=== PATIENT | female | born 1945 | race Caucasian/White ===

== ENCOUNTER 2017-09-20 00:08 | Emergency (ER) | payer MEDICARE, BC, SELFPAY ==
[2017-09-20 00:10] VITALS: BP 127/80; PULSE 92; RESP 17; TEMP 36.4; O2SAT 96; BMI 25.0
[2017-09-20] MEDS: Ondansetron 4 MG/2 ML Vial IV (01:06)
[2017-09-20] MEDS: 0.9% Normal Saline 1,000 ML 1000 ML IV (01:06)
[2017-09-20] MEDS: Loperamide 2 MG Capsule 4 MG PO (01:06)
[2017-09-20 01:11] LABS: Absolute Lymphocyte Count 0.82 X10^3/ul (0.83-4.51); Absolute Neutrophil Count 6.8 X10^3/uL (2.0-7.7); Basophil# 0.04 X10^3/uL; Basophil% 0.5 % (0-1); Eosinophil# 0.01 X10^3/uL; Eosinophils% 0.1 % (0-5); Hematocrit 39.8 % (37-47); Hemoglobin 12.9 g/dl (12.0-15.0); Lymphocyte # 0.82 X10^3/ul (4.0); Lymphocyte % 10.2 % (19-41); Mean Corp Hgb Conc 32.4 g/gl (32-36); Mean Corpuscular Hgb 28.6 pg (27.0-32.0); Mean Corpuscular Volume 88.2 fL (81-99); Mean Platelet Vol. 10.3 fl (6.2-12.0); Monocyte# 0.38 X10^3/uL; Monocyte% 4.7 % (0-10); Neutrophil % 84.5 % (47-70); POSITIVE COUNT NO; POSITIVE DIFFERENTIAL NO; POSITIVE MORPHOLOGY NO; Platelet Count 220 K/mm3 (150-450); RBC Distribution Width CV 13.4 % (11.6-14.6); RBC Distribution Width SD 42.9 fl (35.1-43.9); Red Blood Count 4.51 M/mm3 (4.2-5.4); White Blood Count 8.1 K/mm3 (4.4-11.0)
[2017-09-20 01:24] LABS: Anion Gap 7 (5-15); BUN 6 mg/dL (7-18); BUN/Creat Ratio 8.7 RATIO (10-20); Calcium,Total 8.4 mg/dL (8.5-10.1); Chloride 101 mmol/L (98-107); Creatinine, Serum 0.69 mg/dL (0.55-1.02); EST Glomerular Filtration Rate 89 mL/min (>60); Est Glom Filt Rate - Afr Amer 108 mL/min (>60); Estimated Creatinine Clearance 46.43 ml/min; Glucose 118 mg/dL (74-106); Potassium 3.4 mmol/L (3.5-5.1); Sodium Level 136 mmol/L (136-145)
[2017-09-20 01:30] LABS: Color, Urine Yellow (Yellow); Glucose, Dipstick Normal (Normal); Leukocyte Esterase-Dipstick Negative /ul (Negative); Nitrite-Dipstick Negative (Negative); Occult Blood-Urine 150 /ul (Negative); Protein-Dipstick 30 mg/dl (Negative); Urine Bilirubin Dipstick Negative (Negative); Urine Clarity Clear (Clear); Urine Urobilinogen Normal (Normal)
[2017-09-20 01:33] LABS: Ketone-Dipstick 150 mg/dl (Negative)
--- NOTE | 2017-09-20 01:34 | ED.RN ---
lab called with critical lab results. urine ketones 150. Dr. Loomis made aware. no new orders at this time
[2017-09-20 01:38] LABS: Bacteria RARE /hpf (None Seen); Mucous, Urine 2+ /hpf (<or=2+); Red Blood Cells-Urine 5-10 SEEN /hpf (0-5); Squamous Epithelial Cells - UA 0-5 SEEN /hpf (5-10); White Blood Cells 0-5 SEEN /hpf (0-5)
[2017-09-20 02:50] VITALS: BP 164/92; PULSE 99; RESP 18; O2SAT 97
--- NOTE | 2017-09-20 03:11 | ED.DCSUM_ITS ---
- ER Visit Summary Date of Service: 09/20/17 Chief Complaint: [Vomiting, and diarrhea] History of Present Illness: The patient is a 71 F [presents the emergency department with complaint of vomiting and diarrhea that started around noon. Patient states that she is vomited more than 10 times and has had more than 10 watery stools. Patient complains of body aches. Patient complains of headache. She also states that she has had a cough and sore throat for about a week. Patient's had low-grade fever at home up to 100.8. Patient states that she ate a salad earlier today and about an hour later is when she started vomiting. Patient's also ate the salad but he did not get sick. Patient denies recent travel. Patient denies recent antibiotic usage.] Physical Examination: [HEENT-PERRLA, EOMI. Cranial nerves II through XII grossly intact. TMs clear. Mucous membranes dry. No adenopathy. Cardiovascular-regular rate and rhythm without murmur or ectopy Lungs-clear to auscultation, chest wall stable without crepitus or subcu emphysema Abdomen-normoactive bowel sounds, soft, nontender, no rebound or rigidity, no peritoneal signs. Extremities-intact ?4, normal range of motion, normal pulses, atraumatic] Test Results: [CBC with differential showed a white count of 8.1, hemoglobin 12.9, hematocrit 40, platelets 220. Chemistry showed a sodium 136 potassium 3.4 , chloride 101, CO2 28, glucose 118, BUN 6, creatinine 0.69. Urinalysis showed 150 ketones otherwise no signs of infection.] Stool cultures for enteric pathogens ordered however patient unable to give a sample Emergency Department Course and Treatment: [Patient received a liter normal same fluid bolus as well as Zofran and Imodium. Patient felt much improved after treatment.] Treatment Plan: [Patient will be given a prescription for Zofran and advised use Imodium as needed for the diarrhea.] Disposition: [Discharged to home in stable condition] Impression: [Viral gastroenteritis Viral syndrome] This note was generated with [employer] software. It may contain incorrect words, spelling, and punctuation that were not noted in review of the chart prior to signing ED Disposition - Plan for ED Patient: Chief Complaint: Nausea/Vomiting/Diarrhea Referrals: Adriel Carney Chi, MD [Primary Care Provider] -
--- NOTE | 2017-09-20 03:11 | ED.DEP ---
ED Disposition - Plan for ED Patient: Chief Complaint: Nausea/Vomiting/Diarrhea Instructions: ED Gastroenteritis Viral Prescriptions: Ondansetron [Zofran Odt] 4 mg PO Q8H PRN PRN #10 tab PRN Reason: Nausea Referrals: Adriel Carney Chi, MD [Primary Care Provider] - 3-5 Days
[2017-09-20] MEDS: Acetaminophen 325 MG Tablet 650 MG PO (03:14)
[2017-09-20] MEDS: Ondansetron ODT 4 MG Tablet PO (03:16)
[2017-09-20 03:21] VITALS: BP 160/90; PULSE 90; RESP 18; O2SAT 98
== END 2017-09-20 03:21 | disposition home or self-care (01) ==
LOC: ED 00:47
PROVIDERS: Emergency Provider Emergency Medicine; Family Provider Family Medicine Geriatric Medicine; PCP Family Medicine Geriatric Medicine
DX: A08.4 Viral intestinal infection, unspecified (principal); B34.9 Viral infection, unspecified; E11.9 Type 2 diabetes mellitus without complications; I10 Essential (primary) hypertension
CPT/HCPCS: 80048; 81001; 85025; 99285; J2405

== ENCOUNTER 2017-09-20 19:06 | Emergency (ER) | payer MEDICARE, BC, SELFPAY ==
--- NOTE | 2017-09-20 21:51 | EKG12_ITS ---
Test Reason : CP Blood Pressure : / mmHG Vent. Rate : 067 BPM Atrial Rate : 067 BPM P-R Int : 132 ms QRS Dur : 084 ms QT Int : 398 ms P-R-T Axes : 055 025 055 degrees QTc Int : 420 ms Normal sinus rhythm Nonspecific ST abnormality Abnormal ECG Confirmed by LATANYA SOLER, MAISHA ([id number]), brands editor MISTI RAYMOND ([id number]) on 09/24/2017 3:07:29 PM Referred By: ROBBIE Confirmed By:MAISHA PELAEZ MD
--- NOTE | 2017-09-20 22:20 | CT_ITS ---
CT Head or Brain W/O Contrast INDICATION: Frontal HILLS/COUGH. HTN-rx controlled. Prev neck fusion COMPARISON: None TECHNIQUE: Noncontrast axial CT examination of the brain. Radiation dose optimization applied. FINDINGS: The ventricular system is normal in size and symmetric. The cortical sulci, sylvian fissures, and basal cisterns are well seen. The lowery-white matter junction is distinct. There is no evidence of acute intracranial hemorrhage, mass effect, midline shift, or abnormal extra-axial collection. The calvarium is intact. There is mild mucosal thickening throughout the paranasal sinuses. No evidence of layering effusion. Mastoid air cells are clear. CT/Brain/Head without Contrast IMPRESSION: No evidence of acute intracranial abnormality by noncontrast CT. Mucosal thickening in the paranasal sinuses. at 2343 Reported and signed by: Kimmy Samaniego MD Electronically Signed: Kimmy Samaniego MD at 23:41 EDT Tel , Service support ,
--- NOTE | 2017-09-20 22:47 | RAD_ITS ---
XR Chest 2 Views INDICATION: cough COMPARISON: None FINDINGS: Heart size and pulmonary vascularity are within normal limits. The lungs are clear without evidence of airspace consolidation or pleural effusion. Surgical hardware noted at the cervical spine and left clavicle. RAD/Chest PA and Lateral IMPRESSION: No radiographic evidence of acute intrathoracic disease. at 0003 Reported and signed by: Kimmy Samaniego MD Electronically Signed: Kimmy Samaniego MD at 0:01 EDT Tel , Service support ,
[2017-09-20 23:21] LABS: Bacteria 0 SEEN /hpf (None Seen); Mucous, Urine 0 SEEN /hpf (<or=2+); Red Blood Cells-Urine 0 SEEN /hpf (0-5); Squamous Epithelial Cells - UA 0 SEEN /hpf (5-10); White Blood Cells 0 SEEN /hpf (0-5)
[2017-09-20 23:27] LABS: Color, Urine Straw (Yellow); Glucose, Dipstick Normal (Normal); Ketone-Dipstick 15 mg/dl (Negative); Urine Bilirubin Dipstick Negative (Negative); Urine Clarity Clear (Clear)
[2017-09-20 23:28] LABS: Leukocyte Esterase-Dipstick Negative /ul (Negative); Nitrite-Dipstick NEGATIVE (Negative); Occult Blood-Urine 50 /ul (Negative); Protein-Dipstick Negative (Negative); Urine Urobilinogen Normal (Normal)
[2017-09-21 01:19] LABS: Hematocrit 40.7 % (37-47); Hemoglobin 12.8 g/dl (12.0-15.0); Mean Corp Hgb Conc 31.4 g/gl (32-36); Mean Corpuscular Hgb 28.1 pg (27.0-32.0); Mean Corpuscular Volume 89.5 fL (81-99); Red Blood Count 4.55 M/mm3 (4.2-5.4); White Blood Count 6.5 K/mm3 (4.4-11.0)
[2017-09-21 01:20] LABS: Absolute Lymphocyte Count 0.69 X10^3/ul (0.83-4.51); Absolute Neutrophil Count 5.3 X10^3/uL (2.0-7.7); Basophil# 0.04 X10^3/uL; Basophil% 0.6 % (0-1); Eosinophil# 0.01 X10^3/uL; Eosinophils% 0.2 % (0-5); Lymphocyte # 0.69 X10^3/ul (4.0); Lymphocyte % 10.7 % (19-41); Monocyte# 0.47 X10^3/uL; Monocyte% 7.3 % (0-10); Neutrophil # 5.25 X10^3/uL (2.7-7.7); POSITIVE COUNT NO; POSITIVE DIFFERENTIAL NO; POSITIVE MORPHOLOGY NO; Platelet Count 220 K/mm3 (150-450); RBC Distribution Width CV 13.5 % (11.6-14.6); RBC Distribution Width SD 44.1 fl (35.1-43.9)
[2017-09-21 01:21] LABS: Mean Platelet Vol. 10.7 fl (6.2-12.0)
[2017-09-21 01:30] LABS: Anion Gap 8 (5-15); BUN 5 mg/dL (7-18); BUN/Creat Ratio 7.2 RATIO (10-20); Calcium,Total 8.5 mg/dL (8.5-10.1); Chloride 101 mmol/L (98-107); Creatinine, Serum 0.69 mg/dL (0.55-1.02); EST Glomerular Filtration Rate 89 mL/min (>60); Est Glom Filt Rate - Afr Amer 108 mL/min (>60); Glucose 121 mg/dL (74-106); Potassium 3.3 mmol/L (3.5-5.1); Sodium Level 137 mmol/L (136-145)
--- NOTE | 2017-09-21 02:19 | ED.VISSUMM ---
- ER Visit Summary Date of Service: 09/21/17 Chief Complaint: Multiple complaints History of Present Illness: The patient is a 71 F presents with initial sore throat 5 days ago, gradually improving. However's states 2 days ago began vomiting. States every time she has p.o. intake she would vomit. No hematemesis. Diarrhea also started 2 days however stopped yesterday. No recent antibiotics. Today's complains of headache posterior. States pain into her neck. The fever 102 today. No recent travel in the last 4 weeks. States chest pain along with productive sputum. No urinary symptoms. States a loop recorder placed 4 days ago after her sore throat symptoms performed by Dr. Mota at [facility]. Similar symptoms with headaches in the past, however states more intense. Physical Examination: General: Alert and oriented ?3, mild distress HEENT: Normocephalic, atraumatic. TMs normal bilaterally. mild dry mucosa membranes Neck: supple, nontender. No meningismus Cardiovascular: Regular rate and rhythm, no murmurs Respiratory: Normal breath sounds, symmetric, no distress Abdomen: Soft, nontender, nondistended Extremities: Nontender, no edema, pulses intact ?4 Neuro: no focal neurological deficits. Test Results: EKG sinus rhythm 67, no ST or T-wave changes. Artifacts at baseline. To be chest x-ray negative. CT head negative. White count 6.5. Hemoglobin 12. Test 3.3. Creatinine 0.68. Urine negative for infection. Troponin negative. Emergency Department Course and Treatment: Patient no focal neurologic deficits. She was treated with comes in Benadryl and fluids. Head CT negative. She was monitored. States all her symptoms of headache, nausea, chest pains all were much more improved. She does feel she is able to go home. Discussed with patient monitoring symptoms. She does have Zofran at home. She will use as needed. She will return if any worsening symptoms. Treatment Plan: Disposition: Discharge Impression: 1. Atypical chest pain 2. Vomiting stable 3. Headache This note was generated with [employer] dictation software. It may contain incorrect words, spelling, and punctuation that were not noted in review of the chart prior to signing ED Disposition - Plan for ED Patient: Disposition: Home or Assisted Living Diagnosis: Atypical chest pain, Vomiting, Headache Referrals: Adriel Carney Chi, MD [Primary Care Provider] -
== END 2017-09-21 00:50 | disposition home or self-care (01) ==
PROVIDERS: Family Provider Family Medicine Geriatric Medicine; PCP Family Medicine Geriatric Medicine
DX: R07.89 Other chest pain (principal); R11.10 Vomiting, unspecified; R51 Headache; I10 Essential (primary) hypertension; R05 Cough
CPT/HCPCS: 70450; 71046; 80048; 81001; 84484; 85025; 93005; 96361; 96374; 96375; 99285; J7030; A4216; J2405

== ENCOUNTER → 2017-09-27 13:29 | Outpatient (CLI) | payer MEDICARE, BC, SELFPAY | PROVIDERS: Family Provider Family Medicine Geriatric Medicine; PCP Family Medicine Geriatric Medicine; Visit Provider Family Medicine Geriatric Medicine | DX: R50.9 Fever, unspecified (principal) | CPT/HCPCS: 87633 ==

== ENCOUNTER → 2017-10-07 15:50 | Outpatient (CLI) | payer MEDICARE, BC, SELFPAY ==
--- NOTE | 2017-10-07 16:00 | RAD_ITS ---
STUDY: X-RAY CHEST REASON FOR EXAM: Female, 71 years old. Shortness of breath TECHNIQUE: PA and lateral views of the chest. COMPARISON: 09/20/2017 FINDINGS: A cardiac monitoring device projects over the chest. The lungs are clear and expanded. There is no demonstrated pleural abnormality. Normal size heart. Normal mediastinum and kong. Normal visualized pulmonary arteries. Normal visualized aortic arch and descending thoracic aorta. Normal visualized thoracic spine. Postoperative changes are seen to the left clavicle and lower cervical spine. There is no demonstrated abnormality of the visualized soft tissue structures of the upper abdomen. RAD/Chest PA and Lateral IMPRESSION: No acute process in the chest. Electronically Signed: Lavon Hannon DO at 16:02 EDT Tel , Service support ,
[2017-10-07 17:05] LABS: Basophil# 0.03 X10^3/uL; Basophil% 0.3 % (0-1); Eosinophil# 0.13 X10^3/uL; Eosinophils% 1.4 % (0-5); Hematocrit 41.7 % (37-47); Hemoglobin 13.4 g/dl (12.0-15.0); Lymphocyte % 33.2 % (19-41); Mean Corp Hgb Conc 32.1 g/gl (32-36); Mean Corpuscular Hgb 28.9 pg (27.0-32.0); Mean Corpuscular Volume 89.9 fL (81-99); Mean Platelet Vol. 11.4 fl (6.2-12.0); Monocyte# 0.88 X10^3/uL; Monocyte% 9.7 % (0-10); Neutrophil # 4.98 X10^3/uL (2.7-7.7); Neutrophil % 55.2 % (47-70); Platelet Count 375 K/mm3 (150-450); RBC Distribution Width CV 14.2 % (11.6-14.6); RBC Distribution Width SD 45.9 fl (35.1-43.9); Red Blood Count 4.64 M/mm3 (4.2-5.4)
[2017-10-07 17:08] LABS: ALB/GLOB Ratio 1.1 RATIO (0.9-2.4); AST(SGOT) 16 U/L (15-37); Alanine Aminotransfer ALT/SGPT 13 U/L (13-56); Albumin, Serum 3.5 g/dL (3.2-5.0); Alkaline Phosphatase 109 U/L (45-117); Anion Gap 8 (5-15); BUN 15 mg/dL (7-18); BUN/Creat Ratio 18.4 RATIO (10-20); Chloride 106 mmol/L (98-107); Creatinine, Serum 0.82 mg/dL (0.55-1.02); EST Glomerular Filtration Rate 73 mL/min (>60); Est Glom Filt Rate - Afr Amer 89 mL/min (>60); Globulin 3.3 g/dL (2.2-4.2); Glucose 101 mg/dL (74-106); Potassium 3.8 mmol/L (3.5-5.1); Protein, Total 6.8 g/dL (6.4-8.2); Sodium Level 142 mmol/L (136-145); Thyroid Stim Hormone (TSH) 0.77 uIU/mL (0.358-3.74)
[2017-10-07 17:13] LABS: POSITIVE COUNT NO; POSITIVE DIFFERENTIAL NO; POSITIVE MORPHOLOGY NO
== END ==
LOC: POLAB3 15:51 → RAD 15:57
PROVIDERS: Family Provider Family Medicine Geriatric Medicine; PCP Family Medicine Geriatric Medicine; Visit Provider Family Medicine Geriatric Medicine
DX: R53.83 Other fatigue (principal); R06.89 Other abnormalities of breathing
CPT/HCPCS: 36415; 71046; 80053; 84443; 85025

== ENCOUNTER → 2018-01-02 11:47 | Outpatient (CLI) | payer MEDICARE, BC, SELFPAY ==
--- NOTE | 2018-01-02 11:50 | BI_ITS ---
MAMMOGRAPHY - BILATERAL SCREENING REASON FOR EXAM: Female, 72 years old. Routine annual screening examination. PERTINENT HISTORY: Non-contributory. Remote right excisional breast biopsy. TECHNIQUE: Digital bilateral breast laverne (3D mammographic acquisition) in the CC and MLO projections. 2-D mediolateral oblique (MLO) and craniocaudad (CC) views of both breasts were obtained. CAD: Full Field Digital Mammography with Computer Added Detection was performed. COMPARISON: Comparison is made with prior study dated January 01, 2017 and December 30, 2015. FINDINGS: Breast Composition: The breasts are heterogeneously dense, which may obscure small masses. There are no dominant masses or suspicious calcifications. A cardiac monitoring device is seen in the deep mid medial aspect of the left breast. No other significant abnormalities are identified. There has been no significant change since the prior study. BI/SCREENING MAMM (CAD), BILAT IMPRESSION: Stable bilateral screening mammogram. Yearly follow-up mammogram recommended. (A) ASSESSMENT CATEGORY: BIRADS Category 2: Benign. A letter regarding these results will be sent to the patient by the facility within 30 days. Approximately 10% of breast cancers are not detected by mammography. A normal mammogram should not delay biopsy of a clinically suspicious abnormality. [id number] Electronically Signed: Geraldo Carranza MD at 14:12 EDT Tel [phone], Service support ,
== END ==
PROVIDERS: Family Provider Family Medicine Geriatric Medicine; PCP Family Medicine Geriatric Medicine; Visit Provider Family Medicine Geriatric Medicine
DX: Z12.31 Encounter for screening mammogram for malignant neoplasm of breast (principal)
CPT/HCPCS: 77063; 77067

== ENCOUNTER → 2018-01-20 12:17 | Outpatient (CLI) | payer MEDICARE, BC, SELFPAY ==
[2018-01-20 16:01] LABS: Absolute Neutrophil Count 4.6 X10^3/uL (2.0-7.7); Basophil# 0.03 X10^3/uL; Basophil% 0.4 % (0-1); Eosinophil# 0.18 X10^3/uL; Eosinophils% 2.4 % (0-5); Hematocrit 38.8 % (37-47); Hemoglobin 12.3 g/dl (12.0-15.0); Lymphocyte % 26.8 % (19-41); Mean Corp Hgb Conc 31.7 g/gl (32-36); Mean Corpuscular Volume 91.5 fL (81-99); Mean Platelet Vol. 10.9 fl (6.2-12.0); Monocyte# 0.65 X10^3/uL; Monocyte% 8.7 % (0-10); Neutrophil # 4.59 X10^3/uL (2.7-7.7); Neutrophil % 61.6 % (47-70); Platelet Count 363 K/mm3 (150-450); RBC Distribution Width CV 14.7 % (11.6-14.6); RBC Distribution Width SD 48.2 fl (35.1-43.9); Red Blood Count 4.24 M/mm3 (4.2-5.4); White Blood Count 7.5 K/mm3 (4.4-11.0)
[2018-01-20 16:04] LABS: POSITIVE COUNT NO; POSITIVE DIFFERENTIAL NO; POSITIVE MORPHOLOGY NO
[2018-01-20 16:36] LABS: Erythrocyte Sedimentation Rate 14 mm/hr (0-30)
[2018-01-20 19:28] LABS: AST(SGOT) 17 U/L (15-37); Alanine Aminotransfer ALT/SGPT 12 U/L (13-56); Albumin, Serum 3.4 g/dL (3.2-5.0); Alkaline Phosphatase 95 U/L (45-117); Anion Gap 12 (5-15); BUN 10 mg/dL (7-18); Calcium,Total 8.6 mg/dL (8.5-10.1); Chloride 109 mmol/L (98-107); Creatinine, Serum 0.77 mg/dL (0.55-1.02); EST Glomerular Filtration Rate 78 mL/min (>60); Est Glom Filt Rate - Afr Amer 94 mL/min (>60); Follicle Stimulating Hormone 44.2 mIU/mL; Globulin 3.3 g/dL (2.2-4.2); Glucose 80 mg/dL (74-106); LDH 223 U/L (84-246); Luteinizing Hormone 16.4 mIU/mL; Potassium 3.6 mmol/L (3.5-5.1); Protein, Total 6.7 g/dL (6.4-8.2); Sodium Level 147 mmol/L (136-145); T4 Free Direct 1.04 ng/dL (0.76-1.46); Thyroid Stim Hormone (TSH) 0.81 uIU/mL (0.358-3.74)
[2018-01-24 13:39] LABS: Estrogen, Total, Serum 43 pg/mL (.)
== END ==
PROVIDERS: Family Provider Family Medicine Geriatric Medicine; PCP Family Medicine Geriatric Medicine; Visit Provider Internal Medicine Endocrinology, Diabetes & Metabolism
DX: R61 Generalized hyperhidrosis (principal); Z20.1 Contact with and (suspected) exposure to tuberculosis
CPT/HCPCS: 36415; 80053; 82672; 83001; 83002; 83520; 83615; 84439; 84443; 85025; 85652

== ENCOUNTER → 2018-01-22 13:50 | Outpatient (CLI) | payer MEDICARE, BC, SELFPAY ==
[2018-01-22 14:09] LABS: Absolute Lymphocyte Count 1.89 X10^3/ul (0.83-4.51); Absolute Neutrophil Count 6.4 X10^3/uL (2.0-7.7); Basophil# 0.04 X10^3/uL; Basophil% 0.4 % (0-1); Eosinophil# 0.11 X10^3/uL; Eosinophils% 1.2 % (0-5); Hematocrit 41.6 % (37-47); Hemoglobin 13.1 g/dl (12.0-15.0); Lymphocyte # 1.89 X10^3/ul (4.0); Lymphocyte % 20.9 % (19-41); Mean Corp Hgb Conc 31.5 g/gl (32-36); Mean Corpuscular Hgb 28.2 pg (27.0-32.0); Mean Corpuscular Volume 89.7 fL (81-99); Mean Platelet Vol. 10.4 fl (6.2-12.0); Monocyte# 0.65 X10^3/uL; Monocyte% 7.2 % (0-10); Neutrophil # 6.36 X10^3/uL (2.7-7.7); Neutrophil % 70.2 % (47-70); Platelet Count 352 K/mm3 (150-450); RBC Distribution Width CV 14.3 % (11.6-14.6); RBC Distribution Width SD 46.9 fl (35.1-43.9); Red Blood Count 4.64 M/mm3 (4.2-5.4); White Blood Count 9.1 K/mm3 (4.4-11.0)
[2018-01-22 14:10] LABS: POSITIVE COUNT NO; POSITIVE DIFFERENTIAL NO; POSITIVE MORPHOLOGY NO
[2018-01-22 14:24] LABS: ALB/GLOB Ratio 1.1 RATIO (0.9-2.4); AST(SGOT) 20 U/L (15-37); Alanine Aminotransfer ALT/SGPT 12 U/L (13-56); Albumin, Serum 3.8 g/dL (3.2-5.0); Alkaline Phosphatase 97 U/L (45-117); Anion Gap 8 (5-15); BUN 7 mg/dL (7-18); BUN/Creat Ratio 11.5 RATIO (10-20); Chloride 106 mmol/L (98-107); Creatinine, Serum 0.61 mg/dL (0.55-1.02); EST Glomerular Filtration Rate 103 mL/min (>60); Est Glom Filt Rate - Afr Amer 124 mL/min (>60); Globulin 3.6 g/dL (2.2-4.2); Glucose 103 mg/dL (74-106); Potassium 3.2 mmol/L (3.5-5.1); Protein, Total 7.4 g/dL (6.4-8.2); Sodium Level 142 mmol/L (136-145)
== END ==
PROVIDERS: Family Provider Family Medicine Geriatric Medicine; PCP Family Medicine Geriatric Medicine; Visit Provider Family Medicine Geriatric Medicine
DX: R10.9 Unspecified abdominal pain (principal)
CPT/HCPCS: 36415; 80053; 85025

== ENCOUNTER → 2018-01-22 15:57 | Outpatient (CLI) | payer MEDICARE, BC, SELFPAY | PROVIDERS: Family Provider Family Medicine Geriatric Medicine; PCP Family Medicine Geriatric Medicine; Visit Provider Family Medicine Geriatric Medicine | DX: R11.0 Nausea (principal); R10.9 Unspecified abdominal pain | CPT/HCPCS: 36415; 71046; 74177; 80053; 85025; Q9967 ==

== ENCOUNTER → 2018-02-11 10:18 | Outpatient (CLI) | payer MEDICARE, BC, SELFPAY ==
[2018-02-11 15:03] LABS: Creat.Clear Total Volume 2850 mL
[2018-02-12 19:05] LABS: Creatinine Serum Creat 0.8 mg/dL (0.6-1.0)
[2018-02-12 19:08] LABS: Creatinine Clearance 72 ml/min (100-200); Creatinine Urine 30.7 mg/dL (NO RANGE EST.); EST Glomerular Filtration Rate 71 mL/min (>60); Est Glom Filt Rate - Afr Amer 85 mL/min (>60)
[2018-02-13 20:08] LABS: 5-HIAA, UR 1.1 mg/L (Undefined); Cortisol, Urinary Free 4 ug/L (Undefined); Metanephrine, Ur 17 ug/L (Undefined); Normetanephrines, Ur 91 ug/L (Undefined)
[2018-02-14 08:55] LABS: 5-HIAA, 24UR 3.1 mg/24 hr (0.0-14.9); Cortisol, Free 24Ur 11 ug/24 hr (0-50); Metanephrines, 24Ur 48 ug/24 hr (45-290); Normetanephrines, 24Ur 259 ug/24 hr (82-500)
[2018-02-19 14:07] LABS: Dopamine, UR 108 ug/L (Undefined); Epinephrine, 24Ur < 2 ug/24 hr (0-20); Epinephrine, Ur < 1 ug/L (Undefined); Norepinephrine, 24Ur 47 ug/24 hr (0-135); Norepinephrine, Ur 20 ug/L (Undefined)
[2018-02-19 14:59] LABS: Dopamine, 24Ur 254 ug/24 hr (0-510)
== END ==
LOC: LAB 10:20 → LABSPEC 10:21
PROVIDERS: Family Provider Family Medicine Geriatric Medicine; PCP Family Medicine Geriatric Medicine; Visit Provider Internal Medicine Endocrinology, Diabetes & Metabolism
DX: R61 Generalized hyperhidrosis (principal); Z20.1 Contact with and (suspected) exposure to tuberculosis
CPT/HCPCS: 81050; 82384; 82530; 82575; 83497; 83835

== ENCOUNTER → 2018-02-12 14:51 | Outpatient (CLI) | payer MEDICARE, BC, SELFPAY | PROVIDERS: Family Provider Family Medicine Geriatric Medicine; PCP Family Medicine Geriatric Medicine; Visit Provider Internal Medicine Endocrinology, Diabetes & Metabolism | DX: R61 Generalized hyperhidrosis (principal) ==

== ENCOUNTER → 2018-03-03 12:08 | Outpatient (CLI) | payer MEDICARE, BC, SELFPAY ==
[2018-03-03 14:04] LABS: Absolute Lymphocyte Count 1.87 X10^3/ul (0.83-4.51); Absolute Neutrophil Count 4.1 X10^3/uL (2.0-7.7); Basophil# 0.03 X10^3/uL; Basophil% 0.4 % (0-1); Eosinophil# 0.08 X10^3/uL; Eosinophils% 1.2 % (0-5); Hematocrit 39.1 % (37-47); Hemoglobin 12.7 g/dl (12.0-15.0); Lymphocyte # 1.87 X10^3/ul (4.0); Lymphocyte % 27.7 % (19-41); Mean Corp Hgb Conc 32.5 g/gl (32-36); Mean Corpuscular Hgb 29.5 pg (27.0-32.0); Mean Corpuscular Volume 90.9 fL (81-99); Mean Platelet Vol. 11.3 fl (6.2-12.0); Monocyte# 0.68 X10^3/uL; Monocyte% 10.1 % (0-10); Neutrophil # 4.07 X10^3/uL (2.7-7.7); Neutrophil % 60.3 % (47-70); Platelet Count 391 K/mm3 (150-450); RBC Distribution Width CV 14.6 % (11.6-14.6); RBC Distribution Width SD 47.3 fl (35.1-43.9); White Blood Count 6.8 K/mm3 (4.4-11.0)
[2018-03-03 14:13] LABS: Vitamin D,25 Hydroxy 23.9 ng/mL (29.95-100.01)
[2018-03-03 14:17] LABS: AST(SGOT) 16 U/L (15-37); Alanine Aminotransfer ALT/SGPT 15 U/L (13-56); Albumin, Serum 3.6 g/dL (3.2-5.0); Alkaline Phosphatase 98 U/L (45-117); Anion Gap 8 (5-15); BUN 8 mg/dL (7-18); BUN/Creat Ratio 10.7 RATIO (10-20); Calcium,Total 9.2 mg/dL (8.5-10.1); Chloride 105 mmol/L (98-107); Creatinine, Serum 0.75 mg/dL (0.55-1.02); EST Glomerular Filtration Rate 81 mL/min (>60); Est Glom Filt Rate - Afr Amer 98 mL/min (>60); Globulin 3.5 g/dL (2.2-4.2); Glucose 85 mg/dL (74-106); Potassium 3.6 mmol/L (3.5-5.1); Protein, Total 7.1 g/dL (6.4-8.2); Sodium Level 141 mmol/L (136-145); Thyroid Stim Hormone (TSH) 0.73 uIU/mL (0.358-3.74)
[2018-03-03 14:18] LABS: POSITIVE COUNT NO; POSITIVE DIFFERENTIAL NO; POSITIVE MORPHOLOGY NO
[2018-03-04 09:47] LABS: Hep C Antibodies <0.1 s/co ratio (0.0-0.9)
== END ==
PROVIDERS: Family Provider Family Medicine Geriatric Medicine; PCP Family Medicine Geriatric Medicine; Visit Provider Family Medicine Geriatric Medicine
DX: E11.9 Type 2 diabetes mellitus without complications (principal); E55.9 Vitamin D deficiency, unspecified; I10 Essential (primary) hypertension; Z13.89 Encounter for screening for other disorder
CPT/HCPCS: 36415; 80053; 82306; 84443; 85025; 86803

== ENCOUNTER → 2018-09-29 14:41 | Outpatient (CLI) | payer MEDICARE, BC, SELFPAY ==
[2018-03-24 14:50] VITALS: BMI 25.4
[2018-09-29 16:07] LABS: Absolute Lymphocyte Count 2.68 X10^3/ul (0.83-4.51); Absolute Neutrophil Count 3.8 X10^3/uL (2.0-7.7); Basophil# 0.05 X10^3/uL; Basophil% 0.7 % (0-1); Eosinophil# 0.13 X10^3/uL; Eosinophils% 1.8 % (0-5); Hematocrit 36.9 % (37-47); Hemoglobin 12.9 g/dl (12.0-15.0); Lymphocyte # 2.68 X10^3/ul (4.0); Lymphocyte % 38.1 % (19-41); Mean Corpuscular Hgb 32.6 pg (27.0-32.0); Mean Corpuscular Volume 93.2 fL (81-99); Monocyte# 0.41 X10^3/uL; Monocyte% 5.8 % (0-10); Neutrophil # 3.76 X10^3/uL (2.7-7.7); Neutrophil % 53.5 % (47-70); Platelet Count 386 K/mm3 (150-450); RBC Distribution Width CV 14.3 % (11.6-14.6); RBC Distribution Width SD 46.7 fl (35.1-43.9); Red Blood Count 3.96 M/mm3 (4.2-5.4)
[2018-09-29 16:29] LABS: Vitamin D,25 Hydroxy 22.6 ng/mL (29.95-100.01)
[2018-09-29 16:34] LABS: POSITIVE COUNT NO; POSITIVE DIFFERENTIAL NO; POSITIVE MORPHOLOGY NO
[2018-09-29 16:40] LABS: ALB/GLOB Ratio 1.1 RATIO (0.9-2.4); AST(SGOT) 21 U/L (15-37); Alanine Aminotransfer ALT/SGPT 16 U/L (13-56); Albumin, Serum 3.9 g/dL (3.2-5.0); Alkaline Phosphatase 138 U/L (45-117); Anion Gap 7 (5-15); BUN 7 mg/dL (7-18); BUN/Creat Ratio 8.6 RATIO (10-20); Calcium,Total 9.1 mg/dL (8.5-10.1); Chloride 106 mmol/L (98-107); Creatinine, Serum 0.81 mg/dL (0.55-1.02); EST Glomerular Filtration Rate 74 mL/min (>60); Est Glom Filt Rate - Afr Amer 89 mL/min (>60); Globulin 3.4 g/dL (2.2-4.2); Glucose 98 mg/dL (74-106); Potassium 3.5 mmol/L (3.5-5.1); Protein, Total 7.3 g/dL (6.4-8.2); Sodium Level 142 mmol/L (136-145); Thyroid Stim Hormone (TSH) 0.77 uIU/mL (0.358-3.74)
== END ==
PROVIDERS: Family Provider Family Medicine Geriatric Medicine; PCP Family Medicine Geriatric Medicine; Visit Provider Family Medicine Geriatric Medicine
DX: E55.9 Vitamin D deficiency, unspecified (principal); I10 Essential (primary) hypertension
CPT/HCPCS: 36415; 80053; 82306; 84443; 85025

== ENCOUNTER → 2018-11-20 16:01 | Outpatient (CLI) | payer MEDICARE, BC, SELFPAY ==
[2018-03-24 14:50] VITALS: BMI 25.4
--- NOTE | 2018-11-20 16:05 | RAD_ITS ---
STUDY: X-RAY - LUMBAR SPINE REASON FOR EXAM: Female, 72 years old. Low back pain TECHNIQUE: 2 view(s) of the lumbar spine were obtained. COMPARISON: None FINDINGS: Normal lumbar lordosis. There is a levoscoliosis of the lumbar spine. 8 mm of anterolisthesis of L5 on S1. There is multilevel endplate spondylosis of the lumbar vertebrae. There is multi-level degenerative disc disease with multi-level disc space narrowing. The soft tissue structures are unremarkable. RAD/Lumbar Spine 2 or 3 Views IMPRESSION: Levoscoliosis with diffuse degenerative disc disease and 8 mm of anterolisthesis of L5 on S1. MRI would be useful. Electronically Signed: Rufus Frank MD at 10:43 EDT Tel , Service support ,
== END ==
PROVIDERS: Family Provider Family Medicine Geriatric Medicine; PCP Family Medicine Geriatric Medicine; Referring Provider Family Medicine Geriatric Medicine; Visit Provider Family Medicine Geriatric Medicine
DX: M54.16 Radiculopathy, lumbar region (principal); M47.819 Spondylosis without myelopathy or radiculopathy, site unspecified
CPT/HCPCS: 72100

== ENCOUNTER → 2018-12-01 07:18 | Outpatient (CLI) | payer MEDICARE, BC, SELFPAY ==
[2018-03-24 14:50] VITALS: BMI 25.4
--- NOTE | 2018-12-01 07:49 | MRI_ITS ---
STUDY: MRI LUMBAR SPINE WITHOUT CONTRAST REASON FOR EXAM: Female, 73 years old. Low back pain, right hip pain, right leg pain. TECHNIQUE: Standardized fat and water weighted pulse sequences were obtained in the sagittal and axial planes. COMPARISON: None FINDINGS: T12-L1: Normal endplates. Normal disc height, hydration and morphology. Normal bilateral facet joints. Normal central canal and bilateral lateral recesses. Normal bilateral intervertebral neural foramina. Normal lumbar lordosis. Mild S-shaped scoliosis with levoscoliosis of the upper lumbar spine and mild dextroscoliosis lower lumbar spine. Normal conus medullaris that terminates at the L1. L1-2: Normal endplates. Normal disc height, hydration and morphology. Normal bilateral facet joints. Normal central canal and bilateral lateral recesses. Normal bilateral intervertebral neural foramina. L2-3: Mild bilateral facet hypertrophy with fluid in the facet joints consistent with instability. 2 mm retrolisthesis of L2 on L3 with a mild bilobed disc protrusion produces mild spinal stenosis and mild bilateral neural foraminal stenosis. L3-4: Moderate bilateral facet hypertrophy and ligamentum flavum hypertrophy. Mild bilobed disc protrusion produces mild spinal stenosis and mild bilateral neural foraminal stenosis. L4-5: Mild bilateral facet hypertrophy and moderate ligament flavum hypertrophy. Small left paracentral and foraminal disc protrusion produces mild left neural foraminal stenosis. L5-S1: Moderate bilateral facet hypertrophy and ligamentum flavum hypertrophy. 2 mm of anterolisthesis of L5 on S1 with a mild broad disc protrusion produces mild spinal stenosis and mild bilateral neural foraminal stenosis. Normal visualized sacral ala. Normal visualized paraspinous soft tissue structures. MRI/Spine Lumbar (Routine) IMPRESSION: Mild S-shaped scoliosis and degenerative disc disease as described above. Electronically Signed: Rufus Frank MD at 17:30 EDT Tel , Service support ,
== END ==
PROVIDERS: Family Provider Family Medicine Geriatric Medicine; PCP Family Medicine Geriatric Medicine; Referring Provider Family Medicine Geriatric Medicine; Visit Provider Family Medicine Geriatric Medicine
DX: M54.5 Low back pain (principal); M54.16 Radiculopathy, lumbar region
CPT/HCPCS: 72148

== ENCOUNTER → 2018-12-15 11:40 | Outpatient (CLI) | payer MEDICARE, BC, SELFPAY ==
[2018-03-24 14:50] VITALS: BMI 25.4
--- NOTE | 2018-12-15 11:43 | RAD_ITS ---
STUDY: X-RAY - PELVIS AND RIGHT HIP REASON FOR EXAM: Female, 73 years old. Right hip pain TECHNIQUE: 3 views of the pelvis and hip. COMPARISON: None. FINDINGS: There is a non-specific bowel gas pattern. Normal visualized soft tissue structures. Normal bilateral iliac wings, sacroiliac joints and visualized sacrum. Normal bilateral superior and inferior pubic rami. Normal pubic symphysis. Normal bilateral ischial tuberosities. There are osteoarthritic changes of the femoral head with marginal osteophyte formation. Sclerosis of the acetabulum. Normal hip joint. RAD/HIP, UNI W/ Pelvis 2-3 Views IMPRESSION: No acute abnormality. Mild osteoarthritis of the right hip. Electronically Signed: Jacob Owens MD at 18:55 EDT , Service support ,
== END ==
PROVIDERS: Family Provider Family Medicine Geriatric Medicine; PCP Family Medicine Geriatric Medicine; Referring Provider Anesthesiology; Visit Provider Anesthesiology
DX: M25.551 Pain in right hip (principal)
CPT/HCPCS: 73502

== ENCOUNTER 2018-12-19 13:41 | Day surgery (SDC) | payer MEDICARE, BC, SELFPAY ==
[2018-12-19] VITALS (7 sets, daily range): BP systolic 113–143; BP diastolic 60–78; PULSE 55–65; RESP 16; TEMP 36.1–36.4; O2SAT 95–98; BMI 25.0
--- NOTE | 2018-12-19 16:37 | RAD_ITS ---
Exam: Interpretation of C-arm views from the OR. HISTORY: Epidural block. TECHNIQUE: 3 C-arm views, 26.6 seconds fluoroscopy time. FINDINGS: C-arm views show needles positioned at the L4-L5 and L5-S1 levels. Correlate with procedure note. Electronically Signed: Jacob Owens MD at 18:06 EDT , Service support , RAD/Lumbar Spine 2 or 3 Views
[2018-12-19] MEDS: Triamcinolone Acetonide 40 MG/ML Vial (16:47)
--- NOTE | 2018-12-19 16:50 | PCM.DC ---
- Discharge Diagnoses Current Active Problems: Lower back pain and lumbar radiculopathy Reason(s) for Visit for Discharge Instructions: Lumbar epidural steroid injection at the level of L4-5 under fluoroscopy guidance You will use the following diet at home:: No restrictions Your food should be the consistency of: Regular Discharge Activity: Return to Normal Activity May shower in (days): 1 May resume sexual activity in: No Restrictions Weight Bearing Status: Weight bearing as tolerated, Full weight bearing, Partial weight bearing, Toe touch weight bearing, No weight bearing Call your doctor if your incision/area has: Continuous Slow Oozing, Sudden Increased Bleeding, Increased Pain/ Swelling, Increased Redness, Foul Smelling Discharge, Swelling at the incision site Call your doctor if you observe: Fever of 101 or Higher, Coldness, Increased Pain, Uncontrolled pain Suture Line Care: Avoid Pulling/Pushing, Avoid Pinching/Bending Remove Dressing in (days):: 1 Cleanse incision/area with: Soap & Water Allergies/Adverse Reactions: Allergies estrogens, conjugated [From Premarin] Allergy (Severe, Verified 12/19/18 13:51) rash sulfamethoxazole [From Bactrim] Allergy (Verified 12/19/18 13:51) Rash trimethoprim [From Bactrim] Allergy (Verified 12/19/18 13:51) Rash amoxicillin [From Prevpac] Adverse Reaction (Severe, Verified 12/19/18 13:51) edema to knees atorvastatin [From Lipitor] Adverse Reaction (Severe, Verified 12/19/18 13:51) edema clarithromycin [From Prevpac] Adverse Reaction (Severe, Verified 12/19/18 13:51) edema to knees colestipol [From Colestid] Adverse Reaction (Severe, Verified 12/19/18 13:51) arthralgia lansoprazole [From Prevpac] Adverse Reaction (Severe, Verified 12/19/18 13:51) edema to knees olmesartan [From Benicar] Adverse Reaction (Severe, Verified 12/19/18 13:51) hair loss pravastatin [From Pravachol] Adverse Reaction (Severe, Verified 12/19/18 13:51) myalgias rosuvastatin [From Crestor] Adverse Reaction (Severe, Verified 12/19/18 13:51) edema simvastatin [From Zocor] Adverse Reaction (Severe, Verified 12/19/18 13:51) myalgias spironolactone Adverse Reaction (Mild, Verified 12/19/18 13:51) Rash on hip gabapentin Adverse Reaction (Unknown, Verified 12/19/18 13:51) unkn tramadol Adverse Reaction (Unknown, Verified 12/19/18 13:51) Unknown Latex, Natural Rubber Adverse Reaction (Verified 12/19/18 13:51) Rash Medications to take at Discharge diphenhydramine 25 mg capsule 50 mg PO PRN PRN cap 11/01/17 famotidine 20 mg tablet 20 mg PO QHS 11/01/17 biotin 1 mg tablet 1 mg PO DAILY 02/21/18 Acetaminophen/Diphenhydramine [Tylenol Pm Ex-Strength Caplet] 1 ea PO QHS 12/17/18 Amlodipine [Norvasc] 5 mg PO DAILY 12/17/18 Lisinopril 2.5 mg PO DAILY 12/17/18 Metoprolol Succinate 25 mg PO DAILY 12/17/18 Primary Care Physician: Adriel Carney Chi, MD [Primary Care Provider] - Test Results: Test results from this visit will be discussed in further detail at your follow-up appointment, if applicable. Please Follow Up With: Annika French MD
--- NOTE | 2018-12-19 16:52 | OP.PCM_ITS ---
Problem List (1) Intervertebral disc disorder with radiculopathy of lumbar region Status: Acute (2) Intervertebral disc disorder with radiculopathy of lumbar region Status: Acute (3) Other intervertebral disc displacement, lumbar region Status: Acute (4) Other intervertebral disc displacement, lumbar region Status: Acute (5) Radiculopathy of lumbar region Status: Acute (6) Radiculopathy of lumbar region Status: Acute Report of Operation Date of Procedure: 12/19/18 Pre-Operative Diagnosis: Lumbar degenerative disc disease and lumbar radiculopathy Post-Operative Diagnosis: Same Surgery/Procedure Performed:: Lumbar epidural steroid injection at the L4-5 under fluoroscopy guidance Description of Surgical Findings:: Under sterile conditions. Patient placed in the prone position, pressure points were padded, patient was ready from the nursing and the anesthesia team. After identification of the side and the target area for the block under guided fluoroscopy, the entry site was marked with marking pen. I used Betadine for sterilization of the skin, sterile draping were applied. Using 25-gauge needle to infiltrate the skin with local anesthesia using preservative-free lidocaine 0.5% injected 2.5 mL at site of entry. Using guided fluoroscopy, accessed the the posterior epidural space using 18- gauge Touhy needles under midline approach, accessed the site was assisted with lateral fluoroscopy, followed by using [id number] technique using preservative-free normal saline, negative aspiration of CSF and blood. Injected contrast solution [2.5] mL under live fluoroscopy which showed good spread of the contrast to the posterior epidural space and to the targeted area of the injection at[ L4-5]. Injected [5] mL of mixture of preservative-free lidocaine and Kenalog [80] mg for the procedure which showed appropriate spread in the epidural space. [place] was removed, pressure dressing were applied. Patient tolerated the procedure well and was taken to the recovery. Type of Anesthesia:: Local MAC Estimated Blood Loss (mL): None
== END 2018-12-19 17:35 | disposition home or self-care (01) ==
LOC: SDC 13:44 → AC 13:44
PROVIDERS: Family Provider Family Medicine Geriatric Medicine; PCP Family Medicine Geriatric Medicine; Referring Provider Anesthesiology; Visit Provider Anesthesiology
PROC: 3E0S3BZ Introduction of Anesthetic Agent into Epidural Space, Percutaneous Approach (ICD-10-PCS; CPT 62322; principal; 2018-12-19 15:35)
DX: M51.16 Intervertebral disc disorders with radiculopathy, lumbar region (principal); E11.9 Type 2 diabetes mellitus without complications; G89.29 Other chronic pain; M54.5 Low back pain; K21.9 Gastro-esophageal reflux disease without esophagitis; I10 Essential (primary) hypertension; Z86.73 Personal history of transient ischemic attack (TIA), and cerebral infarction without residual deficits
CPT/HCPCS: 01991; 62327; 64483; 72100; J7120

== ENCOUNTER → 2019-01-07 15:30 | Outpatient (CLI) | payer MEDICARE, BC, SELFPAY ==
[2018-12-29 13:07] VITALS: BMI 25.2
--- NOTE | 2019-01-07 15:31 | BI_ITS ---
MAMMOGRAPHY - BILATERAL SCREENING REASON FOR EXAM: Female, 73 years old. Routine annual screening examination. PERTINENT HISTORY: Non-contributory. Remote right excisional breast biopsy. TECHNIQUE: Digital bilateral breast grace (3D mammographic acquisition) in the CC and MLO projections. 2-D mediolateral oblique (MLO) and craniocaudad (CC) views of both breasts were obtained. CAD: Full Field Digital Mammography with Computer Added Detection was performed. COMPARISON: Comparison is made with prior study dated January 02, 2018 and January 01, 2017. FINDINGS: Breast Composition: The breasts are heterogeneously dense, which may obscure small masses. Possible area of architectural distortion in the retroareolar region of the right breast as compared to prior examination. The patient will be recalled for additional views including compression spot views and 90 degree lateral view. Stable bilateral breast calcifications. A loop recorder device is once again seen in the deep mid medial aspect of the left breast. No other significant abnormalities are identified. BI/SCREEN MAMM (CAD) W/GRACE BILAT IMPRESSION: Focal area of architectural distortion in the retroareolar region of the right breast as described. The patient will be recalled for additional views. Recall Side: Right Breast ASSESSMENT CATEGORY: BIRADS Category 0: Incomplete. Need additional imaging evaluation. A letter regarding these results will be sent to the patient by the facility within 30 days. Approximately 10% of breast cancers are not detected by mammography. A normal mammogram should not delay biopsy of a clinically suspicious abnormality. [id number] Electronically Signed: Geraldo Carranza, at 8:45 EDT , Service support ,
== END ==
PROVIDERS: Family Provider Family Medicine Geriatric Medicine; PCP Family Medicine Geriatric Medicine; Referring Provider Family Medicine Geriatric Medicine; Visit Provider Family Medicine Geriatric Medicine
DX: Z12.31 Encounter for screening mammogram for malignant neoplasm of breast (principal)
CPT/HCPCS: 77063; 77067

== ENCOUNTER → 2019-01-09 13:44 | Outpatient (CLI) | payer MEDICARE, BC, SELFPAY ==
[2018-12-29 13:07] VITALS: BMI 25.2
--- NOTE | 2019-01-09 13:57 | BI_ITS ---
MAMMOGRAPHY - UNILATERAL DIAGNOSTIC: RIGHT BREAST REASON FOR EXAM: Female, 73 years old. Abnormal screening mammogram. PERTINENT HISTORY: Focal architectural distortion in the retroareolar region of the right breast TECHNIQUE: Compression spot views of the right breast were obtained. CAD: Full Field Digital Mammography with Computer Added Detection was performed. COMPARISON: Comparison is made with prior examination dated January 07, 2019. FINDINGS: Breast Composition: The breasts are heterogeneously dense, which may obscure small masses. There are no dominant masses or suspicious calcifications. No architectural distortion is seen at this time. No other significant abnormalities are identified. BI/DIAG MAMM W/CAD, UNILAT IMPRESSION: Stable unilateral diagnostic mammogram. One year follow-up mammogram recommended. (A) ASSESSMENT CATEGORY: BIRADS Category 2: Benign. A letter regarding these results will be sent to the patient by the facility within 30 days. Approximately 10% of breast cancers are not detected by mammography. A normal mammogram should not delay biopsy of a clinically suspicious abnormality. Electronically Signed: Geraldo Carranza, at 14:53 EDT , Service support ,
== END ==
PROVIDERS: Family Provider Family Medicine Geriatric Medicine; PCP Family Medicine Geriatric Medicine; Referring Provider Family Medicine Geriatric Medicine; Visit Provider Family Medicine Geriatric Medicine
DX: R92.8 Other abnormal and inconclusive findings on diagnostic imaging of breast (principal)
CPT/HCPCS: 77065

== ENCOUNTER → 2019-02-12 16:40 | Outpatient (CLI) | payer MEDICARE, BC, SELFPAY ==
[2018-12-29 13:07] VITALS: BMI 25.2
--- NOTE | 2019-02-12 16:59 | MRI_ITS ---
STUDY: MRI RIGHT HIP REASON FOR EXAM: Female, 73 years old. Pain when walking, bone spur. TECHNIQUE: Standardized fat and water weighted pulse sequences were obtained in all 3 orthogonal planes. COMPARISON: X-ray 12/15/2018. FINDINGS: Normal hip joint without articular joint space narrowing. Normal acetabulum. Normal labrum. Normal femoral head. Normal femoral neck and intratrochanteric region. Visualized sacral marrow is unremarkable, with no evidence of fracture. There is chronic loss of height of the L4 vertebral body. Normal gluteus minimus, medius and iliopsoas tendons and distal insertions. There is no trochanteric, iliopsoas or iliopectineal bursitis. Normal visualized soft tissue structures of the pelvis. MRI/Lower Ext Joint Only (Routine) IMPRESSION: Normal MRI of the hip. Electronically Signed: Britney Wood MD at 18:46 EDT Tel , Service support ,
== END ==
PROVIDERS: Family Provider Family Medicine Geriatric Medicine; PCP Family Medicine Geriatric Medicine; Referring Provider Family Medicine Geriatric Medicine; Visit Provider Family Medicine Geriatric Medicine
DX: M25.559 Pain in unspecified hip (principal)
CPT/HCPCS: 73721

== ENCOUNTER → 2019-03-04 13:39 | Outpatient (CLI) | payer MEDICARE, BC, SELFPAY ==
[2019-02-16 07:56] VITALS: BMI 25.3
[2019-03-04 16:11] LABS: Vitamin D,25 Hydroxy 19.3 ng/mL (29.95-100.01)
[2019-03-04 16:23] LABS: Absolute Lymphocyte Count 2.68 X10^3/uL (0.83-4.51); Absolute Neutrophil Count 4.7 X10^3/uL (2.0-7.7); Basophil# 0.05 X10^3/uL; Basophil% 0.6 % (0-1); Eosinophil# 0.06 X10^3/uL; Eosinophils% 0.7 % (0-5); Hematocrit 41.4 % (37-47); Hemoglobin 12.8 g/dL (12.0-15.0); Lymphocyte # 2.68 X10^3/ul (4.0); Lymphocyte % 33.1 % (19-41); Mean Corp Hgb Conc 30.9 g/dL (32-36); Mean Corpuscular Volume 93.7 fL (81-99); Mean Platelet Vol. 11.9 fl (6.2-12.0); Monocyte% 7.4 % (0-10); NRBC Flagged by Analyzer 0 % (0-5); Neutrophil # 4.67 X10^3/uL (2.7-7.7); Neutrophil % 57.8 % (47-70); Platelet Count 363 K/mm3 (150-450); RBC Distribution Width CV 14.6 % (11.6-14.6); RBC Distribution Width SD 49.8 fl (35.1-43.9); Red Blood Count 4.42 M/mm3 (4.2-5.4); White Blood Count 8.1 K/mm3 (4.4-11.0)
[2019-03-04 16:25] LABS: ALB/GLOB Ratio 1.2 RATIO (0.9-2.4); AST(SGOT) 19 U/L (15-37); Alanine Aminotransfer ALT/SGPT 19 U/L (13-56); Alkaline Phosphatase 119 U/L (45-117); Anion Gap 8 (5-15); BUN 7 mg/dL (7-18); BUN/Creat Ratio 9.8 RATIO (10-20); Calcium,Total 9.1 mg/dL (8.5-10.1); Chloride 108 mmol/L (98-107); Creatinine, Serum 0.71 mg/dL (0.55-1.02); EST Glomerular Filtration Rate 86 mL/min (>60); Est Glom Filt Rate - Afr Amer 104 mL/min (>60); Globulin 3.2 g/dL (2.2-4.2); Glucose 91 mg/dL (74-106); Potassium 3.6 mmol/L (3.5-5.1); Protein, Total 7.2 g/dL (6.4-8.2); Sodium Level 143 mmol/L (136-145); Thyroid Stim Hormone (TSH) 0.91 uIU/mL (0.358-3.74)
== END ==
PROVIDERS: Family Provider Family Medicine Geriatric Medicine; PCP Family Medicine Geriatric Medicine; Visit Provider Family Medicine Geriatric Medicine
DX: E11.9 Type 2 diabetes mellitus without complications (principal); I10 Essential (primary) hypertension; E55.9 Vitamin D deficiency, unspecified
CPT/HCPCS: 36415; 80053; 82306; 84443; 85025

== ENCOUNTER → 2019-03-18 06:30 | Outpatient (CLI) | payer MEDICARE, BC, SELFPAY ==
[2019-03-05 13:33] VITALS: BMI 25.0
--- NOTE | 2019-03-18 10:12 | STRESSREP_ITS ---
Stress Test Report Date: 03-18-19 Procedure: Exercise tolerance test/imaging study Indications: Chest pain Consent: Per the patient Procedure: The patient exercised on a Rolando protocol for 4 minutes and 16 seconds completing Stage I and additional 1 minute and 16 seconds of Stage I achieving a peak heart rate of 136 bpm (92 % predicted maximal heart rate) with a peak blood pressure 140/70 mmHg and a peak MET capacity of 4 METs. The baseline ECG demonstrated normal sinus rhythm. The peak exercise ECG demonstrated no obvious ECG changes. There were no cardiac dysrhythmias pretest, during exercise, or recovery. The functional capacity was considered average. There was no complaint of chest discomfort during exercise or recovery. The examination was discontinued secondary to hip discomfort. Impression: 1. Technically adequate (percent predicted maximal heart rate greater than 85%) exercise tolerance test 2. Peak exercise ECG with no obvious ECG changes 3. There were no cardiac dysrhythmias pretest, during exercise, or recovery 4. Nuclear images pending Myocardial perfusion imaging study: Technique: The patient was injected with 10.0 mCi of technetium 99m Cardiolite and subsequently rest SPECT Cardiolite nuclear imaging was obtained in the horizontal long, vertical long, and short axis views. The patient exercised on a Rolando protocol for 4 minutes and 16 seconds completing Stage I and additional 1 minute and 16 seconds of Stage I achieving a peak heart rate of 136 bpm (92 % predicted maximal heart rate) with a peak blood pressure 140/70 mmHg and a peak MET capacity of 4 METs. The patient was injected with 30.0 mCi of technetium 99m Cardiolite and subsequently stress SPECT Cardiolite nuclear imaging was obtained in the horizontal long, vertical long, and short axis views. A gated Cardiolite study at peak stress was obtained. Interpretation: Rest and stress SPECT Cardiolite nuclear imaging status post realignment, normalization, and attenuation correction, demonstrates the appearance of relative uniform tracer uptake and myocardial perfusion appearing within normal limits. There is end systolic thickening and brightening. The gated Cardiolite study demonstrates myocardial thickening and inward wall motion. The reported LVEF is 74 %. Impression: 1. Rest and stress SPECT Cardiolite nuclear imaging demonstrate relative uniform tracer uptake and myocardial perfusion appearing within normal limits. 2. The gated Cardiolite study reports an LVEF of 74 %. This note was generated with [employer] software. It may contain incorrect words, spelling, and punctuation that were not noted in checking the note before signing.
== END ==
PROVIDERS: Family Provider Family Medicine Geriatric Medicine; PCP Family Medicine Geriatric Medicine; Referring Provider Physician Assistant Medical; Visit Provider Physician Assistant Medical
DX: R07.9 Chest pain, unspecified (principal)
CPT/HCPCS: 78452; 93017; A9500; A4216

== ENCOUNTER → 2019-10-12 14:10 | Outpatient (CLI) | payer MEDICARE, BC, SELFPAY ==
[2019-03-05 13:33] VITALS: BMI 25.0
[2019-10-12 17:13] LABS: Vitamin D,25 Hydroxy 62.8 ng/mL
[2019-10-12 17:17] LABS: ALB/GLOB Ratio 1.1 RATIO (0.9-2.4); AST(SGOT) 26 U/L (15-37); Alanine Aminotransfer ALT/SGPT 21 U/L (13-56); Albumin, Serum 3.9 g/dL (3.2-5.0); Alkaline Phosphatase 132 U/L (45-117); Anion Gap 6 (5-15); BUN 11 mg/dL (7-18); Calcium,Total 9.4 mg/dL (8.5-10.1); Chloride 107 mmol/L (98-107); Creatinine, Serum 0.85 mg/dL (0.55-1.02); EST Glomerular Filtration Rate 70 mL/min (>60); Est Glom Filt Rate - Afr Amer 84 mL/min (>60); Globulin 3.4 g/dL (2.2-4.2); Glucose 105 mg/dL (74-106); Potassium 3.9 mmol/L (3.5-5.1); Protein, Total 7.3 g/dL (6.4-8.2); Sodium Level 139 mmol/L (136-145); Thyroid Stim Hormone (TSH) 0.85 uIU/mL (0.358-3.74)
[2019-10-12 17:28] LABS: Absolute Lymphocyte Count 2.33 X10^3/uL (0.83-4.51); Absolute Neutrophil Count 4.7 X10^3/uL (2.0-7.7); Basophil# 0.07 X10^3/uL; Basophil% 0.9 % (0-1); Eosinophil# 0.11 X10^3/uL; Eosinophils% 1.4 % (0-5); Hematocrit 29.7 % (37-47); Hemoglobin 10.6 g/dL (12.0-15.0); Lymphocyte # 2.33 X10^3/ul (4.0); Lymphocyte % 29.1 % (19-41); Mean Corp Hgb Conc 35.7 g/dL (32-36); Mean Corpuscular Hgb 38.3 pg (27.0-32.0); Mean Corpuscular Volume 107.2 fL (81-99); Monocyte# 0.73 X10^3/uL; Monocyte% 9.1 % (0-10); NRBC Flagged by Analyzer 0 % (0-5); Neutrophil # 4.74 X10^3/uL (2.7-7.7); Neutrophil % 59.1 % (47-70); POSITIVE MORPHOLOGY YES; Platelet Count 427 K/mm3 (150-450); RBC Distribution Width CV 26.9 % (11.6-14.6); RBC Distribution Width SD 53.1 fl (35.1-43.9); Red Blood Count 2.77 M/mm3 (4.2-5.4)
[2019-10-12 17:35] LABS: Differential Indicated SCAN CRITERIA MET
[2019-10-12 18:02] LABS: Anisocytosis 1+
[2019-10-12 18:03] LABS: Platelet Estimate ADEQUATE (ADEQ); Red Cell Morphology N CHROM NORMAL (NORM C&C)
== END ==
PROVIDERS: PCP Family Medicine Geriatric Medicine; Visit Provider Family Medicine Geriatric Medicine
DX: I10 Essential (primary) hypertension (principal); E55.9 Vitamin D deficiency, unspecified
CPT/HCPCS: 36415; 80053; 82306; 84443; 85025

== ENCOUNTER → 2019-10-27 10:49 | Outpatient (CLI) | payer MEDICARE, BC, SELFPAY ==
[2019-03-05 13:33] VITALS: BMI 25.0
--- NOTE | 2019-10-27 11:20 | RAD_ITS ---
STUDY: X-RAY - ABDOMEN/PELVIS REASON FOR EXAM: Female, 73 years old. FECAL IMPACTION, CONSTIPATION TECHNIQUE: AP supine and upright views of the abdomen and pelvis. COMPARISON: None. FINDINGS: Normal visualized lung bases. There is a moderate amount of colonic fecal material. There is no demonstrated free abdominal air. The visualized liver, spleen and kidneys are grossly normal in size and morphology. Normal soft tissue structures. There are diffuse degenerative changes of the visualized lumbar spine. RAD/Abdomen Single View IMPRESSION: No acute findings, retained stool Electronically Signed: Pepe Deleon MD at 11:36 EDT , Service support ,
--- NOTE | 2019-10-27 11:20 | RAD_ITS ---
STUDY: X-RAY CHEST REASON FOR EXAM: Female, 73 years old. COUGH, SOB, CHEST TIGHTNESS TECHNIQUE: PA and lateral views of the chest. COMPARISON: 01/22/2018 FINDINGS: The lungs are clear and expanded. There is no demonstrated pleural abnormality. Normal size heart. Normal mediastinum and kong. Normal visualized pulmonary arteries. Normal visualized aortic arch and descending thoracic aorta. Normal visualized thoracic spine. Stable surgical hardware in the left clavicle There is no demonstrated abnormality of the visualized soft tissue structures of the upper abdomen. RAD/Chest PA and Lateral IMPRESSION: No acute pulmonary process Electronically Signed: Pepe Deleon MD at 11:37 EDT , Service support ,
[2019-10-27 13:07] LABS: Anion Gap 10 (5-15); BUN 11 mg/dL (7-18); BUN/Creat Ratio 12.7 RATIO (10-20); Calcium,Total 9.2 mg/dL (8.5-10.1); Chloride 103 mmol/L (98-107); Creatinine, Serum 0.87 mg/dL (0.55-1.02); EST Glomerular Filtration Rate 68 mL/min (>60); Est Glom Filt Rate - Afr Amer 82 mL/min (>60); Glucose 125 mg/dL (74-106); Potassium 3.7 mmol/L (3.5-5.1); Sodium Level 140 mmol/L (136-145)
== END ==
PROVIDERS: PCP Family Medicine Geriatric Medicine; Visit Provider Family Medicine Geriatric Medicine
DX: I10 Essential (primary) hypertension (principal); R06.89 Other abnormalities of breathing; K56.41 Fecal impaction
CPT/HCPCS: 36415; 71046; 74018; 80048

== ENCOUNTER → 2019-10-28 11:40 | Outpatient (CLI) | payer MEDICARE, BC, SELFPAY ==
[2019-03-05 13:33] VITALS: BMI 25.0
[2019-10-28 13:12] LABS: Absolute Lymphocyte Count 2.39 X10^3/uL (0.83-4.51); Absolute Neutrophil Count 3.4 X10^3/uL (2.0-7.7); Basophil# 0.05 X10^3/uL; Basophil% 0.8 % (0-1); Eosinophil# 0.27 X10^3/uL; Eosinophils% 4.1 % (0-5); Hemoglobin 9.7 g/dL (12.0-15.0); Lymphocyte # 2.39 X10^3/ul (4.0); Lymphocyte % 36.3 % (19-41); Mean Corp Hgb Conc 34.6 g/dL (32-36); Mean Corpuscular Hgb 37.3 pg (27.0-32.0); Mean Corpuscular Volume 107.7 fL (81-99); Mean Platelet Vol. 10.9 fl (6.2-12.0); Monocyte# 0.45 X10^3/uL; Monocyte% 6.8 % (0-10); NRBC Flagged by Analyzer 0 % (0-5); Neutrophil # 3.38 X10^3/uL (2.7-7.7); Neutrophil % 51.4 % (47-70); POSITIVE MORPHOLOGY YES; Platelet Count 454 K/mm3 (150-450); RBC Distribution Width CV 26.9 % (11.6-14.6); RBC Distribution Width SD 58.1 fl (35.1-43.9); White Blood Count 6.6 K/mm3 (4.4-11.0)
[2019-10-28 13:30] LABS: Differential Indicated SCAN CRITERIA MET
[2019-10-28 13:52] LABS: Differential Comment SCANNED
[2019-10-28 13:53] LABS: Anisocytosis 2+; Macrocytosis 1+; Microcytosis 1+
== END ==
PROVIDERS: PCP Family Medicine Geriatric Medicine; Visit Provider Family Medicine Geriatric Medicine
DX: D64.9 Anemia, unspecified (principal)
CPT/HCPCS: 36415; 85025

== ENCOUNTER → 2019-10-30 09:51 | Outpatient (CLI) | payer MEDICARE, BC, SELFPAY ==
[2019-03-05 13:33] VITALS: BMI 25.0
[2019-10-30 11:07] LABS: Ferritin 157 ng/mL (8-252); Iron 136 ug/dL (50-170); Iron Binding Capacity,Total 277 ug/dL (250-450); PERCENT IRON SATURATION 49.1 % (15.0-55.0)
[2019-11-02 00:15] LABS: Folate, RBC (Hct) Test 31.7 % (34.0-46.6); Folates, RBC Test 991 ng/mL (>498)
== END ==
PROVIDERS: PCP Family Medicine Geriatric Medicine; Visit Provider Family Medicine Geriatric Medicine
DX: D64.9 Anemia, unspecified (principal)
CPT/HCPCS: 36415; 82728; 82747; 83540; 83550; 85014

== ENCOUNTER → 2019-12-01 15:02 | Outpatient (CLI) | payer MEDICARE, BC, SELFPAY ==
[2019-03-05 13:33] VITALS: BMI 25.0
[2019-12-01 18:28] LABS: CRP 3.34 mg/L (0.0-3.0)
[2019-12-03 16:08] LABS: Endomysial Antibody IgA Negative (Negative)
[2019-12-05 09:32] LABS: Immunoglobulin A 246 mg/dL (64-422); t-Transglutaminase IgA <2 U/mL (0-3)
== END ==
PROVIDERS: PCP Family Medicine Geriatric Medicine; Referring Provider Internal Medicine Gastroenterology; Visit Provider Internal Medicine Gastroenterology
DX: R10.9 Unspecified abdominal pain (principal); D64.9 Anemia, unspecified
CPT/HCPCS: 36415; 82784; 83516; 86140; 86255

== ENCOUNTER → 2019-12-02 13:27 | Outpatient (CLI) | payer MEDICARE, BC, SELFPAY ==
[2019-03-05 13:33] VITALS: BMI 25.0
[2019-12-02 16:21] LABS: Absolute Lymphocyte Count 2.97 X10^3/uL (0.83-4.51); Absolute Neutrophil Count 3.6 X10^3/uL (2.0-7.7); Basophil# 0.07 X10^3/uL; Basophil% 0.9 % (0-1); Eosinophil# 0.32 X10^3/uL; Eosinophils% 4.2 % (0-5); Hematocrit 27.2 % (37-47); Lymphocyte # 2.97 X10^3/ul (4.0); Lymphocyte % 38.8 % (19-41); Mean Corpuscular Volume 111.5 fL (81-99); Mean Platelet Vol. 11.8 fl (6.2-12.0); Monocyte# 0.68 X10^3/uL; Monocyte% 8.9 % (0-10); NRBC Flagged by Analyzer 0 % (0-5); Neutrophil # 3.57 X10^3/uL (2.7-7.7); Neutrophil % 46.7 % (47-70); POSITIVE COUNT YES; POSITIVE MORPHOLOGY YES; Platelet Count 385 K/mm3 (150-450); Red Blood Count 2.44 M/mm3 (4.2-5.4); White Blood Count 7.7 K/mm3 (4.4-11.0)
[2019-12-02 17:59] LABS: Differential Indicated SCAN CRITERIA MET
[2019-12-02 18:05] LABS: Anisocytosis 1+; Platelet Estimate ADEQUATE (ADEQ); Rouleaux 1+
[2019-12-03 00:44] LABS: Hemoglobin 9.5 g/dL (12.0-15.0); Mean Corp Hgb Conc 34.9 g/dL (32-36); Mean Corpuscular Hgb 38.9 pg (27.0-32.0)
[2019-12-03 12:35] LABS: Pathologist Review Reviewed
== END ==
PROVIDERS: PCP Family Medicine Geriatric Medicine; Visit Provider Family Medicine Geriatric Medicine
DX: D64.9 Anemia, unspecified (principal)
CPT/HCPCS: 36415; 85025

== ENCOUNTER → 2019-12-08 09:10 | Outpatient (CLI) | payer MEDICARE, BC, SELFPAY ==
[2019-03-05 13:33] VITALS: BMI 25.0
[2019-12-07 13:45] VITALS: BMI 25.2
--- NOTE | 2019-12-08 09:13 | RAD_ITS ---
STUDY: X-RAY - ESOPHAGUS (BARIUM SWALLOW) WITH FLUOROSCOPY REASON FOR EXAM: Female, 74 years old. Feels as if food gets caught in midsternal area. Difficulty swallowing pills. Esophagus stretched in August. Previous esophagram in 2016. TECHNIQUE: 20 view(s) of the esophagus were obtained following swallowing of barium. FLUOROSCOPY TIME (if supplied): (0:58) minutes/seconds COMPARISON: Comparison is made with prior study dated December 31, 2016. FINDINGS: There is no demonstrated esophageal foreign body. There is no demonstrated stricture or mucosal abnormality. Normal gastroesophageal junction, without a demonstrated hiatal hernia. The patient ingested a 12 mm tablet of barium. The tablet is trapped at the gastroesophageal junction. There is atherosclerotic tortuosity of the aortic arch and descending thoracic aorta. Normal visualized pulmonary parenchyma. A loop recording device is seen overlying the left cardiac border. The patient is status post ORIF of the left clavicle and fusion in the lower cervical spine. RAD/Esophagus Single Contrast IMPRESSION: The patient ingested a 12 mm tablet of barium. The tablet is trapped at the gastroesophageal junction. Electronically Signed: Geraldo Carranza, at 10:20 EDT , Service support ,
== END ==
PROVIDERS: PCP Family Medicine Geriatric Medicine; Referring Provider Internal Medicine Gastroenterology; Visit Provider Internal Medicine Gastroenterology
DX: R13.10 Dysphagia, unspecified (principal)
CPT/HCPCS: 74220

== ENCOUNTER → 2019-12-28 09:10 | Outpatient (CLI) | payer MEDICARE, BC, SELFPAY ==
[2019-12-07 13:45] VITALS: BMI 25.2
== END ==
PROVIDERS: PCP Family Medicine Geriatric Medicine; Referring Provider Internal Medicine Gastroenterology; Visit Provider Internal Medicine Gastroenterology
DX: Z11.59 Encounter for screening for other viral diseases (principal); K22.4 Dyskinesia of esophagus; D64.9 Anemia, unspecified
CPT/HCPCS: 36415; 80053; 82607; 82668; 82728; 82746; 82784; 83540; 83550; 83615; 83883; 84165; 85025; 85045; 85652; 86334; 87635; 94799; U0003

== ENCOUNTER → 2020-01-11 14:48 | Outpatient (CLI) | payer MEDICARE, BC, SELFPAY ==
[2019-12-28 15:17] VITALS: BMI 25.1
--- NOTE | 2020-01-11 14:55 | BI_ITS ---
MAMMOGRAPHY - BILATERAL SCREENING REASON FOR EXAM: Female, 74 years old. Routine annual screening examination. PERTINENT HISTORY: Non-contributory. TECHNIQUE: Digital bilateral breast grace (3D mammographic acquisition) in the CC and MLO projections. 2-D mediolateral oblique (MLO) and craniocaudad (CC) views of both breasts were obtained. CAD: Full Field Digital Mammography with Computer Added Detection was performed. COMPARISON: Comparison is made with prior examination 01/07/2019 and 01/02/2018. FINDINGS: Breast Composition: The breasts are heterogeneously dense, which may obscure small masses. There are no dominant masses or suspicious calcifications. Stable benign-appearing bilateral axillary lymph nodes. No other significant abnormalities are identified. There has been no significant change since the prior study. BI/SCREEN MAMM (CAD) W/GRACE BILAT IMPRESSION: Stable bilateral screening mammogram. Yearly follow-up mammogram recommended. (A) ASSESSMENT CATEGORY: BIRADS Category 2: Benign. A letter regarding these results will be sent to the patient by the facility within 30 days. Approximately 10% of breast cancers are not detected by mammography. A normal mammogram should not delay biopsy of a clinically suspicious abnormality. [id number] Electronically Signed: Geraldo Carranza, at 8:32 EDT , Service support ,
== END ==
PROVIDERS: PCP Family Medicine Geriatric Medicine; Referring Provider Family Medicine Geriatric Medicine; Visit Provider Family Medicine Geriatric Medicine
DX: Z12.31 Encounter for screening mammogram for malignant neoplasm of breast (principal)
CPT/HCPCS: 77063; 77067

== ENCOUNTER → 2020-02-15 14:48 | Outpatient (CLI) | payer MEDICARE, BC, SELFPAY ==
[2019-12-28 15:17] VITALS: BMI 25.1
--- NOTE | 2020-02-15 15:04 | RAD_ITS ---
STUDY: X-RAY CHEST REASON FOR EXAM: Female, 74 years old. DRY COUGH SINCE SEPTEMBER, SHORTNESS OF BREATH AND WEAKNESS SINCE AUGUST, HX HTN TECHNIQUE: Frontal and lateral views COMPARISON: 10/27/2019 FINDINGS: The lungs are clear and expanded. There is no demonstrated pleural abnormality. Normal size heart. Normal mediastinum and kong. Normal visualized pulmonary arteries. Normal visualized aortic arch and descending thoracic aorta. Mild scoliosis of the thoracic spine. Lower cervical fusion. Previous ORIF of the left clavicle. There is no demonstrated abnormality of the visualized soft tissue structures of the upper abdomen. RAD/Chest PA and Lateral IMPRESSION: Normal x-ray examination of the chest. Electronically Signed: Jesus Farooq DO at 16:10 EDT Tel [phone], Service support ,
[2020-02-15 17:21] LABS: Absolute Lymphocyte Count 3.24 X10^3/uL (0.83-4.51); Absolute Neutrophil Count 4.6 X10^3/uL (2.0-7.7); Basophil# 0.07 X10^3/uL; Basophil% 0.8 % (0-1); Eosinophils% 2.2 % (0-5); Hematocrit 22.9 % (37-47); Hemoglobin 8.3 g/dL (12.0-15.0); Lymphocyte # 3.24 X10^3/ul (4.0); Lymphocyte % 36.2 % (19-41); Mean Corp Hgb Conc 36.2 g/dL (32-36); Mean Corpuscular Hgb 38.2 pg (27.0-32.0); Mean Corpuscular Volume 105.5 fL (81-99); Mean Platelet Vol. 10.4 fl (6.2-12.0); Monocyte# 0.81 X10^3/uL; NRBC Flagged by Analyzer 0 % (0-5); Neutrophil # 4.59 X10^3/uL (2.7-7.7); Neutrophil % 51.2 % (47-70); POSITIVE MORPHOLOGY YES; Platelet Count 497 K/mm3 (150-450); RBC Distribution Width CV 25.1 % (11.6-14.6); RBC Distribution Width SD 52.1 fl (35.1-43.9); Red Blood Count 2.17 M/mm3 (4.2-5.4)
[2020-02-15 17:22] LABS: Differential Indicated SCAN CRITERIA MET
[2020-02-15 17:37] LABS: BNP,B-Type NATRIURETIC PEPTIDE 98.4 pg/mL (0-100)
[2020-02-15 17:43] LABS: ALB/GLOB Ratio 1.1 RATIO (0.9-2.4); AST(SGOT) 18 U/L (15-37); Alanine Aminotransfer ALT/SGPT 14 U/L (13-56); Albumin, Serum 3.7 g/dL (3.2-5.0); Alkaline Phosphatase 142 U/L (45-117); Anion Gap 5 (5-15); BUN 14 mg/dL (7-18); BUN/Creat Ratio 17.7 RATIO (10-20); CPK Total, Creatine Kinase 94 U/L (26-192); Calcium,Total 9.2 mg/dL (8.5-10.1); Chloride 106 mmol/L (98-107); Creatinine, Serum 0.79 mg/dL (0.55-1.02); EST Glomerular Filtration Rate 76 mL/min (>60); Est Glom Filt Rate - Afr Amer 91 mL/min (>60); Globulin 3.4 g/dL (2.2-4.2); Glucose 101 mg/dL (74-106); Potassium 4.2 mmol/L (3.5-5.1); Protein, Total 7.1 g/dL (6.4-8.2); Sodium Level 138 mmol/L (136-145); Thyroid Stim Hormone (TSH) 1.45 uIU/mL (0.358-3.74)
[2020-02-17 10:51] LABS: Myoglobin, Serum 23 ng/mL (25-58)
== END ==
LOC: POLAB3 14:49 → RAD 15:03
PROVIDERS: PCP Family Medicine Geriatric Medicine; Referring Provider Family Medicine Geriatric Medicine; Visit Provider Family Medicine Geriatric Medicine
DX: R06.02 Shortness of breath (principal); R07.9 Chest pain, unspecified; R53.83 Other fatigue
CPT/HCPCS: 36415; 71046; 80053; 82550; 83874; 83880; 84443; 84484; 85025; 85379

== ENCOUNTER → 2020-02-16 08:51 | Outpatient (CLI) | payer MEDICARE, BC, SELFPAY ==
[2019-12-28 15:17] VITALS: BMI 25.1
--- NOTE | 2020-02-16 08:53 | CT_ITS ---
STUDY: CTA CHEST REASON FOR EXAM: Female, 74 years old. ELEVATED D-DIMER RADIATION DOSAGE (If Supplied By Facility): CTDIvol = ( 10.20 ) mGy, DLP = ( 316.66 ) mGycm TECHNIQUE: The examination was performed with the intravenous administration of IV 100mL Isovue-370. Post-processing of the angiographic images was performed, with multiplanar reformation and 3D reconstruction. Individualized dose optimization techniques were used for this CT. COMPARISON: None. FINDINGS: Normal enhancement of the main pulmonary artery and right and left pulmonary arteries. Normal enhancement of the bilateral peripheral pulmonary arteries. There is no demonstrated pulmonary embolism. There is atherosclerotic calcification of the aortic arch with tortuosity. There is no demonstrated aortic dissection. Normal heart and pericardium. Normal mediastinum. Normal hilar regions. Normal visualized trachea and bronchi. The lungs are well expanded. There is a 2.2 mm noncalcified nodule in the peripheral aspect of the right upper lobe as seen on axial image #1212. Normal pleura. Normal chest wall structures. There are degenerative changes of thoracic spine. Normal visualized upper abdomen. CT/CTA Chest W/WO Contrast IMPRESSION: Normal CTA chest examination, without a demonstrated pulmonary embolism or arterial dissection. 2.2 mm noncalcified nodule in the peripheral aspect of the right upper lobe. A 12 month follow-up is recommended. Electronically Signed: Geraldo Carranza, at 9:51 EDT , Service support ,
== END ==
PROVIDERS: PCP Family Medicine Geriatric Medicine; Referring Provider Family Medicine Geriatric Medicine; Visit Provider Family Medicine Geriatric Medicine
DX: R06.02 Shortness of breath (principal); R79.9 Abnormal finding of blood chemistry, unspecified
CPT/HCPCS: 71275; 87635; C9803; Q9967; U0003

== ENCOUNTER → 2020-03-09 13:10 | Outpatient (CLI) | payer MEDICARE, BC, SELFPAY ==
[2019-12-28 15:17] VITALS: BMI 25.1
[2020-03-09 17:10] LABS: Absolute Lymphocyte Count 3.11 X10^3/uL (0.83-4.51); Absolute Neutrophil Count 4.5 X10^3/uL (2.0-7.7); Basophil# 0.05 X10^3/uL; Basophil% 0.6 % (0-1); Eosinophils% 2.3 % (0-5); Hematocrit 22.8 % (37-47); Hemoglobin 8.5 g/dL (12.0-15.0); Lymphocyte # 3.11 X10^3/ul (4.0); Lymphocyte % 35.2 % (19-41); Mean Corp Hgb Conc 37.3 g/dL (32-36); Mean Corpuscular Hgb 40.9 pg (27.0-32.0); Mean Corpuscular Volume 109.6 fL (81-99); Mean Platelet Vol. 11.1 fl (6.2-12.0); Monocyte% 10.2 % (0-10); NRBC Flagged by Analyzer 0 % (0-5); Neutrophil # 4.52 X10^3/uL (2.7-7.7); Neutrophil % 51.1 % (47-70); POSITIVE MORPHOLOGY YES; Platelet Count 436 K/mm3 (150-450); RBC Distribution Width CV 27.5 % (11.6-14.6); RBC Distribution Width SD 58.5 fl (35.1-43.9); Red Blood Count 2.08 M/mm3 (4.2-5.4); White Blood Count 8.8 K/mm3 (4.4-11.0)
[2020-03-09 17:14] LABS: Differential Indicated SCAN CRITERIA MET
[2020-03-09 17:19] LABS: Vitamin D,25 Hydroxy 68.4 ng/mL
[2020-03-09 17:30] LABS: ALB/GLOB Ratio 1.1 RATIO (0.9-2.4); AST(SGOT) 22 U/L (15-37); Alanine Aminotransfer ALT/SGPT 19 U/L (13-56); Albumin, Serum 3.7 g/dL (3.2-5.0); Alkaline Phosphatase 138 U/L (45-117); Anion Gap 6 (5-15); BUN 9 mg/dL (7-18); BUN/Creat Ratio 10.5 RATIO (10-20); Chloride 102 mmol/L (98-107); Creatinine, Serum 0.86 mg/dL (0.55-1.02); EST Glomerular Filtration Rate 68 mL/min (>60); Est Glom Filt Rate - Afr Amer 83 mL/min (>60); Globulin 3.5 g/dL (2.2-4.2); Glucose 88 mg/dL (74-106); Potassium 4.8 mmol/L (3.5-5.1); Protein, Total 7.2 g/dL (6.4-8.2); Sodium Level 137 mmol/L (136-145); Thyroid Stim Hormone (TSH) 1.77 uIU/mL (0.358-3.74)
[2020-03-09 17:40] LABS: Anisocytosis 1+; Differential Comment SCANNED
== END ==
PROVIDERS: PCP Family Medicine Geriatric Medicine; Visit Provider Family Medicine Geriatric Medicine
DX: E55.9 Vitamin D deficiency, unspecified (principal); I10 Essential (primary) hypertension
CPT/HCPCS: 36415; 80053; 82306; 84443; 85025

== ENCOUNTER → 2020-05-03 08:31 | Outpatient (CLI) | payer MEDICARE, BC, SELFPAY ==
[2020-04-21 11:44] VITALS: BMI 25.3
[2020-05-03] VITALS (10 sets, daily range): BP systolic 104–151; BP diastolic 35–65; PULSE 67–79; RESP 12–20; TEMP 37; O2SAT 92–100; BMI 25.0
--- NOTE | 2020-05-03 | IMM_PTH ---
PATIENT: RADHA KILPATRICK LOC: CT U#:[id number] AGE/SX: 79/F ROOM: RE05/03/[address]: Dr. Jone Mitchell MD : 1945 BED: DIS: SPEC #: [id number] RECD: 05/04/20 13:19 STATUS: SOURodo REQ #: [id number] JESSICA: 05/03/20 00:[address]: Jone Mitchell DEPT: IMMUNOHISTOCHEMISTRY RECD BY: Lili Gomez ENTERED: 05/04/20 13:21 SP TYPE: IMMUNO OTHR DR: Dr. Adriel Carney MD Tissues: B - Bone marrow of iliac crest Procedures: CD138 (add) CD20 (add) CD23 (add) CD30 (add) CD34 (add) CD43 (add) CD45 (add) CD5 (add) CD56 (add) CD79A (add) CYCLIN (add) MUM1 (add) C-MYC (add) CD3 (initial) PHYSICIAN & [address] [address] SPECIMEN INFORMATION: Tissue Source: B - Bone marrow clot Clinical Info: Macrocytic anemia, B12 folate normal, rule out MDS/MPN Specimen Number: [id number] CPT code: 68112, 99091 x8 METHODOLOGY: Deparaffinized sections of prefer/formalin-fixed tissue or PAP/DQ stained slides are incubated with monoclonal/polyclonal antibodies/oligonucleotide probes. Localization is made via biotin free immunoperoxidase method. Appropriate controls are performed and reacted as expected. Results on target cell population are indicated in the following table: RESULTS: ANTIBODY / CLONE RESULT Block B CD3 (PS1) positive CD5 (SP10) positive CD20 (L26) positive CD79a (11E3) positive CD45 (RP2/18) positive CD138 (B-A38) negative CD56 (123C3.D5) negative CD34 (QBEnd-10) negative CD30 (Son-H2) negative These tests were developed and their performance characteristics determined by [facility]. They may not have been cleared or approved by the U.S. Food and Drug Administration. The FDA has determined that such clearance or approval is not necessary. The above immunohistochemical/dualISH markers are ordered and reviewed by the Pathologist. INTERPRETATION: B. Bone marrow clot: Microscopic, polytypic lymphoid aggregate. No evidence of increased blasts. AM:oneal 05/05/20
--- NOTE | 2020-05-03 | BMB_PTH ---
PATIENT: RADHA KILPATRICK LOC: CT U#:[id number] AGE/SX: 79/F ROOM: RE05/03/[address]: Dr. Jone Mitchell MD : 1945 BED: DIS: SPEC #: [id number] RECD: 05/03/20 10:20 STATUS: KOMAL REVita #: [id number] JESSICA: 05/03/20 00:[address]: Jone Mitchell DEPT: BONE MARROW RECD BY: Dulce Amaya ENTERED: 05/03/20 12:26 SP TYPE: BMB OT DR: Dr. Adriel Carney MD Tissues: A - Bone marrow, NOS B - Bone marrow, NOS C - Bone marrow, NOS Procedures: Decalcification bone/plaque Bone Marrow Aspiration Bone Marrow Core Biopsy Iron Stain Bone Marrow HEADER OPERATION: Bone marrow biopsy and aspiration PRE-OP DIAGNOSIS: Macrocytic anemia, B12 folate normal, rule out MDS/MPN TISSUE SUBMITTED: A - Core, B - Clot, C - Smears, and send outs (flow, cytogenetics, AML, MDS and JAK2) BONE MARROW DIAGNOSIS Bone marrow biopsy, clot and aspiration: Minute atypical lymphoid aggregate. Absent stainable iron. Macrocytic anemia. See comment. AM:oneal 05/09/20 COMMENT A flow cytometry analysis of aspirate material reveals a CD5 positive clonal (lambda) B cell population representing 4-5% of the total cells. Immunohistochemistry ([id number]) reveals a polytypic lymphoid aggregate with heavy CD20, CD79 staining and focal CD23 staining. The differential diagnosis may include monoclonal B-cell lymphocytosis with atypical CLL phenotype, variant CLL/SLL, mantle cell or marginal zone lymphoma. Additional studies will be reported as an addendum. Clinical correlation is suggested. Case has been reviewed in consultation with Dr. Greer who concurs with the above diagnosis. IDC:[email or web address] BONE MARROW STUDY Slides are reviewed. CBC DATE: 05/03/20 WBC 7.2; RBC 2.77; HGB 9.3; HCT 28.2; MCV 101.8; RDW 18.5; PLTS 453,000 SEGS 45.8%; LYMPHS 39.3%; MONOS 8.6%; EOS 5.1%; BASOS 0.8% PERIPHERAL SMEAR: Submitted. RBC: Macrocytic anemia WBC: Reactive lymphocytes present PLTS: Mild thrombocytosis BONE MARROW ASPIRATE DIFFERENTIAL: 100 cell count. Blasts % (normal 0-2): 2 Promyelocytes % (normal 1-5): 4 Myelocytes and metamyelocytes % (normal 17-41): 17 Bands and Segs % (normal 15-32): 29 Eos % (normal 1-6): 3 Basos % (normal 0-1): 1 Monocytes % (normal 0-4): 1 Erythroid Precursors % (normal 17-35): 30 Lymphocytes % (normal 7-13): 12 Plasma Cells % (normal 0-2): 1 ASPIRATE FINDINGS: Site: Left hip Aspicular Hypocellular M/E ratio: 1.9 (Normal 1.5 - 4.0) Megakaryocytes: Normoblastic Erythropoiesis: Normoblastic Granulopoiesis: Progressive Other findings: Markedly hemodilute CORE BIOPSY FINDINGS: Site: Left hip Adequacy: Inadequate Cellularity %: N/A M/E ratio: N/A Comment: Only rare maturing bone marrow elements present. ASPIRATE CLOT FINDINGS: Site: Left hip Marrow Particles: Few Cellularity %: 50% M/E ratio: Within normal limits Megakaryocytes: Adequate Granuloma(s): 0 Lymphoid aggregate(s): One, microscopic Atypical infiltrate(s): 0 Comment: See IHC ([id number]) SPECIAL STAINS (with matched controls): Iron: Stainable iron is absent Reticulin: Within normal limits PAS: Highlights myeloid elements and megakaryocytes. BONE MARROW GROSS A - Received is a container labeled with the patient's name and designated bone marrow left hip. The specimen consists of a minute fragment of bone measuring 0.2 x 0.1 x 0.1 cm. The specimen is totally submitted in one cassette after decalcification. B - Received labeled with the patient's name and designated bone marrow left hip is a specimen that consists of approximately 8 cc of bloody fluid that on filtration yields multiple minute fragments of blood clots measuring in aggregate 3 x 2.5 x 0.3 cm. The specimen is totally submitted in one cassette. C - Also received are 12 unstained and 1 peripheral stained slides. The unstained slides are submitted for appropriate staining. Also received are two green top tubes which are sent to our reference lab for flow, cytogenetics, AML, MDS and JAK2. / SJ:rg 05/03/20 TC:0 CPT: 87005, 95524, 74892 x2, 27888 x3, 71120 ADDENDUM ADDENDUM ADDENDUM ADDENDUM ADDENDUM ADDENDUM ADDENDUM ADDENDUM ADDENDUM ADDENDUM ADDENDUM ADDENDUM ADDENDUM ADDENDUM ADDENDUM ADDENDUM ADDENDUM ADDENDUM ADDENDUM ADDENDUM ADDENDUM ADDENDUM ADDENDUM ADDENDUM ADDENDUM ADDENDUM ADDENDUM ADDENDUM ADDENDUM ADDENDUM ADDENDUM ADDENDUM 05/12/2020 08:25 ADDENDUM 05/12/2020 08:25 ADDENDUM 05/12/2020 08:25 ADDENDUM 05/12/2020 08:25 ADDENDUM 05/12/2020 08:25 CYTOGENETICS REPORT FROM [facility] INTERPRETATION: A normal female chromosome complement was observed in twenty metaphases analyzed. Karyotype: 46,XX[20] ONKOSIGHT NGS JAK2 V617F SEQUENCING REPORT FROM [facility] RESULT SUMMARY: Normal PERTINENT NEGATIVE RESULTS: The following genes are negative for clinically relevant mutations. Mutational hotspots and surrounding exonic regions were interrogated for DNA level point mutations and indels (fusions not assayed). JAK2, p.V617F FLUORESCENCE IN-SITU HYBRIDIZATION MDS-RELATED DISEASES INTERPRETATION: 1. No evidence of deletion of 5q or monosomy 5. 2. No evidence of monosomy 7 or deletion of 7q. 3. No evidence of trisomy 8 (+8). 4. No evidence of deletion of 20q12. 5. No evidence of CCND1-IGH [translocation t(11;14)] gene rearrangement, and no evidence for trisomy 11 or gain of 11q. 6. No evidence of BCR/ABL rearrangement. 7. No evidence of PML/SAMMIE gene rearrangement. 8. No evidence of RUNX1/GZBZ9Z0 [t(8;21)]. 9. No evidence of MLL gene locus 11q23 translocation. 10. No evidence of CBFB [inversion(16) or translocation t(16;16)] gene rearrangement. Please see complete report in e-chart or EMR
--- NOTE | 2020-05-03 | IMM_PTH ---
PATIENT: RADHA KILPATRICK LOC: CT U#:[id number] AGE/SX: 79/F ROOM: RE05/03/[address]: Dr. Jone Mitchell MD : 1945 BED: DIS: SPEC #: [id number] RECD: 05/04/20 13:19 STATUS: SOURodo REQ #: [id number] JESSICA: 05/03/20 00:[address]: Jone Mitchell DEPT: IMMUNOHISTOCHEMISTRY RECD BY: Lili Gomez ENTERED: 05/04/20 13:21 SP TYPE: IMMUNO OTHR DR: Dr. Adriel Carney MD Tissues: B - Bone marrow of iliac crest Procedures: CD138 (add) CD20 (add) CD23 (add) CD30 (add) CD34 (add) CD45 (add) CD5 (add) CD56 (add) CD79A (add) CYCLIN (add) MUM1 (add) C-MYC (add) CD3 (initial) PHYSICIAN & [address] [address] SPECIMEN INFORMATION: Tissue Source: B - Bone marrow clot Clinical Info: Macrocytic anemia, B12 folate normal, rule out MDS/MPN Specimen Number: [id number] CPT code: 46811, 86818 x12 METHODOLOGY: Deparaffinized sections of prefer/formalin-fixed tissue or PAP/DQ stained slides are incubated with monoclonal/polyclonal antibodies/oligonucleotide probes. Localization is made via biotin free immunoperoxidase method. Appropriate controls are performed and reacted as expected. Results on target cell population are indicated in the following table: RESULTS: ANTIBODY / CLONE RESULT Block B CD3 (PS1) positive CD5 (SP10) positive CD20 (L26) positive CD79a (11E3) positive CD45 (RP2/18) positive CD138 (B-A38) negative CD56 (123C3.D5) negative CD34 (QBEnd-10) negative CD30 (Son-H2) negative CD23 (1B12) positive, focal Cyclin D1/BCL-1 (SP4) negative MUM1 (MRQ-43) negative C-MYC (Y69) negative These tests were developed and their performance characteristics determined by [facility]. They may not have been cleared or approved by the U.S. Food and Drug Administration. The FDA has determined that such clearance or approval is not necessary. The above immunohistochemical/dualISH markers are ordered and reviewed by the Pathologist. INTERPRETATION: B. Bone marrow clot: Microscopic atypical lymphoid aggregate. No evidence of increased blasts. See comment. AM:oneal 05/05/20 AM:oneal 05/09/20 Comment: A B-cell lymphoproliferative disorder cannot be excluded. Case has been reviewed in consultation with Dr. Greer who concurs with the above diagnosis. IDC:[id number]
[2020-05-03 08:45] LABS: Absolute Lymphocyte Count 2.84 X10^3/uL (0.83-4.51); Absolute Neutrophil Count 3.3 X10^3/uL (2.0-7.7); Basophil# 0.06 X10^3/uL; Basophil% 0.8 % (0-1); Eosinophil# 0.37 X10^3/uL; Eosinophils% 5.1 % (0-5); Hematocrit 28.2 % (37-47); Hemoglobin 9.3 g/dL (12.0-15.0); Lymphocyte # 2.84 X10^3/ul (4.0); Lymphocyte % 39.3 % (19-41); Mean Corpuscular Hgb 33.6 pg (27.0-32.0); Mean Corpuscular Volume 101.8 fL (81-99); Mean Platelet Vol. 9.8 fl (6.2-12.0); Monocyte# 0.62 X10^3/uL; Monocyte% 8.6 % (0-10); NRBC Flagged by Analyzer 0 % (0-5); Neutrophil # 3.31 X10^3/uL (2.7-7.7); Neutrophil % 45.8 % (47-70); Platelet Count 453 K/mm3 (150-450); RBC Distribution Width CV 18.5 % (11.6-14.6); RBC Distribution Width SD 51.8 fl (35.1-43.9); Red Blood Count 2.77 M/mm3 (4.2-5.4); White Blood Count 7.2 K/mm3 (4.4-11.0)
--- NOTE | 2020-05-03 08:47 | CT_ITS ---
PROCEDURE: CT GUIDED BONE marrow biopsy and aspiration of the posterior left iliac bone. DATE: 05/03/2020. INDICATION: Female, 74 years old. Anemia. PHYSICIAN: Geraldo Carranza M.D. RADIATION DOSAGE (If Supplied By Facility): CTDIvol = ( 20.7 ) mGy, DLP = ( 428.36 ) mGycm. Individualized dose optimization techniques were less. PROCEDURE: The risks, benefits, and alternatives to the procedure were explained to the patient. The specific risk of hemorrhage requiring further treatment or intervention was detailed and accepted. Follow-up instructions were discussed with the patient as well. Written informed consent was obtained. The patient was brought into the CT suite and placed in the prone position. . An appropriate entry site was identified. The overlying skin was prepped and draped in the usual sterile fashion. 1% lidocaine was administered subcutaneously for local anesthesia. Conscious sedation was performed. The patient received 2 mg of VERSED and 50 mcg of FENTANYL intravenously. Conscious sedation was started at 9:55 AM and terminated at 10:12 AM. The patient was independently monitored by the department nurse. Under CT guidance, a bone marrow biopsy and bone marrow aspiration of the posterior aspect of the left iliac bone were performed utilizing an 11-gauge bone marrow biopsy needle system. The specimens were then placed in the appropriate fluid and transported to the laboratory for analysis. Hemostasis was obtained. The patient tolerated the procedure well without immediate complications. CT/Biopsy/Inj or Needle Placement IMPRESSION: Successful CT guided bone marrow biopsy and bone marrow aspirate of the posterior aspect of the left iliac bone, as described above. Conscious sedation protocol was followed. Electronically Signed: Geraldo Carranza, at 10:52 EST , Service support ,
[2020-05-03 09:10] LABS: Partial Thromboplast Time 22.6 Seconds (24.1-36.2)
[2020-05-03 09:11] LABS: Prothrombin Time (Protime)PT. 12.6 SECONDS (11.7-14.9)
[2020-05-03] MEDS: Midazolam 2 MG/2 ML Syringe IV (09:55)
[2020-05-03] MEDS: fentaNYL 100 MCG/2 ML Ampul IV (09:56)
== END ==
PROVIDERS: PCP Family Medicine Geriatric Medicine; Referring Provider Internal Medicine Medical Oncology; Visit Provider Internal Medicine Medical Oncology
DX: D53.1 Other megaloblastic anemias, not elsewhere classified (principal)
CPT/HCPCS: 38221; 36415; 77012; 85025; 85610; 85730; 88305; 88311; 88313; 88341; 88342; 99155; 99156; J7040

== ENCOUNTER 2020-06-01 15:57 | Observation (INO) | payer MEDICARE, BC, SELFPAY ==
[2020-06-01] VITALS (8 sets, daily range): BP systolic 116–152; BP diastolic 76–88; PULSE 80–91; RESP 16–24; TEMP 35.6–37.1; O2SAT 95–100; BMI 26.5; BMI 25.8; BMI 25.5
--- NOTE | 2020-06-01 16:25 | EKG12_ITS ---
Test Reason : SOB Blood Pressure : / mmHG Vent. Rate : 074 BPM Atrial Rate : 074 BPM P-R Int : 142 ms QRS Dur : 082 ms QT Int : 408 ms P-R-T Axes : 050 020 034 degrees QTc Int : 452 ms Normal sinus rhythm Normal ECG Confirmed by VINH SOLER, ABIMBOLA ([id number]), telegraph editor LEOLA AMEZQUITA ([id number]) on 06/06/2020 9:31:26 AM Referred By: EFFIE Confirmed By:LOVE JUSTICE MD
--- NOTE | 2020-06-01 16:35 | ED.DCSUM_ITS ---
History of Present Illness Chief Complaint: Shortness of Breath Informant: Patient Onset: Yesterday Context: Sudden Onset Timing: Continuous Quality: Dyspnea at rest and worsening dyspnea with activity Location: Respiratory Current Severity: Mild Maximum Severity: Moderate Worsened by: Activity Relieved by: Nothing Associated Symptoms: No other symptoms Narrative: Patient is an elderly woman who has history of iron deficiency anemia. She had a recent bone marrow. She denies history of cancer. She denies leg pain, swelling discoloration. She denies chest pain of any type including pleuritic. She denies fever, chills nitrates. She denies ocular, visual auditory symptoms. She denies congestion, rhinorrhea, or sore throat. He reports chronic postnasal drainage. Denies change in taste or smell. She denies difficulty swallowing or breathing. She she denies cough. She denies exposure to Covid or anyone that is been ill the past 1 month. She denies black or maroon stool. She denies urologic symptoms. She denies nausea or vomiting. Prior similar symptoms: Yes - Due to iron deficiency Recent Illness/Hospitalization: No - Past Medical History (1) Intervertebral disc disorder with radiculopathy of lumbar region Status: Acute (2) Macrocytic anemia Status: Acute (3) Other intervertebral disc displacement, lumbar region Status: Acute (4) Anemia Status: Chronic (5) Dysphagia Status: Chronic (6) Encounter for long-term current use of high risk medication Status: Chronic (7) Essential hypertension Status: Chronic (8) GI bleeding Status: Chronic (9) Hemorrhoid Status: Chronic (10) Hyperlipidemia Status: Chronic (11) Nonrheumatic mitral valve regurgitation Status: Chronic (12) Nonrheumatic tricuspid (valve) insufficiency Status: Chronic (13) Paroxysmal atrial tachycardia Status: Chronic Past Medical History - Allergies and Home Meds Allergies/Adverse Reactions: Allergies estrogens, conjugated [From Premarin] Allergy (Severe, Verified 06/01/20 14:48) rash sulfamethoxazole [From Bactrim] Allergy (Verified 06/01/20 14:48) Rash trimethoprim [From Bactrim] Allergy (Verified 06/01/20 14:48) Rash amoxicillin [From Prevpac] Adverse Reaction (Severe, Verified 06/01/20 14:48) edema to knees atorvastatin [From Lipitor] Adverse Reaction (Severe, Verified 06/01/20 14:48) edema clarithromycin [From Prevpac] Adverse Reaction (Severe, Verified 06/01/20 14:48) edema to knees colestipol [From Colestid] Adverse Reaction (Severe, Verified 06/01/20 14:48) arthralgia lansoprazole [From Prevpac] Adverse Reaction (Severe, Verified 06/01/20 14:48) edema to knees lisinopril Adverse Reaction (Severe, Verified 06/01/20 14:48) cough,choking diarrhea olmesartan [From Benicar] Adverse Reaction (Severe, Verified 06/01/20 14:48) hair loss pravastatin [From Pravachol] Adverse Reaction (Severe, Verified 06/01/20 14:48) myalgias rosuvastatin [From Crestor] Adverse Reaction (Severe, Verified 06/01/20 14:48) edema simvastatin [From Zocor] Adverse Reaction (Severe, Verified 06/01/20 14:48) myalgias spironolactone Adverse Reaction (Mild, Verified 06/01/20 14:48) Rash on hip gabapentin Adverse Reaction (Unknown, Verified 06/01/20 14:48) unkn tramadol Adverse Reaction (Unknown, Verified 06/01/20 14:48) Unknown ascorbic acid [From Ferrex 150 Plus] Adverse Reaction (Verified 06/01/20 14:48) PT UNABLE TO RESPOND-NEEDS F/U calcium threonate [From Ferrex 150 Plus] Adverse Reaction (Verified 06/01/20 14:48) PT UNABLE TO RESPOND-NEEDS F/U iron [From Ferrex 150 Plus] Adverse Reaction (Verified 06/01/20 14:48) PT UNABLE TO RESPOND-NEEDS F/U Latex, Natural Rubber Adverse Reaction (Verified 06/01/20 14:48) Rash succinic acid [From Ferrex 150 Plus] Adverse Reaction (Verified 06/01/20 14:48) PT UNABLE TO RESPOND-NEEDS F/U Primary Care Physician: Adriel Carney Chi, MD [Primary Care Provider] - Prior records reviewed: Yes Surgical History: - - Recent bone marrow biopsy Lives: Spouse/ Significant Other Smoking Status: Never smoker Alcohol: None Drugs: None Review of Systems General: Denies: Chills, Fever, Malaise, Subjective, Sweats, Weight loss - She reports 3 pound weight gain past month Eyes: Denies: Visual changes - bilaterally, Blurred Vision - bilaterally ENT: Denies: Bilateral ear pain, Rhinorrhea, Sore throat Cardiovascular: Denies: Chest pain, Palpitations Respiratory: Reports: Dyspnea, Dyspnea on exertion. Denies: Cough, Sputum, Orthopnea, Paroxysmal nocturnal dyspnea, -, - Gastrointestinal: Denies: Abdominal pain, Nausea, Vomiting, Diarrhea, Melena, Hematochezia Genitourinary: Denies: Dysuria, Hematuria, Frequency Musculoskeletal: Denies: Myalgias, Arthralgias, Neck pain, Back pain, Swelling, Extremity Pain, -, - Skin: Denies: Rash, Wounds Neurological: Reports: Weakness. Denies: Headache, Parasthesia Endocrine: Denies: Polyuria, Polydipsia Hematologic: Denies: Easy bruising, Easy bleeding Allergy: Denies: Uticaria Physical Exam Vital Signs/Narrative: Vital Signs Temp Pulse Resp BP Pulse Ox 06/01/20 16:01 96.0 F L 91 24 H 146/84 H 100 06/01/20 15:58 96.0 F L 90 24 H 146/84 H 100 Inital Vital Signs reviewed: Yes General: Well nourished, Well developed. Negative for: Acute Distress - Patient appears dyspneic. Head: Normocephalic, Atraumatic Eyes: Perrl, EOMI. Negative for: Pale conjunctiva, Scleral icterus ENT: Moist mucous membranes, No rhinorrhea, TM's clear Neck: Supple, Nontender, No lymphadenopathy, No JVD Cardiovascular: Regular rate, Regular rhythm, No murmurs, Normal S1, Normal S2 Respiratory: No distress, CTA bilaterally, Chest nontender Abdomen: Soft, Nontender, Nondistended, Normal bowel sounds Rectal: Deferred Back: Nontender, Normal Inspection. Negative for: CVA tenderness Extremities: Nontender, No edema. Negative for: Calf Tenderness Skin: Normal color, No rash, No Trauma. Negative for: Cyanosis, Diaphoresis, Jaundice, Pallor, Rash Neurological: Alert, Oriented x3, Cranial nerves II-XII grossly intact, Normal Strength, Normal Sensation Psychological: Normal affect, Normal Mood Diagnostic/Tx/Re-eval Chest X-Ray - ED: 1 View, Read by ED Physician, Normal, Heart, Lungs, Mediastinum, Bony Structures, No Acute Disease, - - Recorder noted. The x-ray was interpreted by me at 1704 Impressions Chest X-Ray 06/01/20 16:50 IMPRESSION: No definite acute or significant abnormality seen. Electronically Signed: Jacob Owens MD at 17:12 EST , Service support , 06/01/20 16:50 Chest 1 View (Portable) [RAD] Stat 06/01/20 16:37 Mucosa - Nose SARS-CoV-2 Antigen (Rapid) - Final Laboratory Results 06/01/20 06/01/20 06/01/20 16:35 16:35 16:35 D-Dimer Quant (PE/DVT) 0.98 H* Lactic Acid 2.1 H* Troponin I < 0.015 With a normal chest x-ray, elevated D-dimer even after correction for age with no explanation for dyspnea will obtain a CTA to evaluate for pulmonary embolus. There is limited enhancement of the main pulmonary artery and right and left pulmonary arteries. There is limited enhancement of the bilateral peripheral pulmonary arteries. Specifically, most of the contrast is seen in the left brachiocephalic vein and SVC, and the aorta is enhanced as much as the pulmonary arteries. This indicates a much too broad contrast bolus with improper timing. Pulmonary emboli cannot be excluded beyond the pulmonary trunk and main pulmonary arteries. CT/CTA Chest W/WO Contrast IMPRESSION: Technically inadequate exam for confirming or excluding pulmonary emboli as indicated above. Improper bolus and timing. There are findings consistent with COPD. There is no evidence of acute chest disease. Electronically Signed: Jacob Owens MD at 18:45 EST , Service support , - EKG Initial EKG Interpretation: Sinus Rhythm - Normal sinus rhythm with ventricular to 74. MA interval 142 ms. QRS duration 82 ms. QT duration 408 ms. [place] normal. EKG is normal. - Medical Decision Making Patient did have blood work which indicates her anemia has improved. Her hemoglobin is greater than 10. This would not explain her dyspnea. She also had an electrolyte panel performed that was unremarkable. Will obtain chest x- ray to evaluate for pulmonary causes as well as congestive heart failure. EKG was obtained to assess for cardiac ischemia. Troponin was added. Will obtain D-dimer to rule out pulmonary embolus. Covid test was obtained as well. Since the CTA is nondiagnostic and has limitations as outlined by the radiologist patient received 1 mg/kg of Lovenox and hospitalist was paged for overnight stay for repeat imaging in the morning. Patient denies history of COPD. She states she was exposed to fumes when she worked at [employer] when she was younger. She denies history of smoking. There is no acute pulmonary process that would explain her dyspnea. Therefore, must rule out pulmonary embolus. ED Disposition - Plan for ED Patient: Disposition: Acute Care Hospital [facility] Diagnosis: Acute dyspnea, Evaluate for pulmonary embolus Referrals: Adriel Carney Chi, MD [Primary Care Provider] -
--- NOTE | 2020-06-01 16:50 | RAD_ITS ---
STUDY: X-RAY CHEST REASON FOR EXAM: Female, 74 years old. SOB SINCE YESTERDAY, WORSE WITH TALKING AND EXERTION PER PT. TECHNIQUE: Single AP portable view of the chest. COMPARISON: 02/15/2020. FINDINGS: The lungs are clear and expanded. There is no demonstrated pleural abnormality. Normal size heart. 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 Normal mediastinum and kong. Normal visualized pulmonary arteries. Normal visualized aortic arch and descending thoracic aorta. Normal visualized thoracic spine. Stable compression plate across the left clavicle. There is no demonstrated abnormality of the visualized soft tissue structures of the upper abdomen. RAD/Chest 1 View (Portable) IMPRESSION: No definite acute or significant abnormality seen. Electronically Signed: Jacob Owens MD at 17:12 EST , Service support ,
[2020-06-01 17:26] LABS: D-Dimer Quantitative (DVT/PE) 0.98 FEU/ug/m (0.27-0.49)
[2020-06-01 17:40] LABS: Lactic Acid 2.1 mmol/L (0.4-1.9)
--- NOTE | 2020-06-01 17:49 | CT_ITS ---
STUDY: CTA CHEST REASON FOR EXAM: Female, 74 years old. R/O PE RADIATION DOSAGE (If Supplied By Facility): CTDIvol = ( 8.66 ) mGy, DLP = ( 269.63 ) mGycm TECHNIQUE: The examination was performed with the intravenous administration of IV 75mL [id number]-[id number]. Post-processing of the angiographic images was performed, with multiplanar reformation and 3D reconstruction. Individualized dose optimization techniques were used for this CT. COMPARISON: 02/16/2020. FINDINGS: There is limited enhancement of the main pulmonary artery and right and left pulmonary arteries. There is limited enhancement of the bilateral peripheral pulmonary arteries. Specifically, most of the contrast is seen in the left brachiocephalic vein and SVC, and the aorta is enhanced as much as the pulmonary arteries. This indicates a much too broad contrast bolus with improper timing. Pulmonary emboli cannot be excluded beyond the pulmonary trunk and main pulmonary arteries. Normal thoracic aorta and visualized great vessels. There is no demonstrated aortic dissection. Normal heart and pericardium. Normal mediastinum. Normal hilar regions. Normal visualized trachea and bronchi. The lungs are hyper expanded, with flattening of the hemidiaphragms. Normal pulmonary parenchyma. Normal pleura. Normal chest wall structures. Normal osseous structures. Normal visualized upper abdomen. CT/CTA Chest W/WO Contrast IMPRESSION: Technically inadequate exam for confirming or excluding pulmonary emboli as indicated above. Improper bolus and timing. There are findings consistent with COPD. There is no evidence of acute chest disease. Electronically Signed: Jacob Owens MD at 18:45 EST , Service support ,
[2020-06-01] MEDS: Enoxaparin 80 MG/0.8 ML Syringe 70 MG SC (19:09)
--- NOTE | 2020-06-01 19:22 | HP.PCM_ITS ---
Problem List (1) Exertional dyspnea Status: Acute (2) Chest pain Status: Acute Qualifiers: Chest pain type: unspecified Qualified Code(s): R07.9 - Chest pain, unspecified (3) Hyperlipidemia Status: Chronic Qualifiers: Hyperlipidemia type: unspecified Qualified Code(s): E78.5 - Hyperlipidemia, unspecified (4) Macrocytic anemia Status: Acute (5) Essential hypertension Status: Chronic (6) Premature ventricular contraction Status: Chronic (7) Hyperlipidemia Status: Chronic Qualifiers: Hyperlipidemia type: pure hypercholesterolemia Qualified Code(s): E78.00 - Pure hypercholesterolemia, unspecified; E78.0 - Pure hypercholesterolemia (8) Paroxysmal atrial tachycardia Status: Chronic (9) Syncope Status: Chronic Qualifiers: Syncope type: unspecified Qualified Code(s): R55 - Syncope and collapse (10) Status post placement of implantable loop recorder Status: Chronic History of Present Illness Date of Admission: 06/01/20 Chief Complaint: Exertional dyspnea The patient is a 74 y/o F w/ PMHx: Hx Esophageal obstruction/strictures s/p prior dilation needs following w/ Dr. Woodson with additionally known hemorrhoids, PAT, HTN, HLD, Chronic anemia/Fe deficiency anemia, GERD, Hx frequent syncopal events s/p prior loop recorder who presents to the [facility] ED on 06/01/20 with history of ongoing shortness of breath for approximately 2 days with recent completion of 6 doses of IV Venofer, primarily with exertion with increased fatigue and malaise with no recent ill contacts with no fevers, chills, diaphoresis, sore throat, cough, congestion or rhinorrhea, nausea, emesis, diarrhea. Patient also in the ED following her CT scan did note some left-sided chest discomfort, focal, described as a dull ache, rated 2 out of 10 in severity and resolved upon evaluation. She denied any increased dyspnea with this onset. Work-up in the ED included T 98.7, heart rate 90, BP 146/84, respiratory rate 24, and a percent on room air, D-dimer 0.98, lactic acid 2.1, troponin less than 0.015, recent labs prior to presentation with CBC with WBC 9.3, hemoglobin 10.7 with MCV 101.4, platelet 437 without significant shift, CMP with glucose 108, troponin less than 0.015, not marked appearing hepatic profile aside alk phos 173. Rapid Covid antigen obtained in the ED and noted to be negative. Chest x-ray with no acute cardiopulmonary findings with follow-up CTPA read to be technically adequate for confirming or excluding PE, improper bolus and timing secondary, findings consistent with COPD with no acute cardiopulmonary findings otherwise, EKG SR without acute evidence of ischemia. In the ED patient administered Lovenox 70 mg subcu x1. Past Medical History Past Medical History (Chronic Problems): Chronic Problems (Last Reviewed 06/01/20 @ 14:48 by Taylor Addison) Encounter for long-term current use of high risk medication (Chronic) Abnormal echocardiogram (Chronic) Anemia (Chronic) Dysphagia (Chronic) GI bleeding (Chronic) Hemorrhoid (Chronic) Hyperlipidemia (Chronic) Essential hypertension (Chronic) Palpitations (Chronic) Nonrheumatic tricuspid (valve) insufficiency (Chronic) Nonrheumatic mitral valve regurgitation (Chronic) Premature atrial contractions (Chronic) Premature ventricular contraction (Chronic) Hyperlipidemia (Chronic) Paroxysmal atrial tachycardia (Chronic) Syncope (Chronic) Status post placement of implantable loop recorder (Chronic) Medical History: Medical History (Last Reviewed 06/01/20 @ 14:48 by Taylor Addison) Essential hypertension (Chronic) I10 Palpitations (Chronic) R00.2 Nonrheumatic tricuspid (valve) insufficiency (Chronic) I36.1 Nonrheumatic mitral valve regurgitation (Chronic) I34.0 Premature atrial contractions (Chronic) I49.1 Premature ventricular contraction (Chronic) I49.3 Hyperlipidemia (Chronic) E78.5 Paroxysmal atrial tachycardia (Chronic) I47.1 Syncope (Chronic) R55 Status post placement of implantable loop recorder (Chronic) Z95.818 Anemia, unspecified D64.9 Chest tightness R07.89 Esophageal dilatation K22.8 x1 history, procedure scheduled for 12/31/2019 Esophageal obstruction K22.2 Fecal impaction K56.41 Gastro-esophageal reflux disease without esophagitis K21.9 Iron deficiency anemia, unspecified D50.9 Other abnormalities of breathing R06.89 Precordial chest pain R07.2 Snoring R06.83 Somnolence R40.0 Fatigue R53.83 Fibromyalgia M79.7 GERD (gastroesophageal reflux disease) K21.9 Dyspnea on exertion R06.09 Allergies estrogens, conjugated [From Premarin] Allergy (Severe, Verified 06/01/20 14:48) rash sulfamethoxazole [From Bactrim] Allergy (Verified 06/01/20 14:48) Rash trimethoprim [From Bactrim] Allergy (Verified 06/01/20 14:48) Rash amoxicillin [From Prevpac] Adverse Reaction (Severe, Verified 06/01/20 14:48) edema to knees atorvastatin [From Lipitor] Adverse Reaction (Severe, Verified 06/01/20 14:48) edema clarithromycin [From Prevpac] Adverse Reaction (Severe, Verified 06/01/20 14:48) edema to knees colestipol [From Colestid] Adverse Reaction (Severe, Verified 06/01/20 14:48) arthralgia lansoprazole [From Prevpac] Adverse Reaction (Severe, Verified 06/01/20 14:48) edema to knees lisinopril Adverse Reaction (Severe, Verified 06/01/20 14:48) cough,choking diarrhea olmesartan [From Benicar] Adverse Reaction (Severe, Verified 06/01/20 14:48) hair loss pravastatin [From Pravachol] Adverse Reaction (Severe, Verified 06/01/20 14:48) myalgias rosuvastatin [From Crestor] Adverse Reaction (Severe, Verified 06/01/20 14:48) edema simvastatin [From Zocor] Adverse Reaction (Severe, Verified 06/01/20 14:48) myalgias spironolactone Adverse Reaction (Mild, Verified 06/01/20 14:48) Rash on hip gabapentin Adverse Reaction (Unknown, Verified 06/01/20 14:48) unkn tramadol Adverse Reaction (Unknown, Verified 06/01/20 14:48) Unknown ascorbic acid [From Ferrex 150 Plus] Adverse Reaction (Verified 06/01/20 14:48) PT UNABLE TO RESPOND-NEEDS F/U calcium threonate [From Ferrex 150 Plus] Adverse Reaction (Verified 06/01/20 14:48) PT UNABLE TO RESPOND-NEEDS F/U iron [From Ferrex 150 Plus] Adverse Reaction (Verified 06/01/20 14:48) PT UNABLE TO RESPOND-NEEDS F/U Latex, Natural Rubber Adverse Reaction (Verified 06/01/20 14:48) Rash succinic acid [From Ferrex 150 Plus] Adverse Reaction (Verified 06/01/20 14:48) PT UNABLE TO RESPOND-NEEDS F/U Home Medications: Ambulatory Orders Medication Instructions Recorded metoprolol succinate 25 mg 25 mg PO DAILY #90 tab 01/01/20 tablet,extended release 24 hr Surgical History: Surgical History (Last Reviewed 06/01/20 @ 14:48 by Taylor Addison) History of bowel resection Z90.49 precancerous concern - Dr. Vidales History of colonoscopy with polypectomy Z98.890, Z86.010 Hx of cholecystectomy Z90.49 Clavicle fracture S42.009A Repair History of hemorrhoidectomy Z98.890 History of hysterectomy Z90.710 History of neck surgery Z98.890 History of repair of rotator cuff Z98.890 Surgical History: - - R hysterectomy, appendectomy, cholecystectomy, neck fusion x2, left collarbone intervention, right rotator cuff surgery, small colon res ection, loop recorder placement. Psychiatric History: No pertinent psych hx CLIENT SERVICES DIRECTOR History: No pertinent CLIENT SERVICES DIRECTOR history Lives: Spouse/ Significant Other Smoking Status: Never smoker Tobacco Use: Non-smoker Alcohol: None Drugs: None - *Family History Maternal Family History: Family History (Last Reviewed 06/01/20 @ 14:48 by Taylor Addison) Sister Hypertension Brother Colon cancer Brother Colon cancer Mother Alzheimers disease Father Parkinson disease History Items: Dementia - Mother with a history of Parkinson's disease with associated dementia. Paternal Family History: Family History (Last Reviewed 06/01/20 @ 14:48 by Taylor Addison) Sister Hypertension Brother Colon cancer Brother Colon cancer Mother Alzheimers disease Father Parkinson disease History Items: Dementia - Father with a history of Parkinson disease and associated dementia. Sibling Family History: Family History (Last Reviewed 06/01/20 @ 14:48 by Taylor Addison) Sister Hypertension Brother Colon cancer Brother Colon cancer Mother Alzheimers disease Father Parkinson disease History Items: Hypertension - Sister with a history of hypertension., - - Patient with 2 brothers both with colon cancer. Review of Systems Constitutional: Reports: Malaise, Weakness, Fatigue. Denies: Anorexia, Chills, Fever, Weight Change HEENT: Denies: Head Aches, Sinus Congestion, Sinus Drainage Cardiovascular: Reports: Chest Pain. Denies: Chest Pressure, Chest Tightness, Light Headedness, Orthopnea, Palpitations, Syncope Respiratory: Reports: Shortness of Breath, Shortness of breath upon exertion. Denies: Cough, Shortness of breath at rest, Sputum production Gastrointestinal: Denies: Abdominal Pain, Nausea, Vomiting Genitourinary: Denies: Dysuria Musculoskeletal: Reports: Joint Pain. Denies: Joint Tenderness Skin: Denies: Rash, Wounds Neurological: Denies: Numbness, Tingling, Focal weakness Psychiatric: Denies: Anxiety, Depression, Homicidal Ideations, Suicidal Ideations Hematologic/ Lymphatic: Reports: Anemia, Easy Bruising, Easy Bleeding VTE Information - Inpt Only VTE Present on Admission: No VTE Mechan Device Prophylaxis: SCD's VTE Pharm Prophylaxis ordered?: Yes Patient Problems: Active and Suspected Problems (Last Reviewed 06/01/20 @ 14:48 by Taylor Addison) Other intervertebral disc displacement, lumbar region (Acute) Intervertebral disc disorder with radiculopathy of lumbar region (Acute) Macrocytic anemia (Acute) Acute dyspnea (Acute) Subjective: Patient seated upright in the ED bed, fatigued appearance otherwise no acute distress, denies any current chest discomfort but did describe some prior following CT chest. Denies any current dyspnea but notes primarily with exertion. Objective: Physical Examination: General: awake, alert, oriented x 3 and cooperative, seated upright in the ED bed in no apparent distress. Skin: normal color, turgor, no icterus, cyanosis. HEENT: AT/NC, EOMI, PERRLA, mildly dry MM, no carotid bruits or JVD noted. Lungs: Diminished breath sounds, greater bases, moderate effort, no rales, ronchi or wheezing. Heart: Regular rate and rhythm; no gallop, rub audible. Abdomen: soft, NTTP, ND, normal BS, no HSM. Extremities: no cyanosis, clubbing, or edema. Neurological: patient awake, alert, oriented as noted; cognitive function intact; pupils equally reactive to light and accomodation; cranial nerves II-XII grossly normal, moving all 4 extremities, no focal deficits, strength mildly to moderately global decrease secondary to acute complaints. Psychiatric: affect appears mildly fatigued otherwise normal, no acute evidence of depressive or anxiety feelings. - Physical Exam Vitals/I&O's: Vital Signs Temp Pulse Resp BP Pulse Ox 97.4 F L 89 20 H 127/76 H 97 06/01/20 19:15 06/01/20 19:15 06/01/20 19:15 06/01/20 19:15 06/01/20 19:15 Oxygen Delivery Method Room Air Weight: 155 lb 5.05 oz Body Mass Index (BMI) 25.8 Microbiology Past 72 Hours 06/01/20 16:37 Mucosa - Nose SARS-CoV-2 Antigen (Rapid) - Final Laboratory Results 06/01/20 16:35: D-Dimer Quant (PE/DVT) 0.98 H* 06/01/20 16:35: Lactic Acid 2.1 H* 06/01/20 16:35: Troponin I < 0.015 Assessment/Plan All Active Problems (Last Reviewed 06/01/20 @ 14:48 by Taylor Addisno) Other intervertebral disc displacement, lumbar region (Acute) Other intervertebral disc displacement, lumbar region (Acute) Intervertebral disc disorder with radiculopathy of lumbar region (Acute) Intervertebral disc disorder with radiculopathy of lumbar region (Acute) Radiculopathy of lumbar region (Acute) Radiculopathy of lumbar region (Acute) GI bleed (Acute) Exertional dyspnea (Acute) Macrocytic anemia (Acute) Acute dyspnea (Acute) Chest pain (Acute) The patient is a 74 y/o F w/ PMHx: Hx Esophageal obstruction/strictures s/p prior dilation needs following w/ Dr. Woodson with additionally known hemorrhoids, PAT, HTN, HLD, Chronic anemia/Fe deficiency anemia, GERD, Hx frequent syncopal events s/p prior loop recorder who presents to the [facility] ED on 06/01/20 with history of ongoing shortness of breath for approximately 2 days with recent completion of 6 doses of IV Venofer, primarily with exertion with increased fatigue and malaise with no recent ill contacts. 1. Exertional Dyspnea, New onset, transient chest pain: Will admit to PCU, place on a monitored bed to assure no acute myocardial infarction with serial cardiac enzymes and EKGs. Will request AM BL LE duplex US and may consider CTPA repeat with hydration overnight if felt appropraite versus VQ scan and onset these are obtained and assure no PE with ongoing therpeutic lovenox pending results, may need to consider stress testing, ECHO requested. ASA, NG, morphine. 2. Chronic anemia: Patient with recent 06/01/20 ion panel recently obtained on 06/01/2020 with iron 115, TIBC 274, iron saturation 42, ferritin 909, CBC w/ Hgb 10.7, most recent prior 05/04/20 Hgb 9.3, will continue to trend and continued outpatient follow-up with hematology especially given recent labs. 3. History of esophageal obstruction/strictures: Patient status post prior dilations, following with Dr. Woodson, also history of hemorrhoids previously with prior intervention. 4. Paroxysmal atrial tachycardia: We will continue patient home metoprolol regimen, plan to maintain on telemetry as noted #1. 5. Hypertension: Continue home regimen including metoprolol with hold parameters, PRN hydralazine. 6. Hyperlipidemia: Not on regimen, FLP in AM. 7. History of syncope: Status post prior frequent syncope events status post loop recorder placement. 8. GERD: We will maintain on famotidine. 9. Possible underlying COPD: Patient with CT chest with findings consistent with underlying chronic lung disease, notes significant long history of exposure at [employer] both the chemicals and tobacco noting she had worked there for approximately 22 years. Will initiate aerosols with as needed albuterol concurrently to assess if helps with #1, may benefit from consideration outpatient pulmonary function testing. 10. DVT prophylaxis: SCDs, Lovenox. 11. CODE status: Patient CAROLE is her and living will is currently in place. Discussed CODE status at length including difference between FULL code, DNR-CCA and DNR-CC status. Following discussions about the differences in these status, requested DNR-CCA, no intubation status. Advanced Care Planning Face to Face Time: 16 minutes. OBSV E&M: 74161 Initial observation care L3 Procedures: 49771 Advncd Care Plan 30 Min
--- NOTE | 2020-06-01 19:53 | PCS.PANDOC ---
PANDEMIC DOCUMENTATION INITIATED: Date: 06/01/2020 Time: 1999
--- NOTE | 2020-06-01 20:51 | EKG12_ITS ---
Test Reason : CP ADMISSION Blood Pressure : / mmHG Vent. Rate : 077 BPM Atrial Rate : 077 BPM P-R Int : 144 ms QRS Dur : 084 ms QT Int : 418 ms P-R-T Axes : 037 010 040 degrees QTc Int : 473 ms Normal sinus rhythm Normal ECG When compared with ECG of 01-JUN-2020 17:06, MANUAL COMPARISON REQUIRED, DATA IS UNCONFIRMED Confirmed by VINH SOLER, ABIMBOLA ([id number]), editorial assistant LEOLA AMEZQUITA ([id number]) on 06/06/2020 9:35:57 AM Referred By: FINESSE Confirmed By:LOVE JUSTICE MD
--- NOTE | 2020-06-01 20:51 | ECHOD_ITS ---
Reason For Study: Arrhythmia Procedure This was a 2D Doppler, Color Flow transthoracic echocardiogram. Exam performed in department. Left Ventricle Normal LV size. The estimated ejection fraction is 70 %. Stage 2 diastolic dysfunction. No regional wall motion abnormalities noted. Right Ventricle Normal RV size. Normal systolic function. Atria The left atrium is mildly enlarged. Normal right atrium. No doppler evidence for ASD. Mitral Valve There is no mitral valve stenosis. Trivial mitral valve insufficiency. Tricuspid Valve There is no tricuspid stenosis. Trivial tricuspid valve insufficiency. Pulmonary artery systolic pressure is 40 mmHg. Aortic Valve Trisinus/trileaflet aortic valve. There is no aortic stenosis. No aortic valve insufficiency. Pulmonic Valve There is no pulmonic valvular stenosis. No pulmonic valve insufficiency. Great Vessels Normal aortic root. Pericardium/Pleural No pericardial effusion. MMode/2D Measurements & Calculations LVIDd: 5.0 cm IVSd: 1.2 cm Ao root diam: 3.0 cm LVIDs: 2.8 cm LVPWd: 1.0 cm RVDd: 3.2 cm FS: 43.9 % LAV(MOD-sp4): 40.6 ml LVAd ap4: 22.1 cm2 SV(MOD-sp4): 38.1 ml EDV(MOD-sp4): 56.1 ml EDV(sp4-el): 57.4 ml LVAs ap4: 10.7 cm2 ESV(MOD-sp4): 18.0 ml ESV(sp4-el): 17.2 ml EF(MOD-sp4): 67.8 % EF(sp4-el): 70.1 % SV(sp4-el): 40.3 ml LA A4 area: 16.9 cm2 LA dimension(2D): 4.6 cm RA A4 area: 12.6 cm2 Doppler Measurements & Calculations MV E max taz: 80.8 cm/sec Lat Peak E' Taz: 10.2 cm/sec Med Peak E' Taz: 5.5 cm/sec MV A max taz: 115.5 cm/sec E/E' lat: 7.9 E/E' med: 14.7 MV E/A: 0.70 Ao V2 max: 135.9 cm/sec LV V1 max: 99.3 cm/sec PA V2 max: 88.9 cm/sec Ao max P.4 mmHg LV V1 max P.9 mmHg Ao V2 mean: 95.5 cm/sec Ao mean P.0 mmHg Ao V2 VTI: 29.2 cm TR max taz: 309.7 cm/sec TR max P.4 mmHg Interpretation Summary The estimated ejection fraction is 70 %. Stage 2 diastolic dysfunction. Trivial mitral valve insufficiency. The left atrium is mildly enlarged. Ordering Physician: Marlys Lyn Referring Physician: Adriel Carney Chi Performed By: Shirley Delaney, EMILEE, RVT
--- NOTE | 2020-06-01 20:51 | VDLE_ITS ---
Reason For Study: Polmonary embolism RIGHT LEFT GSV is normal. GSV is normal. CFV is compressible, spontaneous, phasic, CFV is compressible, spontaneous, phasic, competent and demonstrates normal competent, and demonstrates normal augmentation. augmentation. FV is compressible, spontaneous, phasic, FV is compressible, spontaneous, phasic, competent and demonstrates normal competent and demonstrates normal augmentation. augmentation. POP V is compressible, spontaneous, phasic, POP V is compressible, spontaneous, phasic, competent and demonstrates normal competent and demonstrates normal augmentation. augmentation. T/P Trunk is compressible. T/P Trunk is compressible. PTV is compressible. PTV is compressible. RT PerV is compressible. LT PerV is compressible. Procedure This is a venous duplex using B-mode, color flow and spectral Doppler. Exam performed in department. A preliminary report was called and/or faxed to PCU senior technical business analyst. Interpretation Summary No evidence for acute deep venous thrombosis bilateral lower extremities with patent and compressible bilateral great saphenous veins. Ordering Physician: Marlys Lyn Referring Physician: Adriel Carney Chi Performed By: Mile Hendricks RVT
[2020-06-01 20:55] LABS: Reflex Lactate? Y
[2020-06-01 21:51] LABS: Lactic Acid 2.7 mmol/L (0.4-1.9)
[2020-06-01 21:56] LABS: Procalcitonin 0.06 ng/mL (0.00-0.09)
[2020-06-01] MEDS: 0.9% Normal Saline 1,000 ML 999 ML IV (22:24)
[2020-06-01] MEDS: Famotidine 20 MG Tablet PO (22:24)
[2020-06-01] MEDS: 0.9% Normal Saline 1,000 ML 100 ML IV (23:30)
[2020-06-01] MEDS: Ipratropium/Albuterol Sulfate 3 ML AMPUL.NEB INHALATION (23:35)
[2020-06-02] VITALS (11 sets, daily range): BP systolic 125–146; BP diastolic 67–80; PULSE 71–95; RESP 16–18; TEMP 36.5–36.9; O2SAT 93–98
[2020-06-02 04:16] LABS: Absolute Lymphocyte Count 4.74 X10^3/uL (0.83-4.51); Absolute Neutrophil Count 4.9 X10^3/uL (2.0-7.7); Basophil# 0.06 X10^3/uL; Basophil% 0.6 % (0-1); Differential Indicated SCAN CRITERIA MET; Eosinophil# 0.28 X10^3/uL; Eosinophils% 2.6 % (0-5); Hematocrit 27.3 % (37-47); Hemoglobin 9.5 g/dL (12.0-15.0); Lymphocyte # 4.74 X10^3/ul (4.0); Lymphocyte % 43.7 % (19-41); Mean Corp Hgb Conc 34.8 g/dL (32-36); Mean Corpuscular Hgb 36.4 pg (27.0-32.0); Mean Corpuscular Volume 104.6 fL (81-99); Monocyte# 0.87 X10^3/uL; NRBC Flagged by Analyzer 0 % (0-5); Neutrophil # 4.85 X10^3/uL (2.7-7.7); Neutrophil % 44.7 % (47-70); POSITIVE MORPHOLOGY YES; Platelet Count 357 K/mm3 (150-450); RBC Distribution Width CV 21.3 % (11.6-14.6); RBC Distribution Width SD 55.2 fl (35.1-43.9); Red Blood Count 2.61 M/mm3 (4.2-5.4); White Blood Count 10.8 K/mm3 (4.4-11.0)
[2020-06-02 04:48] LABS: ALB/GLOB Ratio 1.3 RATIO (0.9-2.4); AST(SGOT) 21 U/L (15-37); Alanine Aminotransfer ALT/SGPT 18 U/L (13-56); Albumin, Serum 3.7 g/dL (3.2-5.0); Alkaline Phosphatase 143 U/L (45-117); Anion Gap 5 (5-15); BUN 6 mg/dL (7-18); BUN/Creat Ratio 9.5 RATIO (10-20); Calcium,Total 8.3 mg/dL (8.5-10.1); Chloride 112 mmol/L (98-107); Cholesterol 188 mg/dL (200); Creatinine, Serum 0.63 mg/dL (0.55-1.02); EST Glomerular Filtration Rate 98 mL/min (>60); Est Glom Filt Rate - Afr Amer 118 mL/min (>60); Estimated Creatinine Clearance 44.41 ml/min; Globulin 2.8 g/dL (2.2-4.2); Glucose 100 mg/dL (74-106); High Density Lipoprotein 41 mg/dL; Potassium 3.6 mmol/L (3.5-5.1); Protein, Total 6.5 g/dL (6.4-8.2); Sodium Level 141 mmol/L (136-145); Triglycerides 268 mg/dL; Very Low Density Lipoprotein 54 mg/dL (5-40)
[2020-06-02] MEDS: 0.9% Saline Lock 10 ML Syringe IV ×2 (06:58→08:04)
[2020-06-02] MEDS: Enoxaparin 80 MG/0.8 ML Syringe 70 MG SC (06:58)
[2020-06-02] MEDS: Ipratropium/Albuterol Sulfate 3 ML AMPUL.NEB INHALATION ×2 (07:11→13:14)
[2020-06-02] MEDS: Aspirin E.C. 81 MG Tablet PO (08:04)
--- NOTE | 2020-06-02 11:20 | CASEMGMT ---
Face to Face with patient for initial transition planning/care coordination assessment. HEIDY MCKEON introduced self and role at [facility], voices understanding. Care providers, pharmacy, and demographics verified. PCP: Dr Carney Specialists: Dr. Chavarria (groundskeeper porter), Dr. Mitchell (planetarium technician), Dr. Woodson (residence life coordinator) [facility]erred [facility]acy: [facility] Insurance: MCR A/B, Chauncey Prescription Benefit: Yes Living Will/HPOA: Yes/Yes but not present in medical record. Pt states she will try to remember to bring them in from the furniture reproducer's office. Pt's Abhishek is her HPOA LNOK: Abhishek. also has a daughter who lives in the area Living Arrangements: w/ in a one story home with 2 steps to enter. Pt states they normally are in [place] from March thru September. ADL's: Pt is independent with ADLs and household tasks. Her is able to assist if needed. Transportation: Pt drives and her spouse also drives if needed DME: shower chair; denies having a cane, walker, w/c, bipap, cpap, or O2 SNF: None HHC: None Plan: Return home w/spouse. No discharge needs identified at this time. Stress test currently pending. Artur Celaya RN CM
[2020-06-02] MEDS: Famotidine 20 MG Tablet PO (11:42)
[2020-06-02] MEDS: Metoprolol(XL)Succ 25 MG Tablet PO (11:42)
--- NOTE | 2020-06-02 13:04 | STRESSREP_ITS ---
Stress Test Report Date: 06/02/2020 Procedure: Pharmacologic stress nuclear imaging study Indications: Angina, shortness of breath Consent: Per the patient Procedure: The patient underwent pharmacologic (Regadenoson) evaluation with a peak heart rate of 122 beats per minute (83%predicted maximal heart rate) and a peak blood pressure of 148/64 mmHg. The baseline ECG demonstrated normal sinus rhythm, occasional PACs. EKG during lexiscan infusion revealed no significant ischemic changes. EKG post infusion revealed no significant ischemic changes [There were no cardiac dysrhythmias pretest, during pharmacologic infusion, or recovery]. [There was no complaint of chest discomfort during pharmacologic infusion or recovery]. The examination was discontinued secondary to completion of protocol. Impression: 1. Lexiscan stress test test is negative for Lexiscan infusion induced EKG changes of ischemia. 2. Lexiscan stress test test is negative for Lexiscan infusion induced chest pain. 3. Results of the nuclear portion of the test is as below Myocardial perfusion imaging study: Technique: The patient was injected with [10] millicuries of technetium 99m Cardiolite and subsequently rest SPECT Cardiolite nuclear imaging was obtained in the horizontal long, vertical long, and short axis views. The patient underwent pharmacologic (Regadenoson) evaluation. Please see above for details. The patient was injected with 33.2 millicuries of technetium 99m Cardiolite and subsequently stress SPECT Cardiolite nuclear imaging was obtained in the horizontal long, vertical long, and short axis views. A gated Cardiolite study at peak stress was obtained. Interpretation: Rest and stress SPECT Cardiolite nuclear imaging status post realignment, normalization, and attenuation correction demonstrate overall normal myocardial radioisotope uptake. Gated images reveal no significant regional wall motion abnormalities. The reported LVEF is greater than 70%. Impression: 1. There is no evidence of significant ischemia or infarction. 2. Estimated ejection fraction is greater than 70%. This note was generated with [employer] software. It may contain incorrect words, spelling, and punctuation that were not noted in checking the note before signing.
--- NOTE | 2020-06-02 14:11 | PCM.DC ---
- Discharge Diagnoses Current Active Problems: Current Active and Chronic Problems (Last Reviewed 06/01/20 @ 14:48 by Taylor Addison) Encounter for long-term current use of high risk medication (Chronic) Other intervertebral disc displacement, lumbar region (Acute) Intervertebral disc disorder with radiculopathy of lumbar region (Acute) Anemia (Chronic) Dysphagia (Chronic) GI bleeding (Chronic) Hemorrhoid (Chronic) Exertional dyspnea (Acute) Macrocytic anemia (Acute) Acute dyspnea (Acute) Hyperlipidemia (Chronic) Chest pain (Acute) Essential hypertension (Chronic) Nonrheumatic tricuspid (valve) insufficiency (Chronic) Nonrheumatic mitral valve regurgitation (Chronic) Premature ventricular contraction (Chronic) Hyperlipidemia (Chronic) Paroxysmal atrial tachycardia (Chronic) Syncope (Chronic) Status post placement of implantable loop recorder (Chronic) You will use the following diet at home:: No restrictions Your food should be the consistency of: Regular Your liquids should be the consistency of: Regular/Thin Allergies/Adverse Reactions: Allergies estrogens, conjugated [From Premarin] Allergy (Severe, Verified 06/01/20 14:48) rash sulfamethoxazole [From Bactrim] Allergy (Verified 06/01/20 14:48) Rash trimethoprim [From Bactrim] Allergy (Verified 06/01/20 14:48) Rash amoxicillin [From Prevpac] Adverse Reaction (Severe, Verified 06/01/20 14:48) edema to knees atorvastatin [From Lipitor] Adverse Reaction (Severe, Verified 06/01/20 14:48) edema clarithromycin [From Prevpac] Adverse Reaction (Severe, Verified 06/01/20 14:48) edema to knees colestipol [From Colestid] Adverse Reaction (Severe, Verified 06/01/20 14:48) arthralgia lansoprazole [From Prevpac] Adverse Reaction (Severe, Verified 06/01/20 14:48) edema to knees lisinopril Adverse Reaction (Severe, Verified 06/01/20 14:48) cough,choking diarrhea olmesartan [From Benicar] Adverse Reaction (Severe, Verified 06/01/20 14:48) hair loss pravastatin [From Pravachol] Adverse Reaction (Severe, Verified 06/01/20 14:48) myalgias rosuvastatin [From Crestor] Adverse Reaction (Severe, Verified 06/01/20 14:48) edema simvastatin [From Zocor] Adverse Reaction (Severe, Verified 06/01/20 14:48) myalgias spironolactone Adverse Reaction (Mild, Verified 06/01/20 14:48) Rash on hip gabapentin Adverse Reaction (Unknown, Verified 06/01/20 14:48) unkn tramadol Adverse Reaction (Unknown, Verified 06/01/20 14:48) Unknown ascorbic acid [From Ferrex 150 Plus] Adverse Reaction (Verified 06/01/20 14:48) PT UNABLE TO RESPOND-NEEDS F/U calcium threonate [From Ferrex 150 Plus] Adverse Reaction (Verified 06/01/20 14:48) PT UNABLE TO RESPOND-NEEDS F/U iron [From Ferrex 150 Plus] Adverse Reaction (Verified 06/01/20 14:48) PT UNABLE TO RESPOND-NEEDS F/U Latex, Natural Rubber Adverse Reaction (Verified 06/01/20 14:48) Rash succinic acid [From Ferrex 150 Plus] Adverse Reaction (Verified 06/01/20 14:48) PT UNABLE TO RESPOND-NEEDS F/U Medications to take at Discharge metoprolol succinate 25 mg tablet,extended release 24 hr 25 mg PO DAILY #90 tab 01/01/20 Albuterol Inhaler [Ventolin Hfa] 1 puff INHALATION Q4H PRN PRN #1 inhaler 06/02/20 The following prescriptions were given: Albuterol Inhaler [Ventolin Hfa] 1 puff INHALATION Q4H PRN PRN #1 inhaler PRN Reason: Shortness Of Breath Transmission Status: Pending to [id number] Primary Care Physician: Adriel Carney Chi, MD [Primary Care Provider] - Within 2 Weeks Test Results: Test results from this visit will be discussed in further detail at your follow-up appointment, if applicable. Please Follow Up With: Rolando Garcia MD - pulmonary When: 3-4 weeks Please Follow Up With: Abhishek Chavarria MD When: 09/29/2020, already scheduled Proposed Discharge Date: 06/02/20
--- NOTE | 2020-06-02 14:17 | PCM.DC.SUM ---
Discharge Date and Diagnosis - Problem List Patient Problems: Active and Suspected Problems (Last Reviewed 06/01/20 @ 14:48 by Taylor Addison) Exertional dyspnea (Acute) Acute dyspnea (Acute) Chest pain (Acute) Date of Admission: 06/01/20 Date of Discharge: 06/02/20 - Primary Discharge Diagnosis Acute Problems: Active Problems (Last Reviewed 06/01/20 @ 14:48 by Taylor Addison) Other intervertebral disc displacement, lumbar region (Acute) Intervertebral disc disorder with radiculopathy of lumbar region (Acute) Exertional dyspnea (Acute) Macrocytic anemia (Acute) Acute dyspnea (Acute) Chest pain (Acute) - Secondary Discharge Diagnosis Chronic Problems: Chronic Problems (Last Reviewed 06/01/20 @ 14:48 by Taylor Addison) Encounter for long-term current use of high risk medication (Chronic) Abnormal echocardiogram (Chronic) Anemia (Chronic) Dysphagia (Chronic) GI bleeding (Chronic) Hemorrhoid (Chronic) Hyperlipidemia (Chronic) Essential hypertension (Chronic) Palpitations (Chronic) Nonrheumatic tricuspid (valve) insufficiency (Chronic) Nonrheumatic mitral valve regurgitation (Chronic) Premature atrial contractions (Chronic) Premature ventricular contraction (Chronic) Hyperlipidemia (Chronic) Paroxysmal atrial tachycardia (Chronic) Syncope (Chronic) Status post placement of implantable loop recorder (Chronic) Hospital Course and Treatment Imaging Results: 06/02/20 07:52 Nuclear Stress Test - Chemical [NM] Routine Clinical Impression(s) from Imaging Studies Chest X-Ray 06/01/20 16:50 IMPRESSION: No definite acute or significant abnormality seen. Electronically Signed: Jacob Owens MD at 17:12 EST , Service support , Chest CTA 06/01/20 17:49 IMPRESSION: Technically inadequate exam for confirming or excluding pulmonary emboli as indicated above. Improper bolus and timing. There are findings consistent with COPD. There is no evidence of acute chest disease. Electronically Signed: Jacob Owens MD at 18:45 EST , Service support , Operations: None Procedures: None Summary of Care Provided: The patient is a 74 year old F presents with exertional dyspnea. Concern was this being a cardiac equivalent. Patient was evaluated from a cardiac standpoint including a stress test which all came back negative. I informed patient is unclear what the contributing factor for this but to there was some mention of COPD on her CTA but I see any obvious COPD on my evaluation. I did question of the patient does have some underlying asthma and would discharge patient with an albuterol MDI and recommended that she follow-up with pulmonology as outpatient for further evaluation with pulmonary cause in regards to her dyspnea. [] Patient Problems: Active and Suspected Problems (Last Reviewed 06/01/20 @ 14:48 by Taylor Addison) Exertional dyspnea (Acute) Acute dyspnea (Acute) Chest pain (Acute) - Physical Exam Vitals/I&O's: Vital Signs Temp Pulse Resp BP Pulse Ox 36.6 C 72 16 125/67 H 97 06/02/20 11:39 06/02/20 13:14 06/02/20 13:14 06/02/20 11:42 06/02/20 11:39 Oxygen Delivery Method Room Air Weight: 69.3 kg Body Mass Index (BMI) 25.5 Intake and Output for Last 24 Hours 05/31/20 06/01/20 06/02/20 23:59 23:59 23:59 Intake Total 1360 / 1360 1856.67 / 1856.67 Balance 1360 / 1360 1856.67 / 1856.67 General: Alert, No apparent distress HEENT: Atraumatic, Normocephalic Oral: Moist Mucosa, No Gingival or Mucosal Lesions/ Ulcerations Neck: No Nodes, Thyroid Normal Size and Texture Lungs: Clear to auscultation, Normal air movement, No rhonchi, No wheeze Cardiovascular: Regular rate, Regular Rhythm, Normal S1, Normal S2, No murmurs Abdomen: Bowel Sounds Present, Soft, Non Tender, Non-Distended, No Hepato-splenomegaly Extremities: No edema, No Calf Tenderness Microbiology Past 72 Hours 06/01/20 23:10 Mucosa - Nose Respiratory Panel (PCR) - Final 06/01/20 16:37 Mucosa - Nose SARS-CoV-2 Antigen (Rapid) - Final Laboratory Results 06/01/20 16:35: D-Dimer Quant (PE/DVT) 0.98 H* 06/01/20 16:35: Lactic Acid 2.1 H* 06/01/20 16:35: Troponin I < 0.015 06/01/20 21:10: Procalcitonin 0.06 06/01/20 21:10: Lactic Acid 2.7 H* 06/01/20 21:10: Troponin I < 0.015 06/02/20 00:30: Troponin I < 0.015 06/02/20 03:16: WBC 10.8, RBC 2.61 L, Hgb 9.5 L, Hct 27.3 L, MCV 104.6 H, MCH 36.4 H, MCHC 34.8, RDW Std Deviation 55.2 H, RDW Coeff of Brigette 21.3 H, Plt Count 357, MPV 11.0, Immature Gran % (Auto) 0.400, Neut % (Auto) 44.7 L, Lymph % (Auto) 43.7 H, [place] % (Auto) 8.0, Eos % (Auto) 2.6, Baso % (Auto) 0.6, Absolute Neuts (auto) 4.9, Absolute Lymphs (auto) 4.74 H, Nucleated RBC % 0 06/02/20 03:16: Sodium 141, Potassium 3.6, Chloride 112 H, Carbon Dioxide 24.0, Anion Gap 5, BUN 6 L, Creatinine 0.63, Estim Creat Clear Calc 44.41, Est GFR (MDRD) Af Amer 118, Est GFR (MDRD) Non-Af 98, BUN/Creatinine Ratio 9.5 L, Glucose 100, Calcium 8.3 L, Total Bilirubin 0.70, AST 21, ALT 18, Alkaline Phosphatase 143 H, Total Protein 6.5, Albumin 3.7, Globulin 2.8, Albumin/Globulin Ratio 1.3, Triglycerides 268 H, Cholesterol 188, LDL Cholesterol 93, VLDL Cholesterol 54 H, HDL Cholesterol 41 06/02/20 03:16: Troponin I < 0.015 Current Medications Acetaminophen (Acetaminophen 325 Mg Tablet) 650 mg PO Q6H PRN PRN PRN Reason: Pain Score 1-10/Temp > 100.7 F Al Hydroxide/Mg Hydroxide (Mag Hydrox/Al Hydrox/Simeth 30 Ml Udc) 30 ml PO Q6H PRN PRN PRN Reason: Gastric Burning Albuterol Sulfate (Albuterol 2.5 Mg/3 Ml Vial.Neb.) 2.5 mg INHALATION Q2H PRN PRN PRN Reason: Dyspnea, wheezing Albuterol/Ipratropium (Ipratropium/Albuterol Sulfate 3 Ml Ampul.Neb) 3 ml INHALATION Q6HWA.RT [facility] Last Admin: 06/02/20 13:14 Dose: 3 ml Documented by: Aspirin (Aspirin E.C. 81 Mg Tablet) 81 mg PO DAILY [facility] Last Admin: 06/02/20 08:04 Dose: 81 mg Documented by: Enoxaparin Sodium (Enoxaparin 80 Mg/0.8 Ml Syringe) 70 mg SC Q12@0600,1800 [facility] Last Admin: 06/02/20 06:58 Dose: 70 mg Documented by: Famotidine (Famotidine 20 Mg Tablet) 20 mg PO BID [facility] Last Admin: 06/02/20 11:42 Dose: 20 mg Documented by: Guaifenesin (Guaifenesin 10 Ml Udc (200mg/10ml)) 20 ml PO Q4H PRN PRN PRN Reason: COUGH Hydralazine HCl (Hydralazine 20 Mg/Ml Vial) 10 mg IV Q4H PRN PRN PRN Reason: SBP > 160 Sodium Chloride () 1,000 mls @ 100 mls/hr IV .Q10H [facility] Last Infusion: 06/02/20 08:04 Dose: 0 mls/hr Documented by: Magnesium Hydroxide (Magnesium Hydroxide 30 Ml Udc) 30 ml PO DAILY PRN PRN PRN Reason: Constipation Melatonin (Melatonin 3 Mg Tablet) 3 mg PO QHS PRN PRN PRN Reason: INSOMNIA Metoprolol Succinate (Metoprolol(Xl)Succ 25 Mg Tablet) 25 mg PO DAILY [facility] Last Admin: 06/02/20 11:42 Dose: 25 mg Documented by: Nitroglycerin (Nitroglycerin (Inpatient Use) 0.4 Mg Tab.Subl) 0.4 mg SUBLINGUAL Q5M PRN PRN Reason: CARDIAC/CHEST PAIN Ondansetron HCl (Ondansetron 4 Mg/2 Ml Vial) 4 mg IV Q8H PRN PRN PRN Reason: NAUSEA/VOMITING Prochlorperazine Edisylate (Prochlorperazine 10 Mg/2 Ml Vial) 5 mg IV Q4H PRN PRN PRN Reason: Breakthrough Nausea/Vomiting Psyllium Hydrophilic Mucilloid (Psyllium 1 Packet) 1 packet PO DAILY PRN PRN PRN Reason: Constipation Senna/Docusate Sodium (Senna/Docusate Sodium 1 Tablet) 2 tablet PO BID PRN PRN PRN Reason: Constipation Sodium Chloride (0.9% Saline Lock 10 Ml Syringe) 10 - 40 ml IV UD PRN PRN Reason: SALINE FLUSH Last Admin: 06/02/20 08:04 Dose: 10 ml Documented by: Throat Lozenges (Benzocaine/Menthol 1 Lozenge) 1 lozenge MUCOUS MEM Q2H PRN PRN PRN Reason: SORE THROAT Discharge Diet: No Restrictions Home Medications: Medications to take at Discharge metoprolol succinate 25 mg tablet,extended release 24 hr 25 mg PO DAILY #90 tab 01/01/20 Albuterol Inhaler [Ventolin Hfa] 1 puff INHALATION Q4H PRN PRN #1 inhaler 06/02/20 Following Prescriptions Were Given to Patient: Albuterol Inhaler [Ventolin Hfa] 1 puff INHALATION Q4H PRN PRN #1 inhaler PRN Reason: Shortness Of Breath Transmission Status: Pending to [id number] Primary Care Physician: Adriel Carney Chi, MD [Primary Care Provider] - Within 2 Weeks Please Follow Up With: Rolando Garcia MD - pulmonary When: 3-4 weeks Please Follow Up With: Abhishek Chavarria MD When: 09/29/2020, already scheduled Disposition: Home Minutes spent on discharge:: 28 Patient Condition:: Good Medical Necessity - Tobacco Use Smoking Status: Never smoker Tobacco Use: Non-smoker Meaningful Use Info Meaningful Use Diagnoses (Choose all that apply): None applicable OBSV E&M: 65890 Observation care discharge
--- NOTE | 2020-06-02 14:27 | CHAPLAIN ---
Type of Pastoral Visit ___ Initial Visit ___ Follow-up Visit ___ On-call Visit ___ General Patient Visit ___ Spiritual Assessment ___ Family Conference ___ Bereavement ___ Rapid Response ___ Code Blue _x__ Other (describe below) Pastoral Care Referral From ___ Patient ___ Family ___ Nurse ___ Physician ___ Net Ui Developer ___ Seam Taper Machine ___ Other (describe below) Sacrament/Intervention ___ Active listening ___ Anointing ___ Yarsanism ___ Bereavement ___ Communion ___ Medina exploration ___ ___ Life review ___ Prayer ___ Reconciliation ___ Sacrament of Sick ___ Supportive presence ___ Wedding ___ Other (describe below) Pastoral Comments two attempts to visit patient - first the DR was in room and the second patient care was being done
== END 2020-06-02 14:17 | disposition home or self-care (01) ==
LOC: ED 19:06 → PCU 19:52
PROVIDERS: Admitting Provider Family Medicine; Emergency Provider Emergency Medicine; PCP Family Medicine Geriatric Medicine
DX: R06.09 Other forms of dyspnea (principal); R07.9 Chest pain, unspecified; E78.5 Hyperlipidemia, unspecified; I10 Essential (primary) hypertension; Z79.899 Other long term (current) drug therapy; K21.9 Gastro-esophageal reflux disease without esophagitis; M51.16 Intervertebral disc disorders with radiculopathy, lumbar region; D53.9 Nutritional anemia, unspecified
CPT/HCPCS: 36415; 71045; 71275; 78452; 80053; 80061; 83605; 84145; 84484; 85025; 85379; 87426; 87633; 93005; 93017; 93306; 93970; 94640; 96360; 96361; 96372; 99218; 99251; 99285; A9500; J7030; Q9967; A4216; G0378; G0463; J2785

== ENCOUNTER → 2020-09-13 12:04 | Outpatient (CLI) | payer MEDICARE, BC, SELFPAY ==
[2020-06-01 20:20] VITALS: BMI 25.5
[2020-09-13 12:43] LABS: ALB/GLOB Ratio 1.3 RATIO (0.9-2.4); AST(SGOT) 20 U/L (15-37); Alanine Aminotransfer ALT/SGPT 17 U/L (13-56); Alkaline Phosphatase 152 U/L (45-117); Anion Gap 5 (5-15); BUN 16 mg/dL (7-18); BUN/Creat Ratio 19.2 RATIO (10-20); Calcium,Total 9.7 mg/dL (8.5-10.1); Chloride 104 mmol/L (98-107); Creatinine, Serum 0.84 mg/dL (0.55-1.02); EST Glomerular Filtration Rate 71 mL/min (>60); Est Glom Filt Rate - Afr Amer 86 mL/min (>60); Glucose 105 mg/dL (74-106); Potassium 3.8 mmol/L (3.5-5.1); Sodium Level 136 mmol/L (136-145)
[2020-09-13 13:00] LABS: Absolute Lymphocyte Count 4.23 X10^3/uL (0.83-4.51); Absolute Neutrophil Count 12.2 X10^3/uL (2.0-7.7); Basophil# 0.09 X10^3/uL; Basophil% 0.5 % (0-1); Eosinophil# 0.13 X10^3/uL; Eosinophils% 0.7 % (0-5); Hemoglobin 9.8 g/dL (12.0-15.0); Lymphocyte # 4.23 X10^3/ul (4.0); Lymphocyte % 23.1 % (19-41); Mean Corp Hgb Conc 33.8 g/dL (32-36); Mean Corpuscular Hgb 36.3 pg (27.0-32.0); Mean Corpuscular Volume 107.4 fL (81-99); Mean Platelet Vol. 10.7 fl (6.2-12.0); NRBC Flagged by Analyzer 0.5 % (0-5); Neutrophil % 66.6 % (47-70); POSITIVE MORPHOLOGY YES; Platelet Count 406 K/mm3 (150-450); RBC Distribution Width CV 22.4 % (11.6-14.6); RBC Distribution Width SD 61.7 fl (35.1-43.9); White Blood Count 18.3 K/mm3 (4.4-11.0)
[2020-09-13 13:02] LABS: Differential Indicated SCAN CRITERIA MET
[2020-09-13 13:26] LABS: Anisocytosis 1+; Differential Comment SCANNED; Macrocytosis 1+; Polychromasia 1+; Rouleaux 2+
--- NOTE | 2020-09-13 13:26 | RAD_ITS ---
STUDY: X-RAY - ABDOMEN/PELVIS REASON FOR EXAM: Female, 74 years old. ABD PAIN TECHNIQUE: AP supine and upright views of the abdomen and pelvis. COMPARISON: Comparison is made with prior study dated 10/27/2019. FINDINGS: Normal visualized lung bases. A loop recording device is seen overlying the inferior left cardiac border. There is a moderate amount of colonic fecal material. There is no demonstrated free abdominal air. The visualized liver, spleen and kidneys are grossly normal in size and morphology. Normal soft tissue structures. Dextroscoliosis. 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 RAD/Abd Inc Decub and/or Erect IMPRESSION: Moderate degree of fecal material is seen throughout the colon. Electronically Signed: Geraldo Carranza MD at 14:19 EDT , Service support ,
== END ==
PROVIDERS: PCP Family Medicine Geriatric Medicine; Visit Provider Family Medicine Geriatric Medicine
DX: R10.9 Unspecified abdominal pain (principal)
CPT/HCPCS: 36415; 74019; 80053; 85025

== ENCOUNTER → 2020-09-16 09:09 | Outpatient (CLI) | payer MEDICARE, BC, SELFPAY ==
[2020-06-01 20:20] VITALS: BMI 25.5
--- NOTE | 2020-09-16 09:11 | CT_ITS ---
STUDY: CT ABDOMEN AND PELVIS WITH CONTRAST REASON FOR EXAM: Female, 74 years old. DIVERTICULITIS. One week history of left lower quadrant pain. RADIATION DOSAGE (If Supplied By Facility): CTDIvol = ( 13.27 ) mGy, DLP = ( 605.92 ) mGycm TECHNIQUE: Transaxial images were obtained from the dome of the diaphragm to the symphysis pubis with oral contrast. Oral and amp; IV Gastrografin and amp; 100mL Isovue-300 was administered. Sagittal and coronal images were reconstructed. Individualized dose optimization techniques were used for this CT. COMPARISON: Comparison is made with prior study dated 01/23/2000 FINDINGS: The visualized lung bases are unremarkable. The visualized portions of the heart are within normal limits. Normal liver. The patient is status post cholecystectomy. Normal spleen. Normal pancreas. Normal bilateral adrenal glands. Normal right kidney. Normal left kidney. Normal visualized stomach. Normal small intestine. The patient is status post right hemicolectomy. There are multiple colonic diverticula consistent with diverticulosis. There is non-visualization of the appendix. There is diffuse atherosclerotic calcification of the abdominal aorta, without a demonstrated aneurysm. Normal inferior vena cava. Normal retroperitoneum. Normal urinary bladder. There is absence of the uterus consistent with a prior hysterectomy. Normal abdominal wall. There are mild degenerative changes of the visualized lumbar spine. CT/Abdomen/Pelvis WITH Contrast IMPRESSION: Sigmoid diverticulosis. Electronically Signed: Geraldo Carranza MD at 12:07 EDT , Service support ,
== END ==
PROVIDERS: PCP Family Medicine Geriatric Medicine; Referring Provider Family Medicine Geriatric Medicine; Visit Provider Family Medicine Geriatric Medicine
DX: K57.32 Diverticulitis of large intestine without perforation or abscess without bleeding (principal)
CPT/HCPCS: 74177; Q9967

== ENCOUNTER → 2020-10-07 | Outpatient (CLI) | payer MEDICARE, BC, SELFPAY ==
[2020-10-03 10:53] VITALS: BMI 27.0
== END | disposition home or self-care (01) ==
LOC: LABSPEC 17:05
PROVIDERS: PCP Family Medicine Geriatric Medicine; Referring Provider Family Medicine Geriatric Medicine; Visit Provider Family Medicine Geriatric Medicine
DX: R06.89 Other abnormalities of breathing (principal)
CPT/HCPCS: 87635; C9803; U0002

== ENCOUNTER → 2020-10-12 13:09 | Outpatient (CLI) | payer MEDICARE, BC, SELFPAY ==
[2020-10-03 10:53] VITALS: BMI 27.0
[2020-10-12 17:26] LABS: ALB/GLOB Ratio 1.2 RATIO (0.9-2.4); AST(SGOT) 16 U/L (15-37); Alanine Aminotransfer ALT/SGPT 15 U/L (13-56); Albumin, Serum 3.6 g/dL (3.2-5.0); Alkaline Phosphatase 148 U/L (45-117); Anion Gap 7 (5-15); BUN 17 mg/dL (7-18); BUN/Creat Ratio 20.7 RATIO (10-20); Calcium,Total 9.4 mg/dL (8.5-10.1); Chloride 106 mmol/L (98-107); Creatinine, Serum 0.82 mg/dL (0.55-1.02); EST Glomerular Filtration Rate 72 mL/min (>60); Est Glom Filt Rate - Afr Amer 87 mL/min (>60); Glucose 115 mg/dL (74-106); Potassium 4.5 mmol/L (3.5-5.1); Protein, Total 6.6 g/dL (6.4-8.2); Sodium Level 140 mmol/L (136-145); Thyroid Stim Hormone (TSH) 1.34 uIU/mL (0.358-3.74)
[2020-10-12 17:28] LABS: Vitamin D,25 Hydroxy 50.7 ng/mL
[2020-10-12 18:40] LABS: Absolute Neutrophil Count 8.8 X10^3/uL (2.0-7.7); Basophil# 0.07 X10^3/uL; Basophil% 0.6 % (0-1); Eosinophil# 0.07 X10^3/uL; Eosinophils% 0.6 % (0-5); Hematocrit 28.8 % (37-47); Hemoglobin 8.8 g/dL (12.0-15.0); Lymphocyte % 18.5 % (19-41); Mean Corp Hgb Conc 30.6 g/dL (32-36); Mean Corpuscular Hgb 32.4 pg (27.0-32.0); Mean Corpuscular Volume 105.9 fL (81-99); Mean Platelet Vol. 10.1 fl (6.2-12.0); Monocyte# 0.83 X10^3/uL; Monocyte% 6.7 % (0-10); NRBC Flagged by Analyzer 0.4 % (0-5); Neutrophil # 8.81 X10^3/uL (2.7-7.7); Neutrophil % 70.9 % (47-70); Platelet Count 484 K/mm3 (150-450); RBC Distribution Width CV 19.7 % (11.6-14.6); RBC Distribution Width SD 64.2 fl (35.1-43.9); Red Blood Count 2.72 M/mm3 (4.2-5.4); White Blood Count 12.4 K/mm3 (4.4-11.0)
[2020-10-12 18:44] LABS: Anisocytosis 2+; Differential Comment SCANNED; Platelet Estimate SLT INC (ADEQ); Polychromasia 1+
[2020-10-13 14:14] LABS: Pathologist Review Reviewed
== END ==
PROVIDERS: PCP Family Medicine Geriatric Medicine; Visit Provider Family Medicine Geriatric Medicine
DX: I10 Essential (primary) hypertension (principal); E55.9 Vitamin D deficiency, unspecified
CPT/HCPCS: 36415; 80053; 82306; 84443; 85025

== ENCOUNTER → 2020-11-30 06:53 | Outpatient (CLI) | payer MEDICARE, BC, SELFPAY ==
[2020-11-23 14:12] VITALS: BMI 27.7
--- NOTE | 2020-11-30 06:55 | CT_ITS ---
STUDY: CT ABDOMEN AND PELVIS WITH CONTRAST REASON FOR EXAM: Female, 75 years old. One-year history of left lower quadrant pain. History of diverticulitis. RADIATION DOSAGE (If Supplied By Facility): CTDIvol = ( 13.50 ) mGy, DLP = ( 788.13 ) mGycm TECHNIQUE: Transaxial images were obtained from the dome of the diaphragm to the symphysis pubis with oral contrast. Oral and amp;amp; IV Readi-CAT and amp;amp; 100mL Isovue-300 was administered. Sagittal and coronal images were reconstructed. Individualized dose optimization techniques were used for this CT. COMPARISON: Comparison is made with prior examination dated 09/16/2020. FINDINGS: The visualized lung bases are unremarkable. The visualized portions of the heart are within normal limits. Normal liver. The patient is status post cholecystectomy. Normal spleen. Normal pancreas. Normal bilateral adrenal glands. Normal right kidney. Normal left kidney. There is a small hiatal hernia. Normal small intestine. The patient is status post right hemicolectomy. Sigmoid diverticulosis. There is non-visualization of the appendix. There is scattered atherosclerotic calcification of the abdominal aorta, without a demonstrated aneurysm. Normal inferior vena cava. Normal retroperitoneum. Normal urinary bladder. There is absence of the uterus consistent with a prior hysterectomy. Normal abdominal wall. There are mild degenerative changes of the visualized lumbar spine. CT/Abdomen/Pelvis WITH Contrast IMPRESSION: Status post right hemicolectomy. Sigmoid diverticulosis. Electronically Signed: Geraldo Carranza MD at 14:52 EDT , Service support ,
== END ==
PROVIDERS: PCP Family Medicine Geriatric Medicine; Referring Provider Family Medicine Geriatric Medicine; Visit Provider Family Medicine Geriatric Medicine
DX: R10.9 Unspecified abdominal pain (principal)
CPT/HCPCS: 74177; Q9967

== ENCOUNTER → 2020-12-15 10:00 | Outpatient (CLI) | payer MEDICARE, BC, SELFPAY ==
[2020-11-23 14:12] VITALS: BMI 27.7
--- NOTE | 2020-12-15 10:34 | MRI_ITS ---
STUDY: MRI ABDOMEN WITH AND WITHOUT CONTRAST REASON FOR EXAM: Female, 75 years old. ABD PAIN TECHNIQUE: Standardized fat and water weighted pulse sequences were obtained in all 3 orthogonal planes post contrast administration. 15CC IV DOTAREM was administered for the contrast portion of the examination. COMPARISON: CT 11/30/2020 FINDINGS: The visualized lung bases are unremarkable. The visualized portions of the heart are within normal limits. Normal liver. There is non-visualization of the gallbladder, which may be secondary to either contraction or a prior cholecystectomy. Normal spleen. Normal pancreas. Normal bilateral adrenal glands. Normal right kidney. Normal left kidney. Normal visualized stomach. Normal small intestine. Status post right hemicolectomy. Normal abdominal aorta. Normal inferior vena cava. Normal retroperitoneum. Normal abdominal wall. Normal osseous structures. MRI/MRI Abd WITH and W/O Contrast IMPRESSION: Normal unenhanced and enhanced MRI of the abdomen. Electronically Signed: Rufus Frank MD at 16:39 EDT Tel , Service support ,
--- NOTE | 2020-12-15 10:35 | MRI_ITS ---
STUDY: MR PELVIS WITH T WITHOUT CONTRAST REASON FOR EXAM: Female, 75 years old. GENERALIZED ABD PAIN TECHNIQUE: Standardized fat and water weighted pulse sequences were obtained in all 3 orthogonal planes, pre-and post contrast administration. IV DOTAREM 15CC was administered for the contrast portion of the examination. COMPARISON: CT 11/30/2020 FINDINGS: Normal urinary bladder. Normal visualized small intestine. Normal visualized colon. There is no pelvic fluid. There is no pelvic mass lesion or lymphadenopathy. Normal visualized pelvic arteries. Normal osseous structures. Normal abdominal wall. MRI/Pelvis W/WO Contrast IMPRESSION: Normal unenhanced and enhanced MRI of the pelvis. Electronically Signed: Rufus Frank MD at 16:37 EDT Tel , Service support ,
== END ==
PROVIDERS: PCP Family Medicine Geriatric Medicine; Referring Provider Family Medicine Geriatric Medicine; Visit Provider Family Medicine Geriatric Medicine
DX: R10.9 Unspecified abdominal pain (principal)
CPT/HCPCS: 72197; 74183; A9575

== ENCOUNTER → 2021-01-11 13:16 | Outpatient (CLI) | payer MEDICARE, BC, SELFPAY ==
[2020-12-27 10:40] VITALS: BMI 27.8
[2021-01-11 17:03] LABS: Vitamin D,25 Hydroxy 62.3 ng/mL
[2021-01-11 17:14] LABS: ALB/GLOB Ratio 1.5 RATIO (0.9-2.4); AST(SGOT) 17 U/L (15-37); Alanine Aminotransfer ALT/SGPT 21 U/L (13-56); Albumin, Serum 4.1 g/dL (3.2-5.0); Alkaline Phosphatase 162 U/L (45-117); Anion Gap 7 (5-15); BUN 14 mg/dL (7-18); BUN/Creat Ratio 19.8 RATIO (10-20); Calcium,Total 9.4 mg/dL (8.5-10.1); Chloride 105 mmol/L (98-107); Creatinine, Serum 0.71 mg/dL (0.55-1.02); EST Glomerular Filtration Rate 86 mL/min (>60); Est Glom Filt Rate - Afr Amer 104 mL/min (>60); Globulin 2.8 g/dL (2.2-4.2); Glucose 109 mg/dL (74-106); Potassium 4.7 mmol/L (3.5-5.1); Protein, Total 6.9 g/dL (6.4-8.2); Sodium Level 138 mmol/L (136-145); Thyroid Stim Hormone (TSH) 0.69 uIU/mL (0.358-3.74)
[2021-01-11 17:37] LABS: Absolute Lymphocyte Count 1.86 X10^3/uL (0.83-4.51); Absolute Neutrophil Count 9.1 X10^3/uL (2.0-7.7); Basophil# 0.07 X10^3/uL; Basophil% 0.6 % (0-1); Eosinophil# 0.03 X10^3/uL; Eosinophils% 0.2 % (0-5); Hematocrit 27.5 % (37-47); Hemoglobin 10.1 g/dL (12.0-15.0); Lymphocyte # 1.86 X10^3/ul (0.83-4.51); Lymphocyte % 15.2 % (19-41); Mean Corp Hgb Conc 36.7 g/dL (32-36); Mean Corpuscular Hgb 42.8 pg (27.0-32.0); Mean Corpuscular Volume 116.5 fL (81-99); Mean Platelet Vol. 11.1 fl (6.2-12.0); Monocyte# 0.67 X10^3/uL; Monocyte% 5.5 % (0-10); NRBC Flagged by Analyzer 0.8 % (0-5); Neutrophil # 9.12 X10^3/uL (2.7-7.7); Neutrophil % 74.3 % (47-70); POSITIVE MORPHOLOGY YES; Platelet Count 508 K/mm3 (150-450); RBC Distribution Width CV 27.6 % (11.6-14.6); RBC Distribution Width SD 67.2 fl (35.1-43.9); Red Blood Count 2.36 M/mm3 (4.2-5.4); White Blood Count 12.3 K/mm3 (4.4-11.0)
[2021-01-11 17:38] LABS: Differential Indicated SCAN CRITERIA MET
[2021-01-11 18:04] LABS: Anisocytosis 1+; Platelet Estimate MOD INC (ADEQ); Polychromasia 1+
== END ==
PROVIDERS: PCP Family Medicine Geriatric Medicine; Visit Provider Family Medicine Geriatric Medicine
DX: E11.9 Type 2 diabetes mellitus without complications (principal); I10 Essential (primary) hypertension; E55.9 Vitamin D deficiency, unspecified
CPT/HCPCS: 36415; 80053; 82306; 84443; 85025

== ENCOUNTER → 2021-01-16 11:57 | Outpatient (CLI) | payer MEDICARE, BC, SELFPAY ==
[2020-12-27 10:40] VITALS: BMI 27.8
--- NOTE | 2021-01-16 11:59 | US_ITS ---
HISTORY: ENDOMETRIOSIS, history of hysterectomy and right oophorectomy EXAMINATION: US Transvaginal Non-OB TECHNIQUE: Transvaginal (for optimal evaluation of the adnexa) pelvic ultrasound was performed. Grayscale, spectral waveform, and color flow Doppler evaluation of the adnexa. COMPARISON: Pelvic MRI 12/15/20 FINDINGS: UTERUS: Surgically absent. RIGHT OVARY: Surgically absent. LEFT OVARY: Not visualized. FREE FLUID: None. US/Transvaginal Non- IMPRESSION: No sonographically identifiable pelvic organs or abnormalities. at 1559 Reported and signed by: Gilbert Wick MD Electronically Signed: Gilbert Wick MD at 15:58 EDT Tel , Service support ,
== END ==
PROVIDERS: PCP Family Medicine Geriatric Medicine; Referring Provider Family Medicine Geriatric Medicine; Visit Provider Family Medicine Geriatric Medicine
DX: N80.9 Endometriosis, unspecified (principal)
CPT/HCPCS: 76830

== ENCOUNTER → 2021-01-30 13:35 | Outpatient (CLI) | payer MEDICARE, BC, SELFPAY ==
[2020-12-27 10:40] VITALS: BMI 27.8
--- NOTE | 2021-01-30 13:37 | BI_ITS ---
MAMMOGRAPHY - BILATERAL SCREENING 3-D TOMOSYNTHESIS REASON FOR EXAM: Female, 75 years old. SCREENING PERTINENT HISTORY: No significant family history. TECHNIQUE: 2-D mammograms and 3-D Tomosynthesis of the breast (s) were performed. CAD was performed. COMPARISON: 01/11/2020 FINDINGS: The breast composition is heterogeneously dense that can obscure small breast masses. Scattered benign calcifications are seen. No dense spiculated masses or suspicious microcalcifications are identified. No architectural distortion is identified. There is no skin thickening or retraction. There has been no significant change since the prior study. BI/SCRN MAMM (CAD)W/GRACE BILAT IMPRESSION: No mammographic signs of malignancy. Routine yearly mammograms recommended. ASSESSMENT CATEGORY: BIRADS Category 1: Negative. A letter regarding these results will be sent to the patient by the facility within 30 days. FOLLOW UP RECOMMENDATION: Yearly follow up mammogram recommended. (A) Approximately 10% of breast cancers are not detected by mammography. A normal mammogram should not delay biopsy of a clinically suspicious abnormality. Electronically Signed: Rufus Frank MD at 14:22 EDT Tel , Service support ,
== END ==
PROVIDERS: PCP Family Medicine Geriatric Medicine; Referring Provider Family Medicine Geriatric Medicine; Visit Provider Family Medicine Geriatric Medicine
DX: Z12.31 Encounter for screening mammogram for malignant neoplasm of breast (principal)
CPT/HCPCS: 77063; 77067

== ENCOUNTER → 2021-03-14 14:37 | Outpatient (CLI) | payer MEDICARE, BC, SELFPAY ==
[2021-03-14 17:38] LABS: Vitamin D,25 Hydroxy 63.9 ng/mL
[2021-03-14 17:45] LABS: ALB/GLOB Ratio 1.2 RATIO (0.9-2.4); AST(SGOT) 21 U/L (15-37); Alanine Aminotransfer ALT/SGPT 22 U/L (13-56); Albumin, Serum 3.9 g/dL (3.2-5.0); Alkaline Phosphatase 151 U/L (45-117); Anion Gap 8 (5-15); BUN 13 mg/dL (7-18); BUN/Creat Ratio 16.9 RATIO (10-20); Calcium,Total 9.6 mg/dL (8.5-10.1); Chloride 106 mmol/L (98-107); Creatinine, Serum 0.77 mg/dL (0.55-1.02); EST Glomerular Filtration Rate 78 mL/min (>60); Est Glom Filt Rate - Afr Amer 94 mL/min (>60); Globulin 3.2 g/dL (2.2-4.2); Glucose 117 mg/dL (74-106); Potassium 3.6 mmol/L (3.5-5.1); Protein, Total 7.1 g/dL (6.4-8.2); Sodium Level 142 mmol/L (136-145); Thyroid Stim Hormone (TSH) 1.19 uIU/mL (0.358-3.74)
[2021-03-14 19:28] LABS: Absolute Lymphocyte Count 2.67 X10^3/uL (0.83-4.51); Absolute Neutrophil Count 5.5 X10^3/uL (2.0-7.7); Basophil# 0.06 X10^3/uL; Basophil% 0.6 % (0-1); Eosinophils% 3.2 % (0-5); Hematocrit 26.3 % (37-47); Lymphocyte # 2.67 X10^3/ul (0.83-4.51); Lymphocyte % 28.1 % (19-41); Mean Platelet Vol. 10.6 fl (6.2-12.0); Monocyte# 0.86 X10^3/uL; Monocyte% 9.1 % (0-10); NRBC Flagged by Analyzer 0 % (0-5); Neutrophil # 5.54 X10^3/uL (2.7-7.7); Neutrophil % 58.4 % (47-70); POSITIVE COUNT YES; POSITIVE MORPHOLOGY YES; Platelet Count 460 K/mm3 (150-450); RBC Distribution Width CV 28.8 % (11.6-14.6); RBC Distribution Width SD 63.2 fl (35.1-43.9); Red Blood Count 2.21 M/mm3 (4.2-5.4); White Blood Count 9.5 K/mm3 (4.4-11.0)
[2021-03-14 20:04] LABS: Hemoglobin 10.6 g/dL (12.0-15.0)
[2021-03-14 20:05] LABS: Differential Indicated SCAN CRITERIA MET; Mean Corp Hgb Conc 40.3 g/dL (32-36)
[2021-03-14 20:25] LABS: Anisocytosis 1+; Differential Comment SCANNED
== END ==
PROVIDERS: PCP Family Medicine Geriatric Medicine; Visit Provider Family Medicine Geriatric Medicine
DX: E11.9 Type 2 diabetes mellitus without complications (principal); E55.9 Vitamin D deficiency, unspecified; I10 Essential (primary) hypertension
CPT/HCPCS: 36415; 80053; 82306; 84443; 85025

== ENCOUNTER → 2021-04-18 07:39 | Outpatient (CLI) | payer MEDICARE, BC, SELFPAY ==
--- NOTE | 2021-04-18 07:43 | CT_ITS ---
STUDY: CTA CHEST REASON FOR EXAM: Female, 75 years old. Autoimmune anemia. RADIATION DOSAGE (If Supplied By Facility): CTDIvol = ( 13.27 ) mGy, DLP = ( 360.77 ) mGycm TECHNIQUE: The examination was performed with the intravenous administration of IV 100mL Isovue-300. Post-processing of the angiographic images was performed, with multiplanar reformation and 3D reconstruction. Individualized dose optimization techniques were used for this CT. COMPARISON: Comparison is made with prior study dated 06/01/2020. FINDINGS: Vision 1.4 cm x 1.1 cm heterogeneous hypodense nodule in the posterior aspect of the left lobe of the thyroid. Normal enhancement of the main pulmonary artery and right and left pulmonary arteries. Normal enhancement of the bilateral peripheral pulmonary arteries. There is no demonstrated pulmonary embolism. Normal thoracic aorta and visualized great vessels. There is no demonstrated aortic dissection. Normal heart and pericardium. Normal mediastinum. Normal hilar regions. Normal visualized trachea and bronchi. Hyperinflation. Stable minimal linear scarring at the left lung base. Stable 2 mm noncalcified nodule in the peripheral lateral aspect of the right upper lobe. Normal pleura. Normal chest wall structures. There are degenerative changes of thoracic spine. Small hiatal hernia. Fatty infiltration of the liver. CT/CTA Chest W/WO Contrast IMPRESSION: 1.4 cm x 1.1 cm heterogeneous hypodense nodule in the posterior aspect of the left lobe of the thyroid. Hyperinflation mild linear scarring at the left lung base. Electronically Signed: Geraldo Carranza MD at 10:49 EST , Service support ,
== END ==
PROVIDERS: PCP Family Medicine Geriatric Medicine; Referring Provider Family Medicine Geriatric Medicine; Visit Provider Family Medicine Geriatric Medicine
DX: J98.4 Other disorders of lung (principal)
CPT/HCPCS: 71275; Q9967; A4216

== ENCOUNTER → 2021-04-19 15:03 | Outpatient (CLI) | payer MEDICARE, BC, SELFPAY ==
[2021-04-19 17:48] LABS: T3 Uptake 36 % (30-39); T4 Free Direct 1.04 ng/dL (0.76-1.46); Thyroid Stim Hormone (TSH) 0.92 uIU/mL (0.358-3.74)
== END ==
PROVIDERS: PCP Family Medicine Geriatric Medicine; Visit Provider Family Medicine Geriatric Medicine
DX: E04.1 Nontoxic single thyroid nodule (principal)
CPT/HCPCS: 36415; 84439; 84443; 84479

== ENCOUNTER → 2021-05-31 07:31 | Outpatient (CLI) | payer MEDICARE, BC, SELFPAY ==
--- NOTE | 2021-05-31 07:34 | NM_ITS ---
CLINICAL: 75-year-old female with reported history of thyroid nodularity. I-123 THYROID UPTAKE and SCAN COMPARISON: None available FINDINGS: The patient was administered a 329 uCi I-123 capsule by mouth. The 4-hour I-123 radioactive iodine thyroidal uptake was calculated to be 8.8 % (normal 5 to 25 %). The 24-hour I-123 radioactive iodine thyroidal uptake was calculated to be 27.1 % (normal 5 to 40 %). The I-123 thyroid scan demonstrates homogeneous radiopharmaceutical concentration throughout both lobes of a U-shaped thyroid gland. The left lobe is larger than right. There are no colloidal parenchymal hypofunctioning-cold nodules noted in either lobe of the thyroid gland. NM/Thyroid Uptake Single or Mult IMPRESSION: 1. NORMAL 4- and 24-hour I-123 radioactive iodine thyroidal uptakes. 2. 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 3. If the right-left thyroid lobes are of similar anatomic size, and a hypofunctioning nodule is a diagnostic consideration in the region of the inferior pole of the right lobe thyroid colloid, correlation with thyroid ultrasound is recommended. Electronically Signed: Rufus Issa DO at 7:39 EST Tel , Service support ,
== END ==
PROVIDERS: PCP Family Medicine Geriatric Medicine; Referring Provider Family Medicine Geriatric Medicine; Visit Provider Family Medicine Geriatric Medicine
DX: E04.1 Nontoxic single thyroid nodule (principal); K76.0 Fatty (change of) liver, not elsewhere classified
CPT/HCPCS: 78012; A9582

== ENCOUNTER 2021-07-05 10:07 | Outpatient (CLI) | payer MEDICARE, BC, SELFPAY | END 2021-07-05 23:59 | disposition short-term general hospital (02) | LOC: PSN 10:09 | PROVIDERS: PCP Family Medicine Geriatric Medicine; Referring Provider Family Medicine Geriatric Medicine; Visit Provider Family Medicine Geriatric Medicine | DX: R68.83 Chills (without fever) (principal) | CPT/HCPCS: 87635; 87804; 87807; C9803; U0003; U0005 ==

== ENCOUNTER 2021-07-19 06:45 | Day surgery (SDC) | payer MEDICARE, BC, SELFPAY ==
[2021-07-19] VITALS (7 sets, daily range): BP systolic 121–150; BP diastolic 58–89; PULSE 58–80; RESP 16; TEMP 36.3–36.9; O2SAT 98–100; BMI 25.3
[2021-07-19] MEDS: Lactated Ringers 1,000 ML 15 ML IV (07:00)
--- NOTE | 2021-07-19 08:00 | EGD_PTH ---
PATIENT: RADHA KILPATRICK LOC: EN U#:[id number] AGE/SX: 75/F ROOM: RE07/19/[address]: Dr. Isidoro Bird DO : 1945 BED: DIS: 07/19/2021 SPEC #: [id number] RECD: 07/19/21 13:39 STATUS: KOMAL REVita #: [id number] JESSICA: 07/19/21 08:[address]: Isidoro Bird DEPT: SURGICAL PATHOLOGY RECD BY: Dulce Amaya ENTERED: 07/20/21 07:35 SP TYPE: EGD BIOPSY [facility] DR: Dr. Adriel Carney MD Tissues: A - Duodenum, NOS B - Gastric mucous membrane C - Esophagus, NOS D - COLON BIOPSY Procedures: Special Stain Group II Surgery Specimen Level IV Alcian Blue/PAS (control) HEADER OPERATION: Colonoscopy, EGD (MAC) with biopsy PRE-OP DIAGNOSIS: Segmental colitis associated with diverticulosis, diverticulitis, anemia TISSUE SUBMITTED: A ? Duodenum biopsy, B ? Antrum biopsy for histo and h. pylori, C ? Distal esophagus biopsy, D ? Anastomosis biopsy MICROSCOPIC DIAGNOSIS A. Duodenum, biopsy: Fragments of duodenal mucosa, no pathologic diagnosis. B. Antrum, biopsy: Mild gastritis. See microscopic description and comment. C. Distal esophagus, biopsy: Fragments of gastroesophageal mucosa with mild chronic inflammation. Intestinal metaplasia (goblet cell metaplasia) is not identified. See comment. D. Anastomosis, biopsy: No pathologic diagnosis. SJ:oneal 07/21/2021 COMMENT B. The results of immunohistochemistry for Helicobacter pylori will be reported separately ([id number]). C. Alcian blue/PAS stain with matched control is used in the evaluation of the specimen. The specimen predominantly consists of squamous mucosa. MICROSCOPIC DESCRIPTION Slides are reviewed. B. The specimen shows fragments of gastric mucosa with chronic inflammatory cell infiltrates in the lamina propria consisting of lymphocytes and plasma cells, consistent with mild chronic gastritis. Focal mucosal congestion and hemorrhage are also noted. GROSS DESCRIPTION A - Received in fixative is one container labeled with the patient's name and designated duodenum biopsy. The specimen consists of multiple irregular fragments of light montaño soft tissue that in aggregate measure 1 x 0.2 x 0.1 cm. The specimen is totally submitted in one cassette. B - Received in fixative is one container labeled with the patient's name and designated antrum biopsy. The specimen consists of multiple irregular fragments of light montaño soft tissue that in aggregate measure 1.5 x 0.3 x 0.1 cm. The specimen is totally submitted in one cassette. C - Received in fixative is one container labeled with the patient's name and designated distal esophagus biopsy. The specimen consists of multiple irregular fragments of light montaño soft tissue that in aggregate measure 2 x 0.4 x 0.1 cm. The specimen is totally submitted in one cassette. D - Received in fixative is one container labeled with the patient's name and designated anastomosis biopsy. The specimen consists of multiple irregular fragments of light montaño soft tissue that in aggregate measure 1 x 0.5 x 0.1 cm. The specimen is totally submitted in one cassette. / SJ:oneal 07/20/2021 TC:3 CPT: 74290 x4, 11517
--- NOTE | 2021-07-19 08:00 | IMM_PTH ---
PATIENT: RADHA KILPATRICK LOC: EN U#:[id number] AGE/SX: 75/F ROOM: RE07/19/[address]: Dr. Isidoro Bird DO : 1945 BED: DIS: 07/19/2021 SPEC #: [id number] RECD: 07/20/21 13:44 STATUS: KOMAL REQ #: [id number] JESSICA: 07/19/21 08:[address]: Isidoro Bird DEPT: IMMUNOHISTOCHEMISTRY RECD BY: Lili Gomez ENTERED: 07/20/21 13:45 SP TYPE: IMMUNO OTHR DR: Dr. Adriel Carney MD Tissues: B - Stomach, NOS Procedures: H Pylori (initial) PHYSICIAN & INSTITUTION [place] [id number] SPECIMEN INFORMATION: Tissue Source: B ? Antrum biopsy Clinical Info: Segmental colitis associated with diverticulosis, diverticulitis, anemia Specimen Number: [id number] CPT code: 73266 METHODOLOGY: Deparaffinized sections of prefer/formalin-fixed tissue or PAP/DQ stained slides are incubated with monoclonal/polyclonal antibodies/oligonucleotide probes. Localization is made via biotin free immunoperoxidase method. Appropriate controls are performed and reacted as expected. Results on target cell population are indicated in the following table: RESULTS: ANTIBODY / CLONE RESULT Block B H Pylori (polyclonal) negative These tests were developed and their performance characteristics determined by [facility]. They may not have been cleared or approved by the U.S. Food and Drug Administration. The FDA has determined that such clearance or approval is not necessary. INTERPRETATION: B. Antrum biopsy: Negative for Helicobacter pylori organisms. RAMÓN:oneal 07/21/2021
--- NOTE | 2021-07-19 08:06 | PCM.HP.BLA ---
History and Physical Date of Admission: 07/19/21 F/u for autoimmune hemolytic anemia Details: RADHA KILPATRICK, is a 75 F who presents to the office today for evaluation of anemia, GERD and recurrent diverticulitis. Referred by Dr. Carney due to having LLQ pain that he believed was related to diverticulitis. LLQ pain started initially in August/September with three round of antibiotics. Repeat episode recently with one round of antibiotics which helped with pain but she is having diarrhea now for the last three days with recent episodes of emesis and nausea at onset. When she is not having severe symptoms she often has LLQ pain with BM. Had one episode of nocturnal incontinence recently. History of bowel resection of cancerous polyp, it was removed as a polyp once and then bowel surgery performed. 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 Weekly Rituxan 04/06/21 with fourth dose 04/26/21. Last visit 06/08/21 and found hemoglobin to be 8.5 but haptoglobin increasing to 56. Stool occult found to be positive 06/08/21. CT abd/pel performed 11/30/20 finding small hiatal hernia. s/p right hemicolectomy. Sigmoid diverticulosis. Scattered calcification of abdominal aorta without aneurysm. Mild degenerative changes of lumbar spine. Last colonoscopy 04/07/20 reported as negative. ROS Const Constitutional: No anorexia, fatigue, fever(s), weight change or sleep problems Eyes Eyes: No change in vision ENT ENT: No abnormal hearing, difficulty swallowing, mouth lesions, tongue swelling or throat swelling Resp Respiratory: No cough or shortness of breath Cardio Cardiology: No chest pain at rest, chest pain with exertion, shortness of breath or dyspnea on exertion Gastro GI: No difficulty swallowing Genitourinary-Female: No difficulty urinating or burning urination Musc Musculoskeletal: No joint pain, joint swelling, muscle weakness or decreased muscle mass Skin Skin: No hair loss in leg, yellowing of the eye, itchy eyes, rash, skin ulcer or skin swelling Neuro Neurology: No abnormal hearing, abnormal movements, confusion, unsteady gait/balance or memory loss Psych Psychiatric: No anxiety, No confusion and No memory loss Endo Endocrine: No fatigue or weight change Aller/Imm Allergy/Immunologic: No itchy eyes, throat swelling or tongue swelling Rigo/Lymp Hematologic/Lymphatic: No easy bleeding, easy bruising or enlarged lymph nodes Exam Const General: cooperative and comfortable Nutritional Appearance: average body habitus and well nourished [facility] Head: normal to inspection Ears: hearing grossly normal bilaterally Nose: external nose normal Face and sinus: normal facial exam Mouth: oral mucosae normal Throat: posterior oropharynx normal Eyes General: appearance normal, both eyes and all related structures Neck Neck: normal visual inspection Chest Chest palpation & inspection: normal inspection of the chest and normal palpation of entire chest wall Resp Effort & Inspection: normal respiratory effort Auscultation: Bilateral: Clear to Auscultation Cardio Palpation: normal PMI Rate: regular rate Rhythm: regular rhythm GI Inspection: normal to inspection Auscultation: normal bowel sounds Percussion: normal to percussion Palpation: no hepatosplenomegaly Skin General: no rashes or lesions noted Neuro General: patient alert Extrem General: normal to inspection Psych Affect: normal affect Quality Reporting Tobacco Screening ([facility] 138) Smoking Status: Never smoker Assessment and Plan Assessment and Plan (1) Segmental colitis associated with diverticulosis: Status: Acute Plan - Dr. Chaudhry Friend, DO: I suspect that she does have recurrent segmental colitis associated with diverticulosis. This is one of the most common causes of acute recurrent diverticulitis. I will place her on mesalamine based therapy and possibly antibiotics in the future. We will also stage her to see if she has a type a, B, C or, D segmental colitis associated with diverticulosis after colonoscopy. (2) Diverticulitis: Status: Inactive Plan - Dr. Chaudhry Friend, DO: She recently completed a course of antibiotics. She said this is her third course of antibiotics for acute diverticulitis. She was seen in [place] for possible segmental resection however she did not want to have a temporary colostomy so she did not follow-up with that particular physician. (3) Anemia: Status: Chronic Qualifiers: Anemia type: unspecified type Qualified Code(s): D64.9 - Anemia, unspecified Plan - Dr. Chaudhry Friend, DO: On imaging she does have a large hiatal hernia which could be contributing to her anemia , due to the fact that large hiatal hernia is in older women are associated with Nito's erosions. We will evaluate her upper GI tract to see if there is any signs of acute or chronic GI blood loss. Plan Details Other Medications: New: mesalamine 2.4 grams (2 x 1.2 gram) PO BID 8 weeks 224 tabs 2RF I have re-examined the patient. There are no clinical changes since date of exam.
--- NOTE | 2021-07-19 08:38 | OP.CCLET_ITS ---
02/19/2022 Adriel Carney MD [address] [place] [address] Re : Upper GI endoscopy procedure for Alisia Redding Dear Dr. Carney This procedure was performed on Monday, July 19, 2021. My impressions and recommendations are as follows: Impressions : - Moderate Schatzki ring. Dilated. - Esophageal mucosal changes consistent with eosinophilic esophagitis. Biopsied. - Erythematous mucosa in the antrum. Biopsied. - Erythematous duodenopathy. Biopsied. Recommendations : - Discharge patient to home. - Resume previous diet. - Continue present medications. - Await pathology results. - Return to my office. My findings are described in the full procedure note, which is enclosed. If I can be of further assistance, please feel free to contact me at . Sincerely, Isidoro Bird, 07/19/2021 8:37:35 AM This report has been signed electronically.
--- NOTE | 2021-07-19 08:38 | OP.EGD_ITS ---
Patient Name: Alisia Redding Procedure Date: 07/19/2021 8:08 AM Date of : 1945 Age: 75 Procedure: Upper GI endoscopy Indications: Dysphagia Providers: Isidoro Bird DO Referring MD: Adriel Carney MD Medicines: See the Anesthesia note for documentation of the administered medications Patient Profile: This is a 75 year old female. Refer to note in patient chart for documentation of history and physical. Patient has symptoms of chronic dysphagia and dysphagia with both liquids and solids. The symptoms first began in the remote past. Complications: No immediate complications. Procedure: Pre-Anesthesia Assessment: - Prior to the procedure, a History and Physical was performed, and patient medications and allergies were reviewed. The patient is competent. The risks and benefits of the procedure and the sedation options and risks were discussed with the patient. All questions were answered and informed consent was obtained. Patient identification and proposed procedure were verified by the physician in the pre-procedure area. Mental Status Examination: alert and oriented. Airway Examination: normal oropharyngeal airway and neck mobility. Respiratory Examination: clear to auscultation. CV Examination: normal. Prophylactic Antibiotics: The patient does not require prophylactic antibiotics. Prior Anticoagulants: The patient has taken no previous anticoagulant or antiplatelet agents. After reviewing the risks and benefits, the patient was deemed in satisfactory condition to undergo the procedure. The anesthesia plan was to use moderate sedation / analgesia (conscious sedation). Immediately prior to administration of medications, the patient was re-assessed for adequacy to receive sedatives. The heart rate, respiratory rate, oxygen saturations, blood pressure, adequacy of pulmonary ventilation, and response to care were monitored throughout the procedure. The physical status of the patient was re-assessed after the procedure. After obtaining informed consent, the endoscope was passed under direct vision. Throughout the procedure, the patient's blood pressure, pulse, and oxygen saturations were monitored continuously. The colonoscope was introduced through the mouth, and advanced to the second part of duodenum. The upper GI endoscopy was accomplished without difficulty. The patient tolerated the procedure well. Moderate Sedation: Moderate (conscious) sedation was administered by the endoscopy nurse and supervised by the endoscopist. The following parameters were monitored: oxygen saturation, heart rate, blood pressure, and response to care. Total physician intraservice time was 15 minutes. Scope In: 8:18:20 AM Scope Out: 8:32:23 AM Total Procedure Duration Time 0 hours 14 minutes 3 seconds Findings: A moderate Schatzki ring was found in the lower third of the esophagus. A guidewire was placed and the scope was withdrawn. Dilation was performed with a Savary dilator with no resistance at 60 Fr. Mucosal changes including ringed esophagus were found in the mid esophagus and in the distal esophagus. Esophageal findings were graded using the Eosinophilic Esophagitis Endoscopic Reference Score (EoE-EREFS) as: Edema Grade 1 Present (decreased clarity or absence of vascular markings), Rings Grade 1 Mild (subtle circumferential ridges seen on esophageal distension), Exudates Grade 1 Mild (scattered white lesions involving less than 10 percent of the esophageal surface area) and Furrows Grade 0 None (no vertical lines seen). Biopsies were taken with a cold forceps for histology. Verification of patient identification for the specimen was done. Estimated blood loss was minimal. Localized mildly erythematous mucosa without bleeding was found in the gastric antrum. Biopsies were taken with a cold forceps for histology. Verification of patient identification for the specimen was done. Estimated blood loss was minimal. Patchy mildly erythematous mucosa without active bleeding and with no stigmata of bleeding was found in the duodenal bulb. Biopsies were taken with a cold forceps for histology. Verification of patient identification for the specimen was done. Estimated blood loss was minimal. A medium-sized hiatal hernia was present. Impression: - Moderate Schatzki ring. Dilated. - Esophageal mucosal changes consistent with eosinophilic esophagitis. Biopsied. - Erythematous mucosa in the antrum. Biopsied. - Erythematous duodenopathy. Biopsied. Recommendation: - Discharge patient to home. - Resume previous diet. - Continue present medications. - Await pathology results. - Return to my office. Procedure Code(s): --- Professional --- 65559, Esophagogastroduodenoscopy, flexible, transoral; with insertion of guide wire followed by passage of dilator(s) through esophagus over guide wire 99239, 59, Esophagogastroduodenoscopy, flexible, transoral; with biopsy, single or multiple 46259, 59, Moderate sedation services provided by the same physician or other qualified health ocular care aide performing the diagnostic or therapeutic service that the sedation supports, requiring the presence of an independent trained observer to assist in the monitoring of the patient's level of consciousness and physiological status; initial 15 minutes of intraservice time, patient age 5 years or older CPT copyright 2017 [employer]. All rights reserved. The codes documented in this report are preliminary and upon toll line repairer review may be revised to meet current compliance requirements. Isidoro Bird DO 07/19/2021 8:37:35 AM This report has been signed electronically. Number of Addenda: 1 Note Initiated On: 07/19/2021 8:08 AM Addendum Number: 1 Addendum Date: 02/19/2022 6:47:01 AM MAC was used for sedation during this procedure. Isidoro Bird DO 02/19/2022 6:47:05 AM This report has been signed electronically.
--- NOTE | 2021-07-19 09:05 | OP.COLON_ITS ---
Patient Name: Alisia Redding Procedure Date: 07/19/2021 8:32 AM Date of : 1945 Age: 75 Procedure: Colonoscopy Indications: High risk colon cancer surveillance: Personal history of colonic polyps Providers: Isidoro Bird DO Referring MD: Adriel Carney MD Medicines: See the Anesthesia note for documentation of the administered medications Patient Profile: This is a 75 year old female. Refer to note in patient chart for documentation of history and physical. Patient has symptoms of chronic dysphagia and dysphagia with both liquids and solids. The symptoms first began in the remote past. She is status post right hemicolectomy. One adenoma showing high grade dysplasia was found on the previous colonoscopy. The polyp was greater than 50 mm in size. Last Colonoscopy: 5 years ago. Complications: No immediate complications. Procedure: Pre-Anesthesia Assessment: - Prior to the procedure, a History and Physical was performed, and patient medications and allergies were reviewed. The patient is competent. The risks and benefits of the procedure and the sedation options and risks were discussed with the patient. All questions were answered and informed consent was obtained. Patient identification and proposed procedure were verified by the physician in the pre-procedure area. Mental Status Examination: alert and oriented. Airway Examination: normal oropharyngeal airway and neck mobility. Respiratory Examination: clear to auscultation. CV Examination: normal. Prophylactic Antibiotics: The patient does not require prophylactic antibiotics. Prior Anticoagulants: The patient has taken no previous anticoagulant or antiplatelet agents. After reviewing the risks and benefits, the patient was deemed in satisfactory condition to undergo the procedure. The anesthesia plan was to use moderate sedation / analgesia (conscious sedation). Immediately prior to administration of medications, the patient was re-assessed for adequacy to receive sedatives. The heart rate, respiratory rate, oxygen saturations, blood pressure, adequacy of pulmonary ventilation, and response to care were monitored throughout the procedure. The physical status of the patient was re-assessed after the procedure. After I obtained informed consent, the scope was passed under direct vision. Throughout the procedure, the patient's blood pressure, pulse, and oxygen saturations were monitored continuously. The colonoscope was introduced through the anus and advanced to the ileocolonic anastomosis. The colonoscopy was performed without difficulty. The patient tolerated the procedure well. The quality of the bowel preparation was good. Moderate Sedation: Moderate (conscious) sedation was administered by the endoscopy nurse and supervised by the endoscopist. The following parameters were monitored: oxygen saturation, heart rate, blood pressure, and response to care. Total physician intraservice time was 15 minutes. Scope In: 8:40:57 AM Scope Withdrawal Time 0 hours 7 minutes 39 seconds Scope Out: 8:58:07 AM Total Procedure Duration Time 0 hours 17 minutes 10 seconds Findings: The perianal and digital rectal examinations were normal. There was evidence of a prior end-to-side colo-colonic anastomosis at the hepatic flexure. This was patent and was characterized by friable mucosa and inflammation. The anastomosis was traversed. Biopsies were taken with a cold forceps for histology. Verification of patient identification for the specimen was done. Estimated blood loss was minimal. Multiple small and large-mouthed diverticula were found in the recto-sigmoid colon, sigmoid colon, descending colon and splenic flexure. There was evidence of an impacted diverticulum. Impression: - Patent end-to-side colo-colonic anastomosis, characterized by friable mucosa and inflammation. Biopsied. - Moderate diverticulosis in the recto-sigmoid colon, in the sigmoid colon, in the descending colon and at the splenic flexure. There was evidence of an impacted diverticulum. Recommendation: - Discharge patient to home. - Resume previous diet. - Continue present medications. - Repeat colonoscopy in 5 years for surveillance. - Return to GI office. Procedure Code(s): --- Professional --- 07034, Colonoscopy, flexible; with biopsy, single or multiple 33807, 59, Moderate sedation services provided by the same physician or other qualified health career development engineer performing the diagnostic or therapeutic service that the sedation supports, requiring the presence of an independent trained observer to assist in the monitoring of the patient's level of consciousness and physiological status; initial 15 minutes of intraservice time, patient age 5 years or older CPT copyright 2017 [employer]. All rights reserved. The codes documented in this report are preliminary and upon senior qa automation engineer review may be revised to meet current compliance requirements. Isidoro Bird DO 07/19/2021 9:05:05 AM This report has been signed electronically. Number of Addenda: 1 Note Initiated On: 07/19/2021 8:32 AM Addendum Number: 1 Addendum Date: 02/19/2022 6:47:12 AM MAC was used for sedation during this procedure. Isidoro Bird DO 02/19/2022 6:47:18 AM This report has been signed electronically.
--- NOTE | 2021-07-19 09:06 | OP.CCLET_ITS ---
02/19/2022 Adriel Carney MD [address] [place] [address] Re : Colonoscopy procedure for Alisia Red[place] Dear Dr. Carney This procedure was performed on Monday, July 19, 2021. My impressions and recommendations are as follows: Impressions : - Patent end-to-side colo-colonic anastomosis, characterized by friable mucosa and inflammation. Biopsied. - Moderate diverticulosis in the recto-sigmoid colon, in the sigmoid colon, in the descending colon and at the splenic flexure. There was evidence of an impacted diverticulum. Recommendations : - Discharge patient to home. - Resume previous diet. - Continue present medications. - Repeat colonoscopy in 5 years for surveillance. - Return to GI office. My findings are described in the full procedure note, which is enclosed. If I can be of further assistance, please feel free to contact me at . Sincerely, Isidoro Bird, 07/19/2021 9:05:05 AM This report has been signed electronically.
[2021-07-19] MEDS: Mag Hydrox/Al Hydrox/Simeth 30 ML UDC PO (09:26)
== END 2021-07-19 23:59 | disposition home or self-care (01) ==
LOC: EN 06:46 → AC 06:47
PROVIDERS: PCP Family Medicine Geriatric Medicine; Referring Provider Family Medicine Geriatric Medicine; Visit Provider Internal Medicine Gastroenterology
PROC: 0DJD8ZZ Inspection of Lower Intestinal Tract, Via Natural or Artificial Opening Endoscopic (ICD-10-PCS; CPT 45378; principal; 2021-07-19 07:55)
DX: Z12.11 Encounter for screening for malignant neoplasm of colon (principal); K57.30 Diverticulosis of large intestine without perforation or abscess without bleeding; Z86.010 Personal history of colon polyps; R13.10 Dysphagia, unspecified; D64.9 Anemia, unspecified; K44.9 Diaphragmatic hernia without obstruction or gangrene; K21.9 Gastro-esophageal reflux disease without esophagitis; K29.70 Gastritis, unspecified, without bleeding; K22.2 Esophageal obstruction; K20.0 Eosinophilic esophagitis
CPT/HCPCS: 43239; 43248; 45380; 88305; 88313; 88342; J7120; C1769; J2405

== ENCOUNTER → 2021-09-26 | Outpatient (CLI) | payer MEDICARE, BC, SELFPAY ==
[2021-09-26 17:41] LABS: Vitamin D,25 Hydroxy 69.6 ng/mL
[2021-09-26 17:52] LABS: ALB/GLOB Ratio 1.3 RATIO (0.9-2.4); AST(SGOT) 28 U/L (15-37); Alanine Aminotransfer ALT/SGPT 23 U/L (13-56); Alkaline Phosphatase 171 U/L (45-117); Anion Gap 8 (5-15); BUN 15 mg/dL (7-18); BUN/Creat Ratio 18.9 RATIO (10-20); Calcium,Total 9.1 mg/dL (8.5-10.1); Chloride 104 mmol/L (98-107); EST Glomerular Filtration Rate 75 mL/min (>60); Est Glom Filt Rate - Afr Amer 90 mL/min (>60); Glucose 104 mg/dL (74-106); Potassium 4.2 mmol/L (3.5-5.1); Sodium Level 139 mmol/L (136-145); Thyroid Stim Hormone (TSH) 1.67 uIU/mL (0.358-3.74)
[2021-09-26 18:35] LABS: Absolute Lymphocyte Count 2.36 X10^3/uL (0.83-4.51); Absolute Neutrophil Count 4.2 X10^3/uL (2.0-7.7); Basophil# 0.06 X10^3/uL; Basophil% 0.8 % (0-1); Eosinophil# 0.23 X10^3/uL; Hematocrit 31.6 % (37-47); Hemoglobin 10.6 g/dL (12.0-15.0); Lymphocyte # 2.36 X10^3/ul (0.83-4.51); Mean Corp Hgb Conc 33.5 g/dL (32-36); Mean Corpuscular Hgb 33.7 pg (27.0-32.0); Mean Corpuscular Volume 100.3 fL (81-99); Mean Platelet Vol. 11.2 fl (6.2-12.0); Monocyte# 0.68 X10^3/uL; Monocyte% 8.9 % (0-10); NRBC Flagged by Analyzer 0 % (0-5); Neutrophil # 4.24 X10^3/uL (2.7-7.7); Neutrophil % 55.8 % (47-70); POSITIVE MORPHOLOGY YES; Platelet Count 465 K/mm3 (150-450); RBC Distribution Width CV 21.2 % (11.6-14.6); Red Blood Count 3.15 M/mm3 (4.2-5.4); White Blood Count 7.6 K/mm3 (4.4-11.0)
[2021-09-26 18:38] LABS: Differential Indicated SCAN CRITERIA MET
[2021-09-26 19:35] LABS: Anisocytosis 1+
== END | disposition home or self-care (01) ==
LOC: POLAB3 09:49
PROVIDERS: PCP Family Medicine Geriatric Medicine; Visit Provider Family Medicine Geriatric Medicine
DX: E55.9 Vitamin D deficiency, unspecified (principal); I10 Essential (primary) hypertension
CPT/HCPCS: 36415; 80053; 82306; 84443; 85025

== ENCOUNTER → 2021-11-29 | Outpatient (CLI) | payer MEDICARE, BC, SELFPAY ==
--- NOTE | 2021-11-29 14:50 | RAD_ITS ---
STUDY: XR Knee Complete 4 Views or More 11/29/2021 3:08 PM REASON FOR EXAM: Female, 76 years old. KNEE PAIN TECHNIQUE: XR Knee Complete 4 Views or More RIGHT COMPARISON: None FINDINGS: Normal visualized distal femur. Normal visualized proximal tibia and fibula. Normal proximal tibiofibular articulation. There is mild degenerative arthrosis of the medial femorotibial compartment. There is moderate degenerative arthrosis of the lateral femorotibial compartment with moderate joint space narrowing. There is mild degenerative arthrosis of the patellofemoral articulation. The soft tissue structures are unremarkable. RAD/Knee 4 or More Views IMPRESSION: Degenerative arthrosis. Electronically Signed: Gerry Nix MD at 15:09 EDT ,
--- NOTE | 2021-11-29 14:50 | RAD_ITS ---
STUDY: X-RAY - PELVIS AND RIGHT HIP REASON FOR EXAM: Female, 76 years old. HIP PAIN TECHNIQUE: XR Hip Unilateral with Pelvis when performed; 2-3 Views COMPARISON: None. FINDINGS: There is a non-specific bowel gas pattern. Normal visualized soft tissue structures. There are degenerative changes of the lumbar spine. Normal bilateral iliac wings, sacroiliac joints and visualized sacrum. Normal bilateral superior and inferior pubic rami. Normal pubic symphysis. Normal bilateral ischial tuberosities. There are osteoarthritic changes of the femoral head with marginal osteophyte formation. There is osteoarthritic spur formation of the acetabular rim. There is mild articular joint space narrowing of the hip. RAD/Hip Min 2 Views (Portable) IMPRESSION: Degenerative findings of the hips. Electronically Signed: Gerry Nix MD at 15:19 EDT ,
== END | disposition home or self-care (01) ==
LOC: RAD 14:43
PROVIDERS: PCP Family Medicine Geriatric Medicine; Visit Provider Family Medicine Geriatric Medicine
DX: M25.569 Pain in unspecified knee (principal); M25.559 Pain in unspecified hip
CPT/HCPCS: 73502; 73564

== ENCOUNTER → 2022-09-26 | Outpatient (CLI) | payer MEDICARE, BC, SELFPAY ==
[2022-09-26 17:06] LABS: Absolute Lymphocyte Count 2.03 X10^3/uL (0.83-4.51); Basophil# 0.05 X10^3/uL; Basophil% 0.7 % (0-1); Eosinophil# 0.22 X10^3/uL; Eosinophils% 3.2 % (0-5); Lymphocyte # 2.03 X10^3/ul (0.83-4.51); Lymphocyte % 29.2 % (19-41); Mean Platelet Vol. 11.2 fl (6.2-12.0); Monocyte# 0.66 X10^3/uL; Monocyte% 9.5 % (0-10); NRBC Flagged by Analyzer 0 % (0-5); Neutrophil # 3.97 X10^3/uL (2.7-7.7); Neutrophil % 57.1 % (47-70); POSITIVE COUNT YES; POSITIVE MORPHOLOGY YES; Platelet Count 383 K/mm3 (150-450); RET-HE 30.9 pg (30-35)
[2022-09-26 17:15] LABS: ALB/GLOB Ratio 1.2 RATIO (0.9-2.4); AST(SGOT) 26 U/L (15-37); Alanine Aminotransfer ALT/SGPT 23 U/L (13-56); Albumin, Serum 3.8 g/dL (3.2-5.0); Alkaline Phosphatase 146 U/L (45-117); Anion Gap 4 (5-15); BUN 6 mg/dL (7-18); BUN/Creat Ratio 8.6 RATIO (10-20); Calcium,Total 9.2 mg/dL (8.5-10.1); Chloride 109 mmol/L (98-107); EST Glomerular Filtration Rate 87 mL/min (>60); Est Glom Filt Rate - Afr Amer 105 mL/min (>60); Ferritin 613 ng/mL (8-252); Globulin 3.1 g/dL (2.2-4.2); Glucose 100 mg/dL (74-106); Iron 109 ug/dL (50-170); Iron Binding Capacity,Total 241 ug/dL (250-450); LDH 259 U/L (84-246); PERCENT IRON SATURATION 45.2 % (15.0-55.0); Potassium 5.3 mmol/L (3.5-5.1); Protein, Total 6.9 g/dL (6.4-8.2); Sodium Level 139 mmol/L (136-145)
[2022-09-26 17:18] LABS: Hematocrit 30.5 % (37-47); Mean Corpuscular Volume 96.8 fL (81-99); Red Blood Count 3.15 M/mm3 (4.2-5.4)
[2022-09-26 17:21] LABS: RBC Distribution Width CV 46.7 % (11.6-14.6); RBC Distribution Width SD 15.6 fl (35.1-43.9)
[2022-09-26 17:22] LABS: Reticulocyte Count 3.35 % (0.5-1.5)
[2022-09-26 17:23] LABS: Differential Indicated SCAN CRITERIA MET
[2022-09-26 17:24] LABS: Hemoglobin 10.6 g/dL (12.0-15.0)
[2022-09-26 17:28] LABS: Mean Corp Hgb Conc 34.8 g/dL (32-36); Mean Corpuscular Hgb 33.7 pg (27.0-32.0)
[2022-09-26 17:49] LABS: Differential Comment SCANNED
[2022-09-26 17:50] LABS: Polychromasia RARE
[2022-09-27 08:33] LABS: Vitamin B12 1569 pg/mL (211-911); Vitamin D,25 Hydroxy 75.1 ng/mL
[2022-09-28 05:07] LABS: Haptoglobin 27 mg/dL (42-346)
== END | disposition home or self-care (01) ==
LOC: POLAB3 14:32
PROVIDERS: Internal Medicine Medical Oncology; PCP Family Medicine Geriatric Medicine; Visit Provider Family Medicine Geriatric Medicine
DX: E55.9 Vitamin D deficiency, unspecified (principal); I10 Essential (primary) hypertension; D53.9 Nutritional anemia, unspecified; I49.3 Ventricular premature depolarization
CPT/HCPCS: 80053; 82306; 82607; 82728; 82746; 83010; 83540; 83550; 83615; 84443; 85025; 85045

== ENCOUNTER 2022-10-17 23:09 | Inpatient (IN) | payer MEDICARE, BC, SELFPAY ==
[2022-10-17 23:10] VITALS: BP 126/54; PULSE 96; RESP 18; TEMP 36.8; O2SAT 100; BMI 23.5
--- NOTE | 2022-10-17 23:33 | EDS_ITS ---
HPI HPI - GI History of Present Illness Chief Complaint: Abd Pain Detail of Chief Complaint: Abdominal pain x4 days Informant: patient Narrative Narrative: Patient presents with abdominal pain for the last 4 days. Patient states initially started with diarrhea and the pain began. She had similar episodes in the past with diverticulitis. 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 Patient feels like it is getting worse as far as the pain. Pain worse with movement. She denies fevers or chills or sweats. 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 [facility] Medical History Alopecia Anemia, unspecified Arthritis Back pain Cardiology follow-up encounter Chest tightness Diabetes Diverticulitis Easy bruising Esophageal dilatation Esophageal obstruction Essential hypertension Fatigue Fatty liver Fecal impaction Fibromyalgia Gastric reflux Gastro-esophageal reflux disease without esophagitis History of echocardiogram History of edema History of hiatal hernia History of irregular heartbeat History of pain when walking History of steroid therapy History of stress test Iron deficiency anemia, unspecified Loss of hearing Low iron Non-smoker Nonrheumatic mitral valve regurgitation Nonrheumatic tricuspid (valve) insufficiency Other abnormalities of breathing Palpitations Paroxysmal atrial tachycardia Precordial chest pain Premature atrial contractions Premature ventricular contraction Snoring Somnolence Status post placement of implantable loop recorder Status post placement of implantable loop recorder Syncope Thyroid disease Wears glasses Home Medications diphenhydramine HCl 25 mg capsule 25 mg PO TID PRN PRN Allergies 09/19/20 [History Last Taken Unknown] docusate sodium 100 mg capsule 100 mg PO DAILY 09/19/20 [History Last Taken Unknown] cholecalciferol (vitamin D3) 125 mcg (5,000 unit) capsule 125 mcg PO DAILY 09/29/20 [History Last Taken Unknown] omeprazole 40 mg capsule,delayed release 40 mg PO DAILY 09/29/20 [History Last Taken 07/19/21 05:00] metoprolol succinate 25 mg tablet,extended release 24 hr 25 mg PO DAILY htn #90 tabs 02/07/22 [Rx Last Taken Unknown] Hair prosthesis #1 ea 04/24/22 [Rx Last Taken Unknown] amoxicillin 875 mg-potassium clavulanate 125 mg tablet 1 tab PO Q12H #14 tabs 10/15/22 [Rx Last Taken Unknown] folic acid 1 mg tablet 1 mg PO DAILY 10/18/22 [History Last Taken Unknown] vitamin [id number] B1 oral liquid ml PO DAILY 10/18/22 [History Last Taken Unknown] Allergy/AdvReac Type Severity Reaction Status Date / Time estrogens, conjugated Allergy Severe rash Verified 10/17/22 23:12 [From Premarin] sulfamethoxazole Allergy Rash Verified 10/17/22 23:12 [From Bactrim] trimethoprim [From Bactrim] Allergy Rash Verified 10/17/22 23:12 amoxicillin [From Prevpac] AdvReac Severe edema to Verified 10/17/22 23:12 knees atorvastatin [From Lipitor] AdvReac Severe edema Verified 10/17/22 23:12 clarithromycin [From Prevpac] AdvReac Severe edema to Verified 10/17/22 23:12 knees colestipol [From Colestid] AdvReac Severe arthralgia Verified 10/17/22 23:12 lansoprazole [From Prevpac] AdvReac Severe edema to Verified 10/17/22 23:12 knees lisinopril AdvReac Severe cough,choking Verified 10/17/22 23:12 diarrhea olmesartan [From Benicar] AdvReac Severe hair loss Verified 10/17/22 23:12 pravastatin [From Pravachol] AdvReac Severe myalgias Verified 10/17/22 23:12 rosuvastatin [From Crestor] AdvReac Severe edema Verified 10/17/22 23:12 simvastatin [From Zocor] AdvReac Severe myalgias Verified 10/17/22 23:12 spironolactone AdvReac Mild Rash on hip Verified 10/17/22 23:12 gabapentin AdvReac Unknown unkn Verified 10/17/22 23:12 tramadol AdvReac Unknown Unknown Verified 10/17/22 23:12 ascorbic acid AdvReac PT UNABLE Verified 10/17/22 23:12 [From Ferrex 150 Plus] TO RESPOND-NEEDS F/U calcium threonate AdvReac PT UNABLE Verified 10/17/22 23:12 [From Ferrex 150 Plus] TO RESPOND-NEEDS F/U iron [From Ferrex 150 Plus] AdvReac PT UNABLE Verified 10/17/22 23:12 TO RESPOND-NEEDS F/U Latex, Natural Rubber AdvReac Rash Verified 10/17/22 23:12 succinic acid AdvReac PT UNABLE Verified 10/17/22 23:12 [From Ferrex 150 Plus] TO RESPOND-NEEDS F/U Family History (Reviewed 10/01/22 @ 13:03 by Kellie Hastings CLINIC OFFICE MANAGER, CLINIC OFFICE MANAGER-C) Sister Hypertension Brother Colon cancer Brother Colon cancer Mother Alzheimers disease Father Parkinson disease Surgical History (Reviewed 10/01/22 @ 13:03 by Kellie Hastings CLINIC OFFICE MANAGER, CLINIC OFFICE MANAGER-C) Clavicle fracture History of bowel resection History of bunionectomy History of colonoscopy with polypectomy History of hemorrhoidectomy History of hysterectomy History of neck surgery History of repair of rotator cuff Hx of cholecystectomy Social History (Reviewed 10/01/22 @ 13:03 by Kellie Hastings CLINIC OFFICE MANAGER, CLINIC OFFICE MANAGER-C) Smoking Status: Never smoker alcohol intake: never ROS ROS ED Review of Systems ROS Unobtainable: other Constitutional Constitutional ED: Reports lethargy; Denies chills, fever(s), sweats or weight loss Eyes Eyes: Denies blurry vision, change in vision or diplopia ENT ENT ED: Denies rhinorrhea or sore throat Cardiovascular Cardiovascular: Denies chest pain, orthopnea or racing heartbeat Respiratory/Chest Respiratory/Chest: Denies cough, dyspnea, dyspnea on exertion, orthopnea or sputum Gastrointestinal Gastrointestinal: Reports abdominal pain; Denies diarrhea, nausea or vomiting Genitourinary Genitourinary ED: Denies dysuria, hematuria or urinary frequency Musculoskeletal Musculoskeletal: Denies arthralgias, back pain, myalgias or neck pain Integumentary Denies abscess, Abrasions or rash Neurologic Neurologic: Denies headache(s) or weakness Psychiatric Psychiatric: Denies anxiety, depression or suicidal thoughts Endocrine Endocrinology: Denies polydipsia, polyphagia or polyuria Hematologic/Lymphatic Hematologic/Lymphatic: Denies easy bleeding, easy bruising or lymphadenopathy Allergic/Immunologic Allergic/Immunologic ED: Denies mouth swelling, tongue swelling or urticaria EXAM Physical Exam Const Vital Signs: 10/17/22 23:10 Temperature 98.2 F Temperature Source Temporal Pulse Rate 96 Respiratory Rate 18 Blood Pressure 126/54 H Blood Pressure Mean 78 Pulse Ox 100 Oxygen Delivery Method Room Air Positive well nourished and well developed General Appearance ED: well developed and NAD HEENT Reports TM's clear and moist mucous membranes normocephalic and atraumatic; Negative for trauma or tenderness Tympanic Membrane ED: Yes TM's clear Eyes PERRL and EOMs intact bilaterally General Eye ED: Negative for pale conjunctiva or scleral icterus Neck no lymphadenopathy, supple and no JVD General: Negative for tenderness Chest Wall inspection of chest normal and palpation of chest normal Chest: Negative for tenderness Resp normal respiratory effort and clear to auscultation bilaterally Effort and Inspection: Negative for respiratory distress or pain with movement Auscultation: Negative for rhonchi, wheezes or diminished lung sounds Cardio regular rate, regular rhythm, S1 normal heart sound, S2 normal heart sound and no murmurs Peripheral Pulses: pulses 2+ throughout GI normal to inspection, nondistended, normoactive bowel sounds, soft to palpation, non-distended and no masses GI Narrative: Tenderness to lower left quadrant with guarding. There is no rebound, rigidity, or pedal signs. No mass palpated. Back/Spine no CVA tenderness and no thoracic nor lumbar tenderness Extremity normal to inspection General Extremety ED: Negative for edema General Extremity: Negative for edema Neuro oriented x3, CN's II-XII intact bilaterally, no sensory deficits noted and gait normal Sensorium / Orientation: awake, alert, oriented to person, oriented to place and oriented to time Motor Exam: strength 5/5 throughout and strength abnormal Psych mental status grossly normal Skin no rashes or lesions noted and no wounds MDM MDM MDM Narrative Medical decision making narrative: With history of diverticulitis. Presents with abdominal pain typical of her diverticulitis pain. She has been on Augmentin for about 3 days and having more pain. Patient had an IV line established on arrival. Patient had a CBC with differential that showed a white count of 11.7. Hemoglobin was 8.3 and hematocrit was 16.6. Platelet count 431. Chemistries unremarkable. Lactate was normal. Urinalysis normal. CT scan of the abdomen pelvis with IV contrast showed acute diverticulitis of the sigmoid colon without evidence of perforation or abscess. Patient was started on Cipro and Flagyl IV. Patient was medicated with morphine and Zofran. Case discussed with hospitalist will evaluate patient for admission for acute diverticulitis with failed outpatient therapy. Lab Data Attestation: I reviewed the patient's lab results. Labs: Laboratory Results - last 24 hr 10/17/22 10/17/22 10/17/22 23:45 23:50 23:50 WBC 11.7 H RBC 1.39 L Hgb 8.3 L Hct 16.6 L MCV 119.4 H MCH 59.7 H MCHC 36.7 H RDW Std Deviation 46.4 H RDW Coeff of Brigette 21.8 H Plt Count 431 MPV 10.9 Immature Gran % (Auto) 0.700 Neut % (Auto) 69.2 Lymph % (Auto) 17.9 L Lewis % (Auto) 10.6 H Eos % (Auto) 1.3 Baso % (Auto) 0.3 Absolute Neuts (auto) 8.1 H Absolute Lymphs (auto) 2.10 Nucleated RBC % 0 Plt Morphology Comment LARGE Polychromasia 1+ Anisocytosis 2+ Macrocytosis 2+ Sodium 135 L Potassium 4.0 Chloride 101 Carbon Dioxide 28.0 Anion Gap 6 BUN 14 Creatinine 0.68 Estim Creat Clear Calc 43.07 Est GFR (MDRD) Af Amer 107 Est GFR (MDRD) Non-Af 88 BUN/Creatinine Ratio 20.4 H Glucose 120 H Lactic Acid Calcium 8.8 Total Bilirubin 2.30 H AST 19 ALT 15 Alkaline Phosphatase 129 H Total Protein 6.7 Albumin 3.4 Globulin 3.3 Albumin/Globulin Ratio 1.0 Urine Color Yellow Urine Clarity Clear Urine pH 6.0 Ur Specific [place] 1.015 Urine Protein 30 H Urine Glucose (UA) Normal Urine Ketones 15 H Urine Occult Blood 10 H Urine Nitrite Negative Urine Bilirubin Negative Urine Urobilinogen 4 H Ur Leukocyte Esterase 25 H Urine RBC 0 SEEN Urine WBC 0-5 SEEN Ur Squamous Epith Cells 0 SEEN Urine Bacteria 3+ Urine Mucus 0 SEEN 10/17/22 23:50 WBC RBC Hgb Hct MCV MCH MCHC RDW Std Deviation RDW Coeff of Brigette Plt Count MPV Immature Gran % (Auto) Neut % (Auto) Lymph % (Auto) Lewis % (Auto) Eos % (Auto) Baso % (Auto) Absolute Neuts (auto) Absolute Lymphs (auto) Nucleated RBC % Plt Morphology Comment Polychromasia Anisocytosis Macrocytosis Sodium Potassium Chloride Carbon Dioxide Anion Gap BUN Creatinine Estim Creat Clear Calc Est GFR (MDRD) Af Amer Est GFR (MDRD) Non-Af BUN/Creatinine Ratio Glucose Lactic Acid 1.4 Calcium Total Bilirubin AST ALT Alkaline Phosphatase Total Protein Albumin Globulin Albumin/Globulin Ratio Urine Color Urine Clarity Urine pH Ur Specific [place] Urine Protein Urine Glucose (UA) Urine Ketones Urine Occult Blood Urine Nitrite Urine Bilirubin Urine Urobilinogen Ur Leukocyte Esterase Urine RBC Urine WBC Ur Squamous Epith Cells Urine Bacteria Urine Mucus Radiography Diagnostic Testing: Clinical Impression(s) from Imaging Studies Abdomen/Pelvis CT 10/18/22 00:00 IMPRESSION: Acute sigmoid diverticulitis. No evidence of perforation or abscess. Electronically Signed: Adriana Hernandez MD at 1:42 EDT Reading Location ID and State: [facility] / [place] Tel , Service support , Discharge Plan Triage Chief Complaint: Abd Pain ED Provider: Jackie Loomis Dx/Rx/DC Orders Clinical Impression: Diverticulitis, Anemia, Abdominal pain, Leukocytosis Prescriptions: No Action cholecalciferol (vitamin D3) 125 mcg (5,000 unit) capsule 125 mcg PO DAILY omeprazole 40 mg capsule,delayed release(DR/EC) 40 mg PO DAILY diphenhydramine HCl 25 MG capsule 25 mg PO TID PRN PRN (Reason: Allergies) docusate sodium 100 MG capsule 100 mg PO DAILY folic acid 1 mg Tablet 1 mg PO DAILY vitamin [id number] B1 Liquid PO DAILY Rx Instructions: 500MG ONCE A DAY--JUST VITAMIN B12 metoprolol succinate 25 mg tablet extended release 24 hr 25 mg PO DAILY Qty: 90 3RF (DME) Hair prosthesis See Rx Instructions .Route .MEDSUPPLY Qty: 1 0RF Rx Instructions: As directed amoxicillin-pot clavulanate 875-125 mg tablet 1 tab PO Q12H Qty: 14 0RF Primary Care Provider: Adriel Carney Chi Referrals: Adriel Carney Chi, MD [Primary Care Provider] - Disposition Disposition: Acute Care Hospital [facility]
[2022-10-17] MEDS: Ondansetron 4 MG/2 ML Vial IV (23:50)
[2022-10-17] MEDS: Morphine 4 MG/ML Syringe IV (23:51)
[2022-10-17] MEDS: 0.9% Normal Saline 1,000 ML 125 ML IV (23:58)
[2022-10-18] VITALS (7 sets, daily range): BP systolic 107–125; BP diastolic 54–64; PULSE 69–82; RESP 14–18; TEMP 36.3–36.9; O2SAT 93–98; BMI 23.3
--- NOTE | 2022-10-18 | CT_ITS ---
EXAM: CT Abdomen And Pelvis W/ Contrast Injection HISTORY: abdominal pain TECHNIQUE: Routine protocol CT abdomen pelvis. IV Contrast: IV 100mL Isovue-370 . Oral Contrast: without. Sagittal and coronal images were reconstructed. RADIATION DOSAGE (If Supplied By Facility): CTDIvol = ( 16.97 ) mGy, DLP = ( 513.93 ) mGycm Individualized dose optimization techniques were used for this CT. COMPARISON: CT chest 04/18/2021. LIMITATIONS: None. FINDINGS: LOWER CHEST: Dependent atelectasis in the lung bases. Small hiatal hernia. LIVER: Unremarkable. GALLBLADDER/BILE DUCTS: Gallbladder not identified presumed surgically absent. PANCREAS: Unremarkable. SPLEEN: Unremarkable. Small adjacent nodule likely a splenule ADRENAL GLANDS: Unremarkable. KIDNEYS / URETERS: Unremarkable. BOWEL / MESENTERY: Surgical clips in the right midabdomen. Wall thickening of the sigmoid colon with adjacent inflammatory stranding. Diverticula in this region and throughout the colon. No bowel obstruction. APPENDIX: Not identified. PERITONEUM: No free air. No free fluid. VESSELS: Abdominal aorta is normal caliber. RETROPERITONEUM: Unremarkable. REPRODUCTIVE ORGANS: Uterus not identified. BLADDER: Unremarkable. ABDOMINAL WALL: Unremarkable. BONES: Degenerative changes lumbar spine with minimal anterolisthesis at L4-5. L3 mild compression abnormality likely old. Transitional vertebra at the lumbosacral junction considered sacralization of L5 for the purposes of this study. Degenerative changes of the hips greater on the right. OTHER: None. CT/Abdomen/Pelvis W IV Cont ONLY IMPRESSION: Acute sigmoid diverticulitis. No evidence of perforation or abscess. Electronically Signed: Adriana Hernandez MD at 1:42 EDT ,
[2022-10-18 00:02] LABS: Mucous, Urine 0 SEEN /hpf (<or=2+); Red Blood Cells-Urine 0 SEEN /hpf (0-5); Squamous Epithelial Cells - UA 0 SEEN /hpf (5-10)
[2022-10-18 00:08] LABS: Color, Urine Yellow (Yellow); Glucose, Dipstick Normal (Normal); Ketone-Dipstick 15 mg/dl (Negative); Leukocyte Esterase-Dipstick 25 /ul (Negative); Nitrite-Dipstick Negative (Negative); Occult Blood-Urine 10 /ul (Negative); Protein-Dipstick 30 mg/dl (Negative); Specific Gravity, Urine 1.015 (1.002-1.030); Urine Bilirubin Dipstick Negative (Negative); Urine Clarity Clear (Clear); Urine Urobilinogen 4 mg/dl (Normal)
[2022-10-18 00:15] LABS: Bacteria 3+ /hpf (None Seen); White Blood Cells 0-5 SEEN /hpf (0-5)
[2022-10-18 00:23] LABS: Lactic Acid 1.4 mmol/L (0.4-1.9)
[2022-10-18 00:27] LABS: AST(SGOT) 19 U/L (15-37); Alanine Aminotransfer ALT/SGPT 15 U/L (13-56); Albumin, Serum 3.4 g/dL (3.2-5.0); Alkaline Phosphatase 129 U/L (45-117); Anion Gap 6 (5-15); BUN 14 mg/dL (7-18); BUN/Creat Ratio 20.4 RATIO (10-20); Calcium,Total 8.8 mg/dL (8.5-10.1); Chloride 101 mmol/L (98-107); Creatinine, Serum 0.68 mg/dL (0.55-1.02); EST Glomerular Filtration Rate 88 mL/min (>60); Est Glom Filt Rate - Afr Amer 107 mL/min (>60); Estimated Creatinine Clearance 43.07 ml/min; Globulin 3.3 g/dL (2.2-4.2); Glucose 120 mg/dL (74-106); Protein, Total 6.7 g/dL (6.4-8.2); Sodium Level 135 mmol/L (136-145)
[2022-10-18 01:03] LABS: Absolute Neutrophil Count 8.1 X10^3/uL (2.0-7.7); Basophil# 0.04 X10^3/uL; Basophil% 0.3 % (0-1); Eosinophil# 0.15 X10^3/uL; Eosinophils% 1.3 % (0-5); Hemoglobin 8.3 g/dL (12.0-15.0); Lymphocyte % 17.9 % (19-41); Mean Platelet Vol. 10.9 fl (6.2-12.0); Monocyte# 1.24 X10^3/uL; Monocyte% 10.6 % (0-10); NRBC Flagged by Analyzer 0 % (0-5); Neutrophil # 8.11 X10^3/uL (2.7-7.7); Neutrophil % 69.2 % (47-70); POSITIVE COUNT YES; POSITIVE MORPHOLOGY YES; Platelet Count 431 K/mm3 (150-450); White Blood Count 11.7 K/mm3 (4.4-11.0)
[2022-10-18 01:04] LABS: RBC Distribution Width CV 21.8 % (11.6-14.6); RBC Distribution Width SD 46.4 fl (35.1-43.9)
[2022-10-18 01:15] LABS: Differential Indicated SCAN CRITERIA MET
[2022-10-18 01:17] LABS: Anisocytosis 2+; Macrocytosis 2+; Platelet Morphology LARGE; Polychromasia 1+
[2022-10-18] MEDS: metroNIDAZOLE 500 MG/100 ML BAG 100 MG IV ×3 (02:10→22:08)
[2022-10-18] MEDS: Ciprofloxacin 400 MG/200 ML BAG 200 MG IV ×3 (02:49→23:01)
--- NOTE | 2022-10-18 02:59 | HP.PCM.HOS_ITS ---
HPI - General General Date of Admission: 10/18/22 Date of Service: 10/18/22 Chief Complaint: Abdominal pain, ongoing despite Abx therapy. HPI Narrative The patient is a 76 y/o F w/ PMHx: GERD, PAT/PSVT s/p loop recorder/pacemaker placement, Chronic anemia/Fe deficiency anemia, Autoimmune hemolytic anemia, Recurrent episodes of diverticulitis s/p prior R hemicolectomy following with Dr. Bird with known history of segmental colitis associate with diverticulosis who presents to the [facility] ED on 10/18/2022 with ongoing persistent abdominal pain in the left lower quadrant for 4 days with onset of initially diarrhea with similar episodes in the past consistent with prior diverticulitis episodes prompting her to call her gastroenterology office with initiation on Augmentin however she feels as though since then she has not improved with pain worsening, worse with movement with no specific fevers or chills but given status prompted ED evaluation. Patient notes her loose stools subsided Saturday and she had no bowel movement symptoms. She has had a decreased appetite. She does admit to associated nausea with her discomfort but no vomiting. She does report chills but no fevers. She rates her current discomfort upon presentation 1-2 out of 10 and describes it as pressure but prior to this would have episodes of 10 out of 10 severe intermittent sharp stabbing and aching discomfort to the left lower quadrant. Work-up in the ED included T98.2, heart rate 96, BP 126/54, respiratory rate 18, 100% room air, CBC with WC 11.7, hemoglobin 8.3, MCV 119.4, platelet 431 with left shift, CMP with sodium 135, glucose 120, lactic acid 1.4, medic profile with T. bili 2.30, alk phos 129 otherwise not marked appearing, urinalysis with specific remedy 1.015, protein 30, ketone 10, occult blood 10, negative nitrite, leukocyte Estrace only 25 with no marked urine WBCs or RBCs however there is 3+ urine bacteria noted, will obtain urine culture to be cautious and continue antibiotic therapies for concurrent bowel infection as noted, CT abdomen and pelvis with acute sigmoid diverticulitis with no evidence of any perforation or abscess. The ED patient ministered Zofran, morphine 4 mg IV x1, IV Cipro and Flagyl regimen as well as maintenance IV fluids. [facility] Medical History Alopecia Anemia, unspecified Arthritis Back pain Cardiology follow-up encounter Chest tightness Diabetes Diverticulitis Easy bruising Esophageal dilatation Esophageal obstruction Essential hypertension Fatigue Fatty liver Fecal impaction Fibromyalgia Gastric reflux Gastro-esophageal reflux disease without esophagitis History of echocardiogram History of edema History of hiatal hernia History of irregular heartbeat History of pain when walking History of steroid therapy History of stress test Iron deficiency anemia, unspecified Loss of hearing Low iron Non-smoker Nonrheumatic mitral valve regurgitation Nonrheumatic tricuspid (valve) insufficiency Other abnormalities of breathing Palpitations Paroxysmal atrial tachycardia Precordial chest pain Premature atrial contractions Premature ventricular contraction Snoring Somnolence Status post placement of implantable loop recorder Status post placement of implantable loop recorder Syncope Thyroid disease Wears glasses Home Medications diphenhydramine HCl 25 mg capsule 25 mg PO TID PRN PRN Allergies 09/19/20 [History Last Taken Unknown] docusate sodium 100 mg capsule 100 mg PO DAILY 09/19/20 [History Last Taken Unknown] cholecalciferol (vitamin D3) 125 mcg (5,000 unit) capsule 125 mcg PO DAILY 09/29/20 [History Last Taken Unknown] omeprazole 40 mg capsule,delayed release 40 mg PO DAILY 09/29/20 [History Last Taken 07/19/21 05:00] metoprolol succinate 25 mg tablet,extended release 24 hr 25 mg PO DAILY htn #90 tabs 02/07/22 [Rx Last Taken Unknown] Hair prosthesis #1 ea 04/24/22 [Rx Last Taken Unknown] amoxicillin 875 mg-potassium clavulanate 125 mg tablet 1 tab PO Q12H #14 tabs 10/15/22 [Rx Last Taken Unknown] folic acid 1 mg tablet 1 mg PO DAILY 10/18/22 [History Last Taken Unknown] vitamin Z70-[id number] B1 oral liquid ml PO DAILY 10/18/22 [History Last Taken Unknown] Allergy/AdvReac Type Severity Reaction Status Date / Time estrogens, conjugated Allergy Severe rash Verified 10/17/22 23:12 [From Premarin] sulfamethoxazole Allergy Rash Verified 10/17/22 23:12 [From Bactrim] trimethoprim [From Bactrim] Allergy Rash Verified 10/17/22 23:12 amoxicillin [From Prevpac] AdvReac Severe edema to Verified 10/17/22 23:12 knees atorvastatin [From Lipitor] AdvReac Severe edema Verified 10/17/22 23:12 clarithromycin [From Prevpac] AdvReac Severe edema to Verified 10/17/22 23:12 knees colestipol [From Colestid] AdvReac Severe arthralgia Verified 10/17/22 23:12 lansoprazole [From Prevpac] AdvReac Severe edema to Verified 10/17/22 23:12 knees lisinopril AdvReac Severe cough,choking Verified 10/17/22 23:12 diarrhea olmesartan [From Benicar] AdvReac Severe hair loss Verified 10/17/22 23:12 pravastatin [From Pravachol] AdvReac Severe myalgias Verified 10/17/22 23:12 rosuvastatin [From Crestor] AdvReac Severe edema Verified 10/17/22 23:12 simvastatin [From Zocor] AdvReac Severe myalgias Verified 10/17/22 23:12 spironolactone AdvReac Mild Rash on hip Verified 10/17/22 23:12 gabapentin AdvReac Unknown unkn Verified 10/17/22 23:12 tramadol AdvReac Unknown Unknown Verified 10/17/22 23:12 ascorbic acid AdvReac PT UNABLE Verified 10/17/22 23:12 [From Ferrex 150 Plus] TO RESPOND-NEEDS F/U calcium threonate AdvReac PT UNABLE Verified 10/17/22 23:12 [From Ferrex 150 Plus] TO RESPOND-NEEDS F/U iron [From Ferrex 150 Plus] AdvReac PT UNABLE Verified 10/17/22 23:12 TO RESPOND-NEEDS F/U Latex, Natural Rubber AdvReac Rash Verified 10/17/22 23:12 succinic acid AdvReac PT UNABLE Verified 10/17/22 23:12 [From Ferrex 150 Plus] TO RESPOND-NEEDS F/U Family History Sister Hypertension Brother Colon cancer Brother Colon cancer Mother Alzheimers disease Father Parkinson disease Surgical History Clavicle fracture History of bowel resection History of bunionectomy History of colonoscopy with polypectomy History of hemorrhoidectomy History of hysterectomy History of neck surgery History of repair of rotator cuff Hx of cholecystectomy Social History household members: spouse Smoking Status: Never smoker alcohol intake: never substance use type: does not use ROS ROS Narrative Admission Review of Systems: CONSTITUTIONAL: No weight loss, fever, + chills, weakness or fatigue. HEENT: Eyes: No visual loss, blurred vision, double vision or yellow sclerae. Ears, Nose, Throat: No hearing loss, sneezing, congestion, runny nose or sore throat. SKIN: No rash or itching, lesions, wounds. CARDIOVASCULAR: No chest pain, chest pressure or chest discomfort, palpitations, edema, orthopnea, syncopal events. RESPIRATORY: No shortness of breath, cough or sputum, wheezing, hemoptysis. GASTROINTESTINAL: + anorexia, nausea, abdominal pain, diarrhea. No vomiting, melena, BRBPR. GENITOURINARY: No dysuria, frequency, urgency or retention. NEUROLOGICAL: No headache, dizziness, syncope, paralysis, ataxia, numbness or tingling in the extremities, focal weakness, change in bowel or bladder control, seizure. MUSCULOSKELETAL: + muscle, back pain, joint pain or stiffness. HEMATOLOGIC: + anemia, bleeding or bruising. LYMPHATICS: No enlarged nodes. No history of splenectomy. PSYCHIATRIC: No history of depression or anxiety. ENDOCRINOLOGIC: No reports of sweating, cold or heat intolerance. No polyuria or polydipsia. ALLERGIES: + Several allergies to medications, rash primarily reported. Vital Signs Vital Signs Vital Signs: 10/17/22 23:10 Temperature 98.2 F Temperature Source Temporal Pulse Rate 96 Respiratory Rate 18 Blood Pressure 126/54 H Blood Pressure Mean 78 Pulse Ox 100 Oxygen Delivery Method Room Air Weight Weight: 141 lb 5.061 oz Body Mass Index (BMI) 23.5 Physical Exam Narrative Physical Examination: General: Awake, alert, oriented x 3 and cooperative, laying in the ED bed, fatigued, uncomfortable with evaluation, reports pain currently 1-2 out of 10, pressure-like in the left lower quadrant. Skin: Normal color, normal turgor, no icterus, no cyanosis. HEENT: AT/NC, EOMI, PERRLA, mildly dry MM, no carotid bruits or JVD noted. Lungs: CTA bilaterally, moderate effort, mild decrease BL bases, no rales, ronchi or wheezing. Heart: Currently regular rate and rhythm; no gallop, rub audible. Abdomen: Soft, discomfort to the left lower quadrant with some mild rebound and voluntary guarding noted, no marked distention, mildly hyperactive bowel sounds, no obvious HSM. Extremities: No cyanosis, clubbing, or edema. Neurological: Patient awake, alert, oriented as noted, cognitive function intact; pupils equally reactive to light and accommodation, cranial nerves II- XII grossly normal, moving all 4 extremities, no focal deficits, strength Moderately globally decreased secondary to acute presentation. Psychiatric: Affect appears fatigued, no acute evidence of depressive or anxiety feelings. Results Lab / Micro Data Result Diagrams: 10/17/22 23:50 10/17/22 23:50 Labs: Laboratory Results - last 24 hr 10/17/22 23:45: Urine Color Yellow, Urine Clarity Clear, Urine pH 6.0, Ur Specific [place] 1.015, Urine Protein 30 H, Urine Glucose (UA) Normal, Urine Ketones 15 H, Urine Occult Blood 10 H, Urine Nitrite Negative, Urine Bilirubin Negative, Urine Urobilinogen 4 H, Ur Leukocyte Esterase 25 H, Urine RBC 0 SEEN, Urine WBC 0-5 SEEN, Ur Squamous Epith Cells 0 SEEN, Urine Bacteria 3+, Urine Mucus 0 SEEN 10/17/22 23:50: WBC 11.7 H, RBC 1.39 L, Hgb 8.3 L, Hct 16.6 L, MCV 119.4 H, MCH 59.7 H, MCHC 36.7 H, RDW Std Deviation 46.4 H, RDW Coeff of Brigette 21.8 H, Plt Count 431, MPV 10.9, Immature Gran % (Auto) 0.700, Neut % (Auto) 69.2, Lymph % (Auto) 17.9 L, Patrick % (Auto) 10.6 H, Eos % (Auto) 1.3, Baso % (Auto) 0.3, Ab solute Neuts (auto) 8.1 H, Absolute Lymphs (auto) 2.10, Nucleated RBC % 0, Plt Morphology Comment LARGE, Polychromasia 1+, Anisocytosis 2+, Macrocytosis 2+ 10/17/22 23:50: Sodium 135 L, Potassium 4.0, Chloride 101, Carbon Dioxide 28.0, Anion Gap 6, BUN 14, Creatinine 0.68, Estim Creat Clear Calc 43.07, Est GFR (MDRD) Af Amer 107, Est GFR (MDRD) Non-Af 88, BUN/Creatinine Ratio 20.4 H, Glucose 120 H, Calcium 8.8, Total Bilirubin 2.30 H, AST 19, ALT 15, Alkaline Phosphatase 129 H, Total Protein 6.7, Albumin 3.4, Globulin 3.3, Albumin/Globulin Ratio 1.0 10/17/22 23:50: Lactic Acid 1.4 Radiology Impression Abdomen/Pelvis CT 10/18/22 00:00 IMPRESSION: Acute sigmoid diverticulitis. No evidence of perforation or abscess. Electronically Signed: Adriana Hernandez MD at 1:42 EDT , Assessment & Plan Assessment/Plan (1) Diverticulitis: PLAN: Plan The patient is a 76 y/o F w/ PMHx: GERD, PAT/PSVT s/p loop recorder/pacemaker pl acement, Chronic anemia/Fe deficiency anemia, Autoimmune hemolytic anemia, Recurrent episodes of diverticulitis s/p prior R hemicolectomy following with Dr. Bird with known history of segmental colitis associate with diverticulosis who presents to the [facility] ED on 10/18/2022 with ongoing persistent abdominal pain in the left lower quadrant for 4 days with onset of initially diarrhea with similar episodes in the past consistent with prior diverticulitis episodes prompting her to call her gastroenterology office with initiation on Augmentin however she feels as though since then she has not improved with pain worsening, worse with movement with no specific fevers or chills but given status prompted ED evaluation. #1. Acute Sigmoid Diverticulitis with underlying history segmental colitis asso ciated with diverticulosis, failed outpatient antibiotic therapy: We will admit to medical surgical floor, maintain on aggressive hydration, monitor I&Os, maintain NPO status w/ bowel rest, treat with Cipro and Flagyl which was initiated in the ED, IV PPI, anti-emetics, pain regimen PRN. Consider diet advancement to clears in AM if clinically improved. Per most recent GI notes patient with segmental colitis associate with diverticulosis which is most common reason for acute recurrent diverticulitis with planned staging at a later date with planned initiation of mesalamine therapy and possibly antibiotic therapy in the future. May consider involvement of gastroenterology pending response to treatments as noted. #2. Acute on chronic anemia, macrocytic/iron deficiency anemia with underlying history of autoimmune hemolytic anemia: Admission hemoglobin 8.3, MCV 119.4, from review of records MCV has ranged from normocytic to macrocytic, baseline hemoglobin appears more recently 9-10, most recent hemoglobin prior to current presentation 10/01/22 hemoglobin 10.3, will continue supplementations, will obtain iron panel to be cautious as well as folic acid and vitamin B12. Patient following outpatient with Dr. Mitchell eap consultant/oncologist and does note that she has had persistent issues with hemolysis with usage of Rituxan with control at that point now with ongoing routine observation assessments. Most recent endoscopies noted 07/19/2021 both EGD and colonoscopy with moderate Schatzki's ring, dilated, mucosal changes consistent with eosinophilic esophagitis, erythematous mucosa in the antrum and duodenopathy with gastritis of the antrum, H. pylori negative, C-scope with patent end-to-end colocolonic anastomosis with friable mucosa and inflammation, moderate diverticulosis diffusely. #3. Hyperbilirubinemia: Admission CMP with T. bili 2.30, alk phos 129, previous records with T bili up to 1.20 max, unclear specific etiology, CT abdomen pelvis with noted unremarkable liver with gallbladder not identified presumed surgically absent, will repeat CMP in a.m. and if remains we will further investigate. #4. GERD, history of esophageal strictures: We will maintain on IV PPI given presentation as noted. Patient following with Dr. Woodson intermittent esophageal dilations per prior records. #5. PAT/PSVT: s/p loop recorder/pacemaker placement, we will continue patient home metoprolol regimen concurrently, encourage continued outpatient follow-up as previously arranged with cardiology. #6. DVT prophylaxis: SCDs, defer chemoprophylaxis given autoimmune hemolytic anemia history. #7. CODE status: Patient CAROLE is her and living will is currently in place. Discussed CODE status at length including difference between FULL code, DNR-CCA and DNR-CC status. Following discussions about the differences in these status, requested DNR-CCA, no intubation status. Advanced Care Planning Face to Face Time: 16 minutes. Admission Evaluation Time spent evaluating chart, patient history, patient evaluation, care planning and discussion with specialists: 75 minutes. Charges/Coding Visit Charges Inpatient E&M: 07708 Init Hosp L3 Procedures Hospitalists Procedures: 16012 Advncd Care Plan 30 Min
[2022-10-18] MEDS: 0.9% Normal Saline 1,000 ML 125 ML IV ×3 (03:18→17:49)
[2022-10-18 05:21] LABS: Absolute Lymphocyte Count 1.96 X10^3/uL (0.83-4.51); Absolute Neutrophil Count 8.5 X10^3/uL (2.0-7.7); Basophil# 0.05 X10^3/uL; Basophil% 0.4 % (0-1); Eosinophil# 0.17 X10^3/uL; Eosinophils% 1.4 % (0-5); Hematocrit 17.3 % (37-47); Hemoglobin 8.1 g/dL (12.0-15.0); Lymphocyte # 1.96 X10^3/ul (0.83-4.51); Lymphocyte % 16.5 % (19-41); Mean Corpuscular Hgb 55.5 pg (27.0-32.0); Mean Corpuscular Volume 118.5 fL (81-99); Mean Platelet Vol. 10.4 fl (6.2-12.0); Monocyte# 1.14 X10^3/uL; Monocyte% 9.6 % (0-10); NRBC Flagged by Analyzer 0 % (0-5); Neutrophil # 8.48 X10^3/uL (2.7-7.7); Neutrophil % 71.5 % (47-70); POSITIVE COUNT YES; POSITIVE MORPHOLOGY YES; Platelet Count 418 K/mm3 (150-450); Red Blood Count 1.46 M/mm3 (4.2-5.4); White Blood Count 11.9 K/mm3 (4.4-11.0)
[2022-10-18 05:34] LABS: Mean Corp Hgb Conc 34.8 g/dL (32-36)
[2022-10-18 05:35] LABS: Differential Indicated SCAN CRITERIA MET
[2022-10-18 05:36] LABS: Anisocytosis 2+; Macrocytosis 2+
[2022-10-18 05:37] LABS: Platelet Morphology LARGE; Polychromasia 1+
[2022-10-18 05:56] LABS: AST(SGOT) 16 U/L (15-37); Alanine Aminotransfer ALT/SGPT 11 U/L (13-56); Albumin, Serum 3.3 g/dL (3.2-5.0); Alkaline Phosphatase 127 U/L (45-117); Anion Gap 5 (5-15); BUN 12 mg/dL (7-18); BUN/Creat Ratio 20.3 RATIO (10-20); Calcium,Total 8.6 mg/dL (8.5-10.1); Chloride 106 mmol/L (98-107); Creatinine, Serum 0.59 mg/dL (0.55-1.02); EST Glomerular Filtration Rate 105 mL/min (>60); Est Glom Filt Rate - Afr Amer 127 mL/min (>60); Estimated Creatinine Clearance 43.07 ml/min; Globulin 3.3 g/dL (2.2-4.2); Glucose 113 mg/dL (74-106); Potassium 3.5 mmol/L (3.5-5.1); Protein, Total 6.6 g/dL (6.4-8.2); Sodium Level 138 mmol/L (136-145)
[2022-10-18 05:58] LABS: Vitamin B12 958 pg/mL (211-911)
[2022-10-18 06:22] LABS: Ferritin 885 ng/mL (8-252); Iron 51 ug/dL (50-170); Iron Binding Capacity,Total 180 ug/dL (250-450); PERCENT IRON SATURATION 28.3 % (15.0-55.0)
[2022-10-18 07:27] LABS: Red Blood Count 2.16 M/mm3 (4.2-5.4)
[2022-10-18 07:28] LABS: Mean Corp Hgb Conc 36.3 g/dL (32-36); Mean Corpuscular Volume 101.8 fL (81-99)
[2022-10-18] MEDS: Ondansetron 4 MG/2 ML Vial IV (08:17)
[2022-10-18] MEDS: oxyCODONE 5 MG Tablet PO ×2 (08:17→17:49)
[2022-10-18] MEDS: Metoprolol(XL)Succ 25 MG Tablet PO (08:19)
[2022-10-18] MEDS: Folic Acid 1 MG Tablet PO (08:19)
[2022-10-18] MEDS: proCHLORPERazine 10 MG/2 ML Vial 5 MG IV (10:29)
--- NOTE | 2022-10-18 11:21 | CASEMGMT ---
RN?CM?AVIATION SUPPORT EQUIPMENT REPAIRER?CM?to room to meet with patient for initial transition planning/care coordination?assessment.?RN?CM?introduced self and role at [facility].? Pt voices understanding and consents to?assessment?at this time.? Pt resting in bed in no distress at this time.? Pt is A/O at this time and answers all questions appropriately.?? Care providers, pharmacy, and demographics verified/updated at this time. PCP: Dr Carney Specialists:Dr Bird-GI, Dr Mitchell-onc, [facility]/Cardiology Preferred [facility]acy: [facility] Insurance: Maximino MURILLO Prescription Benefit:?Yes Living Will/HPOA:?Has LW and HCPOA, who is her , Abhishek LNOK: , Abhishek Living Arrangements: Lives w/ in one-story home w/basement. Pt does not have to go to the basement. 2 steps to enter home and pt denies dificulty. Independent w/ADL's. and pt share home mgmt tasks. Transportation:?Pt states drives self and states no transportation concerns at this time.? also drives. DME: ?Has a functioning glucometer w/supplies. Denies any further DME needs. HHC/SNF: No hx of either. No needs identified. Pt wishes to return home and states has no concerns with going home at time of discharge.?.??CM?to follow for any discharge planning/needs.? Pt voices no concerns/needs at this time.? Advised pt to ask for?CM?if any further questions/concerns/needs arise.? Voices understanding. PLAN:??Home [employer] BSN?RN?CM
[2022-10-18] MEDS: DiphenhydrAMINE 25 MG Capsule PO (13:32)
[2022-10-18 14:24] LABS: Hematocrit 21.7 % (37-47); Hemoglobin 7.4 g/dL (12.0-15.0)
--- NOTE | 2022-10-18 15:03 | PCM.PN.BLA ---
Progress Note 1. Acute sigmoid diverticulitis with underlying history of segmental colitis associated with diverticulosis ? She was on Augmentin as an outpatient without any significant improvement ? Continue with Cipro and Flagyl ? Her hemoglobin is dropping and she does have a history of hemolytic anemia therefore we will obtain a fecal occult and if positive consult gastroenterology 2. Acute on chronic anemia secondary to hemolytic anemia ? 2 weeks ago her haptoglobin was low but her LDH was normal today her hemoglobin is dropped to 7.4 we will check another haptoglobin and LDH ? Bilirubin is also elevated if haptoglobin and LDH come back consistent for reactivation of her hemolytic anemia we will consult hematology and likely start her on steroids 3. PSVT/PAT ? Stable ? She has had a loop recorder placed ? Continue with metoprolol 4. GERD ? Stable ? Continue with IV PPI twice daily given anemia and history of esophageal strictures DVT: SCDs
[2022-10-18 15:20] LABS: LDH 222 U/L (84-246)
[2022-10-19] VITALS (8 sets, daily range): BP systolic 109–167; BP diastolic 49–88; PULSE 68–89; RESP 16–18; TEMP 36.6–36.9; O2SAT 96–98; BMI 23.5
[2022-10-19 05:12] LABS: Absolute Lymphocyte Count 1.54 X10^3/uL (0.83-4.51); Absolute Neutrophil Count 5.3 X10^3/uL (2.0-7.7); Basophil# 0.06 X10^3/uL; Basophil% 0.8 % (0-1); Eosinophil# 0.18 X10^3/uL; Eosinophils% 2.3 % (0-5); Lymphocyte # 1.54 X10^3/ul (0.83-4.51); Lymphocyte % 19.7 % (19-41); Mean Platelet Vol. 10.2 fl (6.2-12.0); NRBC Flagged by Analyzer 0 % (0-5); Neutrophil # 5.27 X10^3/uL (2.7-7.7); Neutrophil % 67.3 % (47-70); POSITIVE COUNT YES; POSITIVE MORPHOLOGY YES; Platelet Count 394 K/mm3 (150-450); White Blood Count 7.8 K/mm3 (4.4-11.0)
[2022-10-19 05:21] LABS: RBC Distribution Width CV 14.4 % (11.6-14.6); RBC Distribution Width SD 45.8 fl (35.1-43.9)
[2022-10-19 05:22] LABS: Differential Indicated SCAN CRITERIA MET; Mean Corp Hgb Conc 34.6 g/dL (32-36)
[2022-10-19] MEDS: 0.9% Normal Saline 1,000 ML 125 ML IV ×2 (05:30→17:14)
[2022-10-19] MEDS: metroNIDAZOLE 500 MG/100 ML BAG 100 MG IV ×3 (05:30→22:32)
[2022-10-19 05:42] LABS: Anion Gap 6 (5-15); BUN 8 mg/dL (7-18); BUN/Creat Ratio 15.9 RATIO (10-20); Calcium,Total 8.5 mg/dL (8.5-10.1); Chloride 109 mmol/L (98-107); EST Glomerular Filtration Rate 126 mL/min (>60); Est Glom Filt Rate - Afr Amer 153 mL/min (>60); Estimated Creatinine Clearance 43.07 ml/min; Glucose 108 mg/dL (74-106); Potassium 3.6 mmol/L (3.5-5.1); Sodium Level 141 mmol/L (136-145)
[2022-10-19 05:57] LABS: Hypochromasia 1+; Polychromasia 1+
[2022-10-19 06:57] LABS: Hemoglobin 7.4 g/dL (12.0-15.0)
[2022-10-19] MEDS: Metoprolol(XL)Succ 25 MG Tablet PO (07:48)
[2022-10-19] MEDS: Folic Acid 1 MG Tablet PO (07:48)
--- NOTE | 2022-10-19 09:12 | PN.HOSP_ITS ---
Subjective Subjective Doing well, left lower quadrant pain is still present but improving Objective Data Objective Data Vital Signs: Vital Signs Temp Pulse Resp BP Pulse Ox O2 Del Method 98.2 F 68 16 127/58 H 97 Room Air 10/19/22 08:38 10/19/22 08:38 10/19/22 08:38 10/19/22 08:38 10/19/22 08:38 10/19/22 08:38 Oxygen Delivery Method Room Air Weight: 141 lb 3.2 oz Body Mass Index (BMI) 23.5 Intake & Output: Intake and Output for Last 24 Hours 10/18/22 10/19/22 10/20/22 03:59 03:59 03:59 Intake Total 547.92 / 547.92 3384.17 / 3384.17 577.08 / 577.08 Balance 547.92 / 547.92 3384.17 / 3384.17 577.08 / 577.08 Lab / Micro Data Result Diagrams: 10/19/22 05:05 10/19/22 05:05 Labs: Laboratory Results - last 24 hr 10/18/22 05:15: Lactate Dehydrogenase 222 10/18/22 14:17: Hgb 7.4 L, Hct 21.7 L 10/19/22 05:05: WBC 7.8, RBC 1.15 L, Hgb 7.4 L, Hct 10.7 L, MCV 93.0 D, MCH 32.2 H, MCHC 34.6, RDW Std Deviation 45.8 H, RDW Coeff of Brigette 14.4, Plt Count 394, MPV 10.2, Immature Gran % (Auto) 0.900, Neut % (Auto) 67.3, Lymph % (Auto) 19.7, [place] % (Auto) 9.0, Eos % (Auto) 2.3, Baso % (Auto) 0.8, Absolute Neuts (auto) 5.3, Absolute Lymphs (auto) 1.54, Nucleated RBC % 0, Polychromasia 1+, Hypochromasia 1+ 10/19/22 05:05: Sodium 141, Potassium 3.6, Chloride 109 H, Carbon Dioxide 26.0, Anion Gap 6, BUN 8, Creatinine 0.50 L, Estim Creat Clear Calc 43.07, Est GFR (MDRD) Af Amer 153, Est GFR (MDRD) Non-Af 126, BUN/Creatinine Ratio 15.9, Glucose 108 H, Calcium 8.5 Physical Exam Narrative General: Alert, Oriented x3, Cooperative, No apparent distress HEENT: Atraumatic, PERRLA, EOMI, Normocephalic Oral: Moist Mucosa Neck: Supple, No JVD Lungs: Diminished, normal air movement, No rhonchi, No wheeze, No rales Cardiovascular: Regular rate, Regular Rhythm, Normal S1, Normal S2, No murmurs Abdomen: Soft, mild tender LLQ, Non-Distended, No Hepato-splenomegaly Extremities: No edema, Capillary Refill Less than 3 Seconds Skin: No rashes, No breakdown Musculoskeletal: No Tenderness to Palpation of Joints or Extremities Neurological: Motor Exam 5/5 strength throughout, Sensory exam intact to light touch and pain Psych/Mental Status: Normal Affect, Appropriate Assessment & Plan Assessment/Plan (1) Diverticulitis: PLAN: Plan 1.? Acute sigmoid diverticulitis with underlying history of segmental colitis associated with diverticulosis ? She was on Augmentin as an outpatient without any significant improvement ? Continue with Cipro and Flagyl ? Given that her pain has improved, we will start her on a clear liquid diet ? Her hemoglobin is dropping and she does have a history of hemolytic anemia therefore we will obtain a fecal occult and if positive consult gastroenterology 2.? Acute on chronic anemia secondary to hemolytic anemia ? 2 weeks ago her haptoglobin was low but her LDH was normal. Yesterday her hemoglobin is dropped to 7.4 we will check another haptoglobin, LDH is normal at 222. Of note her hemoglobin is 7.4 again today ? Bilirubin is also elevated if haptoglobin and LDH come back consistent for reactivation of her hemolytic anemia we will consult hematology and likely start her on steroids 3.? PSVT/PAT ? Stable ? She has had a loop recorder placed ? Continue with metoprolol 4.? GERD ? Stable ? Continue with IV PPI twice daily given anemia and history of esophageal strictures DVT: SCDs Charges/Coding Visit Charges Inpatient E&M: 77592 Subs Hosp L2
[2022-10-19] MEDS: Ciprofloxacin 400 MG/200 ML BAG 200 MG IV ×2 (10:02→21:18)
[2022-10-19 12:02] LABS: Hematocrit 21.4 % (37-47)
[2022-10-19 12:03] LABS: Mean Corpuscular Hgb 32.2 pg (27.0-32.0)
[2022-10-19] MEDS: Ensure Clear 120 ML Liquid PO ×2 (12:53→17:13)
[2022-10-19] MEDS: Ondansetron 4 MG/2 ML Vial IV (22:28)
[2022-10-20] MEDS: 0.9% Normal Saline 1,000 ML 125 ML IV (03:15)
[2022-10-20 03:21] VITALS: BMI 23.5
[2022-10-20 04:20] LABS: Anion Gap 7 (5-15); BUN 6 mg/dL (7-18); BUN/Creat Ratio 11.5 RATIO (10-20); Calcium,Total 8.8 mg/dL (8.5-10.1); Chloride 109 mmol/L (98-107); Creatinine, Serum 0.52 mg/dL (0.55-1.02); EST Glomerular Filtration Rate 121 mL/min (>60); Est Glom Filt Rate - Afr Amer 146 mL/min (>60); Estimated Creatinine Clearance 43.07 ml/min; Glucose 109 mg/dL (74-106); Potassium 3.1 mmol/L (3.5-5.1); Sodium Level 142 mmol/L (136-145)
[2022-10-20] MEDS: proCHLORPERazine 10 MG/2 ML Vial 5 MG IV (04:45)
[2022-10-20] MEDS: metroNIDAZOLE 500 MG/100 ML BAG 100 MG IV ×2 (05:07→14:27)
[2022-10-20 07:58] VITALS: BP 119/59; PULSE 73; RESP 16; TEMP 36.8; O2SAT 96; O2SAT 99
[2022-10-20] MEDS: Folic Acid 1 MG Tablet PO (08:06)
[2022-10-20] MEDS: Ensure Clear 120 ML Liquid PO (08:16)
[2022-10-20] MEDS: Potassium Chloride Oral Tablet 20 MEQ 60 MEQ PO (08:17)
[2022-10-20 08:19] LABS: Mean Corpuscular Volume 95.9 fL (81-99); Red Blood Count 2.92 M/mm3 (4.2-5.4); White Blood Count 7.2 K/mm3 (4.4-11.0)
--- NOTE | 2022-10-20 08:27 | PN.HOSP_ITS ---
Subjective Subjective Doing well, no issues overnight Objective Data Objective Data Vital Signs: Vital Signs Temp Pulse Resp BP Pulse Ox O2 Del Method 98.2 F 73 16 119/59 L 99 Room Air 10/20/22 07:58 10/20/22 07:58 10/20/22 07:58 10/20/22 07:58 10/20/22 07:58 10/20/22 07:58 Oxygen Delivery Method Room Air Weight: 141 lb 5.061 oz Body Mass Index (BMI) 23.5 Intake & Output: Intake and Output for Last 24 Hours 10/19/22 10/20/22 10/21/22 03:59 03:59 03:59 Intake Total 3384.17 / 3384.17 3913.75 / 3913.75 100 / 100 Balance 3384.17 / 3384.17 3913.75 / 3913.75 100 / 100 Lab / Micro Data Result Diagrams: 10/19/22 05:05 10/20/22 03:59 Labs: Laboratory Results - last 24 hr 10/19/22 05:05: RBC 2.30 L, Hct 21.4 L, MCH 32.2 H 10/20/22 03:59: Sodium 142, Potassium 3.1 L, Chloride 109 H, Carbon Dioxide 26.0, Anion Gap 7, BUN 6 L, Creatinine 0.52 L, Estim Creat Clear Calc 43.07, Est GFR (MDRD) Af Amer 146, Est GFR (MDRD) Non-Af 121, BUN/Creatinine Ratio 11.5, Glucose 109 H, Calcium 8.8 Micro: Microbiology 10/17/22 23:45 Urine, Clean Catch Urine Culture - Final Culture exhibits no growth. 10/19/22 12:19 Stool Stool Occult Blood (BRET) - Final Occult Blood Positive Physical Exam Narrative General: Alert, Oriented x3, Cooperative, No apparent distress HEENT: Atraumatic, PERRLA, EOMI, Normocephalic Oral: Moist Mucosa Neck: Supple, No JVD Lungs: Diminished, normal air movement, No rhonchi, No wheeze, No rales Cardiovascular: Regular rate, Regular Rhythm, Normal S1, Normal S2, No murmurs Abdomen: Soft, mild tender LLQ, Non-Distended, No Hepato-splenomegaly Extremities: No edema, Capillary Refill Less than 3 Seconds Skin: No rashes, No breakdown Musculoskeletal: No Tenderness to Palpation of Joints or Extremities Neurological: Motor Exam 5/5 strength throughout, Sensory exam intact to light touch and pain Psych/Mental Status: Normal Affect, Appropriate Assessment & Plan Assessment/Plan (1) Diverticulitis: PLAN: Plan 1.? Acute sigmoid diverticulitis with underlying history of segmental colitis associated with diverticulosis ? She was on Augmentin as an outpatient without any significant improvement ? Continue with Cipro and Flagyl ? Given that her pain has improved, we will start her on a clear liquid diet ? Her hemoglobin is dropping and she does have a history of hemolytic anemia therefore we will obtain a fecal occult and if positive consult gastroenterology 2.? Acute on chronic anemia secondary to hemolytic anemia ? 2 weeks ago her haptoglobin was low but her LDH was normal. Yesterday her hemoglobin is dropped to 7.4 we will check another haptoglobin, LDH is normal at 222. Of note her hemoglobin was 7.4, currently awaiting hemoglobin today ? Bilirubin is also elevated if haptoglobin and LDH come back consistent for reactivation of her hemolytic anemia we will consult hematology and likely start her on steroids 3.? PSVT/PAT ? Stable ? She has had a loop recorder placed ? Continue with metoprolol 4.? GERD ? Stable ? Continue with IV PPI twice daily given anemia and history of esophageal st rictures DVT: SCDs Charges/Coding Visit Charges Inpatient E&M: 50179 Subs Hosp L2
[2022-10-20 08:28] LABS: Hemoglobin 8.6 g/dL (12.0-15.0)
[2022-10-20 08:29] LABS: Differential Indicated SCAN CRITERIA MET; Lymphocyte % 29.4 % (19-41); Mean Corp Hgb Conc 29.6 g/dL (32-36); Mean Corpuscular Hgb 28.4 pg (27.0-32.0); Mean Platelet Vol. 10.2 fl (6.2-12.0); Monocyte% 12.4 % (0-10); Neutrophil % 53.6 % (47-70); POSITIVE COUNT YES; Platelet Count 403 K/mm3 (150-450)
[2022-10-20 08:30] LABS: Basophil% 0.7 % (0-1); Eosinophils% 2.9 % (0-5)
[2022-10-20 08:32] LABS: Absolute Lymphocyte Count 2.12 X10^3/uL (0.83-4.51); Absolute Neutrophil Count 3.9 X10^3/uL (2.0-7.7); Basophil# 0.05 X10^3/uL; Eosinophil# 0.21 X10^3/uL; Lymphocyte # 2.12 X10^3/ul (0.83-4.51); Monocyte# 0.89 X10^3/uL; Neutrophil # 3.86 X10^3/uL (2.7-7.7)
[2022-10-20 09:08] LABS: Haptoglobin 89 mg/dL (42-346)
[2022-10-20 09:59] LABS: Anisocytosis 2+; Differential Comment SCANNED; Hypochromasia 1+; Macrocytosis 1+; Microcytosis 1+
[2022-10-20 10:13] VITALS: PULSE 73
[2022-10-20] MEDS: Metoprolol(XL)Succ 25 MG Tablet PO (10:13)
[2022-10-20] MEDS: Ciprofloxacin 400 MG/200 ML BAG 200 MG IV (10:43)
--- NOTE | 2022-10-20 13:58 | DCINST_ITS ---
Discharge Instructions Diet Discharge Diet: No restrictions Activity Discharge Activity: Return to Normal Activity Dressing / Incision Call your doctor if you observe: Fever of 101 or Higher, Shortness of breath, Dizziness, Fainting spells, Swelling in the ankles, Chest pain and Increased palpitations (irregular heartbeat) Follow Up Care Test Results: Test results from this visit will be discussed in further detail at your follow- up appointment, if applicable. Discharge Plan Admission Admit Date/Time: 10/18/22 02:34 Attending Provider: Jesse Guthrie Primary Care Provider: Adriel Carney Chi Consulting Providers: Marlys Lyn Instructions Additional Instructions / Restrictions: Follow-up with your PCP in 3 to 5 days to obtain outpatient lab work to monitor your anemia. 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, it appears that you are supposed to be on mesalamine Discharge Orders/Prescriptions Prescriptions: New metronidazole 500 mg tablet 500 mg PO Q8H 7 Days Qty: 21 0RF ciprofloxacin HCl [Cipro] 500 mg tablet 500 mg PO BID 7 Days Qty: 14 0RF Continued cholecalciferol (vitamin D3) 125 mcg (5,000 unit) capsule 125 mcg PO DAILY omeprazole 40 mg capsule,delayed release(DR/EC) 40 mg PO DAILY diphenhydramine HCl 25 MG capsule 25 mg PO TID PRN PRN (Reason: Allergies) docusate sodium 100 MG capsule 100 mg PO DAILY folic acid 1 mg Tablet 1 mg PO DAILY vitamin [id number] B1 Liquid PO DAILY Rx Instructions: 500MG ONCE A DAY--JUST VITAMIN B12 metoprolol succinate 25 mg tablet extended release 24 hr 25 mg PO DAILY Qty: 90 3RF (DME) Hair prosthesis See Rx Instructions .Route .MEDSUPPLY Qty: 1 0RF Rx Instructions: As directed Discontinued amoxicillin-pot clavulanate 875-125 mg tablet 1 tab PO Q12H Qty: 14 0RF Referrals / Follow Up: Isidoro Bird DO [Med Staff - Active Staff] - Within 1 Month Adriel Carney Chi, MD [Primary Care Provider] - Within 1 Week Disposition Disposition (needs filled in before D/C Order can be placed): Home, Self Care
--- NOTE | 2022-10-20 14:05 | DS.PCM_ITS ---
Providers Date of Admission: 10/18/22 Primary Care Physician: Dr. Adriel Carney MD Reason For Visit: ACUTE DIVERTICULITIS, FAILED OUTPATIENT ABX THERAP Diagnosis Discharge Diagnosis (1) Diverticulitis: Status: Acute Code(s): K57.92 - Diverticulitis of intestine, part unspecified, without perforation or abscess without bleeding Medications at Discharge Home Medications diphenhydramine HCl 25 mg capsule 25 mg PO TID PRN PRN Allergies 09/19/20 docusate sodium 100 mg capsule 100 mg PO DAILY 09/19/20 cholecalciferol (vitamin D3) 125 mcg (5,000 unit) capsule 125 mcg PO DAILY 09/29/20 omeprazole 40 mg capsule,delayed release 40 mg PO DAILY 09/29/20 metoprolol succinate 25 mg tablet,extended release 24 hr 25 mg PO DAILY htn #90 tabs 02/07/22 Hair prosthesis #1 ea 04/24/22 folic acid 1 mg tablet 1 mg PO DAILY 10/18/22 vitamin [id number] B1 oral liquid ml PO DAILY 10/18/22 ciprofloxacin HCl 500 mg tablet (Cipro) 500 mg PO BID 7 days #14 tabs 10/20/22 metronidazole 500 mg tablet 500 mg PO Q8H 7 days #21 tabs 10/20/22 Hospital Course Operations None Procedures None Summary of Care Provided Minutes Spent on Discharge: 35 Hospital Course: Per HPI: The patient is a 76 y/o F w/ PMHx: GERD, PAT/PSVT s/p loop recorder/pacemaker placement, Chronic anemia/Fe deficiency anemia, Autoimmune hemolytic anemia, Recurrent episodes of diverticulitis s/p prior R hemicolectomy following with Dr. Bird with known history of segmental colitis associate with diverticulosis who presents to the [facility] ED on 10/18/2022 with ongoing persistent abdominal pain in the left lower quadrant for 4 days with onset of initially diarrhea with similar episodes in the past consistent with prior diverticulitis episodes prompting her to call her gastroenterology office with initiation on Augmentin however she feels as though since then she has not improved with pain worsening, worse with movement with no specific fevers or chills but given status prompted ED evaluation.? Patient notes her loose stools subsided Saturday and she had no bowel movement symptoms.? She has had a decreased appetite.? She does admit to associated nausea with her discomfort but no vomiting.? She does report chills but no fevers.? She rates her current discomfort upon presentation 1-2 out of 10 and describes it as pressure but prior to this would have episodes of 10 out of 10 severe intermittent sharp stabbing and aching discomfort to the left lower quadrant.? Work-up in the ED included T98.2, heart rate 96, BP 126/54, respiratory rate 18, 100% room air, CBC with WC 11.7, hemoglobin 8.3, MCV 119.4, platelet 431 with left shift, CMP with sodium 135, glucose 120, lactic acid 1.4, medic profile with T. bili 2.30, alk phos 129 otherwise not marked appearing, urinalysis with specific remedy 1.015, protein 30, ketone 10, occult blood 10, negative nitrite, leukocyte Estrace only 25 with no marked urine WBCs or RBCs however there is 3+ urine bacteria noted, will obtain urine culture to be cautious and continue antibiotic therapies for concurrent bowel infection as noted, CT abdomen and pelvis with acute sigmoid diverticulitis with no evidence of any perforation or abscess.? The ED patient ministered Zofran, morphine 4 mg IV x1, IV Cipro and Flagyl regimen as well as maintenance IV fluids. Hospital Course: 1. Acute sigmoid diverticulitis with an underlying history of segmental colitis associated with diverticulosis?76-year-old female presented with what appeared to be colitis this is a frequent issue for her and she is supposed be following up with gastroenterology and per chart review supposed be on mesalamine. She did have significant improvement in her abdominal pain and was able to tolerate a regular diet today without any abdominal pain whatsoever. I do recommend that she continue taking antibiotics for another 7 days, Cipro and Flagyl. I recommend she follow-up with her PCP in 3 to 5 days for outpatient lab work and to follow-up with her nurse transplant as well. I discussed with her the p ossibility for discharge today and she expressed understanding of the risk benefits going home and would like to go home today. 2. Acute on chronic anemia secondary to hemolytic anemia and repeated colitis? LDH was obtained which was normal and her haptoglobin is still pending. She did have positive blood in her stool however upon chart review this is likely related to her segmental colitis from diverticulosis as well as her chronic issue with hemolytic anemia. Her hemoglobin did go up from 7.4 to 8.6 and she is not symptomatic so would plan outpatient follow-up. We will continue her home PPI. 3. Paroxysmal SVT, GERD are all chronic medical conditions which complicate her care. Her home medications were continued where appropriate Weight / BMI Weight Weight: 141 lb 5.061 oz Body Mass Index (BMI) 23.5 ABG / Lab / Microbiology Data Result Diagrams: 10/20/22 03:59 10/20/22 03:59 Laboratory: Laboratory Results - last 24 hr 10/18/22 05:15: Haptoglobin 89 10/20/22 03:59: WBC 7.2, RBC 2.92 L, Hgb 8.6 L, Hct 28.0 L, MCV 95.9, MCH 28.4, MCHC 29.6 L D, RDW Std Deviation Not Reportable, RDW Coeff of Brigette Not Reportable, Plt Count 403, MPV 10.2, Immature Gran % (Auto) 1.000 H, Neut % (Auto) 53.6, Lymph % (Auto) 29.4, [place] % (Auto) 12.4 H, Eos % (Auto) 2.9, Baso % (Auto) 0.7, Absolute Neuts (auto) 3.9, Absolute Lymphs (auto) 2.12, Differential Comment SCANNED, Hypochromasia 1+, Anisocytosis 2+, Microcytosis 1+, Macrocytosis 1+ 10/20/22 03:59: Sodium 142, Potassium 3.1 L, Chloride 109 H, Carbon Dioxide 26.0, Anion Gap 7, BUN 6 L, Creatinine 0.52 L, Estim Creat Clear Calc 43.07, Est GFR (MDRD) Af Amer 146, Est GFR (MDRD) Non-Af 121, BUN/Creatinine Ratio 11.5, Glucose 109 H, Calcium 8.8 Microbiology: Microbiology 10/17/22 23:45 Urine, Clean Catch Urine Culture - Final Culture exhibits no growth. 10/19/22 12:19 Stool Stool Occult Blood (BRET) - Final Occult Blood Positive D/C Instructions Discharge Diet: No restrictions Call your doctor if you observe: Fever of 101 or Higher, Shortness of breath, Dizziness, Fainting spells, Swelling in the ankles, Chest pain and Increased palpitations (irregular heartbeat) Meaningful Use Info Meaningful Use Diagnoses (Choose all that apply): None applicable Discharge Plan Admission Admit Date/Time: 10/18/22 02:34 Attending Provider: Jesse Guthrie Primary Care Provider: Adriel Carney Chi Consulting Providers: Marlys Lyn Instructions Additional Instructions / Restrictions: Follow-up with your PCP in 3 to 5 days to obtain outpatient lab work to monitor your anemia. I also recommend following up with your nurse transplant, it appears that you are supposed to be on mesalamine Discharge Orders/Prescriptions Prescriptions: New metronidazole 500 mg tablet 500 mg PO Q8H 7 Days Qty: 21 0RF ciprofloxacin HCl [Cipro] 500 mg tablet 500 mg PO BID 7 Days Qty: 14 0RF Continued cholecalciferol (vitamin D3) 125 mcg (5,000 unit) capsule 125 mcg PO DAILY omeprazole 40 mg capsule,delayed release(DR/EC) 40 mg PO DAILY diphenhydramine HCl 25 MG capsule 25 mg PO TID PRN PRN (Reason: Allergies) docusate sodium 100 MG capsule 100 mg PO DAILY folic acid 1 mg Tablet 1 mg PO DAILY vitamin [id number] B1 Liquid PO DAILY Rx Instructions: 500MG ONCE A DAY--JUST VITAMIN B12 metoprolol succinate 25 mg tablet extended release 24 hr 25 mg PO DAILY Qty: 90 3RF (DME) Hair prosthesis See Rx Instructions .Route .MEDSUPPLY Qty: 1 0RF Rx Instructions: As directed Discontinued amoxicillin-pot clavulanate 875-125 mg tablet 1 tab PO Q12H Qty: 14 0RF Referrals / Follow Up: Isidoro Bird DO [Med Staff - Active Staff] - Within 1 Month Adriel Carney Chi, MD [Primary Care Provider] - Within 1 Week Disposition Disposition (needs filled in before D/C Order can be placed): Home, Self Care Charges/Coding Visit Charges Inpatient E&M: 89099 Disch Hosp >30min
[2022-10-20 14:22] VITALS: BP 125/66; PULSE 73; RESP 16; TEMP 36.9; O2SAT 97
[2022-10-20] MEDS: Ensure Plus High Protein 120 ML LIQUID PO (14:26)
== END 2022-10-20 15:15 | disposition home or self-care (01) | DRG 392 ==
LOC: ED 10-18 02:31 → MS3 10-18 02:42
PROVIDERS: Family Medicine; Admitting Provider Family Medicine; Emergency Provider Emergency Medicine; PCP Family Medicine Geriatric Medicine; Visit Provider Internal Medicine
DX: K57.32 Diverticulitis of large intestine without perforation or abscess without bleeding (principal); D58.9 Hereditary hemolytic anemia, unspecified; I47.1 Supraventricular tachycardia; E11.9 Type 2 diabetes mellitus without complications; D50.9 Iron deficiency anemia, unspecified; E80.7 Disorder of bilirubin metabolism, unspecified; I10 Essential (primary) hypertension; K21.9 Gastro-esophageal reflux disease without esophagitis; M79.7 Fibromyalgia; Z95.0 Presence of cardiac pacemaker; Z79.899 Other long term (current) drug therapy
CPT/HCPCS: 36415; 74177; 80048; 80053; 81001; 82274; 82607; 82728; 82746; 83010; 83540; 83550; 83605; 83615; 85014; 85018; 85025; 87086; 94668; 99252; 99284; J7030; Q9967; A4216; G0463; J0744; J2405

== ENCOUNTER 2023-01-01 14:19 | Day surgery (SDC) | payer MEDICARE, BC, SELFPAY ==
[2023-01-01 14:56] VITALS: BP 132/69; PULSE 71; RESP 16; TEMP 36.4; O2SAT 98; BMI 23.1
[2023-01-01] MEDS: Lactated Ringers 1,000 ML 15 ML IV (15:05)
--- NOTE | 2023-01-01 16:49 | HP.PCM_ITS ---
History and Physical Date of Admission: 01/01/23 Addendum She will undergo an EGD and colonoscopy with video capsule placement. She cannot swallow pills ; therefore we will have to place the capsule endoscopy. 12/12/22 1730 <Electronically signed by Isidoro Friend DO> Date Isidoro Bird DO cc: ~* Signed Intake Vital Signs 10/18/2310:49 11/20/2309:49 Height 5 ft 5 in 5 ft 5 in Intake Visit Reasons: H FU Chief Complaint: F/u for anemia/AIHA. Allergies estrogens, conjugated [From Premarin] Allergy (Severe, Verified 11/20/22 10:46) rashsulfamethoxazole [From Bactrim] Allergy (Verified 11/20/22 10:46) Rashtrimethoprim [From Bactrim] Allergy (Verified 11/20/22 10:46) Rashamoxicillin [From Prevpac] Adverse Reaction (Severe, Verified 11/20/22 10:46) edema to kneesatorvastatin [From Lipitor] Adverse Reaction (Severe, Verified 11/20/22 10:46) edemaclarithromycin [From Prevpac] Adverse Reaction (Severe, Verified 11/20/22 10:46) edema to kneescolestipol [From Colestid] Adverse Reaction (Severe, Verified 11/20/22 10:46) arthralgialansoprazole [From Prevpac] Adverse Reaction (Severe, Verified 11/20/22 10:46) edema to kneeslisinopril Adverse Reaction (Severe, Verified 11/20/22 10:46) cough,choking diarrheaolmesartan [From Benicar] Adverse Reaction (Severe, Verified 11/20/22 10:46) hair losspravastatin [From Pravachol] Adverse Reaction (Severe, Verified 11/20/22 10:46) myalgiasrosuvastatin [From Crestor] Adverse Reaction (Severe, Verified 11/20/22 10:46) edemasimvastatin [From Zocor] Adverse Reaction (Severe, Verified 11/20/22 10:46) myalgiasspironolactone Adverse Reaction (Mild, Verified 11/20/22 10:46) Rash on hipgabapentin Adverse Reaction (Unknown, Verified 11/20/22 10:46) unkntramadol Adverse Reaction (Unknown, Verified 11/20/22 10:46) Unknownascorbic acid [From Ferrex 150 Plus] Adverse Reaction (Verified 11/20/22 10:46) PT UNABLE TO RESPOND-NEEDS F/Ucalcium threonate [From Ferrex 150 Plus] Adverse Reaction (Verified 11/20/22 10:46) PT UNABLE TO RESPOND-NEEDS F/Uiron [From Ferrex 150 Plus] Adverse Reaction (Verified 11/20/22 10:46) PT UNABLE TO RESPOND-NEEDS F/ULatex, Natural Rubber Adverse Reaction (Verified 11/20/22 10:46) Rashsuccinic acid [From Ferrex 150 Plus] Adverse Reaction (Verified 11/20/22 10:46) PT UNABLE TO RESPOND-NEEDS F/U PFSH Medical History Alopecia Anemia, unspecified Arthritis Back pain Cardiology follow-up encounter Chest tightness Diabetes Diverticulitis Easy bruising Esophageal dilatation Esophageal obstruction Essential hypertension Fatigue Fatty liver Fecal impaction Fibromyalgia Gastric reflux Gastro-esophageal reflux disease without esophagitis History of echocardiogram History of edema History of hiatal hernia History of irregular heartbeat History of pain when walking History of steroid therapy History of stress test Iron deficiency anemia, unspecified Loss of hearing Low iron Non-smoker Nonrheumatic mitral valve regurgitation Nonrheumatic tricuspid (valve) insufficiency Other abnormalities of breathing Palpitations Paroxysmal atrial tachycardia Precordial chest pain Premature atrial contractions Premature ventricular contraction Snoring Somnolence Status post placement of implantable loop recorder Status post placement of implantable loop recorder Syncope Thyroid disease Wears glasses Surgical History Clavicle fracture History of bowel resection History of bunionectomy History of colonoscopy with polypectomy History of hemorrhoidectomy History of hysterectomy History of neck surgery History of repair of rotator cuff Hx of cholecystectomy Family History Sister HypertensionBrother Colon cancerBrother Colon cancerMother Alzheimers diseaseFather Parkinson disease Social History household members: spouse Smoking Status: Never smoker alcohol intake: never substance use type: does not use HPI HPI Chief Complaint: F/u for anemia/AIHA. Details: RADHA KILPATRICK, is a 77 F who presents to the office today for Follow up. SCAD. At last visit we discussed the need to prevent constipation to prevent recurrence of SCAD. With 2 tsp of lactulose she had diarrhea so she now takes 1 tsp of lactulose daily, plus colace, stool can still be hard but is moving much better than it was before. Having intermittent pain LLQ for the past couple of weeks, was severe once to the point of nausea and vomiting. No fever or chills. Constipation -- On iron supplement for autoimmune hemolytic anemia which makes her constipation worse. Currently taking biscodyl about once a week in order to have a BM. Linzess caused burning stools. She tried and failed mineral oil, aloe vera, fiber therapy, miralax, colace. Segmental colitis associated with diverticulosis -- was treated with antibiotics, then mesalamine but didn't tolerate mesalamine because of heartburn and acid reflux. She is taking a daily probiotic. Goal is to prevent constipation which contributes to diverticulitis and segmental colitis. GERD -- On omeprazole 40 mg daily Radha established with this clinic 06.09.21 as a referral from PCP evaluation of anemia, GERD and recurrent diverticulitis History of bowel resection of cancerous polyp, it was removed as a polyp once and then bowel surgery performed. She is followed by Dr. Roscoe Mitchell, hematology for autoimmune hemolytic anemia CT abd/pel performed 11.30.20 finding small hiatal hernia. s/p right hemicolectomy. Sigmoid diverticulosis. Scattered calcification of abdominal aorta without aneurysm. Mild degenerative changes of lumbar spine. EGD and colonoscopy performed 07.19.21. EGD found moderate Schatzki ring, dilated; mucosal changes consistent with eosinophilic esophagitis; erythematous mucosa in antrum and duodenopathy. Gastritis of antrum. H.Pylori negative. Colonoscopy found patent end-to side colo-colonic anastomosis with friable mucosa and inflammation; moderate diverticulosis in recto-sigmoid, sigmoid, descending colon and splenic flexure. Repeat in 5 yrs. OV 03.16.22- Mesalamine for SCAD, increase PPI to BID if needed. Cont lactulose for constipation. Pt reports HB stable with QD Omeprazole. Does not have constipation anymore as her Oncologist d/c her iron. BM were stable until this weekend. She ate ground beef and has had watery diarrhea and abdominal pain. Reports stool was formed today and abdominal pain is not as bad now. ROS Const Constitutional: No fatigue ENT ENT: Positive for difficulty swallowing Gastro GI: Positive for diarrhea, difficulty swallowing, Blood in stool and nausea/dyspepsia; No abdominal pain, belching, bloating, change in bowel habits, change in stool character, coffee ground emesis, constipation, cramping, heartburn, feeling full early, excessive flatus, incontinent of stools, Vomiting blood/hematemesis, loose stools, Black,tarry stools, pain with swallowing, vomiting or other Musc Musculoskeletal: Positive for back pain, stiffness and Arthritis; No joint pain Skin Skin: No yellowing of the eye or itchy eyes Psych Psychiatric: No anxiety and No depression Endo Endocrine: No fatigue Aller/Imm Allergy/Immunologic: No itchy eyes Rigo/Lymp Hematologic/Lymphatic: No easy bleeding or easy bruising Exam Const General: cooperative, healthy appearing and comfortable Orientation: alert, awake and oriented x3 Quality Reporting Tobacco Screening ([facility] 138) Smoking Status: Never smoker Assessment and Plan Assessment and Plan (1) Anemia: Status: Chronic Qualifiers: Anemia type: unspecified type Qualified Code(s): D64.9 - Anemia, unspecified Plan: She does have a decrease in hemoglobin and she had 2 stools that were fecal occult positive. We will schedule her for endoscopy and capsule placement. (2) Segmental colitis associated with diverticulosis: Status: Acute Plan: She was treated with antibiotic therapy and she got better and regarding her segmental colitis before I had a chance to start her on a probiotic and mesalamine based therapy. At this time she is not having any symptoms and is feeling very well so she does not want to change anything. (3) Diverticulitis: Status: Acute Plan: Fiber diet was encouraged for this patient along with currently he vegetables and fruits on a daily basis. But the most important thing explained to her was for her to have a normal bowel mood every day. Medications: New metronidazole 500 mg PO Q8H 15 tabs 0RF 5 days levofloxacin 500 mg PO DAILY 5 tabs 0RF dicyclomine 10 mg PO BID 14 caps 0RF I have examined the patient and the H&P has been reviewed. There are no clinical changes since date of exam.
--- NOTE | 2023-01-01 16:49 | OP.EGD_ITS ---
Patient Name: Alisia Redding Procedure Date: 01/01/2023 4:21 PM Date of : 1945 Age: 77 Procedure: Upper GI endoscopy Indications: Iron deficiency anemia Providers: Isidoro Bird DO Referring MD: Adriel Carney MD Medicines: Monitored Anesthesia Care Patient Profile: This is a 77 year old female. Refer to note in patient chart for documentation of history and physical. Patient has symptoms of chronic dyspepsia and chronic heartburn. Complications: No immediate complications. Procedure: Pre-Anesthesia Assessment: - Prior to the procedure, a History and Physical was performed, and patient medications and allergies were reviewed. The risks and benefits of the procedure and the sedation options and risks were discussed with the patient. All questions were answered and informed consent was obtained. Patient identification and proposed procedure were verified by the physician in the pre-procedure area. Mental Status Examination: alert and oriented. Airway Examination: normal oropharyngeal airway and neck mobility. Respiratory Examination: clear to auscultation. CV Examination: normal. Prophylactic Antibiotics: The patient does not require prophylactic antibiotics. Prior Anticoagulants: The patient has taken no previous anticoagulant or antiplatelet agents. ASA Grade Assessment: II - A patient with mild systemic disease. After reviewing the risks and benefits, the patient was deemed in satisfactory condition to undergo the procedure. The anesthesia plan was to use monitored anesthesia care (MAC). Immediately prior to administration of medications, the patient was re-assessed for adequacy to receive sedatives. The heart rate, respiratory rate, oxygen saturations, blood pressure, adequacy of pulmonary ventilation, and response to care were monitored throughout the procedure. The physical status of the patient was re-assessed after the procedure. After obtaining informed consent, the endoscope was passed under direct vision. Throughout the procedure, the patient's blood pressure, pulse, and oxygen saturations were monitored continuously. The gastroscope was introduced through the mouth, and advanced to the second part of duodenum. The upper GI endoscopy was accomplished without difficulty. The patient tolerated the procedure well. Scope In: 4:39:32 PM Scope Out: 4:45:07 PM Total Procedure Duration Time 0 hours 5 minutes 35 seconds Findings: The examined esophagus was normal. The entire examined stomach was normal. No gross lesions were noted in the second portion of the duodenum. The video PillCam was endoscopically placed in the small bowel. Impression: - Normal esophagus. - Normal stomach. - No gross lesions in the second portion of the duodenum. - No specimens collected. Recommendation: - Discharge patient to home. - Resume previous diet. - Continue present medications. Procedure Code(s): --- Professional --- 28821, Esophagogastroduodenoscopy, flexible, transoral; diagnostic, including collection of specimen(s) by brushing or washing, when performed (separate procedure) CPT copyright 2017 [employer]. All rights reserved. The codes documented in this report are preliminary and upon barometers calibrator review may be revised to meet current compliance requirements. Isidoro Bird DO 01/01/2023 4:49:08 PM This report has been signed electronically. Number of Addenda: 0 Note Initiated On: 01/01/2023 4:21 PM
[2023-01-01 16:50] VITALS: BP 105/53; BP 132/69; PULSE 76; RESP 18; TEMP 36.3; O2SAT 95
--- NOTE | 2023-01-01 16:50 | OP.CCLET_ITS ---
01/01/2023 Adriel Carney MD [address] [place] [address] Re : Upper GI endoscopy procedure for Alisia Redding Dear Dr. Carney This procedure was performed on Sunday, January 01, 2023. My impressions and recommendations are as follows: Impressions : - Normal esophagus. - Normal stomach. - No gross lesions in the second portion of the duodenum. - No specimens collected. Recommendations : - Discharge patient to home. - Resume previous diet. - Continue present medications. My findings are described in the full procedure note, which is enclosed. If I can be of further assistance, please feel free to contact me at . Sincerely, Isidoro Bird, 01/01/2023 4:49:08 PM This report has been signed electronically.
[2023-01-01 16:55] VITALS: BP 132/69; BP 89/55; PULSE 81; RESP 18; O2SAT 100
[2023-01-01 17:00] VITALS: BP 132/69; BP 93/55; PULSE 81; RESP 18; O2SAT 97
[2023-01-01 17:05] VITALS: BP 101/55; BP 132/69; PULSE 73; RESP 18; TEMP 36.9; O2SAT 99
[2023-01-01 17:32] VITALS: BP 132/69
== END 2023-01-01 17:44 | disposition home or self-care (01) ==
LOC: EN 14:23 → AC 14:23
PROVIDERS: PCP Family Medicine Geriatric Medicine; Referring Provider Family Medicine Geriatric Medicine; Visit Provider Internal Medicine Gastroenterology
PROC: 0DJ08ZZ Inspection of Upper Intestinal Tract, Via Natural or Artificial Opening Endoscopic (ICD-10-PCS; CPT 43235; principal; 2023-01-01 15:25)
DX: K21.9 Gastro-esophageal reflux disease without esophagitis (principal); K50.90 Crohn's disease, unspecified, without complications; E11.9 Type 2 diabetes mellitus without complications; M47.816 Spondylosis without myelopathy or radiculopathy, lumbar region; K57.30 Diverticulosis of large intestine without perforation or abscess without bleeding; K29.70 Gastritis, unspecified, without bleeding; D64.9 Anemia, unspecified; I10 Essential (primary) hypertension
CPT/HCPCS: 43235; J7120; J2405

== ENCOUNTER → 2023-03-12 | Outpatient (CLI) | payer MEDICARE, BC, SELFPAY ==
--- NOTE | 2023-03-12 08:28 | US_ITS ---
STUDY: ABDOMINAL ULTRASOUND - RIGHT UPPER QUADRANT REASON FOR VISIT: Female, 77 years old R/O LIVER DISEASE TECHNIQUE: Ultrasound evaluation of the right upper quadrant was performed with real-time and static lowery-scale imaging. TECHNICAL QUALITY: Adequate. COMPARISON: Comparison is made with prior CT scan of the abdomen and pelvis dated October 18, 2022. FINDINGS: Liver: The liver measures 14.2 cm. There is increased echogenicity consistent with fatty infiltration. The bile ducts are within normal limits. There is hepatic color flow. The direction of portal flow is hepatopetal. There is no demonstrated mass lesion. Gallbladder: The patient is status post cholecystectomy. Common Bile Duct (C.B.D.): The common bile duct measures 4 mm. Pancreas: Normal size of the head, body and tail of the pancreas. There is normal echogenicity of the pancreas. There is no demonstrated pancreatic mass or cyst. Right Kidney: Normal size of the right kidney. The right kidney measures 10.4 cm x 5.2 cm x 4.1 cm. Normal renal cortex. The right cortex measures 1.3 cm. There is no demonstrated renal mass or cyst. There is no right hydronephrosis. IMPRESSION: Mild degree of fatty infiltration of the liver. Electronically Signed: Geraldo Carranza MD at 9:12 EDT , STUDY: ABDOMINAL ULTRASOUND - ELASTOGRAPHY REASON FOR VISIT: Female, 77 years old. Abnormal liver function tests. TECHNIQUE: Liver stiffness measurements were obtained on a bMenu 85 ultrasound machine using a CA 1-7 probe following the SRU guidelines. 3 measurements were obtained using a 2-D-SWE method. TheIQR/M was 60 % suggesting a quality data set. TECHNICAL QUALITY: Adequate. COMPARISON: None. FINDINGS: Liver: There is no demonstrated mass lesion. Median liver stiffness measured 2.9 kPa. Abdomen: There is no demonstrated mass lesion. US/Abdomen Limited IMPRESSION: Liver stiffness measures 2.9 kPa compatible with FO (Normal) Metavir score. Electronically Signed: Geraldo Carranza MD at 9:13 EDT ,
== END | disposition home or self-care (01) ==
LOC: US 08:27
PROVIDERS: PCP Family Medicine Geriatric Medicine; Referring Provider Internal Medicine Medical Oncology; Visit Provider Internal Medicine Medical Oncology
DX: D59.10 Autoimmune hemolytic anemia, unspecified (principal); R77.8 Other specified abnormalities of plasma proteins
CPT/HCPCS: 76705; 76981

== ENCOUNTER → 2023-03-26 | Outpatient (CLI) | payer MEDICARE, BC, SELFPAY | END | disposition home or self-care (01) | LOC: PSN 11:47 | PROVIDERS: PCP Family Medicine Geriatric Medicine; Referring Provider Family Medicine Geriatric Medicine; Visit Provider Family Medicine Geriatric Medicine | DX: R68.83 Chills (without fever) (principal) | CPT/HCPCS: 87635; 87804; 87807; C9803 ==

== ENCOUNTER 2023-03-27 11:43 | Emergency (ER) | payer MEDICARE, BC, SELFPAY ==
[2023-03-27 11:43] VITALS: BP 149/77; PULSE 68; RESP 16; TEMP 36.3; O2SAT 100; BMI 23.8
--- NOTE | 2023-03-27 11:56 | EDS_ITS ---
HPI History of Present Illness Chief Complaint: Chest Pain Informant: patient Onset/Context/Timing Onset: Today Activity at onset: sudden Timing: Continuous Quality: Positive for Pressure Location: Left Chest Current Severity: Severe Maximum Severity: Severe Worsened By: Exertion (Walking) Relieved By: Nothing Associated Symptoms: Positive for Nausea, Vomiting and Diaphoresis; Negative for Dyspnea, Cough, Fever, Lightheadedness, Acid Reflux or Palpitations Narrative Narrative: Patient presents with chest pain that began today. Patient describes it as a pressure. Patient states it has been waxing and waning. Patient states it is over the left chest. Patient states she also has some low back pain with this. Patient states it is worse with walking. Patient admits to some nausea and vom iting. Patient also admits to some diaphoresis with the pain. Patient denies any fevers or chills. Patient denies any shortness of breath or cough. Patient states she was recently diagnosed with COVID-19. CVD Risk Factors: Positive for Hypertension and Hypercholesterolemia; Negative for Diabetes, Family History 1' </=55 or Smoking PE Risk Factors: Negative for Recent Travel/Surgery, Recent Immobilization, Prior DVT or PE, Cancer or OCP + Smoking + >/=35 PFSH PFSH Medical History Alopecia Anemia, unspecified Arthritis Back pain Cardiology follow-up encounter Diabetes Diverticulitis Esophageal dilatation Esophageal obstruction Essential hypertension Fatigue Fatty liver Fibromyalgia Gastric reflux History of echocardiogram History of edema History of hiatal hernia History of irregular heartbeat History of pain when walking History of stress test Hypertension Iron deficiency anemia, unspecified Loss of hearing Low iron Non-smoker Nonrheumatic mitral valve regurgitation Nonrheumatic tricuspid (valve) insufficiency Palpitations Paroxysmal atrial tachycardia Premature atrial contractions Premature ventricular contraction Somnolence Status post placement of implantable loop recorder Status post placement of implantable loop recorder Syncope Thyroid disease Wears glasses Home Medications omeprazole 40 mg capsule,delayed release 40 mg PO DAILY PRN heartburn 09/29/20 [History Last Taken 07/19/21 05:00] Hair prosthesis #1 ea 04/24/22 [Rx Last Taken Unknown] metoprolol succinate 25 mg tablet,extended release 24 hr 25 mg PO DAILY htn #90 tabs 02/21/23 [Rx Last Taken Unknown] hydrocodone-acetaminophen 5-325mg 5mg-325mg 1 tab PO Q6H PRN PRN Pain 3 days #10 TABLETS 03/27/23 [Rx Last Taken Unknown] Allergy/AdvReac Type Severity Reaction Status Date / Time estrogens, conjugated Allergy Severe rash Verified 03/27/23 11:45 [From Premarin] sulfamethoxazole Allergy Rash Verified 03/27/23 11:45 [From Bactrim] trimethoprim [From Bactrim] Allergy Rash Verified 03/27/23 11:45 amoxicillin [From Prevpac] AdvReac Severe edema to Verified 03/27/23 11:45 knees atorvastatin [From Lipitor] AdvReac Severe edema Verified 03/27/23 11:45 clarithromycin [From Prevpac] AdvReac Severe edema to Verified 03/27/23 11:45 knees colestipol [From Colestid] AdvReac Severe arthralgia Verified 03/27/23 11:45 lansoprazole [From Prevpac] AdvReac Severe edema to Verified 03/27/23 11:45 knees lisinopril AdvReac Severe cough,choking Verified 03/27/23 11:45 diarrhea olmesartan [From Benicar] AdvReac Severe hair loss Verified 03/27/23 11:45 pravastatin [From Pravachol] AdvReac Severe myalgias Verified 03/27/23 11:45 rosuvastatin [From Crestor] AdvReac Severe edema Verified 03/27/23 11:45 simvastatin [From Zocor] AdvReac Severe myalgias Verified 03/27/23 11:45 spironolactone AdvReac Mild Rash on hip Verified 03/27/23 11:45 gabapentin AdvReac Unknown unkn Verified 03/27/23 11:45 tramadol AdvReac Unknown Unknown Verified 03/27/23 11:45 ascorbic acid AdvReac PT UNABLE Verified 03/27/23 11:45 [From Ferrex 150 Plus] TO RESPOND-NEEDS F/U calcium threonate AdvReac PT UNABLE Verified 03/27/23 11:45 [From Ferrex 150 Plus] TO RESPOND-NEEDS F/U iron [From Ferrex 150 Plus] AdvReac PT UNABLE Verified 03/27/23 11:45 TO RESPOND-NEEDS F/U Latex, Natural Rubber AdvReac Rash Verified 03/27/23 11:45 succinic acid AdvReac PT UNABLE Verified 03/27/23 11:45 [From Ferrex 150 Plus] TO RESPOND-NEEDS F/U Family History Sister Hypertension Brother Colon cancer Brother Colon cancer Mother Alzheimers disease Father Parkinson disease Surgical History Clavicle fracture History of bowel resection History of bunionectomy History of colonoscopy with polypectomy History of hemorrhoidectomy History of hysterectomy History of neck surgery History of repair of rotator cuff Hx of cholecystectomy Social History household members: spouse Smoking Status: Never smoker alcohol intake: never substance use type: does not use ROS ROS ED Constitutional Constitutional ED: Reports sweats; Denies chills or fever(s) Eyes Eyes: Reports blurry vision; Denies change in vision ENT ENT ED: Denies rhinorrhea or sore throat Cardiovascular Cardiovascular: Reports chest pain; Denies palpitations Respiratory/Chest Respiratory/Chest: Denies cough or dyspnea Gastrointestinal Gastrointestinal: Reports nausea and vomiting; Denies abdominal pain Genitourinary Genitourinary ED: Denies dysuria or hematuria Musculoskeletal Musculoskeletal: Denies back pain or neck pain Integumentary Denies abscess or rash Neurologic Neurologic: Denies headache(s) or weakness Allergic/Immunologic Allergic/Immunologic ED: Denies mouth swelling or urticaria EXAM Physical Exam Const Vital Signs: 03/27/23 11:43 03/27/23 13:13 03/27/23 13:15 Temperature 97.4 F L Temperature Source Temporal Pulse Rate 68 Respiratory Rate 16 Respiratory Effort Normal Non-Labored Blood Pressure 149/77 H Blood Pressure Mean 101 Pulse Ox 100 95 Oxygen Delivery Method Room Air Room Air 03/27/23 15:34 Temperature Temperature Source Pulse Rate 62 Respiratory Rate 10 L Respiratory Effort Blood Pressure 131/64 H Blood Pressure Mean 86 Pulse Ox 99 Oxygen Delivery Method Room Air Positive well nourished, well developed and obese General Appearance ED: well developed and NAD Nutritional Appearance: obese HEENT Reports moist mucous membranes Resp normal respiratory effort and clear to auscultation bilaterally Cardio regular rate and regular rhythm GI soft to palpation, non-tender and non-distended Neuro oriented x3, CN's II-XII intact bilaterally and no sensory deficits noted Sensorium / Orientation: awake and alert Motor Exam: strength 5/5 throughout Psych mental status grossly normal Heart Score History: Slightly/Non-Suspicious ECG: Normal Age: >/= 65 years Risk Factors: 1 or 2 Risk Factors Troponin: </= Normal Limit Score: 3 MDM MDM MDM Narrative Medical decision making narrative: Differential diagnosis includes cardiac dysrhythmia, cardiac ischemia, pneumonia, pneumothorax, pulmonary embolism, anxiety, and musculoskeletal pain. CTA of the chest will be obtained to assess for pulmonary embolism. EKG will be obtained to assess for cardiac dysrhythmia and cardiac ischemia. CBC will be obtained to assess for leukocytosis and anemia. Basic metabolic profile will be obtained to assess for electrolyte abnormality and renal function. High- sensitivity troponin will be obtained to assess for cardiac ischemia. 2-hour repeat high-sensitivity troponin will be obtained to assess for ongoing cardiac ischemia. Lab Data Attestation: I reviewed the patient's lab results. Lab results narrative: CBC was reviewed and showed a mild leukocytosis of 12.8. Hemoglobin was 7.5 and hematocrit was 20.7. This is consistent with previous result. Platelets were normal. Basic metabolic profile was reviewed and was essentially within normal limits. High-sensitivity troponin was reviewed and was normal at 5. 2-hour repeat high-sensitivity troponin was reviewed and was normal at 5. Labs: Laboratory Results - last 24 hr 03/27/23 03/27/23 12:50 15:30 WBC 12.8 H RBC 1.95 L Hgb 7.5 L Hct 20.7 L MCV 106.2 H D MCH 38.5 H MCHC 36.2 H D RDW Std Deviation 58.4 H RDW Coeff of Brigette 24.8 H Plt Count 449 MPV 10.1 Immature Gran % (Auto) 2.000 H Neut % (Auto) 72.2 H Lymph % (Auto) 18.7 L [place] % (Auto) 6.6 Eos % (Auto) 0.2 Baso % (Auto) 0.3 Absolute Neuts (auto) 9.2 H Absolute Lymphs (auto) 2.39 Nucleated RBC % 0.2 Differential Comment SCANNED Anisocytosis 2+ Macrocytosis 2+ Sodium 139 Potassium 4.4 Chloride 108 H Carbon Dioxide 27.0 Anion Gap 4 L BUN 16 Creatinine 0.71 Estim Creat Clear Calc 42.39 Est GFR (MDRD) Af Amer 102 Est GFR (MDRD) Non-Af 85 BUN/Creatinine Ratio 22.5 H Glucose 123 H Calcium 9.1 Troponin I High Sens 5 5 Radiography Diagnostic Testing: Clinical Impression(s) from Imaging Studies Chest CTA 03/27/23 12:40 IMPRESSION: No acute abnormality is seen. Electronically Signed: Geraldo Carranza MD at 14:20 EDT , CTA of the chest was obtained. There is no evidence of pulmonary embolism or aortic dissection. There is no acute abnormality noted. This was interpreted by the radiologist was also independently reviewed by myself. EKG Initial EKG: Attestation: I personally reviewed and interpreted this EKG as follows: Interpretation: Sinus Rhythm (69) and No Acute Injury Pattern Prior EKG tracings: available for review Prior: Unchanged (06/02/2020) Treatment and Re-Evaluation :: Patient was given aspirin. Patient was given a dose of morphine. Patient is feeling better on reevaluation. Patient was advised of her findings. Patient has a HEART score of 3. Patient was advised that this is low risk for acute cardiac event. Patient was given a prescription for [place]. Patient was instructed to follow-up with her primary care physician in 5 to 7 days. Patient understood and was agreeable with the plan. All questions were answered. Discharge Plan Triage Chief Complaint: Chest Pain ED Provider: Leonid Valencia Dx/Rx/DC Orders Clinical Impression: COVID-19, Chest pain Instructions: ED Chest Pain, Uncertain Cause Prescriptions: New hydrocodone-acetaminophen [hydrocodone-acetaminophen] 5-325 mg tablet 1 tab PO Q6H PRN PRN (Reason: Pain) 3 Days Qty: 10 0RF No Action omeprazole 40 mg capsule,delayed release(DR/EC) 40 mg PO DAILY PRN (Reason: heartburn) (DME) Hair prosthesis See Rx Instructions .Route .MEDSUPPLY Qty: 1 0RF Rx Instructions: As directed metoprolol succinate 25 mg tablet extended release 24 hr 25 mg PO DAILY Qty: 90 3RF Primary Care Provider: Adriel Carney Chi Referrals: Adriel Carney Chi, MD [Primary Care Provider] - 5-7 Days Disposition Disposition: Home, Self Care
--- NOTE | 2023-03-27 12:40 | CT_ITS ---
STUDY: CTA CHEST REASON FOR EXAM: Female, 77 years old. Chest pain RADIATION DOSAGE (If Supplied By Facility): CTDIvol = ( 5.03 ) mGy, DLP = ( 142.81 ) mGycm TECHNIQUE: The examination was performed with the intravenous administration of IV 100mL Isovue-370. Post-processing of the angiographic images was performed, with multiplanar reformation and 3D reconstruction. Individualized dose optimization techniques were used for this CT. COMPARISON: Comparison is made with prior study dated April 18, 2021. FINDINGS: Normal enhancement of the main pulmonary artery and right and left pulmonary arteries. Normal enhancement of the bilateral peripheral pulmonary arteries. There is no demonstrated pulmonary embolism. There is atherosclerotic calcification of the aortic arch with tortuosity. There is no demonstrated aortic dissection. There are calcifications of the coronary arteries. Normal mediastinum. Normal hilar regions. Normal visualized trachea and bronchi. The lungs are well expanded. Normal pulmonary parenchyma. Normal pleura. Normal chest wall structures. There are degenerative changes of thoracic spine. Small hiatal hernia. CT/CTA Chest W/WO Contrast IMPRESSION: No acute abnormality is seen. Electronically Signed: Geraldo Carranza MD at 14:20 EDT ,
[2023-03-27] MEDS: Aspirin 81 MG TAB.CHEW 324 MG PO (12:51)
[2023-03-27 12:55] LABS: Absolute Lymphocyte Count 2.39 X10^3/uL (0.83-4.51); Absolute Neutrophil Count 9.2 X10^3/uL (2.0-7.7); Basophil# 0.04 X10^3/uL; Basophil% 0.3 % (0-1); Eosinophil# 0.03 X10^3/uL; Eosinophils% 0.2 % (0-5); Hematocrit 20.7 % (37-47); Hemoglobin 7.5 g/dL (12.0-15.0); Lymphocyte # 2.39 X10^3/ul (0.83-4.51); Lymphocyte % 18.7 % (19-41); Mean Corp Hgb Conc 36.2 g/dL (32-36); Mean Corpuscular Hgb 38.5 pg (27.0-32.0); Mean Corpuscular Volume 106.2 fL (81-99); Mean Platelet Vol. 10.1 fl (6.2-12.0); Monocyte# 0.85 X10^3/uL; Monocyte% 6.6 % (0-10); NRBC Flagged by Analyzer 0.2 % (0-5); Neutrophil # 9.22 X10^3/uL (2.7-7.7); Neutrophil % 72.2 % (47-70); POSITIVE MORPHOLOGY YES; Platelet Count 449 K/mm3 (150-450); RBC Distribution Width CV 24.8 % (11.6-14.6); RBC Distribution Width SD 58.4 fl (35.1-43.9); Red Blood Count 1.95 M/mm3 (4.2-5.4); White Blood Count 12.8 K/mm3 (4.4-11.0)
[2023-03-27 12:57] LABS: Differential Indicated SCAN CRITERIA MET
[2023-03-27 13:15] VITALS: O2SAT 95
[2023-03-27 13:16] LABS: Anisocytosis 2+; Differential Comment SCANNED; Macrocytosis 2+
[2023-03-27 13:19] LABS: Anion Gap 4 (5-15); BUN 16 mg/dL (7-18); BUN/Creat Ratio 22.5 RATIO (10-20); Calcium,Total 9.1 mg/dL (8.5-10.1); Chloride 108 mmol/L (98-107); Creatinine, Serum 0.71 mg/dL (0.55-1.02); EST Glomerular Filtration Rate 85 mL/min (>60); Est Glom Filt Rate - Afr Amer 102 mL/min (>60); Estimated Creatinine Clearance 42.39 ml/min; Glucose 123 mg/dL (74-106); Potassium 4.4 mmol/L (3.5-5.1); Sodium Level 139 mmol/L (136-145); Troponin-I HS (w/2H Reflex) 5 pg/mL (3.0-54.0)
[2023-03-27 14:50] LABS: Reflex Troponin-HS? (from REC) Y
[2023-03-27 15:34] VITALS: BP 131/64; PULSE 62; RESP 10; O2SAT 99
[2023-03-27 16:00] LABS: Troponin-I HS 5 pg/mL (3.0-54.0)
[2023-03-27 16:46] VITALS: BP 125/67; PULSE 60; RESP 12; O2SAT 97
== END 2023-03-27 17:05 | disposition home or self-care (01) ==
PROVIDERS: Emergency Provider Emergency Medicine; PCP Family Medicine Geriatric Medicine; Visit Provider Emergency Medicine
DX: U07.1 COVID-19 (principal); E11.9 Type 2 diabetes mellitus without complications; E78.00 Pure hypercholesterolemia, unspecified; I10 Essential (primary) hypertension; R07.9 Chest pain, unspecified; E66.9 Obesity, unspecified
CPT/HCPCS: 71275; 80048; 84484; 85025; 93005; 99284; Q9967; A4216

== ENCOUNTER → 2023-05-14 | Outpatient (CLI) | payer MEDICARE, BC, SELFPAY | END | disposition home or self-care (01) | PROVIDERS: PCP Family Medicine Geriatric Medicine; Referring Provider Family Medicine Geriatric Medicine; Visit Provider Family Medicine Geriatric Medicine | DX: R68.83 Chills (without fever) (principal) | CPT/HCPCS: 87635; 87804; 87807; C9803 ==

== ENCOUNTER → 2023-10-31 | Outpatient (CLI) | payer MEDICARE, BC, SELFPAY | END | disposition home or self-care (01) | PROVIDERS: PCP Family Medicine Geriatric Medicine; Referring Provider Family Medicine Geriatric Medicine; Visit Provider Family Medicine Geriatric Medicine | DX: R68.83 Chills (without fever) (principal) | CPT/HCPCS: 87631 ==

== ENCOUNTER → 2023-11-15 | Outpatient (CLI) | payer MEDICARE, BC, SELFPAY ==
--- NOTE | 2023-11-15 12:20 | RAD_ITS ---
STUDY: X-RAY - ABDOMEN/PELVIS REASON FOR EXAM: Female, 77 years old. FECAL IMPACTION TECHNIQUE: Single AP view of the abdomen / pelvis. COMPARISON: None. FINDINGS: Normal visualized lung bases. There is moderate diffuse fecal retention, otherwise unremarkable bowel gas pattern. There is no demonstrated free abdominal air. The visualized liver, spleen and kidneys are grossly normal in size and morphology. Normal soft tissue structures. There are diffuse degenerative changes of the visualized lumbar spine. RAD/Abdomen Single View IMPRESSION: Moderate diffuse fecal retention. No acute abnormality. Electronically Signed: Jacob Owens MD at 20:37 EDT ,
== END | disposition home or self-care (01) ==
PROVIDERS: PCP Family Medicine Geriatric Medicine; Referring Provider Family Medicine Geriatric Medicine; Visit Provider Family Medicine Geriatric Medicine
DX: K56.41 Fecal impaction (principal); R68.83 Chills (without fever)
CPT/HCPCS: 74018; 87631

== ENCOUNTER → 2023-12-30 | Outpatient (CLI) | payer MEDICARE, BC, SELFPAY ==
--- NOTE | 2023-12-30 07:33 | ART_ITS ---
Reason For Study: Decreased Pedal Pulses Procedure A bilateral lower extremity continuous wave Doppler with analog waveform analysis,segmental pressures,and ankle brachial indexes with exercise. Left Segmental Pressures Left brachial= 170mmHg. Left posterior tibial artery = 207mmHg. Left dorsalis pedis artery = 185mmHg. Left digit = 137 mmHg. The left posterior tibial artery waveforms are triphasic. The left dorsalis pedis waveforms are triphasic. Right Segmental Pressures Right brachial= 168mmHg. Right posterior tibial artery = 198mmHg. Right dorsalis pedis artery = 198mmHg. Right digit = 121 mmHg. The right posterior tibial artery waveforms are triphasic. The right dorsalis pedis waveforms are triphasic. Indices The right ankle brachial index by the posterior tibial artery is 1.16. The right ankle brachial index by the dorsalis pedis is 1.16. The right digital-brachial index is 0.71. The right ankle brachial index by the posterior tibial artery post exercise is 1.19. The left ankle brachial index by the posterior tibial artery is 1.22. The left ankle brachial index by the dorsalis pedis is 1.09. The left digital-brachial index is 0.81. The left posterior tibial artery index post exercise is 1.22. VL/Lower Ext Art Exam w/ Exercise Interpretation Summary Right SIMON 1.16, normal. Doppler/PVR waveforms of the right leg normal at rest. TBI diminished, pedal/digit disease vs spasm. Right lower extremity exhibits normal response to exercise. Left SIMON 1.22, normal. TBI and Doppler/PVR waveforms of the left leg normal at rest. Left lower extremity exhibits normal response to exercise. Ordering Physician: Jose De Jesus Pope Referring Physician: Adriel Carney Chi Performed By: Romel Tijerina RVT
== END | disposition home or self-care (01) ==
LOC: CVS 07:32
PROVIDERS: PCP Family Medicine Geriatric Medicine; Referring Provider Internal Medicine Cardiovascular Disease; Visit Provider Internal Medicine Cardiovascular Disease
DX: R09.89 Other specified symptoms and signs involving the circulatory and respiratory systems (principal)
CPT/HCPCS: 93924

== ENCOUNTER 2024-01-14 12:31 | Day surgery (SDC) | payer MEDICARE, BC, SELFPAY ==
[2024-01-14] VITALS (7 sets, daily range): BP systolic 103–142; BP diastolic 59–93; PULSE 63–85; RESP 16–18; TEMP 26.6–36.6; O2SAT 96–100; BMI 23.3
--- NOTE | 2024-01-14 12:45 | PCM.PRE.AN2 ---
ASA Classification* ASA Classification ASA Classification: 2 Assessment & Plan Anesthesia* Anesthesia Assessment Anesthesia Assessment: Discussed sedation and/or anesthesia options, risks, benefits, and alternatives with patient/parents/legal guardian/POA. Questions invited. The patient/parents/legal guardian/POA seems to understand and agrees to proceed with anesthesia plan. Reviewed the physical assessment, medical history, allergy history and patient home medications list prior to surgery/procedure/anesthetic and documented any changes. Performed airway and anesthesia risk assessments. Anesthesia Type Anesthesia Type: MAC (see written pre anesthesia record for full assessment) Anesthesia Focused Assessment* Airway Assessment Mouth opens: >3 cm Mallampati Score: II Focused Labs Anesthesia Preop lab: CBC WBC 6.7 K/mm3 (4.4-11.0) 12/18/23 11:27 RBC 3.29 M/mm3 (4.2-5.4) L 12/18/23 11:27 Hgb 10.3 g/dL (12.0-15.0) L 12/18/23 11:27 Hct 30.6 % (37-47) L 12/18/23 11:27 Plt Count 310 K/mm3 (150-450) 12/18/23 11:27 CHEMISTRY Potassium 5.0 mmol/L (3.5-5.1) 12/18/23 09:27 Sodium 137 mmol/L (136-145) 12/18/23 09:27 Magnesium 2.2 mg/dL (1.8-2.4) 01/16/17 14:45 BUN 11 mg/dL (7-18) 12/18/23 09:27 Creatinine 0.74 mg/dL (0.55-1.02) 12/18/23 09:27 Glucose 105 mg/dL (74-106) 12/18/23 09:27 TSH 2.13 uIU/mL (0.358-3.74) 09/30/23 08:52 COAG PT 12.6 SECONDS (11.7-14.9) 05/03/20 08:33 Pre-Assessment Diagnosis/Proposed Procedure Planned Operative Procedure(s): CSCOPE Anesthesia History Anesthesia History - industrial pharmacist: Anesthesia History - industrial pharmacist Hx Hospitalization No 01/08/24 11:24 Any Problems With Anesthesia No 01/08/24 11:24 Cholinesterase deficiency No 01/08/24 11:24 You/Your Family Experience No 01/08/24 11:24 fever (hyperthermia) with Relationship Recent Exposure to Contagious No 01/01/23 14:56 Disease Does patient have nerve No 01/08/24 11:24 stimulator Patient instructed to have device shut off --Does patient have Pacemaker or ICD? When Was Last Pacemaker Check QUESTION #4 FULL TEXT: You/Your Family Experience fever (hyperthermia) with Anesthesia Last Oral Intake Last Oral intake: Last Oral Intake NPO since Meds taken in AM with sips of water? Meds patient instructed to take am of surgery PONV PONV - industrial pharmacist: PONV - industrial pharmacist Female Yes 01/08/24 11:24 HX of Motion Sickness No 01/08/24 11:24 HX of N/V After Surgery No 01/08/24 11:24 Non-Smoker Yes 01/08/24 11:24 Duration of Surgery greater No 01/08/24 11:24 than 60 minutes Number of Risk Factors 2 01/08/24 11:24 PONV Score Moderate Risk 01/08/24 11:24 Height & Weight Height & Weight: Anesthesia: Height & Weight Height 5 ft 5 in 12/20/23 13:28 Respiratory Assessment Respiratory Assessment - industrial pharmacist: Respiratory Tract Infection Hx - industrial pharmacist Hx Respiratory Tract Infection No 01/08/24 11:24 STOP Sleep Apnea STOP Sleep Apnea - industrial pharmacist: STOP Sleep Apnea - industrial pharmacist Hx Hypertension Yes: CONTROLLED WITH MED 01/08/24 11:24 Hx Sleep Apnea No 01/08/24 11:24 CPAP No 01/01/23 16:50 BIPAP Do you snore loudly (louder No 01/08/24 11:24 than talking or can be heard Do you often feel tired/ Yes 01/08/24 11:24 fatigued/ sleepy during daytime? Has anyone observed you stop No 01/08/24 11:24 breathing during sleep? STOP Results Positive 01/08/24 11:24 QUESTION #5 FULL TEXT : Do you snore loudly (louder than talking or can be heard through closed doors)? Tobacco Use History Tobacco Use History - industrial pharmacist: Tobacco Use History - industrial pharmacist Tobacco Use Smoking Status Never smoker 01/08/24 11:24 Hx Tobacco Use No 01/08/24 11:24 Years Smoking Packs Smoked per Day Smoking Cessation Date was within the last 15 years Hx Smoking Cessation Date Hx Smoking Cessation No 01/08/24 11:24 Counseling Hematologic Medial History Hematologic Hx - industrial pharmacist: Hematologic Medical Hx - fit model Hx of Blood Transfusion Yes 01/08/24 11:24 Hx of Transfusion in last 3 No 01/08/24 11:24 Months Date of Last Transfusion (if within last 3 months) Ever experience any problems No 01/08/24 11:24 with transfusion(s)? Specify any problems Hx of Preganancy in last 3 No 01/08/24 11:24 Months Nurse Filling Out Transfusion DSCHRIBER 01/08/24 11:24 & Questions: Date: 01/08/24 01/08/24 11:24 Time: 11:25 01/08/24 11:24 Patient unable to answer at this time (ie. confused, unrespo /Reproduction History /Reproductive History - industrial pharmacist: /Reproductive Hx- industrial pharmacist Hx Now No 01/08/24 11:24 Gestational Age (in weeks): EDC: Hx Hx Para Hx Section SAB No 01/08/24 11:24 Active Medications Active Medications: Current Medications Generic Name Dose Route Start Last Admin Trade Name Freq PRN Reason Stop Dose Admin Lactated Ringer's 1,000 mls @ 15 mls/hr 01/14/24 12:45 [facility] Medical History (Updated 01/08/24 @ 11:31 by Linsey Fall) Hemolytic anemia Hypertension Alopecia Status post placement of implantable loop recorder Loss of hearing Wears glasses Diabetes Thyroid disease Arthritis Low iron Fatty liver Back pain History of hiatal hernia Gastric reflux Non-smoker History of pain when walking History of edema History of echocardiogram History of stress test Cardiology follow-up encounter History of irregular heartbeat Diverticulitis Esophageal dilatation Somnolence Iron deficiency anemia, unspecified Anemia, unspecified Essential hypertension Fatigue Palpitations Fibromyalgia Nonrheumatic tricuspid (valve) insufficiency Nonrheumatic mitral valve regurgitation Premature atrial contractions Premature ventricular contraction Paroxysmal atrial tachycardia Syncope Status post placement of implantable loop recorder Home Medications ?Medication ?Instructions ?Recorded ?Last Taken ?Type omeprazole 40 mg capsule,delayed 40 mg PO DAILY PRN heartburn 04/29/21 02/16/22 05:00 History release Hair prosthesis #1 ea 04/24/22 Unknown Rx metoprolol succinate 25 mg 25 mg PO DAILY htn #90 tabs 11/18/23 Unknown Rx tablet,extended release 24 hr cholecalciferol (vitamin D3) 25 25 mcg PO DAILY 12/13/23 Unknown History mcg (1,000 unit) capsule docusate sodium 100 mg capsule 100 mg PO DAILY 12/13/23 Unknown History (Colace) folic acid 400 mcg tablet 0.4 mg PO DAILY #60 tabs 01/13/24 Unknown Rx Allergy/AdvReac Type Severity Reaction Status Date / Time estrogens, conjugated (From Allergy Severe rash Verified 01/08/24 11:23 Premarin) sulfamethoxazole (From Allergy Rash Verified 01/08/24 11:23 Bactrim) trimethoprim (From Bactrim) Allergy Rash Verified 01/08/24 11:23 amoxicillin (From Prevpac) AdvReac Severe edema to Verified 01/08/24 11:23 knees atorvastatin (From Lipitor) AdvReac Severe edema Verified 01/08/24 11:23 clarithromycin (From Prevpac) AdvReac Severe edema to Verified 01/08/24 11:23 knees colestipol (From Colestid) AdvReac Severe arthralgia Verified 01/08/24 11:23 lansoprazole (From Prevpac) AdvReac Severe edema to Verified 01/08/24 11:23 knees lisinopril AdvReac Severe cough,choking Verified 01/08/24 11:23 diarrhea olmesartan (From Benicar) AdvReac Severe hair loss Verified 01/08/24 11:23 pravastatin (From Pravachol) AdvReac Severe myalgias Verified 01/08/24 11:23 rosuvastatin (From Crestor) AdvReac Severe edema Verified 01/08/24 11:23 simvastatin (From Zocor) AdvReac Severe myalgias Verified 01/08/24 11:23 amlodipine AdvReac Mild Chest pain Verified 01/08/24 11:23 spironolactone AdvReac Mild Rash on hip Verified 01/08/24 11:23 gabapentin AdvReac Unknown unkn Verified 01/08/24 11:23 tramadol AdvReac Unknown Unknown Verified 01/08/24 11:23 ascorbic acid (From Ferrex AdvReac PT UNABLE Verified 01/08/24 11:23 150 Plus) TO RESPOND-NEEDS F/U calcium threonate (From AdvReac PT UNABLE Verified 01/08/24 11:23 Ferrex 150 Plus) TO RESPOND-NEEDS F/U iron (From Ferrex 150 Plus) AdvReac PT UNABLE Verified 01/08/24 11:23 TO RESPOND-NEEDS F/U Latex, Natural Rubber AdvReac Rash Verified 01/08/24 11:23 prednisone AdvReac Other Verified 01/08/24 11:23 succinic acid (From Ferrex AdvReac PT UNABLE Verified 01/08/24 11:23 150 Plus) TO RESPOND-NEEDS F/U Family History (Reviewed 12/20/23 @ 13:37 by Rigo Delaney RADIOTELEGRAPH OPERATOR, RADIOTELEGRAPH OPERATOR-C) Sister Hypertension Brother Colon cancer Brother Colon cancer Mother Alzheimers disease Father Parkinson disease Surgical History (Updated 01/08/24 @ 11:31 by Linsey Fall) History of loop recorder History of bunionectomy History of bowel resection History of colonoscopy with polypectomy Hx of cholecystectomy Clavicle fracture History of repair of rotator cuff History of hemorrhoidectomy History of neck surgery History of hysterectomy Social History (Reviewed 12/20/23 @ 13:37 by Rigo Delaney RADIOTELEGRAPH OPERATOR, RADIOTELEGRAPH OPERATOR-C) household members: spouse Smoking Status: Never smoker alcohol intake: never substance use type: does not use Review of Systems (Anesthesia) ROS Narrative System reviewed and no additional complaints, except as documented.
[2024-01-14] MEDS: Lactated Ringers 1,000 ML 15 ML IV (12:49)
--- NOTE | 2024-01-14 13:45 | COLBX_PTH ---
PATIENT: RADHA KILPATRICK LOC: EN U#:[id number] AGE/SX: 78/F ROOM: RE01/14/[address]: Dr. Isidoro Bird DO : 1945 BED: DIS: 01/14/2024 SPEC #: [id number] RECD: 01/14/24 16:30 STATUS: KOMAL MALINDA #: [id number] JESSICA: 01/14/24 13:[address]: Isidoro Bird DEPT: SURGICAL PATHOLOGY RECD BY: Matthias Warner ENTERED: 01/15/24 07:11 SP TYPE: COLON BX NAVJOT DR: Dr. Adriel Carney MD Tissues: Transverse colon Procedures: Surgery Specimen Level IV HEADER OPERATION: Colonoscopy with biopsy PRE-OP DIAGNOSIS: Anemia, segmental colitis associated with diverticulitis, screening for colon cancer TISSUE SUBMITTED: Transverse colon polyp biopsy MICROSCOPIC DIAGNOSIS Transverse colon polyp, biopsy A fragment of colonic mucosa, no pathologic diagnosis. / 01/16/2024 MICROSCOPIC DESCRIPTION Slides are reviewed. GROSS DESCRIPTION Received in fixative is one container labeled with the patient's name and designated Transverse colon polyp biopsy. The specimen consists of one irregular fragment of light montaño soft tissue that measures 0.4 x 0.3 x 0.1 cm. The specimen is totally submitted in one cassette. / 01/15/2024 TC:4 CPT:98319
--- NOTE | 2024-01-14 14:36 | HP.PCM_ITS ---
History and Physical Date of Admission: 01/14/24 [facility] [address] [place] [address] OFFICE VISIT Date of Service: 12/31/23 MR#: [id number] Acct: [id number] Name: RADHA KILPATRICK Rep #: [id number] : 1945 Provider: Isidoro Bird DO Age/Sex: 78/F [place] [facility] [place]: Signed Intake Vital Signs 05/20/2309:15 12/19/2412:28 Height 5 ft 5 in 5 ft 5 in Intake Visit Reasons: diverticulitis flare Allergies estrogens, conjugated (From Premarin) Allergy (Severe, Verified 12/20/23 13:28) rashsulfamethoxazole (From Bactrim) Allergy (Verified 12/20/23 13:28) Rashtrimethoprim (From Bactrim) Allergy (Verified 12/20/23 13:28) Rashamoxicillin (From Prevpac) Adverse Reaction (Severe, Verified 12/20/23 13:28) edema to kneesatorvastatin (From Lipitor) Adverse Reaction (Severe, Verified 12/20/23 13:28) edemaclarithromycin (From Prevpac) Adverse Reaction (Severe, Verified 12/20/23 13:28) edema to kneescolestipol (From Colestid) Adverse Reaction (Severe, Verified 12/20/23 13:28) arthralgialansoprazole (From Prevpac) Adverse Reaction (Severe, Verified 12/20/23 13:28) edema to kneeslisinopril Adverse Reaction (Severe, Verified 12/20/23 13:28) cough,choking diarrheaolmesartan (From Benicar) Adverse Reaction (Severe, Verified 12/20/23 13:28) hair losspravastatin (From Pravachol) Adverse Reaction (Severe, Verified 12/20/23 13:28) myalgiasrosuvastatin (From Crestor) Adverse Reaction (Severe, Verified 12/20/23 13:28) edemasimvastatin (From Zocor) Adverse Reaction (Severe, Verified 12/20/23 13:28) myalgiasamlodipine Adverse Reaction (Mild, Verified 12/20/23 13:55) Chest painspironolactone Adverse Reaction (Mild, Verified 12/20/23 13:28) Rash on hipgabapentin Adverse Reaction (Unknown, Verified 12/20/23 13:28) unkntramadol Adverse Reaction (Unknown, Verified 12/20/23 13:28) Unknownascorbic acid (From Ferrex 150 Plus) Adverse Reaction (Verified 12/20/23 13:28) PT UNABLE TO RESPOND-NEEDS F/Ucalcium threonate (From Ferrex 150 Plus) Adverse Reaction (Verified 12/20/23 13:28) PT UNABLE TO RESPOND-NEEDS F/Uiron (From Ferrex 150 Plus) Adverse Reaction (Verified 12/20/23 13:28) PT UNABLE TO RESPOND-NEEDS F/ULatex, Natural Rubber Adverse Reaction (Verified 12/20/23 13:28) Rashprednisone Adverse Reaction (Verified 12/20/23 13:28) Othersuccinic acid (From Ferrex 150 Plus) Adverse Reaction (Verified 12/20/23 13:28) PT UNABLE TO RESPOND-NEEDS F/U Medications ?Medication ?Instructions ?Recorded ?Confirmed ?Type omeprazole 40 mg capsule,delayed 40 mg PO DAILY PRN heartburn 09/29/20 12/31/23 History release Hair prosthesis #1 ea 04/24/22 12/31/23 Rx folic acid 400 mcg tablet 0.4 mg PO DAILY #60 tabs 04/15/23 12/31/23 Rx metoprolol succinate 25 mg 25 mg PO DAILY htn #90 tabs 11/18/23 12/31/23 Rx tablet,extended release 24 hr cholecalciferol (vitamin D3) 25 25 mcg PO DAILY 12/13/23 12/31/23 History mcg (1,000 unit) capsule docusate sodium 100 mg capsule 100 mg PO DAILY 12/13/23 12/31/23 History (Colace) Have you fallen in the past year?: No PFSH Medical History (Reviewed 12/20/23 @ 13:37 by Rigo Delaney VICE PRESIDENT NETWORK DEVELOPMENT, VICE PRESIDENT NETWORK DEVELOPMENT-C) Hypertension Alopecia Status post placement of implantable loop recorder Loss of hearing Wears glasses Diabetes Thyroid disease Arthritis Low iron Fatty liver Back pain History of hiatal hernia Gastric reflux Non-smoker History of pain when walking History of edema History of echocardiogram History of stress test Cardiology follow-up encounter History of irregular heartbeat Diverticulitis Esophageal dilatation Esophageal obstruction Somnolence Iron deficiency anemia, unspecified Anemia, unspecified Essential hypertension Fatigue Palpitations Fibromyalgia Nonrheumatic tricuspid (valve) insufficiency Nonrheumatic mitral valve regurgitation Premature atrial contractions Premature ventricular contraction Paroxysmal atrial tachycardia Syncope Status post placement of implantable loop recorder Surgical History (Reviewed 12/20/23 @ 13:37 by Rigo Delaney VICE PRESIDENT NETWORK DEVELOPMENT, VICE PRESIDENT NETWORK DEVELOPMENT-C) History of bunionectomy History of bowel resection History of colonoscopy with polypectomy Hx of cholecystectomy Clavicle fracture History of repair of rotator cuff History of hemorrhoidectomy History of neck surgery History of hysterectomy Family History (Reviewed 12/20/23 @ 13:37 by Rigo Delaney VICE PRESIDENT NETWORK DEVELOPMENT, VICE PRESIDENT NETWORK DEVELOPMENT-C) Sister HypertensionBrother Colon cancerBrother Colon cancerMother Alzheimers diseaseFather Parkinson disease Social History (Reviewed 12/20/23 @ 13:37 by Rigo Delaney VICE PRESIDENT NETWORK DEVELOPMENT, VICE PRESIDENT NETWORK DEVELOPMENT-C) household members: spouse Smoking Status: Never smoker alcohol intake: never substance use type: does not use HPI HPI Details: RADHA KILPATRICK, is a 78 F who presents to the office today for follow up. 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 Prior workup:?CT abd/pel 11.30.?small hiatal hernia; s/p right hemicolectomy; diverticulosis; degenerative changes of lumbar spine; abdominal aorta calcifications? *BGI established 06.09.21 with anemia, GERD and recurrent diverticulitis?EGD and colonoscopy 07.19.21?EGD moderate Schatzki ring, dilate; mucosal changes of EOE; gastritis; duodenitis. No metaplasia/EOE finding.?Colonoscopy patent end-to-side colo-colonic anastomosis with friable mucosa/inflammation; diverticulosis. No path changes? OV 3.4. doing well. Mesalamine caused heartburn/reflux and she quit taking it. Continues with abdominal discomfort and sensation of stool passing through colon.? OV 5.. anemia continues to be an issue. Tolerated juice and oil regimen for constipation well; but did require Colace two weeks prior.?Increase mineral oil amount/frequency or add aloe vera.? OV 8.15.22 manage SCAD by managing constipation, Linzess not tolerated.?Start lactulose.? OV 03.16.22 management of SCAD with?mesalamine?and constipation control discussed.? [facility] hospitalization 10.18.22-10.20.22 with acute diverticulitis.? OV 11.28.22 doing well with use of omeprazole. Constipation resolved as travel counselor automobile club stopped her iron. She did have some food triggered loose stools and abdominal pain/discomfort.?EGD with capsule endoscopy 01.01.23?EGD without visual abnormality. No specimens collected.? ?OV 02.08.23 Pt doing well since last visit. HB controlled with Omeprazole. Reports she only has diarrhea once a month. LLQ pain with BM sometimes. Otherwise no other complaints. abd US 03.12.23 Liver stiffness measures 2.9 kPa compatible with FO (Normal) Metavir score. KUB X-Ray 11.15.23 Moderate diffuse fecal retention. No acute abnormality. OV 12.31.23 pt reports that she is feeling well overall and denies GI symptoms of concern at this time. Pt states that when she called in to make this appointment she was having a diverticulitis flare, but is feeling better now. ROS Const Constitutional: Positive for fatigue and weakness; No fever(s) or weight change ENT ENT: No difficulty swallowing Gastro GI: Positive for bloating and excessive flatus; No abdominal pain, belching, change in bowel habits, change in stool character, coffee ground emesis, constipation, cramping, diarrhea, heartburn, difficulty swallowing, feeling full early, incontinent of stools, Vomiting blood/hematemesis, Blood in stool, loose stools, Black,tarry stools, nausea/dyspepsia, pain with swallowing, vomiting or other Musc Musculoskeletal: Positive for joint pain, joint swelling, muscle cramps, muscle weakness, numbness, stiffness and tingling Skin Skin: No yellowing of the eye or itchy eyes Neuro Neurology: Positive for weakness, numbness and tingling Psych Psychiatric: No anxiety and No depression Endo Endocrine: Positive for fatigue; No weight change Aller/Imm Allergy/Immunologic: No itchy eyes Rigo/Lymp Hematologic/Lymphatic: No easy bleeding or easy bruising Exam Const General: cooperative, healthy appearing and comfortable Orientation: alert, awake and oriented x3 Assessment and Plan Assessment and Plan (1) Anemia: Status: Chronic Qualifiers: Anemia type: unspecified type Qualified Code(s): D64.9 - Anemia, unspecified Plan: She does have a decrease in hemoglobin and she had 2 stools that were fecal occult positive. We will schedule her for endoscopy and capsule placement. (2) Segmental colitis associated with diverticulosis: Status: Acute Plan: She was treated with antibiotic therapy and she got better and regarding her segmental colitis before I had a chance to start her on a probiotic and mesalamine based therapy. At this time she is not having any symptoms and is feeling very well so she does not want to change anything. (3) Diverticulitis: Status: Acute Plan: Fiber diet was encouraged for this patient along with currently he vegetables and fruits on a daily basis. But the most important thing explained to her was for her to have a normal bowel mood every day. (4) Screening for colon cancer: Status: Acute Plan: She has a family history of colon cancer in 2 first-degree relatives. Because she recently had an episode of diverticulitis and is been at least 5 years since her last colonoscopy I think we should repeat her colonoscopy to evaluate her lower GI tract. She was explained alternatives, risk, benefits including outstanding bleeding, infection, sepsis, perforation, need for emergent surgery . She will have an ASA of 3. I have examined the patient and the H&P has been reviewed. There are no clinical changes since date of exam.
--- NOTE | 2024-01-14 15:02 | OP.COLON_ITS ---
Patient Name: Alisia Redding Procedure Date: 01/14/2024 2:27 PM Date of : 1945 Age: 78 Procedure: Colonoscopy Indications: High risk colon cancer surveillance: Personal history of colonic polyps Providers: Isidoro Bird DO Medicines: Monitored Anesthesia Care Patient Profile: This is a 78 year old female. Refer to note in patient chart for documentation of history and physical. Last Colonoscopy: several years ago. Complications: No immediate complications. Procedure: Pre-Anesthesia Assessment: - Prior to the procedure, a History and Physical was performed, and patient medications and allergies were reviewed. The patient is competent. The risks and benefits of the procedure and the sedation options and risks were discussed with the patient. All questions were answered and informed consent was obtained. Patient identification and proposed procedure were verified by the physician in the pre-procedure area. Mental Status Examination: alert and oriented. Airway Examination: normal oropharyngeal airway and neck mobility. Respiratory Examination: clear to auscultation. CV Examination: normal. Prophylactic Antibiotics: The patient does not require prophylactic antibiotics. Prior Anticoagulants: The patient has taken no anticoagulant or antiplatelet agents. ASA Grade Assessment: II - A patient with mild systemic disease. After reviewing the risks and benefits, the patient was deemed in satisfactory condition to undergo the procedure. The anesthesia plan was to use monitored anesthesia care (MAC). Immediately prior to administration of medications, the patient was re-assessed for adequacy to receive sedatives. The heart rate, respiratory rate, oxygen saturations, blood pressure, adequacy of pulmonary ventilation, and response to care were monitored throughout the procedure. The physical status of the patient was re-assessed after the procedure. After I obtained informed consent, the scope was passed under direct vision. Throughout the procedure, the patient's blood pressure, pulse, and oxygen saturations were monitored continuously. The Colonoscope was introduced through the anus and advanced to the cecum, identified by appendiceal orifice and ileocecal valve. The colonoscopy was performed without difficulty. The patient tolerated the procedure well. The quality of the bowel preparation was adequate. The terminal ileum, ileocecal valve, appendiceal orifice, and rectum were photographed. Scope In: 2:40:30 PM Scope Withdrawal Time 0 hours 8 minutes 39 seconds Scope Out: 2:55:46 PM Total Procedure Duration Time 0 hours 15 minutes 16 seconds Findings: The perianal and digital rectal examinations were normal. A 5 mm polyp was found in the transverse colon. The polyp was sessile. Biopsies were taken with a cold forceps for histology. There was evidence of a prior end-to-side ileo-colonic anastomosis in the ascending colon. This was patent. The anastomosis was traversed. Multiple small and large-mouthed diverticula were found in the recto-sigmoid colon and sigmoid colon. Impression: - One 5 mm polyp in the transverse colon. Biopsied. - Patent end-to-side ileo-colonic anastomosis. - Diverticulosis in the recto-sigmoid colon and in the sigmoid colon. Recommendation: - Discharge patient to home. - Resume previous diet. - Continue present medications. - Await pathology results. - Repeat colonoscopy in 5 years for surveillance. Procedure Code(s): --- Professional --- 26317, Colonoscopy, flexible; with biopsy, single or multiple CPT copyright 2021 [employer]. All rights reserved. The codes documented in this report are preliminary and upon acura sales consultant review may be revised to meet current compliance requirements. Isidoro Bird DO 01/14/2024 3:02:18 PM This report has been signed electronically. Number of Addenda: 0 Note Initiated On: 01/14/2024 2:27 PM
--- NOTE | 2024-01-14 15:02 | OP.CCLET_ITS ---
01/14/2024 Adriel Carney MD [address] [place] [address] Re : Colonoscopy procedure for Alisia Red[place] Dear Dr. Carney This procedure was performed on Sunday, January 14, 2024. My impressions and recommendations are as follows: Impressions : - One 5 mm polyp in the transverse colon. Biopsied. - Patent end-to-side ileo-colonic anastomosis. - Diverticulosis in the recto-sigmoid colon and in the sigmoid colon. Recommendations : - Discharge patient to home. - Resume previous diet. - Continue present medications. - Await pathology results. - Repeat colonoscopy in 5 years for surveillance. My findings are described in the full procedure note, which is enclosed. If I can be of further assistance, please feel free to contact me at . Sincerely, Isidoro Bird, 01/14/2024 3:02:18 PM This report has been signed electronically.
--- NOTE | 2024-01-14 15:03 | PCM.POST.ANE ---
Anesthesia: Postop Eval I Current Vital Signs Temperature: 97.7 F Pulse Rate: 85 Blood Pressure: 103/71 Respiratory Rate: 18 Pulse Ox: 96 Assessment Airway patent: Yes Spontaneous unlabored respirations: Yes nausea: No Vomiting: No Anesthesia Complication: No Fluid Hydration Crystalloid volume administer (ml): 500 Total IV fluid infused: 500 Progress Note Anesthesia document: Postop Eval 1 completed: Yes
--- NOTE | 2024-01-14 16:20 | POSTOPAN2_ITS ---
Anesthesia Postop Eval I Sum Postop Eval Completion status Anesthesia document: Postop Eval 1 completed: Yes Anesthesia Postop Eval I Summary Anesthesia Postop Eval I Summary: Anesthesia Postop Eval I: Assessment Summary Airway patent Yes 01/14/24 15:03 PARLIAMENTARY COUNSEL.CSIR Spontaneous unlabored Yes 01/14/24 15:03 PARLIAMENTARY COUNSEL.CSIR respirations Mental status nausea No 01/14/24 15:03 PARLIAMENTARY COUNSEL.CSIR Vomiting No 01/14/24 15:03 PARLIAMENTARY COUNSEL.CSIR Anesthesia Postop Eval I: Fluid Summary Crystalloid volume administer 500 01/14/24 15:03 PARLIAMENTARY COUNSEL.CSIR (ml) Colloids volume administered ( ml) Blood Product volume administered (ml) Total IV fluid infused 500 01/14/24 15:03 PARLIAMENTARY COUNSEL.CSIR Anesthesia Postop Eval I: Summary Notes Anesthesia Complication No 01/14/24 15:03 PARLIAMENTARY COUNSEL.CSIR Anesthesia Complication Comment: Post-operative progress note Anesthesia: Postop Eval II Evaluation Mental status: Awake and Calm Pain Level: 0 nausea: No Vomiting: No Complications Anesthesia Complication: No
--- NOTE | 2024-01-14 16:20 | PCM.POSTANE2 ---
Anesthesia Postop Eval I Sum Postop Eval Completion status Anesthesia document: Postop Eval 1 completed: Yes Anesthesia Postop Eval I Summary Anesthesia Postop Eval I Summary: Anesthesia Postop Eval I: Assessment Summary Airway patent Yes 01/14/24 15:03 SOLUTIONS ARCHITECT CONSULTANT.CSIR Spontaneous unlabored Yes 01/14/24 15:03 SOLUTIONS ARCHITECT CONSULTANT.CSIR respirations Mental status nausea No 01/14/24 15:03 SOLUTIONS ARCHITECT CONSULTANT.CSIR Vomiting No 01/14/24 15:03 SOLUTIONS ARCHITECT CONSULTANT.CSIR Anesthesia Postop Eval I: Fluid Summary Crystalloid volume administer 500 01/14/24 15:03 SOLUTIONS ARCHITECT CONSULTANT.CSIR (ml) Colloids volume administered ( ml) Blood Product volume administered (ml) Total IV fluid infused 500 01/14/24 15:03 SOLUTIONS ARCHITECT CONSULTANT.CSIR Anesthesia Postop Eval I: Summary Notes Anesthesia Complication No 01/14/24 15:03 SOLUTIONS ARCHITECT CONSULTANT.CSIR Anesthesia Complication Comment: Post-operative progress note Anesthesia: Postop Eval II Evaluation Mental status: Awake and Calm Pain Level: 0 nausea: No Vomiting: No Complications Anesthesia Complication: No
== END 2024-01-14 15:41 | disposition home or self-care (01) ==
LOC: EN 12:32 → AC 12:34
PROVIDERS: PCP Family Medicine Geriatric Medicine; Referring Provider Internal Medicine Gastroenterology; Visit Provider Internal Medicine Gastroenterology
PROC: 0DJD8ZZ Inspection of Lower Intestinal Tract, Via Natural or Artificial Opening Endoscopic (ICD-10-PCS; CPT 45378; principal; 2024-01-14 13:40)
DX: D64.9 Anemia, unspecified (principal); K50.10 Crohn's disease of large intestine without complications; E11.9 Type 2 diabetes mellitus without complications; K57.30 Diverticulosis of large intestine without perforation or abscess without bleeding; I10 Essential (primary) hypertension; K63.5 Polyp of colon; Z86.010 Personal history of colon polyps; Z80.0 Family history of malignant neoplasm of digestive organs; K21.9 Gastro-esophageal reflux disease without esophagitis; Z90.49 Acquired absence of other specified parts of digestive tract; R53.83 Other fatigue; R53.1 Weakness
CPT/HCPCS: 45380; 88305; J7120; J2405

== ENCOUNTER → 2024-02-12 | Outpatient (CLI) | payer SELFPAY ==
[2024-02-12 10:53] LABS: Absolute Lymphocyte Count 2.65 X10^3/uL (0.83-4.51); Absolute Neutrophil Count 6.4 X10^3/uL (2.0-7.7); Basophil# 0.06 X10^3/uL; Basophil% 0.6 % (0-1); Eosinophil# 0.25 X10^3/uL; Eosinophils% 2.5 % (0-5); Hematocrit 29.7 % (37-47); Hemoglobin 9.4 g/dL (12.0-15.0); Lymphocyte # 2.65 X10^3/ul (0.83-4.51); Lymphocyte % 26.1 % (19-41); Mean Corp Hgb Conc 31.6 g/dL (32-36); Mean Corpuscular Hgb 29.2 pg (27.0-32.0); Mean Corpuscular Volume 92.2 fL (81-99); Monocyte# 0.72 X10^3/uL; Monocyte% 7.1 % (0-10); NRBC Flagged by Analyzer 0 % (0-5); Neutrophil # 6.43 X10^3/uL (2.7-7.7); Neutrophil % 63.2 % (47-70); RBC Distribution Width CV 15.4 % (11.6-14.6); RBC Distribution Width SD 50.5 fl (35.1-43.9); RET-HE 34.2 pg (30-35); Red Blood Count 3.22 M/mm3 (4.2-5.4); Reticulocyte Count 5.93 % (0.5-1.5); White Blood Count 10.2 K/mm3 (4.4-11.0)
[2024-02-12 10:58] LABS: Vitamin B12 1126 pg/mL (211-911)
[2024-02-12 10:59] LABS: Mean Platelet Vol. 10.2 fl (6.2-12.0); Platelet Count 427 K/mm3 (150-450)
[2024-02-12 11:00] LABS: Platelet Count 427 K/mm3 (150-450)
[2024-02-12 12:17] LABS: ALB/GLOB Ratio 1.1 RATIO (0.9-2.4); AST(SGOT) 24 U/L (15-37); Alanine Aminotransfer ALT/SGPT 11 U/L (13-56); Albumin, Serum 3.9 g/dL (3.2-5.0); Alkaline Phosphatase 157 U/L (45-117); Anion Gap 4 (5-15); BUN 9 mg/dL (7-18); BUN/Creat Ratio 12.2 RATIO (10-20); CRP 4.06 mg/L (0.0-3.0); Calcium,Total 9.4 mg/dL (8.5-10.1); Chloride 107 mmol/L (98-107); Creatinine, Serum 0.74 mg/dL (0.55-1.02); EST Glomerular Filtration Rate 81 mL/min (>60); Est Glom Filt Rate - Afr Amer 98 mL/min (>60); Estimated Creatinine Clearance 52.15 ml/min; Ferritin 522 ng/mL (8-252); Globulin 3.6 g/dL (2.2-4.2); Glucose 106 mg/dL (74-106); Iron 87 ug/dL (50-170); Iron Binding Capacity,Total 280 ug/dL (250-450); LDH 289 U/L (84-246); PERCENT IRON SATURATION 31.1 % (15.0-55.0); Potassium 4.4 mmol/L (3.5-5.1); Protein, Total 7.5 g/dL (6.4-8.2); Sodium Level 138 mmol/L (136-145)
[2024-02-12 13:59] LABS: Hemoglobin A1c 4.5 % (3.8-5.6)
== END | disposition home or self-care (01) ==
LOC: LAB.FUTURE 13:07
PROVIDERS: Internal Medicine Medical Oncology; PCP Family Medicine Geriatric Medicine; Visit Provider Family Medicine Geriatric Medicine
DX: I10 Essential (primary) hypertension (principal); D53.9 Nutritional anemia, unspecified
CPT/HCPCS: 36415; 80053; 82607; 82728; 82746; 82784; 83010; 83036; 83516; 83540; 83550; 83615; 85025; 85045; 86140; 86255

== ENCOUNTER → 2024-02-13 | Outpatient (CLI) | payer SELFPAY ==
[2024-02-13 11:46] LABS: Bacteria 0 SEEN /hpf (None Seen); Mucous, Urine 0 SEEN /hpf (<or=2+); Red Blood Cells-Urine 0 SEEN /hpf (0-5); Squamous Epithelial Cells - UA 0 SEEN /hpf (5-10); White Blood Cells 0 SEEN /hpf (0-5)
[2024-02-13 11:58] LABS: Color, Urine Yellow (Yellow); Glucose, Dipstick Normal (Normal); Ketone-Dipstick Negative (Negative); Leukocyte Esterase-Dipstick Negative /ul (Negative); Nitrite-Dipstick Negative (Negative); Occult Blood-Urine Negative /ul (Negative); Protein-Dipstick Negative (Negative); Specific Gravity, Urine 1.015 (1.002-1.030); Urine Bilirubin Dipstick Negative (Negative); Urine Clarity Clear (Clear); Urine Urobilinogen Normal (Normal); Urine pH 6.5 (5.0 - 8.0)
== END | disposition home or self-care (01) ==
LOC: LABSPEC 04-20 09:37
PROVIDERS: PCP Family Medicine Geriatric Medicine; Referring Provider Internal Medicine Medical Oncology; Visit Provider Internal Medicine Medical Oncology
DX: K90.0 Celiac disease (principal); D59.10 Autoimmune hemolytic anemia, unspecified
CPT/HCPCS: 36415; 81001

== ENCOUNTER → 2024-02-19 | Outpatient (CLI) | payer SELFPAY ==
[2024-02-19 09:08] LABS: Absolute Lymphocyte Count 2.73 X10^3/uL (0.83-4.51); Absolute Neutrophil Count 5.7 X10^3/uL (2.0-7.7); Basophil# 0.11 X10^3/uL; Basophil% 1.2 % (0-1); Eosinophil# 0.25 X10^3/uL; Eosinophils% 2.6 % (0-5); Hematocrit 32.7 % (37-47); Hemoglobin 10.5 g/dL (12.0-15.0); Lymphocyte # 2.73 X10^3/ul (0.83-4.51); Lymphocyte % 28.7 % (19-41); Mean Corp Hgb Conc 32.1 g/dL (32-36); Mean Corpuscular Hgb 29.8 pg (27.0-32.0); Mean Corpuscular Volume 92.9 fL (81-99); Mean Platelet Vol. 9.9 fl (6.2-12.0); Monocyte# 0.65 X10^3/uL; Monocyte% 6.8 % (0-10); NRBC Flagged by Analyzer 0 % (0-5); Neutrophil # 5.71 X10^3/uL (2.7-7.7); Platelet Count 454 K/mm3 (150-450); RBC Distribution Width CV 15.9 % (11.6-14.6); RBC Distribution Width SD 52.1 fl (35.1-43.9); RET-HE 34.7 pg (30-35); Red Blood Count 3.52 M/mm3 (4.2-5.4); Reticulocyte Count 6.35 % (0.5-1.5); White Blood Count 9.5 K/mm3 (4.4-11.0)
[2024-02-19 09:29] LABS: ALB/GLOB Ratio 1.2 RATIO (0.9-2.4); AST(SGOT) 22 U/L (15-37); Alanine Aminotransfer ALT/SGPT 11 U/L (13-56); Albumin, Serum 3.8 g/dL (3.2-5.0); Alkaline Phosphatase 154 U/L (45-117); Anion Gap 7 (5-15); BUN 20 mg/dL (7-18); Calcium,Total 9.7 mg/dL (8.5-10.1); Chloride 106 mmol/L (98-107); Creatinine, Serum 0.71 mg/dL (0.55-1.02); EST Glomerular Filtration Rate 84 mL/min (>60); Est Glom Filt Rate - Afr Amer 102 mL/min (>60); Globulin 3.2 g/dL (2.2-4.2); Glucose 122 mg/dL (74-106); Potassium 4.4 mmol/L (3.5-5.1); Sodium Level 140 mmol/L (136-145)
[2024-02-19 09:33] LABS: Erythrocyte Sedimentation Rate < 1 mm/hr (0-30)
== END | disposition home or self-care (01) ==
LOC: LAB 08:38
PROVIDERS: PCP Family Medicine Geriatric Medicine; Visit Provider Internal Medicine Medical Oncology
DX: D59.10 Autoimmune hemolytic anemia, unspecified (principal); K90.0 Celiac disease
CPT/HCPCS: 36415; 80053; 85025; 85045; 85652

== ENCOUNTER → 2024-03-18 | Outpatient (CLI) | payer SELFPAY ==
[2024-03-18 10:32] LABS: ALB/GLOB Ratio 1.4 RATIO (0.9-2.4); AST(SGOT) 16 U/L (15-37); Alanine Aminotransfer ALT/SGPT 12 U/L (13-56); Albumin, Serum 3.7 g/dL (3.2-5.0); Alkaline Phosphatase 163 U/L (45-117); Anion Gap 7 (5-15); BUN 15 mg/dL (7-18); BUN/Creat Ratio 23.3 RATIO (10-20); Calcium,Total 9.7 mg/dL (8.5-10.1); Chloride 104 mmol/L (98-107); Creatinine, Serum 0.64 mg/dL (0.55-1.02); EST Glomerular Filtration Rate 95 mL/min (>60); Est Glom Filt Rate - Afr Amer 114 mL/min (>60); Globulin 2.7 g/dL (2.2-4.2); Glucose 110 mg/dL (74-106); Potassium 4.6 mmol/L (3.5-5.1); Protein, Total 6.4 g/dL (6.4-8.2); Sodium Level 139 mmol/L (136-145)
[2024-03-18 11:35] LABS: Absolute Lymphocyte Count 2.91 X10^3/uL (0.83-4.51); Absolute Neutrophil Count 5.8 X10^3/uL (2.0-7.7); Basophil# 0.08 X10^3/uL; Basophil% 0.8 % (0-1); Eosinophil# 0.28 X10^3/uL; Eosinophils% 2.8 % (0-5); Hematocrit 32.4 % (37-47); Hemoglobin 10.1 g/dL (12.0-15.0); Lymphocyte # 2.91 X10^3/ul (0.83-4.51); Lymphocyte % 29.6 % (19-41); Mean Corp Hgb Conc 31.2 g/dL (32-36); Mean Corpuscular Hgb 30.2 pg (27.0-32.0); Mean Platelet Vol. 10.5 fl (6.2-12.0); Monocyte# 0.74 X10^3/uL; Monocyte% 7.5 % (0-10); NRBC Flagged by Analyzer 0 % (0-5); Neutrophil # 5.77 X10^3/uL (2.7-7.7); Neutrophil % 58.8 % (47-70); Platelet Count 466 K/mm3 (150-450); RBC Distribution Width CV 15.9 % (11.6-14.6); RBC Distribution Width SD 56.1 fl (35.1-43.9); RET-HE 32.2 pg (30-35); Red Blood Count 3.34 M/mm3 (4.2-5.4); Reticulocyte Count 7.99 % (0.5-1.5); White Blood Count 9.8 K/mm3 (4.4-11.0)
== END | disposition home or self-care (01) ==
LOC: LAB 09:32
PROVIDERS: Nurse Practitioner Family; PCP Family Medicine Geriatric Medicine; Visit Provider Internal Medicine Medical Oncology
DX: D59.10 Autoimmune hemolytic anemia, unspecified (principal)
CPT/HCPCS: 36415; 80053; 85025; 85045

== ENCOUNTER → 2024-03-31 | Outpatient (CLI) | payer SELFPAY ==
[2024-03-31 10:49] LABS: Vitamin D,25 Hydroxy 21.8 ng/mL
[2024-03-31 10:53] LABS: Absolute Neutrophil Count 4.1 X10^3/uL (2.0-7.7); Basophil# 0.08 X10^3/uL; Basophil% 1.1 % (0-1); Eosinophil# 0.24 X10^3/uL; Eosinophils% 3.4 % (0-5); Hematocrit 30.2 % (37-47); Hemoglobin 9.5 g/dL (12.0-15.0); Lymphocyte % 26.7 % (19-41); Mean Corp Hgb Conc 31.5 g/dL (32-36); Mean Corpuscular Hgb 30.1 pg (27.0-32.0); Mean Corpuscular Volume 95.6 fL (81-99); Monocyte# 0.73 X10^3/uL; Monocyte% 10.3 % (0-10); NRBC Flagged by Analyzer 0 % (0-5); Neutrophil # 4.12 X10^3/uL (2.7-7.7); Neutrophil % 57.9 % (47-70); POSITIVE COUNT YES; RBC Distribution Width CV 15.4 % (11.6-14.6); RBC Distribution Width SD 52.6 fl (35.1-43.9); Red Blood Count 3.16 M/mm3 (4.2-5.4); White Blood Count 7.1 K/mm3 (4.4-11.0)
[2024-03-31 10:54] LABS: ALB/GLOB Ratio 1.2 RATIO (0.9-2.4); AST(SGOT) 26 U/L (15-37); Alanine Aminotransfer ALT/SGPT 13 U/L (13-56); Albumin, Serum 3.8 g/dL (3.2-5.0); Alkaline Phosphatase 155 U/L (45-117); Anion Gap 5 (5-15); BUN 7 mg/dL (7-18); BUN/Creat Ratio 8.1 RATIO (10-20); Calcium,Total 9.1 mg/dL (8.5-10.1); Chloride 108 mmol/L (98-107); Cholesterol 195 mg/dL (200); Creatinine, Serum 0.86 mg/dL (0.55-1.02); EST Glomerular Filtration Rate 67 mL/min (>60); Est Glom Filt Rate - Afr Amer 82 mL/min (>60); Globulin 3.2 g/dL (2.2-4.2); Glucose 113 mg/dL (74-106); High Density Lipoprotein 60 mg/dL; Potassium 4.2 mmol/L (3.5-5.1); Sodium Level 142 mmol/L (136-145); Triglycerides 106 mg/dL; Very Low Density Lipoprotein 21 mg/dL (5-40)
[2024-03-31 11:16] LABS: Differential Indicated SCAN CRITERIA MET
[2024-03-31 11:17] LABS: Platelet Estimate ADEQUATE (ADEQ)
== END | disposition home or self-care (01) ==
LOC: POLAB3 10:06
PROVIDERS: PCP Family Medicine Geriatric Medicine; Visit Provider Family Medicine Geriatric Medicine
DX: I10 Essential (primary) hypertension (principal); E55.9 Vitamin D deficiency, unspecified; E78.5 Hyperlipidemia, unspecified
CPT/HCPCS: 36415; 80053; 80061; 82306; 84443; 85025

== ENCOUNTER → 2024-04-15 | Outpatient (CLI) | payer SELFPAY ==
[2024-04-15 10:28] LABS: ALB/GLOB Ratio 1.3 RATIO (0.9-2.4); AST(SGOT) 24 U/L (15-37); Alanine Aminotransfer ALT/SGPT 9 U/L (13-56); Albumin, Serum 3.9 g/dL (3.2-5.0); Alkaline Phosphatase 152 U/L (45-117); Anion Gap 5 (5-15); BUN 17 mg/dL (7-18); BUN/Creat Ratio 24.7 RATIO (10-20); CRP < 2.90 mg/L (0.0-3.0); Calcium,Total 8.9 mg/dL (8.5-10.1); Chloride 108 mmol/L (98-107); Creatinine, Serum 0.69 mg/dL (0.55-1.02); EST Glomerular Filtration Rate 88 mL/min (>60); Est Glom Filt Rate - Afr Amer 106 mL/min (>60); Glucose 107 mg/dL (74-106); LDH 257 U/L (84-246); Potassium 3.7 mmol/L (3.5-5.1); Protein, Total 6.9 g/dL (6.4-8.2); Sodium Level 141 mmol/L (136-145)
[2024-04-15 10:42] LABS: Absolute Lymphocyte Count 2.28 X10^3/uL (0.83-4.51); Absolute Neutrophil Count 4.2 X10^3/uL (2.0-7.7); Basophil# 0.06 X10^3/uL; Basophil% 0.8 % (0-1); Eosinophil# 0.25 X10^3/uL; Eosinophils% 3.3 % (0-5); Hematocrit 28.9 % (37-47); Hemoglobin 9.5 g/dL (12.0-15.0); Lymphocyte # 2.28 X10^3/ul (0.83-4.51); Mean Corp Hgb Conc 32.9 g/dL (32-36); Mean Corpuscular Hgb 32.8 pg (27.0-32.0); Mean Corpuscular Volume 99.7 fL (81-99); Mean Platelet Vol. 11.2 fl (6.2-12.0); Monocyte# 0.76 X10^3/uL; NRBC Flagged by Analyzer 0 % (0-5); Neutrophil # 4.22 X10^3/uL (2.7-7.7); Neutrophil % 55.4 % (47-70); Platelet Count 372 K/mm3 (150-450); RBC Distribution Width SD 51.8 fl (35.1-43.9); RET-HE 31.4 pg (30-35); Reticulocyte Count 6.19 % (0.5-1.5); White Blood Count 7.6 K/mm3 (4.4-11.0)
[2024-04-16 05:07] LABS: Haptoglobin < 10 mg/dL (42-346)
== END | disposition home or self-care (01) ==
LOC: LAB 09:41
PROVIDERS: PCP Family Medicine Geriatric Medicine; Visit Provider Internal Medicine Medical Oncology
DX: D59.10 Autoimmune hemolytic anemia, unspecified (principal)
CPT/HCPCS: 36415; 80053; 83010; 83615; 85025; 85045; 86140

== ENCOUNTER 2024-04-20 10:52 | Outpatient (CLI) | payer SELFPAY ==
[2024-04-20 11:39] LABS: ALB/GLOB Ratio 1.2 RATIO (0.9-2.4); AST(SGOT) 16 U/L (15-37); Absolute Lymphocyte Count 2.46 X10^3/uL (0.83-4.51); Absolute Neutrophil Count 3.8 X10^3/uL (2.0-7.7); Alanine Aminotransfer ALT/SGPT 12 U/L (13-56); Albumin, Serum 3.8 g/dL (3.2-5.0); Alkaline Phosphatase 157 U/L (45-117); Anion Gap 5 (5-15); BUN 15 mg/dL (7-18); BUN/Creat Ratio 23.8 RATIO (10-20); Basophil# 0.05 X10^3/uL; Basophil% 0.7 % (0-1); Calcium,Total 8.9 mg/dL (8.5-10.1); Chloride 107 mmol/L (98-107); Creatinine, Serum 0.63 mg/dL (0.55-1.02); EST Glomerular Filtration Rate 97 mL/min (>60); Eosinophil# 0.27 X10^3/uL; Eosinophils% 3.7 % (0-5); Est Glom Filt Rate - Afr Amer 117 mL/min (>60); Globulin 3.3 g/dL (2.2-4.2); Glucose 110 mg/dL (74-106); Hemoglobin 9.4 g/dL (12.0-15.0); LDH 255 U/L (84-246); Lymphocyte # 2.46 X10^3/ul (0.83-4.51); Lymphocyte % 33.9 % (19-41); Mean Corp Hgb Conc 31.3 g/dL (32-36); Mean Corpuscular Hgb 29.6 pg (27.0-32.0); Mean Corpuscular Volume 94.3 fL (81-99); Mean Platelet Vol. 10.9 fl (6.2-12.0); Monocyte# 0.57 X10^3/uL; Monocyte% 7.9 % (0-10); NRBC Flagged by Analyzer 0 % (0-5); Neutrophil # 3.82 X10^3/uL (2.7-7.7); Neutrophil % 52.7 % (47-70); POSITIVE COUNT YES; Potassium 3.9 mmol/L (3.5-5.1); Protein, Total 7.1 g/dL (6.4-8.2); RBC Distribution Width CV 14.8 % (11.6-14.6); RBC Distribution Width SD 51.1 fl (35.1-43.9); Red Blood Count 3.18 M/mm3 (4.2-5.4); Sodium Level 140 mmol/L (136-145); White Blood Count 7.3 K/mm3 (4.4-11.0)
[2024-04-20 11:49] LABS: Platelet Count 408 K/mm3 (150-450)
[2024-04-22 14:09] LABS: Alpha-1-Globulins 0.2 g/dL (0.0-0.4); Alpha-2-Globulins 0.5 g/dL (0.4-1.0); Complement CH50 < 17 U/mL (>41); Free Kappa Light Chains 17.5 mg/L (3.3-19.4); Free Lambda Light Chains 26.2 mg/L (5.7-26.3); Gamma Globulin 0.9 g/dL (0.4-1.8); Immunoglobulin A 266 mg/dL (64-422); Immunoglobulin G 963 mg/dL (586-1602); Immunoglobulin M 137 mg/dL (26-217); PROEL- TOTAL PROTEIN 6.4 g/dL (6.0-8.5)
== END 2024-04-20 23:59 | disposition home or self-care (01) ==
LOC: LAB 10:53
PROVIDERS: PCP Family Medicine Geriatric Medicine; Visit Provider Internal Medicine Medical Oncology
DX: D59.10 Autoimmune hemolytic anemia, unspecified (principal)
CPT/HCPCS: 36415; 80053; 82784; 83615; 83883; 84165; 85025; 86162; 86334

== ENCOUNTER → 2024-10-01 | Outpatient (CLI) | payer SELFPAY ==
[2024-10-01 12:19] LABS: Absolute Lymphocyte Count 2.97 X10^3/uL (0.83-4.51); Absolute Neutrophil Count 3.8 X10^3/uL (2.0-7.7); Basophil# 0.06 X10^3/uL; Basophil% 0.8 % (0-1); Eosinophil# 0.26 X10^3/uL; Eosinophils% 3.3 % (0-5); Hematocrit 30.7 % (37-47); Hemoglobin 10.1 g/dL (12.0-15.0); Lymphocyte # 2.97 X10^3/ul (0.83-4.51); Lymphocyte % 37.8 % (19-41); Mean Corp Hgb Conc 32.9 g/dL (32-36); Mean Corpuscular Hgb 31.3 pg (27.0-32.0); Mean Platelet Vol. 10.9 fl (6.2-12.0); Monocyte# 0.75 X10^3/uL; Monocyte% 9.6 % (0-10); NRBC Flagged by Analyzer 0 % (0-5); Neutrophil # 3.79 X10^3/uL (2.7-7.7); Neutrophil % 48.2 % (47-70); Platelet Count 375 K/mm3 (150-450); RBC Distribution Width CV 15.8 % (11.6-14.6); RBC Distribution Width SD 52.8 fl (35.1-43.9); Red Blood Count 3.23 M/mm3 (4.2-5.4); White Blood Count 7.9 K/mm3 (4.4-11.0)
[2024-10-01 13:58] LABS: Cholesterol 152 mg/dL (<=200); High Density Lipoprotein 43 mg/dL; Low Density Lipoprotein Calc. 84 mg/dL; Triglycerides 124 mg/dL; Very Low Density Lipoprotein 25 mg/dL (5-40); cholesterol:hdl ratio screen 3.54
[2024-10-01 14:04] LABS: ALB/GLOB Ratio 1.7 RATIO (0.9-2.4); AST(SGOT) 31 U/L (<=31); Alanine Aminotransfer ALT/SGPT 9 U/L (<=34); Albumin, Serum 4.3 g/dL (3.4-4.8); Alkaline Phosphatase 150 U/L (35-104); Anion Gap 11 (5-15); BUN 10 mg/dL (4-19); Carbon Dioxide 22.4 mmol/L (21.0-32.0); Chloride 105 mmol/L (98-108); Creatinine, Serum 0.66 mg/dL (0.70-1.20); EST Glomerular Filtration Rate 90 (>60); Globulin 2.5 g/dL (2.2-4.2); Glucose 111 mg/dL (70-99); Protein, Total 6.8 g/dL (5.9-8.4); Sodium Level 138 mmol/L (133-145); Total Bilirubin 1.19 mg/dL (0.00-1.30); Vitamin D,25 Hydroxy 36.9 ng/mL (30-100)
== END | disposition home or self-care (01) ==
LOC: LAB 11:10
PROVIDERS: PCP Family Medicine Geriatric Medicine; Visit Provider Family Medicine Geriatric Medicine
DX: I10 Essential (primary) hypertension (principal); E55.9 Vitamin D deficiency, unspecified; E78.5 Hyperlipidemia, unspecified
CPT/HCPCS: 36415; 80053; 80061; 82306; 84443; 85025

== ENCOUNTER → 2024-10-07 | Outpatient (CLI) | payer SELFPAY ==
[2024-10-07 09:26] LABS: Absolute Lymphocyte Count 3.39 X10^3/uL (0.83-4.51); Absolute Neutrophil Count 3.4 X10^3/uL (2.0-7.7); Basophil# 0.07 X10^3/uL; Basophil% 0.9 % (0-1); Eosinophil# 0.31 X10^3/uL; Lymphocyte # 3.39 X10^3/ul (0.83-4.51); Lymphocyte % 43.3 % (19-41); Mean Platelet Vol. 10.2 fl (6.2-12.0); Monocyte# 0.62 X10^3/uL; Monocyte% 7.9 % (0-10); NRBC Flagged by Analyzer 0 % (0-5); Neutrophil # 3.41 X10^3/uL (2.7-7.7); Neutrophil % 43.5 % (47-70); POSITIVE MORPHOLOGY YES; Platelet Count 377 K/mm3 (150-450); White Blood Count 7.8 K/mm3 (4.4-11.0)
[2024-10-07 10:01] LABS: Mean Corpuscular Hgb 29.6 pg (27.0-32.0); RBC Distribution Width CV 15.1 % (11.6-14.6); RBC Distribution Width SD 49.2 fl (35.1-43.9)
[2024-10-07 10:02] LABS: Hematocrit 35.2 % (37-47); Hemoglobin 11.5 g/dL (12.0-15.0); Mean Corp Hgb Conc 32.7 g/dL (32-36); Mean Corpuscular Volume 90.5 fL (81-99); Red Blood Count 3.89 M/mm3 (4.2-5.4)
[2024-10-07 10:05] LABS: Differential Indicated SCAN CRITERIA MET
[2024-10-07 10:08] LABS: ALB/GLOB Ratio 1.6 RATIO (0.9-2.4); AST(SGOT) 26 U/L (<=31); Alanine Aminotransfer ALT/SGPT 7 U/L (<=34); Albumin, Serum 4.3 g/dL (3.4-4.8); Alkaline Phosphatase 170 U/L (35-104); Anion Gap 12 (5-15); BUN 14 mg/dL (4-19); BUN/Creat Ratio 21.6 RATIO (10-20); Calcium,Total 9.5 mg/dL (7.6-11.0); Carbon Dioxide 23.2 mmol/L (21.0-32.0); Chloride 104 mmol/L (98-108); Creatinine, Serum 0.63 mg/dL (0.70-1.20); EST Glomerular Filtration Rate 91 (>60); Globulin 2.6 g/dL (2.2-4.2); Glucose 116 mg/dL (70-99); LDH 271 U/L (84-246); Potassium 4.2 mmol/L (3.3-5.1); Protein, Total 6.9 g/dL (5.9-8.4); Sodium Level 140 mmol/L (133-145); Total Bilirubin 0.95 mg/dL (0.00-1.30)
[2024-10-07 11:01] LABS: Atypical Lymphocyte 1+ %
[2024-10-08 08:08] LABS: Haptoglobin < 10 mg/dL (42-346)
== END | disposition home or self-care (01) ==
LOC: LAB 09:02
PROVIDERS: PCP Family Medicine Geriatric Medicine; Visit Provider Internal Medicine Medical Oncology
DX: D53.9 Nutritional anemia, unspecified (principal); D59.10 Autoimmune hemolytic anemia, unspecified
CPT/HCPCS: 36415; 80053; 83010; 83615; 85025

== ENCOUNTER → 2024-11-25 | Outpatient (CLI) | payer MEDICARE, BC, SELFPAY ==
[2024-11-25 22:28] LABS: Absolute Lymphocyte Count 3.58 X10^3/uL (0.83-4.51); Absolute Neutrophil Count 5.2 X10^3/uL (2.0-7.7); Basophil# 0.07 X10^3/uL; Basophil% 0.7 % (0-1); Eosinophil# 0.27 X10^3/uL; Eosinophils% 2.7 % (0-5); Hematocrit 28.3 % (37-47); Hemoglobin 8.3 g/dL (12.0-15.0); Lymphocyte # 3.58 X10^3/ul (0.83-4.51); Lymphocyte % 35.2 % (19-41); Mean Corp Hgb Conc 29.3 g/dL (32-36); Mean Corpuscular Hgb 29.4 pg (27.0-32.0); Mean Corpuscular Volume 100.4 fL (81-99); Mean Platelet Vol. 10.2 fl (6.2-12.0); Monocyte# 0.93 X10^3/uL; Monocyte% 9.1 % (0-10); NRBC Flagged by Analyzer 0.2 % (0-5); Neutrophil # 5.24 X10^3/uL (2.7-7.7); Neutrophil % 51.5 % (47-70); POSITIVE MORPHOLOGY YES; Platelet Count 401 K/mm3 (150-450); RBC Distribution Width SD 58.5 fl (35.1-43.9); Red Blood Count 2.82 M/mm3 (4.2-5.4); White Blood Count 10.2 K/mm3 (4.4-11.0)
[2024-11-25 22:37] LABS: Differential Indicated SCAN CRITERIA MET
[2024-11-25 23:33] LABS: Atypical Lymphocyte RARE %
== END | disposition home or self-care (01) ==
LOC: LABSPEC 16:48
PROVIDERS: PCP Family Medicine Geriatric Medicine; Referring Provider Family Medicine Geriatric Medicine; Visit Provider Family Medicine Geriatric Medicine
DX: I10 Essential (primary) hypertension (principal)
CPT/HCPCS: 36415; 85025

== ENCOUNTER → 2024-11-26 | Outpatient (CLI) | payer MEDICARE, BC, SELFPAY | END | disposition home or self-care (01) | LOC: LABSPEC 10:12 | PROVIDERS: PCP Family Medicine Geriatric Medicine; Referring Provider Family Medicine Geriatric Medicine; Visit Provider Family Medicine Geriatric Medicine | DX: R19.7 Diarrhea, unspecified (principal) | CPT/HCPCS: 82274; 83630; 87177; 87209; 87493 ==

== ENCOUNTER → 2024-12-14 | Outpatient (CLI) | payer MEDICARE, BC, SELFPAY | END | disposition home or self-care (01) | LOC: POLAB3 11:02 | PROVIDERS: PCP Family Medicine Geriatric Medicine; Visit Provider Family Medicine Geriatric Medicine | DX: R68.83 Chills (without fever) (principal); D59.10 Autoimmune hemolytic anemia, unspecified | CPT/HCPCS: 87631 ==

== ENCOUNTER → 2024-12-18 | Outpatient (CLI) | payer MEDICARE, BC, SELFPAY ==
[2024-12-18 09:31] LABS: Immature Granulocytes Count 0.040 X10^3/uL (0.0-0.0); Mean Platelet Vol. 10.2 fl (6.2-12.0); NRBC Flagged by Analyzer 0 % (0-5); POSITIVE COUNT YES; POSITIVE MORPHOLOGY YES; Platelet Count 442 K/mm3 (150-450); White Blood Count 7.3 K/mm3 (4.4-11.0)
[2024-12-18 09:56] LABS: RBC Distribution Width CV 15.6 % (11.6-14.6); RBC Distribution Width SD 49.8 fl (35.1-43.9)
[2024-12-18 09:57] LABS: Mean Corp Hgb Conc 32.7 g/dL (32-36)
[2024-12-18 09:58] LABS: Hematocrit 26.0 % (37-47); Hemoglobin 8.5 g/dL (12.0-15.0); Mean Corpuscular Volume 90.6 fL (81-99); Red Blood Count 2.87 M/mm3 (4.2-5.4)
[2024-12-18 10:01] LABS: AST(SGOT) 21 U/L (<=31); Alanine Aminotransfer ALT/SGPT 7 U/L (<=34); Albumin, Serum 4.2 g/dL (3.4-4.8); Alkaline Phosphatase 159 U/L (35-104); Anion Gap 10 (5-15); BUN 18 mg/dL (4-19); BUN/Creat Ratio 27.7 RATIO (10-20); Calcium,Total 9.4 mg/dL (7.6-11.0); Carbon Dioxide 25.5 mmol/L (21.0-32.0); Chloride 104 mmol/L (98-108); Ferritin 508 ng/mL (22-378); Globulin 2.5 g/dL (2.2-4.2); Glucose 120 mg/dL (70-99); Potassium 4.0 mmol/L (3.3-5.1); Vitamin B12 1343 pg/mL (180-914)
[2024-12-18 10:46] LABS: Iron Binding Capacity,Unsat 142 ug/dL (228-428)
[2024-12-18 11:39] LABS: CRP < 3.00 mg/L (0.0-3.0); Iron 85 ug/dL (50-170); Iron Binding Capacity,Total 227 ug/dL (250-450); LDH 196 U/L (84-246)
[2024-12-22 16:09] LABS: Albumin 3.8 g/dL (2.9-4.4); Gamma Globulin 0.9 g/dL (0.4-1.8); Immunoglobulin A 252 mg/dL (64-422); Immunoglobulin G 887 mg/dL (586-1602); Immunoglobulin M 149 mg/dL (26-217); PROEL- TOTAL PROTEIN 6.3 g/dL (6.0-8.5)
== END | disposition home or self-care (01) ==
LOC: LAB 08:58
PROVIDERS: PCP Family Medicine Geriatric Medicine; Visit Provider Internal Medicine Medical Oncology
DX: D64.9 Anemia, unspecified (principal)
CPT/HCPCS: 36415; 80053; 82607; 82728; 82784; 83010; 83516; 83540; 83550; 83615; 83883; 84165; 85025; 86140; 86255; 86334

== ENCOUNTER → 2024-12-30 | Outpatient (CLI) | payer MEDICARE, BC, SELFPAY ==
[2024-12-30 10:12] LABS: Immature Granulocytes Count 0.030 X10^3/uL (0.0-0.0); NRBC Flagged by Analyzer 0 % (0-5); POSITIVE COUNT YES; POSITIVE MORPHOLOGY YES; White Blood Count 8.2 K/mm3 (4.4-11.0)
[2024-12-30 11:02] LABS: Hematocrit 27.0 % (37-47); Hemoglobin 8.5 g/dL (12.0-15.0); Mean Corp Hgb Conc 31.5 g/dL (32-36); Mean Corpuscular Volume 94.0 fL (81-99); Red Blood Count 2.85 M/mm3 (4.2-5.4)
[2024-12-30 11:03] LABS: Differential Indicated SCAN CRITERIA MET; RBC Distribution Width CV 15.5 % (11.6-14.6); RBC Distribution Width SD 52.2 fl (35.1-43.9)
[2024-12-30 11:11] LABS: Mean Platelet Vol. 10.1 fl (6.2-12.0); Platelet Count 405 K/mm3 (150-450)
[2024-12-30 11:23] LABS: Anisocytosis 2+; Differential Comment SCANNED
== END | disposition home or self-care (01) ==
LOC: LAB 10:01
PROVIDERS: PCP Family Medicine Geriatric Medicine; Visit Provider Internal Medicine Medical Oncology
DX: D64.9 Anemia, unspecified (principal)
CPT/HCPCS: 82668; 85025

== ENCOUNTER → 2025-01-26 | Outpatient (CLI) | payer MEDICARE, BC, SELFPAY ==
[2025-01-26 15:20] LABS: AST(SGOT) 26 U/L (<=31); Alanine Aminotransfer ALT/SGPT 8 U/L (<=34); Albumin, Serum 4.5 g/dL (3.4-4.8); Alkaline Phosphatase 145 U/L (35-104); Anion Gap 12 (5-15); BUN 12 mg/dL (4-19); BUN/Creat Ratio 14.7 RATIO (10-20); Calcium,Total 9.7 mg/dL (7.6-11.0); Carbon Dioxide 25.0 mmol/L (21.0-32.0); Chloride 104 mmol/L (98-108); Globulin 2.6 g/dL (2.2-4.2); Glucose 107 mg/dL (70-99); Potassium 4.1 mmol/L (3.3-5.1)
--- NOTE | 2025-01-26 16:30 | CT_ITS ---
PROCEDURE: CT ABDOMEN/PELVIS WITH CONTRAST 01/26/2025 REASON FOR EXAM: Evaluate for diverticulitis TECHNIQUE: CT ABDOMEN/PELVIS WITH CONTRAST Coronal and Sagittal reconstruction series were provided. One or more dose reduction techniques were used (e.g., Automated exposure control, adjustment of the mA and/or kV according to patient size, use of iterative reconstruction technique. RADIATION DOSE SUMMARY: DLP: 751.58 mGycm COMPARISON: Abdominal CT 10/18/2022. FINDINGS: Lung bases: Clear. Liver: No significant abnormality. Gallbladder: Surgically absent. No biliary ductal dilatation. Spleen: Normal size and morphology. Pancreas: Unremarkable. Adrenals: Unremarkable. Kidneys: Normal, symmetric enhancement. No urolithiasis or hydroureteronephrosis. Bladder: Unremarkable. Reproductive Organs: Prior hysterectomy. Unremarkable adnexal regions. Bowel: Small hiatal hernia. Oral contrast propagates to the transverse colon. No bowel obstruction. Postoperative changes of right hemicolectomy with distal ileocolonic anastomosis in the right midabdomen. Extensive distal colonic diverticulosis without any discrete wall thickening or inflammatory fat stranding to indicate active diverticulitis/colitis. Lymph nodes: No enlarged abdominopelvic lymph nodes. Vasculature: Normal caliber abdominal aorta and IVC. Mild atherosclerotic disease. Peritoneum / Retroperitoneum: No ascites or free air. Bones: Multilevel degenerative changes of the spine, with mild superior endplate chronic compression fracture deformity of L4, and mild grade 1 anterolisthesis of L5 on S1. Mild lumbar levoscoliotic curvature. Mild left and moderate-advanced right hip arthrosis. CT/Abdomen/Pelvis WITH Contrast IMPRESSION: 1. No bowel obstruction or active inflammatory process identified. 2. Extensive distal colonic diverticulosis, without evidence for active diverti culitis/colitis. 3. Prior right hemicolectomy with distal ileocolonic anastomosis. 4. Status post cholecystectomy and hysterectomy. Reading Location: [id number]
[2025-01-26 17:36] LABS: Mean Corp Hgb Conc 30.6 g/dL (32-36); Mean Corpuscular Volume 100.0 fL (81-99); Mean Platelet Vol. 10.8 fl (6.2-12.0); NRBC Flagged by Analyzer 0 % (0-5); POSITIVE COUNT YES; RBC Distribution Width CV 15.6 % (11.6-14.6); RBC Distribution Width SD 55.0 fl (35.1-43.9)
[2025-01-26 17:45] LABS: Hematocrit 31.0 % (37-47); Hemoglobin 9.5 g/dL (12.0-15.0); Red Blood Count 3.10 M/mm3 (4.2-5.4); White Blood Count 11.6 K/mm3 (4.4-11.0)
[2025-01-26 17:46] LABS: Platelet Count 375 K/mm3 (150-450)
[2025-01-26 17:49] LABS: Differential Indicated SCAN CRITERIA MET
[2025-01-26 19:03] LABS: Immature Granulocytes Count 0.020 X10^3/uL (0.0-0.0)
== END | disposition home or self-care (01) ==
LOC: CT 14:21
PROVIDERS: PCP Family Medicine Geriatric Medicine; Referring Provider Student in an Organized Health Care Education/Training Program; Visit Provider Student in an Organized Health Care Education/Training Program
DX: R10.9 Unspecified abdominal pain (principal)
CPT/HCPCS: 36415; 74177; 80053; 85025; Q9967

== ENCOUNTER 2025-03-16 14:00 | Outpatient (RCR) | payer MEDICARE, BC, SELFPAY | END 2025-04-02 23:59 | LOC: NS 14:00 | PROVIDERS: PCP Family Medicine Geriatric Medicine; Visit Provider Internal Medicine Medical Oncology | DX: Z71.3 Dietary counseling and surveillance (principal) ==

== ENCOUNTER → 2025-03-22 | Outpatient (CLI) | payer MEDICARE, BC, SELFPAY ==
[2025-03-22 12:51] LABS: Immature Granulocytes Count 0.010 X10^3/uL (0.0-0.0); Mean Corp Hgb Conc 32.2 g/dL (32-36); Mean Corpuscular Volume 90.8 fL (81-99); Mean Platelet Vol. 11.3 fl (6.2-12.0); NRBC Flagged by Analyzer 0 % (0-5); POSITIVE COUNT YES; POSITIVE DIFFERENTIAL YES; POSITIVE MORPHOLOGY YES; RBC Distribution Width CV 14.7 % (11.6-14.6); RBC Distribution Width SD 46.9 fl (35.1-43.9)
[2025-03-22 12:56] LABS: Hematocrit 29.5 % (37-47); Hemoglobin 9.5 g/dL (12.0-15.0); Platelet Count 370 K/mm3 (150-450); Red Blood Count 3.25 M/mm3 (4.2-5.4); White Blood Count 8.4 K/mm3 (4.4-11.0)
[2025-03-22 12:57] LABS: Differential Indicated SCAN CRITERIA MET
[2025-03-22 13:25] LABS: AST(SGOT) 31 U/L (<=31); Alanine Aminotransfer ALT/SGPT 9 U/L (<=34); Albumin, Serum 4.4 g/dL (3.4-4.8); Alkaline Phosphatase 145 U/L (35-104); Anion Gap 12 (5-15); BUN 6 mg/dL (4-19); BUN/Creat Ratio 10.2 RATIO (10-20); CPK Total, Creatine Kinase 51 U/L (24-195); Calcium,Total 9.7 mg/dL (7.6-11.0); Carbon Dioxide 24.7 mmol/L (21.0-32.0); Chloride 104 mmol/L (98-108); Cholesterol 222 mg/dL (<=200); Globulin 3.3 g/dL (2.2-4.2); Glucose 109 mg/dL (70-99); Low Density Lipoprotein Calc. 137 mg/dL; Potassium 4.3 mmol/L (3.3-5.1); Triglycerides 133 mg/dL; Troponin T High Sensitivity 8 ng/L (<=14); Very Low Density Lipoprotein 27 mg/dL (5-40); Vitamin D,25 Hydroxy 38.0 ng/mL (30-100); cholesterol:hdl ratio screen 3.63
[2025-03-23 08:09] LABS: Myoglobin, Serum 30 ng/mL (25-58)
== END | disposition home or self-care (01) ==
LOC: POLAB3 11:46
PROVIDERS: PCP Family Medicine Geriatric Medicine; Visit Provider Family Medicine Geriatric Medicine
DX: I10 Essential (primary) hypertension (principal); E03.9 Hypothyroidism, unspecified; I49.9 Cardiac arrhythmia, unspecified; E55.9 Vitamin D deficiency, unspecified; E78.5 Hyperlipidemia, unspecified
CPT/HCPCS: 36415; 80053; 80061; 82306; 82550; 83874; 84443; 84484; 85025

== ENCOUNTER → 2025-03-22 | Outpatient (CLI) | payer MEDICARE, BC, SELFPAY ==
--- NOTE | 2025-03-22 14:03 | VDLE_ITS ---
Reason For Study Reason For Study: Swelling/Pain LLE RIGHT LEFT CFV is compressible, spontaneous, phasic, competent GSV is normal. and demonstrates normal augmentation. CFV is compressible, spontaneous, phasic, competent, Procedure and demonstrates normal augmentation. This is a venous duplex using B-mode, color flow and FV is compressible, spontaneous, phasic, competent spectral Doppler. and demonstrates normal augmentation. Exam performed in department. POP V is compressible, spontaneous, phasic, competent A preliminary report was called and/or faxed to and demonstrates normal augmentation. Rommel. T/P Trunk is compressible. PTV is compressible. LT PerV is compressible. VL/Venous Duplex US, Unilateral Interpretation Summary Deep veins of the left lower extremity are patent and compressible segmentally. There is no evidence of left lower extremity deep vein thrombosis. Valvular competence appears intact within the p roximal deep venous system on the left . The left great saphenous vein appears patent and compressible segmentally. The right common femoral vein is patent and compressible . Ordering Physician: Adriel Carney Chi Referring Physician: Adriel Carney Chi Performed By: Shirley Delaney, EMILEE, RVT
== END | disposition home or self-care (01) ==
LOC: CVS 14:02
PROVIDERS: PCP Family Medicine Geriatric Medicine; Referring Provider Family Medicine Geriatric Medicine; Visit Provider Family Medicine Geriatric Medicine
DX: M79.89 Other specified soft tissue disorders (principal); M79.605 Pain in left leg
CPT/HCPCS: 93971

== ENCOUNTER 2025-05-04 13:43 | Outpatient (RCR) | payer MEDICARE, BC, SELFPAY | END 2025-06-02 23:59 | LOC: NS 13:43 | PROVIDERS: PCP Family Medicine Geriatric Medicine; Visit Provider Internal Medicine Medical Oncology | DX: Z71.3 Dietary counseling and surveillance (principal); K90.0 Celiac disease | CPT/HCPCS: 97803 ==

== ENCOUNTER → 2025-05-17 | Outpatient (CLI) | payer MEDICARE, BC, SELFPAY ==
[2025-05-17 15:02] LABS: AST(SGOT) 24 U/L (<=31); Alanine Aminotransfer ALT/SGPT 8 U/L (<=34); Albumin, Serum 4.4 g/dL (3.4-4.8); Alkaline Phosphatase 145 U/L (35-104); Anion Gap 10 (5-15); BUN 11 mg/dL (4-19); BUN/Creat Ratio 14.6 RATIO (10-20); Calcium,Total 9.5 mg/dL (7.6-11.0); Carbon Dioxide 24.1 mmol/L (21.0-32.0); Chloride 104 mmol/L (98-108); Globulin 2.6 g/dL (2.2-4.2); Glucose 111 mg/dL (70-99); LDH 279 U/L (84-246); Potassium 4.5 mmol/L (3.3-5.1)
[2025-05-17 21:07] LABS: Hematocrit 26.0 % (37-47); Hemoglobin 7.0 g/dL (12.0-15.0); Mean Corpuscular Volume 104.0 fL (81-99); Red Blood Count 2.50 M/mm3 (4.2-5.4); White Blood Count 10.0 K/mm3 (4.4-11.0)
[2025-05-17 21:08] LABS: Mean Corp Hgb Conc 26.9 g/dL (32-36)
[2025-05-17 21:09] LABS: Mean Platelet Vol. 10.0 fl (6.2-12.0); Platelet Count 486 K/mm3 (150-450)
[2025-05-17 21:10] LABS: Differential Indicated SCAN CRITERIA MET
[2025-05-17 22:30] LABS: RBC Distribution Width CV 20.0 % (11.6-14.6)
[2025-05-17 22:31] LABS: Differential Comment SCANNED; RBC Distribution Width SD 72.5 fl (35.1-43.9)
[2025-05-17 22:33] LABS: Anisocytosis 2+
[2025-05-17 22:34] LABS: Polychromasia 2+
[2025-05-17 22:39] LABS: Immature Granulocytes Count 0.020 X10^3/uL (0.0-0.0)
== END | disposition home or self-care (01) ==
LOC: LAB 05-18 07:35
PROVIDERS: PCP Family Medicine Geriatric Medicine; Referring Provider Internal Medicine Medical Oncology; Visit Provider Internal Medicine Medical Oncology
DX: D53.9 Nutritional anemia, unspecified (principal); D59.19 Other autoimmune hemolytic anemia
CPT/HCPCS: 80053; 83615; 85025